=== PATIENT | female | born 1970 | race Caucasian/White ===

== ENCOUNTER 2016-05-28 21:10 | Emergency (ER) | payer OTHER, BC ==
[~2016-05-28] VITALS: Ht 162.6 cm; Wt 109.8 kg
[~2016-05-28 21:10] MED LIST: ACET-461 PO; ALPR1TAB2 PO; ALPR1TAB7 PO; BIOCLEANSE PO; CALC-706 PO; CETI5TAB6 PO; CHLO1TAB14 PO; CHOL100011 PO; CPR500T PO; CYCL10TA9 PO; EST.1TD TOP; FLAX100031 PO; HORMONE; HYDR-3730 PO; HYDR-3812 PO; HYDR-3816 PO; HYOS0.1216 PO; IBUP-15 PO; IBUP-30 PO; IBUP200C14 PO; L. A1CAP7 PO; LIPA1CAP19 PO; LIPA1CAP27 PO; LORA1TAB5 PO; LORA1TAB59 PO; LRT10T; MAGN400T6 PO; METR500T PO; MONT10TA21 PO; MONT10TA24 PO; ONDA2VIA PO; ONDA4TAB8 PO; ONDN4T PO; OXYC-12 PO; OXYC1TAB87 PO; PANT40TA2 PO; PANT40VI3 PO; PEDI100T PO; RANI150T15 PO; RANI150T90 PO; RNT150T PO; SUCR1ORA5 PO; TRAM50TA2 PO; TRM50T PO; VITA400T9 PO
--- OUTSIDE RECORDS SUMMARY | 2016-05-28 21:17 | XMS REPORT | Continuity of Care Document ---
Author Author [facility] Organization [facility] Address Unknown Phone Unavailable Care Team Providers Care Solution Sales Senior Executive Name Role Phone Unverified, Unverified PCP Unavailable Source Comments Some departments are not documenting in the electronic medical record. If you do not see the information that you expected, contact Release of Information in the Health Information Management department at [phone] for further assistance in locating additional records.[facility] Active Allergies and Adverse Reactions Allergen Noted Date Severity Reactions Comments Codeine 04/20/2016 High DELUSIONS Tylenol 3 Other 04/20/2016 Medium RASH, ITCHING Antibiotic- can not remember the name Stadol 04/20/2016 Low HEADACHE Current Medications Prescription Sig. Disp. Refills Start End Date Status Date ALPRAZolam (XANAX) 1 mg Take 1 mg by mouth at Active tablet bedtime as needed for Anxiety. hyoscyamine sulfate Take 125 mcg by mouth Active (LEVSIN) 0.125 mg tablet every 4 hours as needed for Cramps. pancrelipase (ZENPEP 20) Take 2 Caps by mouth Active 20,000-68,000 -109,000 three times daily with units capsule meals. sucralfate (CARAFATE) 1 Take 1 g by mouth four Active gram tablet times daily. Take on an empty stomach. HYDROcodone/acetaminophen Take 1 Tab by mouth every Active (NORCO) 5/325 mg tablet 6 hours as needed for Pain Active Problems Not on file Most Recent Encounters Date Type Specialty Providers Description 06/07/2016 [facility] Diony Kebede MD Recurrent pancreatitis Encounter (HCC) 05/10/2016 Orders Only Pulmonology Lynette Kim MD SOB ( shortness of breath) (Primary Dx) 04/21/2016 Telephone Gastroenterology Shweta Serrano Appointment Request - [facility] - [facility] 04/20/2016 Hospital Diony Kebede MD Encounter 04/20/2016 Office Visit Gastroenterology Diony Kebede MD Recurrent pancreatitis (HCC) (Primary Dx); 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 Prep for Case Gastroenterology Diony Kebede MD Social History Tobacco Use Types Packs/Day Years Used Date Former Smoker Quit: 09/14/2010 Alcohol Use Drinks/Week oz/Week Comments No 0 Standard 0.0 drinks or equivalent Last Filed Vital Signs Vital Sign Reading Time Taken Blood Pressure 128/81 04/20/2016 10:14 AM [employer] BACK TENDER Pulse 81 04/20/2016 10:14 AM [employer] BACK T[employer]ER Temperature 36.5 C (97.7 F) 04/20/2016 10:14 AM [employer] BACK T[employer]ER Respiratory Rate 16 04/20/2016 10:14 AM [employer] BACK T[employer]ER Height 1.6 m (5' 3") 04/20/2016 10:14 AM [employer] BACK T[employer]ER Weight 109.77 kg (242 lb) 04/20/2016 10:14 AM [employer] BACK T[employer]ER Body Mass Index 42.88 04/20/2016 10:14 AM [employer] BACK T[employer]ER Oxygen Saturation - - Plan of Care Date Type Specialty Providers Description 06/06/2016 Appointment 06/06/2016 Appointment Pulmonology Lynette Kim MD [facility] [address] [place] [address] [phone] (Fax) 06/07/2016 Surgery Diony Kebede MD ESOPHAGOGASTRODUODENOSCOP [address] [facility] Y ENDOSCOPIC ULTRASOUND [address] [place] [address] [phone] (Fax) 07/13/2016 Appointment [place] [address] [place] [address] [address] [place] [address] [phone] (Fax) Health Maintenance Due Date Last Done Comments Physical (Comprehensive) 1976 Exam Pertussis Vaccine 1980 Tetanus Vaccine 1986 Cervical Cancer Screening 1990 Breast Cancer Screening 2009 Influenza Vaccine 12/03/2015 Results from Last 3 Months IGG SUBCLASSES (04/20/2016 11:29 AM) Component Value Range Total IgG 970Comment: Reference range: 767 to 1590 Unit: mg/dL [facility] IgG Subclasses #1 473Comment: Reference range: 341 to 894 Unit: mg/dL [facility] IgG Subclasses #2 263Comment: MG/DL Reference range: 171 to 632 [facility] IgG Subclasses #3 40.9Comment: Reference range: 18.4 to 106.0 Unit: mg/dL [facility] IgG Subclasses #4 13.9Comment: Reference range: 2.4 to 121.0 Unit: mg/dL [facility] Specimen Blood
[2016-05-28 21:37] LABS: BILIRUBIN,URINE NEGATIVE (NEGATIVE); KETONES,URINE NEGATIVE (NEGATIVE); LEUKOCYTE ESTERASE ,URINE NEGATIVE (NEGATIVE); NITRITE,URINE NEGATIVE (NEGATIVE); PH,URINE 6 (5-9); PROTEIN,URINE 1+ (NEGATIVE); UROBILINOGEN,URINE NORMAL (NORMAL)
[2016-05-28 21:45] LABS: SQUAMOUS EPITHELIAL CELL,UR 0-2 /HPF
--- NOTE | 2016-05-28 21:53 | ED Abdominal Pain ---
General Stated Complaint: AB AND BACK PAIN Source of Information: Patient Exam Limitations: No Limitations History of Present Illness Time Seen By Provider: 21:51 Initial Comments To ER with epigastric abdominal pain that radiates through to her back for the past 3-4 days. She has a history of chronic pancreatitis for which she has seen gastroenterology including Dr. Luciano and a specialist at [facility]. She's had an intensive workup performed, cholecystectomy, consideration for future sphincterotomy by [facility]. She also reports that she's had a productive cough for the past few days. No fevers. She did vomit once last night but is not currently nauseated. Timing/Duration: 2-3 Days Severity/Quality: Moderate Radiation: No Radiation Associated Symptoms: Back Pain Nausea/Vomiting Allergies and Home Medications Allergies Coded Allergies: ciprofloxacin (Verified Allergy, Severe, 07/10/14) severe itching at iv site codeine (Unverified Allergy, Unknown, 07/08/14) PT STATED WHEN SHE HAS TYLENOL AND CODEINE TOGETHER (TYLENOL #3) SHE HAS TERRIBLE NIGHTMARES. butorphanol (Unverified Adverse Reaction, Unknown, SEVERE HEADACHES, ) Home Medications Alprazolam 1 Mg Tablet 0.5-1 MG PO BID PRN PRN ANXIETY (Reported) Hydrocodone/Acetaminophen 1 Each Tablet #14 1 EACH PO Q4H PRN PRN PAIN Prescribed by: ADELIA ANDERSON on 10/27/15 1604 Hyoscyamine Sulfate 0.125 Mg Tablet 0.25 MG PO QID (Reported) TAKES 2 (0.125 MG) TABLETS BEFORE MEALS AND AT BEDTIME Ibuprofen 200 Mg Tablet 800 MG PO DAILY PRN PRN PAIN (Reported) TAKES 4 (200MG) TABLETS NEEDED FOR PAIN Lipase/Protease/Amylase 1 Each Capsule.dr 1 EACH PO (Reported) Loratadine/Pseudoephedrine 1 Each Tab.er.12h 1 EACH PO DAILY (Reported) Ondansetron 4 Mg Tab.rapdis #10 4 MG PO Q4H PRN PRN NAUSEA/VOMITING Prescribed by: ADELIA ANDERSON on 10/27/15 1604 Pantoprazole Sodium 40 Mg Tablet.dr #15 40 MG PO DAILY Prescribed by: MAGALIS ETIENNE on 12/09/15 2342 Ranitidine HCl 150 Mg Tablet 150 MG PO (Reported) Sucralfate 1 Gm/10 Ml Oral.susp #400 1 GM PO QID AC AND HS Prescribed by: MAGALIS ETIENNE on 12/09/15 3062 Review of Systems Constitutional: see HPI EENTM: No Symptoms Reported Respiratory: No Symptoms Reported Cardiovascular: No Symptoms Reported Gastrointestinal: See HPI Abdominal PainDenies Constipated, Denies Diarrhea, Nausea Vomiting Genitourinary: No Symptoms Reported Musculoskeletal: see HPI back pain Skin: no symptoms reported Psychiatric/Neurological: No Symptoms Reported Endocrine: No Symptoms Reported Past Acwaldb-Hpbxba-Iaspnq Hx Patient Social History Type Used: Cigarettes Former Smoker/When Quit: Sep 14, 2010 2nd Hand Smoke Exposure: Yes Recent Foreign Travel: No Contact w/Someone Who Travel: No Recent Hopitalizations: No Immunizations Up To Date Tetanus Booster (TDap): Less than 5yrs PED Vaccines UTD: No Date of Influenza Vaccine: Feb 26, 2016 Seasonal Allergies Seasonal Allergies: Yes Surgeries HX Surgeries: Yes Surgeries: Abdominal, Appendectomy, Gallbladder, Hysterectomy, Oophorectomy, Orthopedic, Pancreatic Respiratory Hx Respiratory Disorders: Yes (atelectasis, nocturnal hypoxia with O2 supplementation) Respiratory Disorders: Asthma, Pneumonia Cardiovascular Hx Cardiac Disorders: No Cardiac Disorders: Hypertension Neurological Hx Neurological Disorders: No 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 System Hx 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 Disorders: Yes (Hysterectomy due to fibroid tumors) Sexually Transmitted Disease: No HIV/AIDS: No Female 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 Disorders: Denies 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 Genitourinary Hx Genitourinary Disorders: No Gastrointestinal Hx Gastrointestinal Disorders: Yes (pancreatitis x4 2015; CHRONIC PANCREATITIS) Gastrointestinal Disorders: Pancreatitis Musculoskeletal Hx Musculoskeletal Disorders: Yes Musculoskeletal Disorders: Arthritis Endocrine Hx Endocrine Disorders: No HEENT HX ENT Disorders: No Loss of Vision: Denies Hearing Impairment: Denies Cancer Hx Cancer: No Psychosocial Hx Psychiatric Problems: Yes Behavioral Health Disorders: Anxiety Integumentary HX Skin/Integumentary Disorder: No Blood Transfusions Hx Blood Disorders: No Adverse Reaction to a Blood Tr: No Family Medical History Significant Family History: Heart Disease, COPD, Hypertension Family Medial History: Arthritis 03 MOTHER Cancer 03 MOTHER Cardiovascular disease 03 FATHER Deafness or hearing loss 03 FATHER Fibrocystic disease of breast 03 MOTHER Hypercholesterolemia 03 FATHER 03 MOTHER Hypertension 03 MOTHER Osteoporosis 03 MOTHER Respiratory disorder 03 MOTHER No Family History of: AIDS Abdominal aortic aneurysm Favio's disease Alcoholism Alzheimer's disease Asthma Cancer of mouth Cataracts Colon cancer Completed stroke Congenital disease Congenital heart disease Coronary thrombosis Cystic fibrosis Dementia Diabetes mellitus Drug abuse Dysphasia Gastroenteritis Glaucoma Headache disorder Infertility Kidney disease Myocardial infarction Neoplasm Not obtainable due to adoption Parkinson's disease Prostate cancer Psychosocial problem Seizure disorder Severe allergy Thyroid disease Tuberculosis Visual disorder Physical Exam Vital Signs Capillary Refill : General Appearance: WD/WN no apparent distress HEENT: PERRL/EOMI normal ENT inspection Neck: non-tender full range of motion Respiratory: normal breath sounds no respiratory distress no accessory muscle use Gastrointestinal: normal bowel sounds soft tenderness (epigastric) Extremities: normal range of motion non-tender Neurologic/Psychiatric: alert normal mood/affect oriented x 3 Skin: normal color warm/dry Progress/Results/Core Measures Results/Orders Lab Results Laboratory Tests Test 05/28/16 21:30 05/28/16 22:00 Range/Units Ur Tricyclic Antidepressants Screen NEGATIVE NEGATIVE Urine Amphetamines Screen NEGATIVE NEGATIVE Urine Bacteria TRACE /HPF Urine Barbiturates Screen NEGATIVE NEGATIVE Urine Benzodiazepines Screen POSITIVE H NEGATIVE Urine Bilirubin NEGATIVE NEGATIVE Urine Cannabinoids Screen NEGATIVE NEGATIVE Urine Casts NONE /LPF Urine Clarity SLIGHTLY CLOUDY Urine Cocaine Screen NEGATIVE NEGATIVE Urine Color YELLOW Urine Crystals NONE /LPF Urine Culture Indicated NO Urine Glucose (UA) NEGATIVE NEGATIVE Urine Ketones NEGATIVE NEGATIVE Urine Leukocyte Esterase NEGATIVE NEGATIVE Urine Methadone Screen NEGATIVE NEGATIVE Urine Methamphetamines Screen NEGATIVE NEGATIVE Urine Mucus NEGATIVE /LPF Urine Nitrite NEGATIVE NEGATIVE Urine Opiates Screen POSITIVE H NEGATIVE Urine Oxycodone Screen NEGATIVE NEGATIVE Urine Phencyclidine Screen NEGATIVE NEGATIVE Urine Propoxyphene Screen NEGATIVE NEGATIVE Urine Protein 1+ H NEGATIVE Urine RBC 0-2 /HPF Urine RBC (Auto) 1+ H NEGATIVE Urine Specific Oil Trough 1.020 1.016-1.022 Urine Squamous Epithelial Cells 0-2 /HPF Urine Urobilinogen NORMAL NORMAL MG/DL Urine WBC NONE /HPF Urine pH 6 5-9 Alanine Aminotransferase (ALT/SGPT) 43 0-55 U/L Albumin 3.9 3.2-4.5 G/DL Alkaline Phosphatase 119 40-136 U/L Amylase Level 82 25-125 U/L Anion Gap 13 5-14 MMOL/L Aspartate Amino Transf (AST/SGOT) 25 5-34 U/L BUN/Creatinine Ratio 12 Basophils # (Auto) 0.0 0.0-0.1 10^3/uL Basophils (%) (Auto) 0 0-10 % Blood Urea Nitrogen 10 7-18 MG/DL C-Reactive Protein High Sensitivity 1.02 H 0.00-0.50 MG/DL Calcium Level 9.0 8.5-10.1 MG/DL Carbon Dioxide Level 22 21-32 MMOL/L Chloride Level 107 98-107 MMOL/L Creatinine 0.86 0.60-1.30 MG/DL Eosinophils # (Auto) 0.4 H 0.0-0.3 10^3/uL Eosinophils (%) (Auto) 4 0-10 % Estimat Glomerular Filtration Rate > 60 Glucose Level 103 70-105 MG/DL Hematocrit 41 35-52 % Hemoglobin 13.5 11.5-16.0 G/DL Lipase 118 H 8-78 U/L Lymphocytes # (Auto) 3.4 1.0-4.0 X 10^3 Lymphocytes (%) (Auto) 38 12-44 % Mean Corpuscular Hemoglobin 26 25-34 PG Mean Corpuscular Hemoglobin Concent 33 32-36 G/DL Mean Corpuscular Volume 80 80-99 FL Mean Platelet Volume 10.2 7.4-10.4 FL Monocytes # (Auto) 0.5 0.0-1.0 X 10^3 Monocytes (%) (Auto) 6 0-12 % Neutrophils # (Auto) 4.5 1.8-7.8 X 10^3 Neutrophils (%) (Auto) 52 42-75 % Platelet Count 289 130-400 10^3/uL Potassium Level 3.8 3.6-5.0 MMOL/L Red Blood Count 5.15 4.35-5.85 10^6/uL Red Cell Distribution Width 14.1 10.0-14.5 % Sodium Level 142 135-145 MMOL/L Total Bilirubin 0.3 0.1-1.0 MG/DL Total Protein 6.9 6.4-8.2 G/DL White Blood Count 8.8 4.3-11.0 10^3/uL My Orders Orders-BILL HEREDIA APRN Ua Culture If Indicated (05/28/16 21:16) Cbc With Automated Diff (05/28/16 21:48) Comprehensive Metabolic Panel (05/28/16 21:48) Erythrocyte Sedimentation Rate (05/28/16 21:48) Hs C Reactive Protein (05/28/16 21:48) Drug Screen Stat (Urine) (05/28/16 21:48) Saline Lock/Iv-Start (05/28/16 21:48) Antacid Suspension (Mylanta Suspension (05/28/16 22:00) Lidocaine 2% Viscous 15 Ml (Xylocaine Vi (05/28/16 22:00) Chest Pa/Lat (2 View) (05/28/16 21:48) Fentanyl Injection (Sublimaze Injection (05/28/16 22:00) Amylase (05/28/16 21:50) Lipase (05/28/16 21:50) Medications Given in ED Current Medications Medications Dose Ordered Sig/Fili Route Start Time Stop Time Status Last Admin Dose Admin Al Hydrox/Mg Hydrox/Simethicone 30 ml ONCE ONCE PO 05/28/16 22:00 05/28/16 22:01 DC 05/28/16 22:05 30 ML Fentanyl Citrate 75 mcg ONCE ONCE IVP 05/28/16 22:00 05/28/16 22:01 DC 05/28/16 22:06 75 MCG Lidocaine HCl 15 ml ONCE ONCE PO 05/28/16 22:00 05/28/16 22:01 DC 05/28/16 22:05 15 ML Departure Communication Progress Notes Significantly improved pain after the fentanyl. Impression Impression: Primary Impression: Chronic pancreatitis Disposition: 01 HOME, SELF-CARE Condition: Improved Departure-Patient Inst. Decision time for Depature: 22:37 Referrals: [facility] (PCP/Family) Primary Care Physician Patient Instructions: Chronic Pancreatitis, Peritonitis Add. Discharge Instructions: 1. Return to ER for any concerns 2. Clear liquids only for the next 24 hours 3. Scripts Hydrocodone/Acetaminophen (Martin 5-325 Tablet)1 Each Tablet1 Each PO Q4H PRN PAIN #14 TAB Prov:BILL HEREDIA BUCKSHOT SWAGE OPERATOR 05/28/16 BILL HEREDIA BUCKSHOT SWAGE OPERATOR May 28, 2016 21:53
[2016-05-28] MEDS ORDERED: LIDOCAINE 2% VISCOUS 15 ML UDC PO ONE (22:00)
[2016-05-28] MEDS ORDERED: ANTACID SUSP 30 ML UDC (MYLANTA) PO ONE (22:00)
[2016-05-28] MEDS ORDERED: fentaNYL INJECTION 100 MCG/2 ML AMP IVP ONE (22:00)
[2016-05-28 22:07] LABS: BASOPHILS % (AUTO) 0 % (0-10); EOSINOPHILS # (AUTO) 0.4 10^3/uL (0.0-0.3); EOSINOPHILS % (AUTO) 4 % (0-10); LYMPHOCYTES # (AUTO) 3.4 X 10^3 (1.0-4.0); LYMPHOCYTES % (AUTO) 38 % (12-44); MEAN CORPUSCULAR HEMOGLOBIN 26 PG (25-34); MEAN CORPUSCULAR HGB CONC 33 G/DL (32-36); MEAN CORPUSCULAR VOLUME 80 FL (80-99); MEAN PLATELET VOLUME 10.2 FL (7.4-10.4); MONOCYTES # (AUTO) 0.5 X 10^3 (0.0-1.0); MONOCYTES % (AUTO) 6 % (0-12); NEUTROPHILS # (AUTO) 4.5 X 10^3 (1.8-7.8); NEUTROPHILS % (AUTO) 52 % (42-75); PLATELET COUNT 289 10^3/uL (130-400); RED BLOOD COUNT 5.15 10^6/uL (4.35-5.85); RED CELL DISTRIBUTION WIDTH 14.1 % (10.0-14.5); WHITE BLOOD COUNT 8.8 10^3/uL (4.3-11.0)
[2016-05-28 22:26] LABS: ALANINE AMINOTRANSFERASE 43 U/L (0-55); ALBUMIN 3.9 G/DL (3.2-4.5); AMYLASE 82 U/L (25-125); ANION GAP 13 MMOL/L (5-14); ASPARTATE AMINO TRANSFERASE 25 U/L (5-34); BILIRUBIN,TOTAL 0.3 MG/DL (0.1-1.0); BLOOD UREA NITROGEN 10 MG/DL (7-18); BUN/CREATININE RATIO 12; CARBON DIOXIDE 22 MMOL/L (21-32); CHLORIDE 107 MMOL/L (98-107); CREATININE SERUM 0.86 MG/DL (0.60-1.30); GFR ESTIMATED > 60; GLUCOSE 103 MG/DL (70-105); LIPASE 118 U/L (8-78); POTASSIUM 3.8 MMOL/L (3.6-5.0); SODIUM 142 MMOL/L (135-145); TOTAL PROTEIN 6.9 G/DL (6.4-8.2); hs C REACTIVE PROTEIN 1.02 MG/DL (0.00-0.50)
[2016-05-28 22:37] LABS: ERYTHROCYTE SEDIMENTATION RATE 11 MM/HR (0-20)
[2016-05-28] MEDS ORDERED: HYDR-757 PO (22:38)
[2016-05-28 22:45] VITALS: BP 125/88
[2016-05-28] MEDS ORDERED: oxyCODONE/APAP 5/325MG (PERCOCET 5) TABLET PO ONE (22:45)
--- NOTE | 2016-05-29 07:07 | Diagnostic Imaging Report ---
INDICATION: Back pain COMPARISON: 08/12/2015 FINDINGS: Two views of the chest were obtained. Heart size is normal. The pulmonary vessels appear unremarkable. There is no pneumothorax, mediastinal widening or pleural fluid demonstrated. The lungs are clear. No osseous abnormality is seen. IMPRESSION: No radiographic evidence of an acute cardiopulmonary abnormality. Dictated by: Dictated on workstation # [id number]
== END 2016-05-28 22:48 | disposition home or self-care (01) ==
LOC: EDUNIT# 21:10 → ER 21:13
DX: K86.1 Other chronic pancreatitis (principal); Z79.899 Other long term (current) drug therapy
CPT/HCPCS: 36415; 71020; 80053; 80306; 81000; 82150; 83690; 85025; 85652; 86141; 96374

== ENCOUNTER 2016-06-02 04:55 | Emergency (ER) | payer OTHER, BC ==
[~2016-06-02] VITALS: Ht 160 cm; Wt 109.3 kg
[~2016-06-02 04:55] MED LIST changes: +HYDR-757 PO
--- OUTSIDE RECORDS SUMMARY | 2016-06-02 05:01 | XMS REPORT | Continuity of Care Document ---
Author Author [facility] Organization [facility] Address Unknown Phone Unavailable Care Team Providers Care Project Superintendent Name Role Phone Unverified, Unverified PCP Unavailable Source Comments Some departments are not documenting in the electronic medical record. If you do not see the information that you expected, contact Release of Information in the Health Information Management department at [phone] for further assistance in locating additional records.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 Pulse 81 04/20/2016 10:14 AM PROFESSIONAL ATHLETES COACH Temperature 36.5 C (97.7 F) 04/20/2016 10:14 AM PROFESSIONAL ATHLETES COACH Respiratory Rate 16 04/20/2016 10:14 AM PROFESSIONAL ATHLETES COACH Height 1.6 m (5' 3") 04/20/2016 10:14 AM PROFESSIONAL ATHLETES COACH Weight 109.77 kg (242 lb) 04/20/2016 10:14 AM PROFESSIONAL ATHLETES COACH Body Mass Index 42.88 04/20/2016 10:14 AM PROFESSIONAL ATHLETES COACH Oxygen Saturation - - Plan of Care Date Type Specialty Providers Description 06/06/2016 Appointment 06/06/2016 Appointment Pulmonology Lynette Kim MD [facility] [address] [place] [address] [phone] (Fax) 06/07/2016 Surgery Diony Kebede MD ESOPHAGOGASTRODUODENOSCOP [address] [facility] Y ENDOSCOPIC ULTRASOUND [address] [place] [address] [phone] (Fax) 07/13/2016 Appointment [place] [address] [place] [address] [address] [place] [address] [phone] (Fax) Health Maintenance Due Date Last Done Comments Physical (Comprehensive) 1977 Exam Pertussis Vaccine 1980 Tetanus Vaccine 1986 Cervical Cancer Screening 1990 Breast Cancer Screening 2009 Influenza Vaccine 12/02/2016 Results from Last 3 Months IGG SUBCLASSES (04/20/2016 11:29 AM) Component Value Range Total IgG 970Comment: Reference range: 767 to 1590 Unit: mg/dL [facility] IgG Subclasses #1 473Comment: Reference range: 341 to 894 Unit: mg/dL [facility] IgG Subclasses #2 263Comment: MG/DL Reference range: 171 to 632 [facility] IgG Subclasses #3 40.9Comment: Reference range: 18.4 to 106.0 Unit: mg/dL [facility] IgG Subclasses #4 13.9Comment: Reference range: 2.4 to 121.0 Unit: mg/dL [facility] Specimen Blood
[2016-06-02] MEDS ORDERED: RT-ALBUTEROL/IPRATROPIUM 3 ML (DUONEB) VIAL INH ONE (05:30)
--- NOTE | 2016-06-02 05:45 | ED Respiratory ---
General Chief Complaint: Cough/Cold/Flu Symptoms Stated Complaint: SOB,VOMITING,ABD PAIN,COUGHING Nursing Triage Note: PT TO ED 5 W/ C/O SOA ONSET X2WKS. PT REPORTS WAS DX W/ THE FLU X2WKS AGO ET HAS HAD COUGH ET SOA SINCE. PT STATES SHE RECEIVED A STEROID SHOT MONDAY BUT DENIES IMPROVEMENT. PT ALSO C/O GENERALIZED ACHES SINCE Source: patient Exam Limitations: no limitations (ANAND GUNN MD) History of Present Illness Time seen by provider: 05:41 Initial Comments Patient complains of nonproductive cough and shortness of air for the past 2 weeks. This has been ever since she was diagnosed with the flu. She received a steroid shot last week and her primary care physician's office. She is coughing so hard that her upper abdomen hurts. She has a history of chronic pancreatitis and was seen for this a few days ago. She has some vomiting ( vomited once yesterday). Stools have been normal. She denies fevers. (ANAND GUNN MD) Allergies and Home Medications Allergies Coded Allergies: ciprofloxacin (Verified Allergy, Severe, 07/10/14) severe itching at iv site codeine (Unverified Allergy, Unknown, 07/08/14) PT STATED WHEN SHE HAS TYLENOL AND CODEINE TOGETHER (TYLENOL #3) SHE HAS TERRIBLE NIGHTMARES. butorphanol (Unverified Adverse Reaction, Unknown, SEVERE HEADACHES, ) Home Medications Alprazolam 1 Mg Tablet 0.5-1 MG PO BID PRN PRN ANXIETY (Reported) Hydrocodone/Acetaminophen 1 Each Tablet #14 1 EACH PO Q4H PRN PRN PAIN Prescribed by: ADELIA ANDERSON on 10/27/15 1604 Hydrocodone/Acetaminophen 1 Each Tablet #14 1 EACH PO Q4H PRN PRN PAIN Prescribed by: BILL HEREDIA on 05/28/16 2238 Hyoscyamine Sulfate 0.125 Mg Tablet 0.25 MG PO QID (Reported) TAKES 2 (0.125 MG) TABLETS BEFORE MEALS AND AT BEDTIME Ibuprofen 200 Mg Tablet 800 MG PO DAILY PRN PRN PAIN (Reported) TAKES 4 (200MG) TABLETS NEEDED FOR PAIN Lipase/Protease/Amylase 1 Each Capsule.dr 1 EACH PO (Reported) Loratadine/Pseudoephedrine 1 Each Tab.er.12h 1 EACH PO DAILY (Reported) Ondansetron 4 Mg Tab.rapdis #10 4 MG PO Q4H PRN PRN NAUSEA/VOMITING Prescribed by: ADELIA ANDERSON on 10/27/15 1604 Pantoprazole Sodium 40 Mg Tablet.dr #15 40 MG PO DAILY Prescribed by: MAGALIS ETIENNE on 12/09/15 234 Ranitidine HCl 150 Mg Tablet 150 MG PO (Reported) Sucralfate 1 Gm/10 Ml Oral.susp #400 1 GM PO QID AC AND HS Prescribed by: MAGALIS ETIENNE on 12/09/15 2342 Constitutional: No fever, malaise weakness EENTM: nose congestion Respiratory: cough short of breath wheezing Cardiovascular: no symptoms reported Gastrointestinal: abdominal pain Musculoskeletal: no symptoms reported Skin: no symptoms reported Psychiatric/Neurological: No Symptoms Reported (ANAND GUNN MD) All Other Systems Reviewed Negative Unless Noted: Yes (ANAND GUNN MD) Past Uaephup-Qthuua-Wmgkde Hx Patient Social History Alcohol Use: Denies Use Recreational Drug Use: No Smoking Status: Former Smoker Type Used: Cigarettes Former Smoker/When Quit: Sep 14, 2010 2nd Hand Smoke Exposure: Yes Recent Foreign Travel: No Contact w/Someone Who Travel: No Recent Infectious Disease Expo: No Recent Hopitalizations: No (ANAND GUNN MD) Immunizations Up To Date Tetanus Booster (TDap): Less than 5yrs PED Vaccines UTD: No Date of Influenza Vaccine: Feb 26, 2016 (ANAND GUNN MD) Seasonal Allergies Seasonal Allergies: Yes (ANAND GUNN MD) Surgeries HX Surgeries: Yes Surgeries: Abdominal, Appendectomy, Gallbladder, Hysterectomy, Oophorectomy, Orthopedic, Pancreatic (ANAND GUNN MD) Respiratory Hx Respiratory Disorders: Yes (atelectasis, nocturnal hypoxia with O2 supplementation) Respiratory Disorders: Asthma, Pneumonia (ANAND GUNN MD) Cardiovascular Hx Cardiac Disorders: No Cardiac Disorders: Hypertension (ANAND GUNN MD) Neurological Hx Neurological Disorders: No (ANAND GUNN MD) 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 System Hx 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 Disorders: Yes (Hysterectomy due to fibroid tumors) Sexually Transmitted Disease: No HIV/AIDS: No Female 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 Disorders: 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 (ANAND GUNN MD) Genitourinary Hx Genitourinary Disorders: No (ANAND GUNN MD) Gastrointestinal Hx Gastrointestinal Disorders: Yes (pancreatitis x4 2015; CHRONIC PANCREATITIS) Gastrointestinal Disorders: Pancreatitis (ANAND GUNN MD) Musculoskeletal Hx Musculoskeletal Disorders: Yes Musculoskeletal Disorders: Arthritis (ANAND GUNN MD) Endocrine Hx Endocrine Disorders: No (ANAND GUNN MD) HEENT HX ENT Disorders: No Loss of Vision: Denies Hearing Impairment: Denies (ANAND GUNN MD) Cancer Hx Cancer: No (ANAND GUNN MD) Psychosocial Hx Psychiatric Problems: Yes Behavioral Health Disorders: Anxiety (ANAND GUNN MD) Integumentary HX Skin/Integumentary Disorder: No (ANAND GUNN MD) Blood Transfusions Hx Blood Disorders: No Adverse Reaction to a Blood Tr: No (ANAND GUNN MD) Reviewed Nursing Assessment Reviewed/Agree w Nursing PMH: Yes (ANAND GUNN MD) Family Medical History Significant Family History: Heart Disease, COPD, Hypertension Family Medial History: Arthritis 03 MOTHER Cancer 03 MOTHER Cardiovascular disease 03 FATHER Deafness or hearing loss 03 FATHER Fibrocystic disease of breast 03 MOTHER Hypercholesterolemia 03 FATHER 03 MOTHER Hypertension 03 MOTHER Osteoporosis 03 MOTHER Respiratory disorder 03 MOTHER No Family History of: AIDS Abdominal aortic aneurysm Alpine's disease Alcoholism Alzheimer's disease Asthma Cancer of mouth Cataracts Colon cancer Completed stroke Congenital disease Congenital heart disease Coronary thrombosis Cystic fibrosis Dementia Diabetes mellitus Drug abuse Dysphasia Gastroenteritis Glaucoma Headache disorder Infertility Kidney disease Myocardial infarction Neoplasm Not obtainable due to adoption Parkinson's disease Prostate cancer Psychosocial problem Seizure disorder Severe allergy Thyroid disease Tuberculosis Visual disorder (ANAND GUNN MD) Family Medial History: Arthritis 03 MOTHER Cancer 03 MOTHER Cardiovascular disease 03 FATHER Deafness or hearing loss 03 FATHER Fibrocystic disease of breast 03 MOTHER Hypercholesterolemia 03 FATHER 03 MOTHER Hypertension 03 MOTHER Osteoporosis 03 MOTHER Respiratory disorder 03 MOTHER No Family History of: AIDS Abdominal aortic aneurysm Alpine's disease Alcoholism Alzheimer's disease Asthma Cancer of mouth Cataracts Colon cancer Completed stroke Congenital disease Congenital heart disease Coronary thrombosis Cystic fibrosis Dementia Diabetes mellitus Drug abuse Dysphasia Gastroenteritis Glaucoma Headache disorder Infertility Kidney disease Myocardial infarction Neoplasm Not obtainable due to adoption Parkinson's disease Prostate cancer Psychosocial problem Seizure disorder Severe allergy Thyroid disease Tuberculosis Visual disorder (MARLA AMEZQUITA MD) Physical Exam Vital Signs Vital Sign - Last 12Hours 06/02/16 04:59 Temp 98.9 Pulse 98 Resp 24 B/P 149/89 Pulse Ox 92 O2 Delivery Room Air (MARLA AMEZQUITA MD) Vital Signs Capillary Refill : Less Than 3 Seconds (ANAND GUNN MD) General Appearance: WD/WN mild distress (intermittent weak cough) Eyes: Bilateral Eye EOMI, Bilateral Eye Normal Inspection, Bilateral Eye PERRL HEENT: PERRL/EOMI pharynx normal Neck: supple Respiratory: lungs clear normal breath sounds Cardiovascular: regular rate, rhythm no edema Gastrointestinal: softNo distended, No guarding, No rebound, tenderness ( tender in epigastrium) Extremities: normal inspection Neurologic/Psychiatric: alert normal mood/affect Skin: normal color warm/dry (ANAND GUNN MD) Progress/Results/Core Measures Results/Orders Lab Results Laboratory Tests Test 06/02/16 05:24 Range/Units Alanine Aminotransferase (ALT/SGPT) 45 0-55 U/L Albumin 3.7 3.2-4.5 G/DL Alkaline Phosphatase 124 40-136 U/L Anion Gap 13 5-14 MMOL/L Aspartate Amino Transf (AST/SGOT) 31 5-34 U/L BUN/Creatinine Ratio 12 Band Neutrophils 0 % Basophils # (Auto) 0.0 0.0-0.1 10^3/uL Basophils % (Manual) 0 % Basophils (%) (Auto) 0 0-10 % Blood Urea Nitrogen 10 7-18 MG/DL Calcium Level 8.7 8.5-10.1 MG/DL Carbon Dioxide Level 19 L 21-32 MMOL/L Chloride Level 107 98-107 MMOL/L Creatinine 0.84 0.60-1.30 MG/DL Eosinophils # (Auto) 0.3 0.0-0.3 10^3/uL Eosinophils % (Manual) 3 % Eosinophils (%) (Auto) 2 0-10 % Estimat Glomerular Filtration Rate > 60 Glucose Level 99 70-105 MG/DL Hematocrit 39 35-52 % Hemoglobin 12.8 11.5-16.0 G/DL Lipase 24 8-78 U/L Lymphocytes # (Auto) 3.7 1.0-4.0 X 10^3 Lymphocytes % (Manual) 24 % Lymphocytes (%) (Auto) 22 12-44 % Mean Corpuscular Hemoglobin 26 25-34 PG Mean Corpuscular Hemoglobin Concent 33 32-36 G/DL Mean Corpuscular Volume 80 80-99 FL Mean Platelet Volume 10.0 7.4-10.4 FL Microcytosis SLIGHT Monocytes # (Auto) 1.5 H 0.0-1.0 X 10^3 Monocytes % (Manual) 9 % Monocytes (%) (Auto) 9 0-12 % Neutrophils # (Auto) 11.4 H 1.8-7.8 X 10^3 Neutrophils % (Manual) 64 % Neutrophils (%) (Auto) 68 42-75 % Platelet Count 361 130-400 10^3/uL Potassium Level 3.4 L 3.6-5.0 MMOL/L Red Blood Count 4.85 4.35-5.85 10^6/uL Red Cell Distribution Width 14.4 10.0-14.5 % Sodium Level 139 135-145 MMOL/L Total Bilirubin 0.6 0.1-1.0 MG/DL Total Protein 6.4 6.4-8.2 G/DL White Blood Count 16.9 H 4.3-11.0 10^3/uL (MARLA AMEZQUITA MD) My Orders Orders-MARLA AMEZQUITA MD Ns Iv 1000 Ml (Sodium Chloride 0.9%) (06/02/16 07:00) Ketorolac Injection (Toradol Injection) (06/02/16 07:15) Antacid Suspension (Mylanta Suspension (06/02/16 07:15) Lidocaine 2% Viscous 15 Ml (Xylocaine Vi (06/02/16 07:15) (MARLA AMEZQUITA MD) Medications Given in ED Current Medications Medications Dose Ordered Sig/Fili Route Start Time Stop Time Status Last Admin Dose Admin Al Hydrox/Mg Hydrox/Simethicone 30 ml ONCE ONCE PO 06/02/16 07:15 06/02/16 07:16 DC 06/02/16 07:21 30 ML Albuterol/ Ipratropium 3 ml ONCE ONCE INH 06/02/16 05:30 06/02/16 05:31 DC 06/02/16 05:41 3 ML Ketorolac Tromethamine 30 mg ONCE ONCE IVP 06/02/16 07:15 06/02/16 07:16 DC 06/02/16 07:22 30 MG Lidocaine HCl 5 ml ONCE ONCE PO 06/02/16 07:15 06/02/16 07:16 DC 06/02/16 07:22 5 ML (MARLA AMEZQUITA MD) Vital Signs/I&O Vital Sign - Last 12Hours 06/02/16 06/02/16 06/02/16 04:59 04:59 05:41 Temp 98.9 Pulse 98 Resp 24 B/P 149/89 Pulse Ox 92 94 O2 Delivery Room Air Room Air (MARLA AMEZQUITA MD) Blood Pressure Mean: 109 Progress Note : Time: 06:00 Progress Note Care was transferred to Dr. Amezquita at 0600 (ANAND GUNN MD) Departure Communication Progress Notes 10 30: The patient has continued to add to her list of complaints. Chest x-ray and lab are unremarkable. She has a 16,000 white count however it is noted that she was received steroids as an outpatient. Despite her past history of pancreatitis her lipase is normal. (MARLA AMEZQUITA MD) Impression Impression: Primary Impression: viral URI Disposition: HOME, SELF-CARE Condition: Stable/Unchanged Departure-Patient Inst. Decision time for Depature: 07:49 (MARLA AMEZQUITA MD) Referrals: [facility] (PCP/Family) Primary Care Physician Patient Instructions: Viral Upper Respiratory Infection, Adult (DC) Add. Discharge Instructions: All discharge instructions reviewed with patient and/or family. Voiced understanding. The indicators are that you have a viral upper respiratory infection. It has not been unusual for the symptoms to last 3 weeks or more. You should address your attention to increasing fluid intake. In addition Tylenol or ibuprofen are useful for fever or muscle aches. If further problems see your provider ANAND GUNN MD Jun 02, 2016 05:45 MARLA AMEZQUITA MD Jun 02, 2016 07:51
[2016-06-02 05:59] LABS: BASOPHILS % (AUTO) 0 % (0-10); EOSINOPHILS # (AUTO) 0.3 10^3/uL (0.0-0.3); EOSINOPHILS % (AUTO) 2 % (0-10); LYMPHOCYTES # (AUTO) 3.7 X 10^3 (1.0-4.0); LYMPHOCYTES % (AUTO) 22 % (12-44); MEAN CORPUSCULAR HEMOGLOBIN 26 PG (25-34); MEAN CORPUSCULAR HGB CONC 33 G/DL (32-36); MEAN CORPUSCULAR VOLUME 80 FL (80-99); MONOCYTES # (AUTO) 1.5 X 10^3 (0.0-1.0); MONOCYTES % (AUTO) 9 % (0-12); NEUTROPHILS # (AUTO) 11.4 X 10^3 (1.8-7.8); NEUTROPHILS % (AUTO) 68 % (42-75); PLATELET COUNT 361 10^3/uL (130-400); RED BLOOD COUNT 4.85 10^6/uL (4.35-5.85); RED CELL DISTRIBUTION WIDTH 14.4 % (10.0-14.5); WHITE BLOOD COUNT 16.9 10^3/uL (4.3-11.0)
[2016-06-02 06:12] LABS: ALANINE AMINOTRANSFERASE 45 U/L (0-55); ALBUMIN 3.7 G/DL (3.2-4.5); ANION GAP 13 MMOL/L (5-14); ASPARTATE AMINO TRANSFERASE 31 U/L (5-34); BILIRUBIN,TOTAL 0.6 MG/DL (0.1-1.0); BLOOD UREA NITROGEN 10 MG/DL (7-18); BUN/CREATININE RATIO 12; CALCIUM 8.7 MG/DL (8.5-10.1); CARBON DIOXIDE 19 MMOL/L (21-32); CHLORIDE 107 MMOL/L (98-107); CREATININE SERUM 0.84 MG/DL (0.60-1.30); GFR ESTIMATED > 60; GLUCOSE 99 MG/DL (70-105); LIPASE 24 U/L (8-78); POTASSIUM 3.4 MMOL/L (3.6-5.0); SODIUM 139 MMOL/L (135-145); TOTAL PROTEIN 6.4 G/DL (6.4-8.2)
--- NOTE | 2016-06-02 06:26 | Diagnostic Imaging Report ---
INDICATION: Shortness of air, chest pain. TECHNIQUE: Two view chest 6:19 AM CORRELATION STUDY: 05/28/2016 FINDINGS: The heart size, mediastinal configuration and pulmonary vasculature are within normal limits. There is minimal atelectasis or infiltrate left lung base. Small effusion also likely present. Mild compression deformity in the midthoracic vertebral body. IMPRESSION: 1. Suggestion of minimal atelectasis or infiltrate of the left lung base along with small left pleural effusion. Dictated by: Dictated on workstation # [id number]
[2016-06-02 06:31] LABS: BAND NEUTROPHILS 0 %; BASOPHILS % (MANUAL) 0 %; EOSINOPHILS % (MANUAL) 3 %; LYMPHOCYTES % (MANUAL) 24 %; MICROCYTOSIS SLIGHT; NEUTROPHILS % (MANUAL) 64 %
[2016-06-02] MEDS ORDERED: NS IV 1000 ML 1,000 ML IV SCH (07:00)
[2016-06-02] MEDS ORDERED: KETOROLAC 30 MG/ML VIAL IVP ONE (07:15)
[2016-06-02] MEDS ORDERED: LIDOCAINE 2% VISCOUS 15 ML UDC PO ONE (07:15)
[2016-06-02] MEDS ORDERED: ANTACID SUSP 30 ML UDC (MYLANTA) PO ONE (07:15)
[2016-06-02 08:28] VITALS: BP 121/57
== END 2016-06-02 08:28 | disposition home or self-care (01) ==
LOC: EDUNIT# 04:55 → ER 04:56
DX: J06.9 Acute upper respiratory infection, unspecified (principal); Z87.891 Personal history of nicotine dependence
CPT/HCPCS: 36415; 71020; 80053; 83690; 85007; 85027; 94640; 96361; 96374

== ENCOUNTER 2016-06-07 10:24 | Inpatient (IN) | payer OTHER, BC ==
[~2016-06-07] VITALS: Ht 160 cm; Wt 107.5 kg
[2016-06-07] MEDS ORDERED: cefTRIAXone INJECTION 1,000 MG in NS (IVPB) 50 ML IV SCH (10:30)
--- OUTSIDE RECORDS SUMMARY | 2016-06-07 11:26 | XMS REPORT | Continuity of Care Document ---
Author Author [facility] Organization [facility] Address Unknown Phone Unavailable Care Team Providers Care Processor Solid Propellant Name Role Phone Huey Kary PCP [phone] Source Comments Some departments are not documenting in the electronic medical record. If you do not see the information that you expected, contact Release of Information in the Health Information Management department at [phone] for further assistance in locating additional records.[facility] Active Allergies and Adverse Reactions [...] tablet 6 hours as needed for Pain umeclidinium 62.5 Inhale by mouth into the Active mcg/actuation dsdv lungs. olodaterol 2.5 Inhale 1 Puff by mouth Active mcg/actuation mist into the lungs. Active Problems Not on file Most Recent Encounters Date Type Specialty Providers Description 06/07/2016 [facility] Diony Kebede MD Recurrent pancreatitis Encounter (HCC) 06/06/2016 [facility] Lynette Kim MD Shortness of breath Encounter 06/06/2016 Office Visit Pulmonology Lynette Kim MD SOB ( shortness of breath) (Primary Dx) 06/06/2016 Hospital Radiology Lynette Kim MD Arrived Encounter 06/06/2016 [facility] Lynette Kim MD Encounter 06/06/2016 Surgery Diony Kebede MD ESOPHAGOGASTRODUODENOSCOP Y ENDOSCOPIC ULTRASOUND 06/03/2016 Abstract Pulmonology Lynette Kim MD 05/10/2016 Orders Only Pulmonology Lynette Kim MD SOB ( shortness of breath) (Primary Dx) 04/21/2016 Telephone Gastroenterology Shweta Serrano Appointment Request - Upper EUS - [facility] 04/20/2016 [facility] Diony Kebede MD Encounter 04/20/2016 Office Visit Gastroenterology Diony Kebede MD Recurrent pancreatitis (HCC) (Primary Dx); 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 Prep for Case Gastroenterology Diony Kebede MD Social History Tobacco Use Types Packs/Day Years Used Date Former Smoker Quit: 09/14/2010 Alcohol Use Drinks/Week oz/Week Comments No 0 Standard 0.0 drinks or equivalent Last Filed Vital Signs Vital Sign Reading Time Taken Blood Pressure 125/81 06/06/2016 12:58 PM 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 OPERATOR Pulse 94 06/06/2016 12:58 PM GAS SHOVEL OPERATOR Temperature 36.7 C (98.1 F) 06/06/2016 12:58 PM GAS SHOVEL OPERATOR Respiratory Rate 16 06/06/2016 12:58 PM GAS SHOVEL OPERATOR Height 1.6 m (5' 3") 06/06/2016 12:58 PM GAS SHOVEL OPERATOR Weight 108.41 kg (239 lb) 06/06/2016 12:58 PM GAS SHOVEL OPERATOR Body Mass Index 42.35 06/06/2016 12:58 PM GAS SHOVEL OPERATOR Oxygen Saturation 90% 06/06/2016 12:58 PM GAS SHOVEL OPERATOR Plan of Care Date Type Specialty Providers Description 07/13/2016 Appointment Gastroenterology Diony Kebede MD [address] [facility] [address] [place] [address] [phone] (Fax) Health Maintenance Due Date Last Done Comments Physical (Comprehensive) 1976 Exam Pertussis Vaccine 1980 Tetanus Vaccine 1986 Cervical Cancer Screening 1990 Breast Cancer Screening 2009 Influenza Vaccine 12/02/2016 Results from Last 3 Months [facility] REFERENCE TEST (06/06/2016 2:31 PM) Component Value Range Test Stachybotrys Panel II Reference Lab [facility] Results Ref Lab SEE REF LAB RESULT Specimen Mail SERUM IMMUNOGLOBULIN E (IGE) (06/06/2016 2:30 PM) Component Value Range IgE 56Comment: NOTE NEW METHODOLOGY AND REFERENCE <165 IU/ML RANGE Specimen Blood CBC AND DIFF (06/06/2016 2:30 PM) Component Value Range White Blood Cells 16.0 (H) 4.5-11.0 K/UL RBC 4.54 4.0-5.0 M/UL Hemoglobin 12.0 12.0-15.0 GM/DL Hematocrit 36.0 36-45 % MCV 79.4 (L) 80-100 FL MCH 26.4 26-34 PG MCHC 33.3 32.0-36.0 G/DL RDW 14.8 11-15 % Platelet Count 446 (H) 150-400 K/UL MPV 7.6 7-11 FL Neutrophils 74 41-77 % Lymphocytes 12 (L) 24-44 % Monocytes 10 4-12 % Eosinophils 4 0-5 % Basophils 0 0-2 % Absolute Neutrophil Count 11.80 (H) 1.8-7.0 K/UL Absolute Lymph Count 2.00 1.0-4.8 K/UL Absolute Monocyte Count 1.60 (H) 0-0.80 K/UL Absolute Eosinophil Count 0.60 (H) 0-0.45 K/UL Absolute Basophil Count 0.00 0-0.20 K/UL Specimen Blood CHEST 2 VIEWS (06/06/2016 10:53 AM) Impressions Patchy bilateral airspace opacities and focal consolidation in the left upper lobe, likely related to multifocal pneumonia.Recommend repeat two view chest radiograph following course of therapy. Finalized by Rayne Santana M.D. on 06/06/2016 12:26 PM. Dictated by Rayne Santana M.D. on 06/06/2016 12:23 PM. Narrative CHEST 2 VIEWS CLINICAL INDICATION: Female, 45 years; dyspnea COMPARISON: None FINDINGS: The heart size and pulmonary vasculature are within normal limits.There is focal consolidation in the lingula, with additional patchy airspace opacities in the right upper and bilateral lower lobes.Probable small bilateral pleural effusions.No pneumothorax. Procedure Note Interface, Radiant Results - MonJun 06, 2016 12:29 PM GAS SHOVEL OPERATOR CHEST 2 VIEWS CLINICAL INDICATION: Female, 45 years; dyspnea COMPARISON: None FINDINGS: The heart size and pulmonary vasculature are within normal limits. There is focal consolidation in the lingula, with additional patchy airspace opacities in the right upper and bilateral lower lobes. Probable small bilateral pleural effusions. No pneumothorax. IMPRESSION Patchy bilateral airspace opacities and focal consolidation in the left upper lobe, likely related to multifocal pneumonia. Recommend repeat two view chest radiograph following course of therapy. Finalized by Rayne Santana M.D. on 06/06/2016 12:26 PM. Dictated by Rayne Santana M.D. on 06/06/2016 12:23 PM. IGG SUBCLASSES (04/20/2016 11:29 AM) Component Value Range Total IgG 970Comment: Reference range: 767 to 1590 Unit: mg/dL [facility] IgG Subclasses #1 473Comment: Reference range: 341 to 894 Unit: mg/dL [facility] IgG Subclasses #2 263Comment: MG/DL Reference range: 171 to 632 [facility] IgG Subclasses #3 40.9Comment: Reference range: 18.4 to 106.0 Unit: mg/dL [facility] IgG Subclasses #4 13.9Comment: Reference range: 2.4 to 121.0 Unit: mg/dL [facility] Specimen Blood
[2016-06-07 11:30] VITALS: BP 114/80
[2016-06-07] MEDS ORDERED: ACETAMINOPHEN 500 MG TAB (TYLENOL) PO PRN (12:00)
[2016-06-07] MEDS ORDERED: fentaNYL INJECTION 100 MCG/2 ML AMP IVP PRN (12:00)
--- NOTE | 2016-06-07 12:23 | History & Physical-Hospitalist ---
HPI History of Present Illness: HPI/Chief Complaint CC: Wheezing and Dyspnea HPI: This is a 45-year-old white female it sees a worker's comp dental service chief at [facility] Dr. Vides who just saw the patient yesterday for possible black mold pneumonitis that has required nighttime oxygen for the past one year that presented to Dr. Arzate a [facility] today at the clinic was found to be hypoxic requiring IV steroids and empiric antibiotic coverage for pneumonitis and pulmonology consultation. She works at [employer] and used to see Dr. Juarez as her primary care provider. 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 Luciano for chronic pancreatitis but in postoperative state she had a bronchospasm that is continued to worsen through the last several months. She has been to the emergency room twice for left pleuritic chest pain but she has worsened with wheezing and shortness of breath requiring hospitalization. Source: patient Exam Limitations: clinical condition (severe shortness of breath) Date Seen 06/07/16 Attending Physician Kary Arzate MD PCP [facility] [place] Referring Physician Date of Admission Jun 07, 2016 at 11:19 Home Medications & Allergies Home Medications Reviewed patient Home Medication Reconciliation Form Allergies Coded Allergies: ciprofloxacin (Verified Allergy, Severe, 07/10/14) severe itching at iv site codeine (Unverified Allergy, Unknown, 07/08/14) PT STATED WHEN SHE HAS TYLENOL AND CODEINE TOGETHER (TYLENOL #3) SHE HAS TERRIBLE NIGHTMARES. 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[employer]) Smoking Status: Former Smoker (quit 6 years ago) Former smoker/When Quit: Sep 14, 2010 Type Used: Cigarettes 2nd Hand Smoke Exposure: Yes Recent Foreign Travel: No Contact w/other who traveled: No Recent Hopitalizations: No Immunizations Up To Date Tetanus Booster (TDap): Less than 5yrs Date of Influenza Vaccine: Feb 26, 2016 Seasonal Allergies Seasonal Allergies: Yes Surgeries HX Surgeries: Yes Surgeries: Abdominal, Appendectomy, Gallbladder, Hysterectomy, Oophorectomy, Orthopedic, Pancreatic Respiratory Hx Respiratory Disorders: Yes (atelectasis, nocturnal hypoxia with O2 supplementation) Respiratory Disorders: COPD Cardiovascular Hx Cardiovascular Disorders: Yes Cardiac Disorders: Hypertension Neurological Hx Neurological Disorders: No 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 System Hx 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 Disorders: Yes (Hysterectomy due to fibroid tumors) Sexually Transmitted Disease: No HIV/AIDS: No Female 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 Disorders: Denies Genitourinary Hx Genitourinary Disorders: No Gastrointestinal Hx Gastrointestinal Disorders: Yes (pancreatitis x4 2015; CHRONIC PANCREATITIS) Gastrointestinal Disorders: Pancreatitis Musculoskeletal Hx Musculoskeletal Disorders: Yes Musculoskeletal Disorders: Arthritis Endocrine Hx Endocrine Disorders: No HEENT HX ENT Disorders: No Loss of Vision: Denies Hearing Impairment: Denies Cancer Hx Cancer: No Psychosocial Hx Psychiatric Problems: Yes Behavioral Health Disorders: Anxiety Integumentary HX Skin/Integumentary Disorder: No Blood Transfusions Hx Blood Disorders: No Adverse Reaction to a Blood Tr: No Family Medical History Significant Family History: Heart Disease, COPD, Hypertension Family Hx: Arthritis 03 MOTHER Cancer 03 MOTHER Cardiovascular disease 03 FATHER Deafness or hearing loss 03 FATHER Fibrocystic disease of breast 03 MOTHER Hypercholesterolemia 03 FATHER 03 MOTHER Hypertension 03 MOTHER Osteoporosis 03 MOTHER Respiratory disorder 03 MOTHER No Family History of: AIDS Abdominal aortic aneurysm Favio's disease Alcoholism Alzheimer's disease Asthma Cancer of mouth Cataracts Colon cancer Completed stroke Congenital disease Congenital heart disease Coronary thrombosis Cystic fibrosis Dementia Diabetes mellitus Drug abuse Dysphasia Gastroenteritis Glaucoma Headache disorder Infertility Kidney disease Myocardial infarction Neoplasm Not obtainable due to adoption Parkinson's disease Prostate cancer Psychosocial problem Seizure disorder Severe allergy Thyroid disease Tuberculosis Visual disorder Review of Systems Constitutional: see HPI weakness EENTM: no symptoms reported Respiratory: cough dyspnea on exertion short of breath wheezing Cardiovascular: no symptoms reported Gastrointestinal: no symptoms reported Genitourinary: no symptoms reported Musculoskeletal: no symptoms reported Skin: no symptoms reported Psychiatric/Neurological: Anxiety All Other Systems Reviewed Negative Unless Noted: Yes Physical Exam Physical Exam Vital Signs Capillary Refill : General Appearance: No Apparent Distress WD/WN Chronically ill Obese Other ( pale and mota) Eyes: Bilateral Eye Normal Inspection, Bilateral Eye PERRL HEENT: PERRL/EOMI Normal ENT Inspection Pharynx Normal Neck: Full Range of Motion Normal Inspection Non Tender Supple Carotid Bruit Respiratory: Chest Non Tender No Respiratory Distress Crackles Decreased Breath Sounds Wheezing Cardiovascular: Regular Rate, Rhythm No Edema No Gallop No JVD No Murmur Normal Peripheral Pulses Gastrointestinal: Normal Bowel Sounds No Organomegaly No Pulsatile Mass Non Tender Soft Back: Normal Inspection No CVA Tenderness No Vertebral Tenderness Extremity: Normal Capillary Refill Normal Inspection Normal Range of Motion Non Tender No Calf Tenderness No Pedal Edema Neurologic/Psychiatric: Alert Oriented x3 No Motor/Sensory Deficits Normal Mood/Affect Other (very anxious and tearful) Skin: Normal Color Warm/Dry Lymphatic: No Adenopathy Assessment/Plan Admission Diagnosis Assessment: Severe hypoxia in long-term nighttime oxygen supplementation patient with reported black mold exposure seen dental service chief at [facility] for worker's comp History of chronic pancreatitis requiring stent placement by Dr. Luciano 4 Severe anxiety Depression Assessment and Plan Plan: IV steroids Pulmonology evaluation Chest chest x-ray Home meds Pain meds Cough syrup PAUL SILVER DO Jun 07, 2016 12:23
[2016-06-07] MEDS ORDERED: cefTRIAXone 1 GM (ROCEPHIN) VIAL ONE (12:30)
[2016-06-07] MEDS ORDERED: NS (IVPB) 50 ML ONE (12:31)
[2016-06-07] MEDS: BENZONATATE 100 MG (TESSALON) CAPSULE PO SCH ×2 (12:39→21:22)
[2016-06-07] MEDS: HYDROcodone/APAP 5 MG/325 MG (LORTAB) TAB PO PRN ×3 (12:39→21:26)
[2016-06-07] MEDS: ENOXAPARIN 40 MG/0.4 ML (LOVENOX) SYR SC SCH (12:40)
--- NOTE | 2016-06-07 12:47 | Diagnostic Imaging Report ---
INDICATION: Cough with shortness of breath Study is compared with 06/02/2016. FINDINGS: There has been a substantial adverse interval change with bilateral infiltrates involving left greater than right lower lobe and a peripheral infiltrate in the right upper lobe. Multifocal pneumonia is presumed. Heart size and vascularity is stable and unremarkable. No identifiable pleural fluid or pneumothorax. IMPRESSION: Bilateral pneumonias have become apparent without failure pattern or pleural abnormality identified. Dictated by: Dictated on workstation # [id number]
[2016-06-07 12:50] LABS: BASOPHILS % (AUTO) 0 % (0-10); EOSINOPHILS # (AUTO) 0.6 10^3/uL (0.0-0.3); EOSINOPHILS % (AUTO) 4 % (0-10); LYMPHOCYTES # (AUTO) 2.1 X 10^3 (1.0-4.0); LYMPHOCYTES % (AUTO) 13 % (12-44); MEAN CORPUSCULAR HEMOGLOBIN 26 PG (25-34); MEAN CORPUSCULAR HGB CONC 32 G/DL (32-36); MEAN CORPUSCULAR VOLUME 81 FL (80-99); MEAN PLATELET VOLUME 9.7 FL (7.4-10.4); MONOCYTES # (AUTO) 1.8 X 10^3 (0.0-1.0); MONOCYTES % (AUTO) 11 % (0-12); NEUTROPHILS # (AUTO) 12.4 X 10^3 (1.8-7.8); NEUTROPHILS % (AUTO) 73 % (42-75); PLATELET COUNT 463 10^3/uL (130-400); RED BLOOD COUNT 4.41 10^6/uL (4.35-5.85); RED CELL DISTRIBUTION WIDTH 14.3 % (10.0-14.5); WHITE BLOOD COUNT 16.9 10^3/uL (4.3-11.0)
[2016-06-07] MEDS ORDERED: [UNRECOGNIZED DRUG - CODE] PO (13:00)
[2016-06-07 13:05] LABS: BAND NEUTROPHILS 6 %; BASOPHILS % (MANUAL) 0 %; EOSINOPHILS % (MANUAL) 2 %; LYMPHOCYTES % (MANUAL) 16 %; NEUTROPHILS % (MANUAL) 70 %
[2016-06-07 13:06] LABS: POIKILOCYTOSIS SLIGHT
[2016-06-07 13:10] LABS: ALANINE AMINOTRANSFERASE 36 U/L (0-55); ALBUMIN 3.2 G/DL (3.2-4.5); ANION GAP 13 MMOL/L (5-14); ASPARTATE AMINO TRANSFERASE 19 U/L (5-34); BILIRUBIN,TOTAL 0.5 MG/DL (0.1-1.0); BLOOD UREA NITROGEN 6 MG/DL (7-18); BUN/CREATININE RATIO 8; CARBON DIOXIDE 28 MMOL/L (21-32); CHLORIDE 100 MMOL/L (98-107); GFR ESTIMATED > 60; GLUCOSE 94 MG/DL (70-105); POTASSIUM 3.2 MMOL/L (3.6-5.0); SODIUM 141 MMOL/L (135-145); TOTAL PROTEIN 6.8 G/DL (6.4-8.2)
[2016-06-07] MEDS ORDERED: DM H1CAP5 PO (13:27)
[2016-06-07] MEDS ORDERED: GUAI-818 PO (13:27)
[2016-06-07 16:00] VITALS: BP 130/79
[2016-06-07] MEDS: methylPREDNISolone 40 MG/ML (Solu-MEDROL) VIAL IV SCH ×2 (16:03→21:22)
[2016-06-07] MEDS: guaiFENesin/DM (ROBITUSSIN DM) 10 ML UDC PO PRN ×2 (16:53→21:22)
[2016-06-07] MEDS: RT-ALBUTEROL/IPRATROPIUM 3 ML (DUONEB) VIAL INH PRN (16:59)
[2016-06-07] MEDS: RT-ALBUTEROL/IPRATROPIUM 3 ML (DUONEB) VIAL INH SCH ×2 (18:42→22:54)
[2016-06-07 19:15] VITALS: BP 127/82
[2016-06-08] VITALS: BP 117/66
[2016-06-08] MEDS: ALPRAZolam 0.25 MG (XANAX) TAB PO PRN ×2 (00:13→21:30)
[2016-06-08] MEDS: guaiFENesin/DM (ROBITUSSIN DM) 10 ML UDC PO PRN ×4 (01:52→20:05)
[2016-06-08] MEDS: HYDROcodone/APAP 5 MG/325 MG (LORTAB) TAB PO PRN ×4 (01:59→20:05)
[2016-06-08] MEDS: RT-ALBUTEROL/IPRATROPIUM 3 ML (DUONEB) VIAL INH SCH ×6 (02:05→22:46)
[2016-06-08 04:00] VITALS: BP 110/71
[2016-06-08] MEDS: methylPREDNISolone 40 MG/ML (Solu-MEDROL) VIAL IV SCH ×3 (05:22→23:09)
[2016-06-08] MEDS: BENZONATATE 100 MG (TESSALON) CAPSULE PO SCH ×3 (07:45→20:05)
[2016-06-08 08:00] VITALS: BP 130/70
[2016-06-08] MEDS ORDERED: LORATADINE (CLARITIN) 10 MG TAB PO PRN (09:00)
[2016-06-08] MEDS ORDERED: KCL 20 MEQ TAB (K-DUR) PO NR (09:00)
[2016-06-08] MEDS ORDERED: PSEUDOEPHEDRINE HCL 30 MG (SUDAFED) TAB PO PRN (09:30)
[2016-06-08] MEDS ORDERED: PIPERACILLIN SODIUM/TAZOBACTAM 4.5 GM in NS (IVPB) 100 ML IV SCH (09:30)
--- NOTE | 2016-06-08 09:39 | Diagnostic Imaging Report ---
INDICATION: Left-sided chest pain Study compared to 06/07/2016. Bilateral infiltrates most notably in the right upper, left lower and right lower lobes have improved from the previous exam with no adverse development. No pneumothorax or appreciable pleural fluid. IMPRESSION: Bilateral pneumonias radiographically evident. Dictated by: Dictated on workstation # [id number]
[2016-06-08 09:49] LABS: BASOPHILS # (AUTO) 0.1 10^3/uL (0.0-0.1); BASOPHILS % (AUTO) 0 % (0-10); EOSINOPHILS % (AUTO) 0 % (0-10); LYMPHOCYTES # (AUTO) 2.1 X 10^3 (1.0-4.0); LYMPHOCYTES % (AUTO) 12 % (12-44); MEAN CORPUSCULAR HEMOGLOBIN 26 PG (25-34); MEAN CORPUSCULAR HGB CONC 32 G/DL (32-36); MEAN CORPUSCULAR VOLUME 81 FL (80-99); MEAN PLATELET VOLUME 9.9 FL (7.4-10.4); MONOCYTES # (AUTO) 0.5 X 10^3 (0.0-1.0); MONOCYTES % (AUTO) 3 % (0-12); NEUTROPHILS # (AUTO) 14.9 X 10^3 (1.8-7.8); NEUTROPHILS % (AUTO) 85 % (42-75); PLATELET COUNT 520 10^3/uL (130-400); RED CELL DISTRIBUTION WIDTH 14.3 % (10.0-14.5); WHITE BLOOD COUNT 17.5 10^3/uL (4.3-11.0)
[2016-06-08 10:14] LABS: ALANINE AMINOTRANSFERASE 32 U/L (0-55); ALBUMIN 3.1 G/DL (3.2-4.5); ANION GAP 9 MMOL/L (5-14); ASPARTATE AMINO TRANSFERASE 17 U/L (5-34); BILIRUBIN,TOTAL 0.3 MG/DL (0.1-1.0); BLOOD UREA NITROGEN 10 MG/DL (7-18); BUN/CREATININE RATIO 14; CALCIUM 8.9 MG/DL (8.5-10.1); CARBON DIOXIDE 27 MMOL/L (21-32); CHLORIDE 101 MMOL/L (98-107); CREATININE SERUM 0.69 MG/DL (0.60-1.30); GFR ESTIMATED > 60; GLUCOSE 178 MG/DL (70-105); POTASSIUM 3.4 MMOL/L (3.6-5.0); SODIUM 137 MMOL/L (135-145); TOTAL PROTEIN 6.6 G/DL (6.4-8.2)
[2016-06-08] MEDS: ENOXAPARIN 40 MG/0.4 ML (LOVENOX) SYR SC SCH (11:02)
--- NOTE | 2016-06-08 11:51 | Progress Note-Hospitalist ---
Progress Note HPI/CC on Admission CC: Wheezing and Dyspnea HPI: This is a 45-year-old white female it sees a [employer] comp account developer at [facility] Dr. Vides who just saw the patient yesterday for possible black mold pneumonitis that has required nighttime oxygen for the past one year that presented to Dr. Arzate a [facility] today at the clinic was found to be hypoxic requiring IV steroids and empiric antibiotic coverage for pneumonitis and pulmonology consultation. She works at [employer] a [facility] [employer] and used to see Dr. Juarez as her primary care provider. 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 Luciano for chronic pancreatitis but in postoperative state she had a bronchospasm that is continued to worsen through the last several months. She has been to the emergency room twice for left pleuritic chest pain but she has worsened with wheezing and shortness of breath requiring hospitalization. Progress Notes/Assess & Plan Date Seen 06/08/16 Admission Dx/Process Assessment: Severe hypoxia in long-term nighttime oxygen supplementation patient with reported black mold exposure seen account developer at [facility] for [employer] History of chronic pancreatitis requiring stent placement by Dr. Luciano 4 Severe anxiety Depression Diagonsis/Assessment & Plan Chart Review: No fever Vitals stable WBC 17.5 from 16.9 Platelets 520k K+ 3.4, added supplement CXR repeat today showed bilateral pneumonia Patient Interview: Pt states that she feels better today, but is fatigued and did not sleep well last night. Physical exam stable. Lungs much improved. Dr. Silver informs pt of antibiotic switch, and plans to continue IV steroids. Pt is appreciative. Pt states that she has pain, due to chronic pancreatitis. No fever, vital signs stable, pleasant, improved but chronically ill and long- term prognosis is guarded at this point Regular rate and rhythm, diminished breath sounds in the bases but wheezing much improved in the upper lobes No edema Laboratory Tests 06/08/16 09:12 Assessment: Severe hypoxia in long-term nighttime oxygen supplementation patient with reported black mold exposure seen account developer at [facility] for [employer] comp now with bilateral pneumonia placed on Zosyn History of chronic pancreatitis requiring stent placement by Dr. Luciano 4 Severe anxiety Depression Plan: DC Rocephin and Add Zosyn K+ supplement IV steroids Continuous home O2 Check labs in AM Consult Dr. [employer] SW consult IV steroids Home meds Pain meds Cough syrup Scribed by Hugo Oviedo under the direct supervision of Dr. Silver. PAUL SILVER DO Jun 08, 2016 11:51
[2016-06-08 12:00] VITALS: BP 128/60
--- NOTE | 2016-06-08 13:30 | Pulmonary Consultation ---
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 Vides and just saw patient yesterday secondary to possible black mold exposure. Pt has been requiring nocturnal oxygen x 1yr. Pt was found to be hypoxic and was admitted with IV steroids, and empiric abx.Pt also has hx of chronic pancreatitis and has had ERCP by Dr. Luciano. She has been to the emergency room twice for left pleuritic chest pain but she has worsened with wheezing and shortness of breath requiring hospitalization. Allergies and Home Medications Allergies Coded Allergies: ciprofloxacin (Verified Allergy, Severe, 07/10/14) severe itching at iv site codeine (Unverified Allergy, Unknown, 07/08/14) PT STATED WHEN SHE HAS TYLENOL AND CODEINE TOGETHER (TYLENOL #3) SHE HAS TERRIBLE NIGHTMARES. butorphanol (Unverified Adverse Reaction, Unknown, SEVERE HEADACHES, ) Home Medications Dm Hb/PE/Acetaminophen/Chlorph 1 Each Capsule 2 CAP PO Q4H PRN PRN COUGH ( Reported) Guaifenesin/Dextromethorphan 118 Ml Liquid 30 ML PO Q4H PRN PRN CONGESTION ( Reported) Ibuprofen 200 Mg Tablet 800 MG PO Q8H PRN PRN FEVER/PAIN (Reported) TAKES 4 (200MG) TABLETS NEEDED FOR PAIN Loratadine/Pseudoephedrine 1 Each Tab.er.24h 1 TAB PO DAILY PRN PRN ALLERGIES/ CONGESTION (Reported) Ranitidine HCl 150 Mg Tablet 150 MG PO HS (Reported) Past Gjsuhwq-Rshuvq-Dnezpr Hx Patient Social History Alcohol Use: Denies Use Recreational Drug Use: No Smoking Status: Former Smoker Type Used: Cigarettes Former Smoker/When Quit: Sep 14, 2010 2nd Hand Smoke Exposure: Yes Recent Foreign Travel: No Contact w/Someone Who Travel: No Recent Infectious Disease Expo: No Recent Hopitalizations: Yes (pancreatitis) Physical Abuse Screen: No Sexual Abuse: No Immunizations Up To Date Tetanus Booster (TDap): Less than 5yrs PED Vaccines UTD: No Date of Influenza Vaccine: Feb 26, 2016 Seasonal Allergies Seasonal Allergies: Yes Surgeries HX Surgeries: Yes Surgeries: Abdominal, Appendectomy, Gallbladder, Hysterectomy, Oophorectomy, Orthopedic, Pancreatic Respiratory Hx Respiratory Disorders: Yes (atelectasis, nocturnal hypoxia with O2 supplementation) Respiratory Disorders: Asthma, Pneumonia Cardiovascular Hx Cardiac Disorders: Yes Cardiac Disorders: Hypertension Neurological Hx Neurological Disorders: No 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 System Hx 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 Disorders: Yes (Hysterectomy due to fibroid tumors) Sexually Transmitted Disease: No HIV/AIDS: No Female 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 Disorders: Denies 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 Genitourinary Hx Genitourinary Disorders: No Gastrointestinal Hx Gastrointestinal Disorders: Yes (pancreatitis x4 2015; CHRONIC PANCREATITIS) Gastrointestinal Disorders: Pancreatitis Musculoskeletal Hx Musculoskeletal Disorders: Yes Musculoskeletal Disorders: Arthritis Endocrine Hx Endocrine Disorders: No HEENT HX ENT Disorders: No Loss of Vision: Denies Hearing Impairment: Denies Cancer Hx Cancer: No Psychosocial Hx Psychiatric Problems: Yes Behavioral Health Disorders: Anxiety Integumentary HX Skin/Integumentary Disorder: No Blood Transfusions Hx Blood Disorders: No Adverse Reaction to a Blood Tr: No Family Medical History Significant Family History: Heart Disease, COPD, Hypertension Family Medial History: Arthritis 03 MOTHER Cancer 03 MOTHER Cardiovascular disease 03 FATHER Deafness or hearing loss 03 FATHER Fibrocystic disease of breast 03 MOTHER Hypercholesterolemia 03 FATHER 03 MOTHER Hypertension 03 MOTHER Osteoporosis 03 MOTHER Respiratory disorder 03 MOTHER No Family History of: AIDS Abdominal aortic aneurysm Favio's disease Alcoholism Alzheimer's disease Asthma Cancer of mouth Cataracts Colon cancer Completed stroke Congenital disease Congenital heart disease Coronary thrombosis Cystic fibrosis Dementia Diabetes mellitus Drug abuse Dysphasia Gastroenteritis Glaucoma Headache disorder Infertility Kidney disease Myocardial infarction Neoplasm Not obtainable due to adoption Parkinson's disease Prostate cancer Psychosocial problem Seizure disorder Severe allergy Thyroid disease Tuberculosis Visual disorder Exam Exam Vital Signs Date Time Temp Pulse Resp B/P Pulse Ox O2 Delivery O2 Flow Rate FiO2 06/08/16 11:07 85 2.00 06/08/16 08:20 97.8 06/08/16 08:00 97.8 75 16 130/70 93 Nasal Cannula 2.00 2.00 06/08/16 07:52 Room Air 2.00 06/08/16 07:48 98.2 06/08/16 06:42 90 2.00 06/08/16 04:00 98.2 89 18 110/71 91 Room Air 2.00 2.00 06/08/16 02:06 86 06/08/16 00:00 98.2 81 20 117/66 91 Nasal Cannula 2.00 06/07/16 22:54 91 2.00 06/07/16 21:00 Room Air 2.00 06/07/16 19:15 99.0 98 24 127/82 92 Nasal Cannula 2.00 06/07/16 18:42 90 06/07/16 16:00 99.5 95 22 130/79 92 Room Air I & O 06/08/16 07:00 Intake Total 680 ml Output Total 500 ml Balance 180 ml General Appearance: No Apparent Distress WD/WN Chronically ill Obese Other ( pale and mota) HEENT: PERRL/EOMI Normal ENT Inspection Pharynx Normal Neck: Full Range of Motion Normal Inspection Non Tender Supple Carotid Bruit Respiratory: Chest Non Tender No Respiratory Distress Crackles Decreased Breath Sounds Wheezing Cardiovascular: Regular Rate, Rhythm No Edema No Gallop No JVD No Murmur Normal Peripheral Pulses Extremity: Normal Capillary Refill Normal Inspection Normal Range of Motion Non Tender No Calf Tenderness No Pedal Edema Neurologic/Psychiatric: Alert Oriented x3 No Motor/Sensory Deficits Normal Mood/Affect Other (very anxious and tearful) Skin: Normal Color Warm/Dry Lymphatic: No Adenopathy Results Lab Laboratory Tests 06/07/16 12:43 06/08/16 09:12 Assessment/Plan Assessment/Plan Pneumonia with hypoxia -Continue Zosyn -SVNs, oxygen Hx of black mold exposure Severe anxiety Depression Clinical Quality Measures DVT/VTE Risk/Contraindication: Risk Factor Score Per Nursin RFS Level Per Nursing on Admit: 2=Moderate HERBERT GUY DO Jun 08, 2016 13:30
[2016-06-08] MEDS: CATHETER FLUSH 10 ML SYR IV SCH ×2 (14:09→23:09)
[2016-06-08 15:40] VITALS: BP 111/73
[2016-06-08] MEDS: CATHETER FLUSH 10 ML SYR IV PRN ×2 (15:44→16:02)
[2016-06-08] MEDS: ONDANSETRON 4 MG/2 ML (SDV) Z0FRAN IVP PRN (16:01)
[2016-06-08] MEDS: PIPERACILLIN SODIUM/TAZOBACTAM 4.5 GM in NS (IVPB) 100 ML IV SCH ×2 (16:02→23:09)
[2016-06-08] MEDS: IBUPROFEN 800 MG (MOTRIN) TAB PO PRN (18:19)
[2016-06-08 20:00] VITALS: BP 125/60
[2016-06-08] MEDS: FAMOTIDINE 20 MG (PEPCID) TABLET PO SCH (20:05)
[2016-06-09] VITALS: BP 121/68
[2016-06-09] MEDS: guaiFENesin/DM (ROBITUSSIN DM) 10 ML UDC PO PRN ×5 (01:10→20:24)
[2016-06-09] MEDS: HYDROcodone/APAP 5 MG/325 MG (LORTAB) TAB PO PRN ×5 (01:11→23:07)
[2016-06-09] MEDS: RT-ALBUTEROL/IPRATROPIUM 3 ML (DUONEB) VIAL INH SCH ×6 (02:24→22:10)
[2016-06-09 04:00] VITALS: BP 100/55
[2016-06-09] MEDS: methylPREDNISolone 40 MG/ML (Solu-MEDROL) VIAL IV SCH ×3 (06:10→22:06)
[2016-06-09] MEDS: CATHETER FLUSH 10 ML SYR IV SCH ×3 (06:10→22:00)
[2016-06-09] MEDS: PIPERACILLIN SODIUM/TAZOBACTAM 4.5 GM in NS (IVPB) 100 ML IV SCH ×3 (06:10→23:25)
[2016-06-09 07:04] LABS: BASOPHILS # (AUTO) 0.1 10^3/uL (0.0-0.1); BASOPHILS % (AUTO) 0 % (0-10); EOSINOPHILS % (AUTO) 0 % (0-10); LYMPHOCYTES # (AUTO) 2.8 X 10^3 (1.0-4.0); LYMPHOCYTES % (AUTO) 12 % (12-44); MEAN CORPUSCULAR HEMOGLOBIN 26 PG (25-34); MEAN CORPUSCULAR HGB CONC 32 G/DL (32-36); MEAN CORPUSCULAR VOLUME 82 FL (80-99); MEAN PLATELET VOLUME 9.7 FL (7.4-10.4); MONOCYTES # (AUTO) 1.1 X 10^3 (0.0-1.0); MONOCYTES % (AUTO) 5 % (0-12); NEUTROPHILS # (AUTO) 19.4 X 10^3 (1.8-7.8); NEUTROPHILS % (AUTO) 83 % (42-75); PLATELET COUNT 514 10^3/uL (130-400); RED BLOOD COUNT 4.12 10^6/uL (4.35-5.85); RED CELL DISTRIBUTION WIDTH 14.3 % (10.0-14.5); WHITE BLOOD COUNT 23.4 10^3/uL (4.3-11.0)
[2016-06-09 07:28] LABS: ALANINE AMINOTRANSFERASE 31 U/L (0-55); ALBUMIN 2.8 G/DL (3.2-4.5); ANION GAP 10 MMOL/L (5-14); ASPARTATE AMINO TRANSFERASE 15 U/L (5-34); BILIRUBIN,TOTAL 0.2 MG/DL (0.1-1.0); BLOOD UREA NITROGEN 12 MG/DL (7-18); BUN/CREATININE RATIO 17; CALCIUM 8.4 MG/DL (8.5-10.1); CARBON DIOXIDE 26 MMOL/L (21-32); CHLORIDE 102 MMOL/L (98-107); CREATININE SERUM 0.72 MG/DL (0.60-1.30); GFR ESTIMATED > 60; GLUCOSE 157 MG/DL (70-105); POTASSIUM 3.9 MMOL/L (3.6-5.0); SODIUM 138 MMOL/L (135-145); TOTAL PROTEIN 5.9 G/DL (6.4-8.2)
[2016-06-09 07:44] LABS: BAND NEUTROPHILS 7 %; BASOPHILS % (MANUAL) 0 %; EOSINOPHILS % (MANUAL) 0 %; LYMPHOCYTES % (MANUAL) 15 %; MICROCYTOSIS SLIGHT; MYELOCYTES % 3 %; NEUTROPHILS % (MANUAL) 71 %
[2016-06-09 08:00] VITALS: BP 101/67
[2016-06-09] MEDS: BENZONATATE 100 MG (TESSALON) CAPSULE PO SCH ×3 (08:04→20:23)
[2016-06-09] MEDS: ENOXAPARIN 40 MG/0.4 ML (LOVENOX) SYR SC SCH (10:01)
--- NOTE | 2016-06-09 10:42 | Pulmonary Progress Note ---
Subjective Subjective/Events-last exam no complications noted. Exam Exam Vital Signs Date Time Temp Pulse Resp B/P Pulse Ox O2 Delivery O2 Flow Rate FiO2 06/09/16 10:24 91 3.00 06/09/16 08:03 Nasal Cannula 3.00 06/09/16 08:00 96.9 67 16 101/67 94 Nasal Cannula 6.00 06/09/16 07:19 96 6.00 06/09/16 04:00 97.7 68 20 100/55 96 Room Air 6.00 06/09/16 02:24 96 6.00 06/09/16 00:00 98.1 70 20 121/68 95 Room Air 6.00 06/08/16 22:46 95 6.00 06/08/16 21:00 Nasal Cannula 6.00 06/08/16 20:00 98.1 74 20 125/60 94 Nasal Cannula 6.00 06/08/16 18:53 93 6.00 06/08/16 18:50 97.8 06/08/16 18:19 97.8 06/08/16 15:40 97.8 78 20 111/73 96 Nasal Cannula 6.00 06/08/16 14:45 98.2 06/08/16 14:38 89 4.00 06/08/16 12:00 98.2 73 16 128/60 93 Nasal Cannula 2.00 2.00 06/08/16 11:07 85 2.00 I & O 06/09/16 07:00 Intake Total 2440 ml Output Total 1260 ml Balance 1180 ml General Appearance: No Apparent Distress, WD/WN, Chronically ill, Obese, Other (pale and mota) HEENT: PERRL/EOMI, Normal ENT Inspection, Pharynx Normal Neck: Full Range of Motion, Normal Inspection, Non Tender, Supple, Carotid Bruit Respiratory: Chest Non Tender, No Respiratory Distress, Crackles, Decreased Breath Sounds, Wheezing Cardiovascular: Regular Rate, Rhythm, No Edema, No Gallop, No JVD, No Murmur, Normal Peripheral Pulses Extremity: Normal Capillary Refill, Normal Inspection, Normal Range of Motion, Non Tender, No Calf Tenderness, No Pedal Edema Neurologic/Psychiatric: Alert, Oriented x3, No Motor/Sensory Deficits, Normal Mood/Affect, Other (very anxious and tearful) Skin: Normal Color, Warm/Dry Lymphatic: No Adenopathy Results Lab Laboratory Tests 06/07/16 12:43 06/08/16 09:12 06/09/16 06:53 Assessment/Plan Assessment/Plan Pneumonia with hypoxia -Continue Zosyn -SVNs, oxygen Hx of black mold exposure Severe anxiety Depression Clinical Quality Measures DVT/VTE Risk/Contraindication: Risk Factor Score Per Nursin RFS Level Per Nursing on Admit: 2=Moderate HERBERT GUY DO Jun 09, 2016 10:42
[2016-06-09] MEDS ORDERED: LEVOFLOXACIN 750 MG TAB (LEVAQUIN) PO SCH (11:00)
--- NOTE | 2016-06-09 11:04 | Progress Note-Hospitalist ---
Progress Note HPI/CC on Admission CC: Wheezing and Dyspnea HPI: This is a 45-year-old white female it sees a [employer] comp clinical practitioner at [facility] Dr. Vides who just saw the patient yesterday for possible black mold pneumonitis that has required nighttime oxygen for the past one year that presented to Dr. Arzate a [facility] today at the clinic was found to be hypoxic requiring IV steroids and empiric antibiotic coverage for pneumonitis and pulmonology consultation. She works at [employer] a [employer] and used to see Dr. Juarez as her primary care provider. 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 Luciano for chronic pancreatitis but in postoperative state she had a bronchospasm that is continued to worsen through the last several months. She has been to the emergency room twice for left pleuritic chest pain but she has worsened with wheezing and shortness of breath requiring hospitalization. Progress Notes/Assess & Plan Date Seen 06/09/16 Admission Dx/Process Assessment: Severe hypoxia in long-term nighttime oxygen supplementation patient with reported black mold exposure seen clinical practitioner at [facility] [employer] for [employer] History of chronic pancreatitis requiring stent placement by Dr. Luciano 4 Severe anxiety Depression Diagonsis/Assessment & Plan Chart Review: No fever Vitals stable WBC elevated now at 23, possibly due to steroids so will check CXR CMP normal Blood Cx all NGTD Patient Interview: Pt feels that her breathing is improved. Pt is eating and drinking without complications. Pt has not had BM yet, but is not concerned. Pt has not been ambulating much. Physical exam stable. Lungs much improved. Pt does not have a nebulizer at home. Dr. Silver discusses repeat CXR and DC plans with pt. Pt uses [facility]. No fever, vital signs stable, pleasant, improved but chronically ill and long- term prognosis is guarded at this point Regular rate and rhythm, diminished breath sounds but improved air expansion and overall much improved No edema Laboratory Tests 06/09/16 06:53 Assessment: Severe hypoxia in long-term nighttime oxygen supplementation patient with reported black mold exposure seen clinical practitioner at [facility] for [employer] now with bilateral pneumonia placed on Zosyn History of chronic pancreatitis requiring stent placement by Dr. Luciano 4 Severe anxiety Depression Plan: Home nebulizer Repeat CXR 3L Home O2 continuous DC with antibiotics and steroids Close follow-up with Dr. Arztae at [facility] Scribed by Hugo Oviedo under the direct supervision of Dr. Silver. PAUL SILVER DO Jun 09, 2016 11:04 PAUL SILVER DO Jun 09, 2016 11:04
--- NOTE | 2016-06-09 11:43 | Diagnostic Imaging Report ---
INDICATION: Bilateral pneumonia Comparison study: Chest from June 08. FINDINGS: Frontal and lateral views of the chest demonstrates improvement in infiltrates in the left upper lobe, right upper lobe and right midlung. Heart size and vascularity are normal. There are no pleural effusions. IMPRESSION: There are improving bilateral pulmonary infiltrates. Dictated by: Dictated on workstation # [id number]
[2016-06-09 12:00] VITALS: BP 110/72
[2016-06-09 16:00] VITALS: BP 116/74
[2016-06-09] MEDS ORDERED: VANCOMYCIN IV NR ×2 (18:00)
[2016-06-09] MEDS ORDERED: NS IV NR ×2 (18:00)
[2016-06-09] MEDS: ONDANSETRON 4 MG/2 ML (SDV) Z0FRAN IVP PRN (18:07)
[2016-06-09] MEDS: IBUPROFEN 800 MG (MOTRIN) TAB PO PRN (19:30)
[2016-06-09] MEDS: ALPRAZolam 0.25 MG (XANAX) TAB PO PRN (20:24)
[2016-06-09] MEDS: FAMOTIDINE 20 MG (PEPCID) TABLET PO SCH (20:24)
[2016-06-10] VITALS: BP 124/77
[2016-06-10] MEDS: RT-ALBUTEROL/IPRATROPIUM 3 ML (DUONEB) VIAL INH SCH ×5 (02:11→20:21)
[2016-06-10] MEDS: HYDROcodone/APAP 5 MG/325 MG (LORTAB) TAB PO PRN ×3 (03:29→21:15)
[2016-06-10] MEDS: guaiFENesin/DM (ROBITUSSIN DM) 10 ML UDC PO PRN ×4 (05:50→22:48)
[2016-06-10] MEDS: methylPREDNISolone 40 MG/ML (Solu-MEDROL) VIAL IV SCH (05:50)
[2016-06-10] MEDS: VANCOMYCIN 1,750 MG/NS 500 ML IVPB IV SCH ×4 (06:03→19:01)
[2016-06-10 06:59] LABS: BASOPHILS # (AUTO) 0.1 10^3/uL (0.0-0.1); BASOPHILS % (AUTO) 0 % (0-10); EOSINOPHILS % (AUTO) 0 % (0-10); LYMPHOCYTES # (AUTO) 3.2 X 10^3 (1.0-4.0); LYMPHOCYTES % (AUTO) 14 % (12-44); MEAN CORPUSCULAR HEMOGLOBIN 26 PG (25-34); MEAN CORPUSCULAR HGB CONC 31 G/DL (32-36); MEAN CORPUSCULAR VOLUME 83 FL (80-99); MEAN PLATELET VOLUME 9.8 FL (7.4-10.4); MONOCYTES # (AUTO) 1.1 X 10^3 (0.0-1.0); MONOCYTES % (AUTO) 5 % (0-12); NEUTROPHILS # (AUTO) 19.2 X 10^3 (1.8-7.8); NEUTROPHILS % (AUTO) 82 % (42-75); PLATELET COUNT 491 10^3/uL (130-400); RED BLOOD COUNT 4.05 10^6/uL (4.35-5.85); RED CELL DISTRIBUTION WIDTH 14.5 % (10.0-14.5); WHITE BLOOD COUNT 23.5 10^3/uL (4.3-11.0)
--- NOTE | 2016-06-10 07:15 | Pulmonary Progress Note ---
Subjective Subjective/Events-last exam No complications noted. Exam Exam Vital Signs Date Time Temp Pulse Resp B/P Pulse Ox O2 Delivery O2 Flow Rate FiO2 06/10/16 02:12 93 3.00 06/10/16 00:00 96.9 66 18 124/77 94 High Flow NC 6.00 06/09/16 22:10 93 3.00 06/09/16 21:00 Nasal Cannula 3.00 06/09/16 18:36 91 3.00 06/09/16 16:00 98.1 69 20 116/74 92 Nasal Cannula 6.00 06/09/16 15:13 90 3.00 06/09/16 12:00 97.5 83 16 110/72 92 Nasal Cannula 6.00 06/09/16 10:37 91 3.00 06/09/16 10:24 91 3.00 06/09/16 08:03 Nasal Cannula 3.00 06/09/16 08:00 96.9 67 16 101/67 94 Nasal Cannula 6.00 06/09/16 07:19 96 6.00 I & O 06/10/16 07:00 Intake Total 2315 ml Output Total 1200 ml Balance 1115 ml General Appearance: No Apparent Distress WD/WN Chronically ill Obese Other ( pale and mota) HEENT: PERRL/EOMI Normal ENT Inspection Pharynx Normal Neck: Full Range of Motion Normal Inspection Non Tender Supple Carotid Bruit Respiratory: Chest Non Tender No Respiratory Distress Crackles Decreased Breath Sounds Wheezing Cardiovascular: Regular Rate, Rhythm No Edema No Gallop No JVD No Murmur Normal Peripheral Pulses Extremity: Normal Capillary Refill Normal Inspection Normal Range of Motion Non Tender No Calf Tenderness No Pedal Edema Neurologic/Psychiatric: Alert Oriented x3 No Motor/Sensory Deficits Normal Mood/Affect Other (very anxious and tearful) Skin: Normal Color Warm/Dry Lymphatic: No Adenopathy Results Lab Laboratory Tests 06/08/16 09:12 06/09/16 06:53 06/10/16 05:46 Assessment/Plan Assessment/Plan Pneumonia with hypoxia - Zosyn -Can be switched to augmentin x 5 more days at discharge today -Change solumedrol to prednisone taper. -SVNs, oxygen Hx of black mold exposure Severe anxiety Depression Clinical Quality Measures DVT/VTE Risk/Contraindication: Risk Factor Score Per Nursin RFS Level Per Nursing on Admit: 2=Moderate HERBERT GUY DO Jun 10, 2016 07:15
[2016-06-10 07:21] LABS: ALANINE AMINOTRANSFERASE 31 U/L (0-55); ALBUMIN 2.7 G/DL (3.2-4.5); ANION GAP 9 MMOL/L (5-14); ASPARTATE AMINO TRANSFERASE 16 U/L (5-34); BILIRUBIN,TOTAL 0.2 MG/DL (0.1-1.0); BLOOD UREA NITROGEN 14 MG/DL (7-18); BUN/CREATININE RATIO 19; CALCIUM 7.9 MG/DL (8.5-10.1); CARBON DIOXIDE 26 MMOL/L (21-32); CHLORIDE 105 MMOL/L (98-107); CREATININE SERUM 0.72 MG/DL (0.60-1.30); GFR ESTIMATED > 60; GLUCOSE 129 MG/DL (70-105); POTASSIUM 4.1 MMOL/L (3.6-5.0); SODIUM 140 MMOL/L (135-145); TOTAL PROTEIN 5.4 G/DL (6.4-8.2)
[2016-06-10] MEDS: CATHETER FLUSH 10 ML SYR IV SCH ×3 (07:40→21:16)
[2016-06-10 08:00] VITALS: BP 136/81
--- NOTE | 2016-06-10 08:11 | Diagnostic Imaging Report ---
INDICATION: Dyspnea and chest pain. PA and lateral views of the chest are obtained with comparison made study of one day earlier. FINDINGS: Overall heart size and pulmonary vascularity are within normal limits. There has been mild increase in areas of abnormal airspace disease located in the right upper lobe and lingula. Mild left lower lobe infiltrate as well. There is no pneumothorax or significant pleural fluid. IMPRESSION: Bilateral patchy infiltrate most consistent with pneumonia. Overall, there has been mild worsening of infiltrate. No pneumothorax or significant pleural fluid is identified. Dictated by: Dictated on workstation # [id number]
[2016-06-10] MEDS: PIPERACILLIN SODIUM/TAZOBACTAM 4.5 GM in NS (IVPB) 100 ML IV SCH ×3 (09:32→23:58)
[2016-06-10] MEDS: BENZONATATE 100 MG (TESSALON) CAPSULE PO SCH ×3 (09:32→21:15)
[2016-06-10] MEDS: ENOXAPARIN 40 MG/0.4 ML (LOVENOX) SYR SC SCH (11:36)
[2016-06-10] MEDS: predniSONE 10 MG TAB PO SCH (11:37)
--- NOTE | 2016-06-10 11:37 | Progress Note-Hospitalist ---
Progress Note HPI/CC on Admission CC: Wheezing and Dyspnea HPI: This is a 45-year-old white female it sees a worker's comp public housing interviewer at [facility] Dr. Vides who just saw the patient yesterday for possible black mold pneumonitis that has required nighttime oxygen for the past one year that presented to Dr. Arzate a [facility] today at the clinic was found to be hypoxic requiring IV steroids and empiric antibiotic coverage for pneumonitis and pulmonology consultation. She works at [employer] and used to see Dr. Juarez as her primary care provider. 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 Luciano for chronic pancreatitis but in postoperative state she had a bronchospasm that is continued to worsen through the last several months. She has been to the emergency room twice for left pleuritic chest pain but she has worsened with wheezing and shortness of breath requiring hospitalization. Progress Notes/Assess & Plan Date Seen 06/10/16 Admission Dx/Process Assessment: Severe hypoxia in long-term nighttime oxygen supplementation patient with reported black mold exposure seen public housing interviewer at [facility] for worker's comp History of chronic pancreatitis requiring stent placement by Dr. Luciano 4 Severe anxiety Depression Diagonsis/Assessment & Plan Chart Review: Staph was revealed in sputum collected before admission so pt was placed on Vanc empirically since unknown if it's MRSA or not Pharmacy Review: Pharmacy recommends Zyvox due to risk of MRSA, but [facility] does not carry this medication so pt will remain on Vanc through the weekend until sensitivities are back Patient Interview: Pt states that she feels good today. Dr. Silver discusses sputum findings and plans for antibiotic treatment, and pt is agreeable with plan to remain at [facility] over the weekend. Pt states that she feels pressure in her chest when she ambulates and breathes deeply. Physical exam stable. Lungs much improved. Pt states that she had a BM this morning. Pt states that she has some minor pain, but is trying to avoid taking pain medicine. No fever, vital signs stable, pleasant, improved but chronically ill and long- term prognosis is still guarded at this point Regular rate and rhythm, diminished breath sounds but much improved air expansion and overall much improved No edema Laboratory Tests 06/10/16 05:46 Assessment: Severe hypoxia in long-term nighttime oxygen supplementation patient with reported black mold exposure seen public housing interviewer at [facility] for worker's comp now with bilateral pneumonia placed on Zosyn and added vague yesterday for presumed MRSA sputum culture ID and sensitivities still pending at time of this note History of chronic pancreatitis requiring stent placement by Dr. Luciano 4 Severe anxiety Depression Plan: Home nebulizer orders already placed 3L Home O2 continuous Vanc and Zosyn Close follow-up with Dr. Arzate at [facility] once discharged Scribed by Hugo Oviedo under the direct supervision of Dr. Silver. PAUL SILVER DO Jun 10, 2016 11:37
[2016-06-10 16:00] VITALS: BP 144/83
[2016-06-10] MEDS: IBUPROFEN 800 MG (MOTRIN) TAB PO PRN (17:59)
[2016-06-10] MEDS: ALPRAZolam 0.25 MG (XANAX) TAB PO PRN (17:59)
[2016-06-10] MEDS: FAMOTIDINE 20 MG (PEPCID) TABLET PO SCH (21:15)
[2016-06-11] VITALS: BP 130/75
[2016-06-11] MEDS: guaiFENesin/DM (ROBITUSSIN DM) 10 ML UDC PO PRN ×4 (04:03→20:09)
[2016-06-11] MEDS: RT-ALBUTEROL/IPRATROPIUM 3 ML (DUONEB) VIAL INH PRN (04:33)
[2016-06-11] MEDS: HYDROcodone/APAP 5 MG/325 MG (LORTAB) TAB PO PRN ×3 (05:06→20:09)
[2016-06-11 05:43] LABS: BASOPHILS # (AUTO) 0.2 10^3/uL (0.0-0.1); BASOPHILS % (AUTO) 1 % (0-10); EOSINOPHILS # (AUTO) 0.1 10^3/uL (0.0-0.3); EOSINOPHILS % (AUTO) 0 % (0-10); LYMPHOCYTES # (AUTO) 4.6 X 10^3 (1.0-4.0); LYMPHOCYTES % (AUTO) 19 % (12-44); MEAN CORPUSCULAR HEMOGLOBIN 26 PG (25-34); MEAN CORPUSCULAR HGB CONC 31 G/DL (32-36); MEAN CORPUSCULAR VOLUME 83 FL (80-99); MEAN PLATELET VOLUME 9.4 FL (7.4-10.4); MONOCYTES # (AUTO) 1.2 X 10^3 (0.0-1.0); MONOCYTES % (AUTO) 5 % (0-12); NEUTROPHILS # (AUTO) 18.1 X 10^3 (1.8-7.8); NEUTROPHILS % (AUTO) 75 % (42-75); PLATELET COUNT 471 10^3/uL (130-400); RED BLOOD COUNT 4.28 10^6/uL (4.35-5.85); RED CELL DISTRIBUTION WIDTH 14.5 % (10.0-14.5); WHITE BLOOD COUNT 24.1 10^3/uL (4.3-11.0)
[2016-06-11 06:00] LABS: ALANINE AMINOTRANSFERASE 33 U/L (0-55); ALBUMIN 2.7 G/DL (3.2-4.5); ANION GAP 11 MMOL/L (5-14); ASPARTATE AMINO TRANSFERASE 20 U/L (5-34); BILIRUBIN,TOTAL 0.3 MG/DL (0.1-1.0); BLOOD UREA NITROGEN 15 MG/DL (7-18); BUN/CREATININE RATIO 21; CALCIUM 7.8 MG/DL (8.5-10.1); CARBON DIOXIDE 22 MMOL/L (21-32); CHLORIDE 108 MMOL/L (98-107); GFR ESTIMATED > 60; GLUCOSE 98 MG/DL (70-105); POTASSIUM 3.5 MMOL/L (3.6-5.0); SODIUM 141 MMOL/L (135-145); TOTAL PROTEIN 5.1 G/DL (6.4-8.2)
[2016-06-11] MEDS: CATHETER FLUSH 10 ML SYR IV SCH ×3 (06:24→20:09)
[2016-06-11] MEDS: VANCOMYCIN 1,750 MG/NS 500 ML IVPB IV SCH ×4 (06:24→18:45)
[2016-06-11] MEDS: RT-ALBUTEROL/IPRATROPIUM 3 ML (DUONEB) VIAL INH SCH ×5 (06:37→19:47)
[2016-06-11] MEDS: CATHETER FLUSH 10 ML SYR IV PRN ×3 (08:01→18:46)
[2016-06-11] MEDS: PIPERACILLIN SODIUM/TAZOBACTAM 4.5 GM in NS (IVPB) 100 ML IV SCH ×3 (08:01→23:31)
--- NOTE | 2016-06-11 08:10 | Progress Note (SOAP) ---
Subjective Subjective/Events-last exam Patient breathing comfortably but she is on 3 L nasal cannula oxygen. She does not voice any new complaints today. She still has an occasional cough. Date seen by provider: Jun 11, 2016 Objective Exam Last Set of Vital Signs Vital Signs Date Time Temp Pulse Resp B/P Pulse Ox O2 Delivery O2 Flow Rate FiO2 06/11/16 04:33 82 3.00 06/11/16 00:00 97.4 64 18 130/75 Nasal Cannula 06/08/16 02:06 86 Capillary Refill : I&O Intake and Output 06/11/16 00:00 Intake Total 3007.5 ml Output Total 1250 ml Balance 1757.5 ml Intake Oral 2190 ml IV Total 817.5 ml Output Urine Total 1250 ml # Bowel Movements 1 General: No Acute Distress Neck: Supple Lungs: Other (Rales in lung bases) Heart: Regular Rate Abdomen: Soft (Without epigastric tenderness) Extremities: No Edema Results/Procedures Lab Laboratory Tests 06/11/16 05:40: Alanine Aminotransferase (ALT/SGPT) 33, Albumin 2.7L, Alkaline Phosphatase 97, Anion Gap 11, Aspartate Amino Transf (AST/SGOT) 20, BUN/Creatinine Ratio 21, Basophils # (Auto) 0.2H, Basophils (%) (Auto) 1, Blood Urea Nitrogen 15, Calcium Level 7.8L, Carbon Dioxide Level 22, Chloride Level 108H, Creatinine 0.70, Eosinophils # (Auto) 0.1, Eosinophils (%) (Auto) 0, Estimat Glomerular Filtration Rate > 60, Glucose Level 98, Hematocrit 35, Hemoglobin 11.1L, Lymphocytes # (Auto) 4.6H, Lymphocytes (%) (Auto) 19, Mean Corpuscular Hemoglobin 26, Mean Corpuscular Hemoglobin Concent 31L, Mean Corpuscular Volume 83, Mean Platelet Volume 9.4, Monocytes # (Auto) 1.2H, Monocytes (%) (Auto) 5, Neutrophils # (Auto) 18.1H, Neutrophils (%) (Auto) 75, Platelet Count 471H, Potassium Level 3.5L, Red Blood Count 4.28L, Red Cell Distribution Width 14.5, Sodium Level 141, Total Bilirubin 0.3, Total Protein 5.1L, Vancomycin Level Trough 15.9, White Blood Count 24.1H Microbiology 06/07/16 Blood Culture - Preliminary, Resulted No growth Assessment/Plan Assessment/Plan Admission Dx 1. Pneumonia 2. Black mold exposure--by history 3. Hypoxemia secondary to number 1 4. History of chronic pancreatitis Plan 1. Pneumonia -Patient currently on vancomycin and Zosyn -Sputum culture results pending from [facility] clinic -Solu-Medrol was discontinued and she is now taking prednisone taper -hold today's chest x-ray but we'll check one in the morning of June 12. 2. Black mold exposure--by history -She has seen consumer electronic retail specialist in [place] as well 3. Hypoxemia secondary to number 1 -Oxygen by nasal cannula and taper as she improves 4. History of chronic pancreatitis Diagnosis/Problems: Clinical Quality Measures DVT/VTE Risk/Contraindication: Risk Factor Score Per Nursin RFS Level Per Nursing on Admit: 2=Moderate CLAIRE BRYANT MD Jun 11, 2016 08:10
[2016-06-11] MEDS: ENOXAPARIN 40 MG/0.4 ML (LOVENOX) SYR SC SCH (08:51)
[2016-06-11] MEDS: BENZONATATE 100 MG (TESSALON) CAPSULE PO SCH ×3 (08:51→20:09)
[2016-06-11] MEDS: predniSONE 10 MG TAB PO SCH (12:41)
[2016-06-11 16:00] VITALS: BP 118/66
[2016-06-11] MEDS: FAMOTIDINE 20 MG (PEPCID) TABLET PO SCH (20:09)
[2016-06-11] MEDS: ALPRAZolam 0.25 MG (XANAX) TAB PO PRN (21:52)
[2016-06-12] VITALS: BP 119/69
[2016-06-12] MEDS: HYDROcodone/APAP 5 MG/325 MG (LORTAB) TAB PO PRN ×4 (03:58→22:46)
[2016-06-12] MEDS: guaiFENesin/DM (ROBITUSSIN DM) 10 ML UDC PO PRN (03:58)
[2016-06-12] MEDS: CATHETER FLUSH 10 ML SYR IV SCH ×3 (06:27→21:11)
[2016-06-12] MEDS: VANCOMYCIN 1,750 MG/NS 500 ML IVPB IV SCH ×4 (06:27→19:04)
[2016-06-12] MEDS: PIPERACILLIN SODIUM/TAZOBACTAM 4.5 GM in NS (IVPB) 100 ML IV SCH ×3 (06:27→22:46)
[2016-06-12] MEDS: RT-ALBUTEROL/IPRATROPIUM 3 ML (DUONEB) VIAL INH SCH ×4 (06:50→18:51)
--- NOTE | 2016-06-12 07:50 | Progress Note (SOAP) ---
Subjective Subjective/Events-last exam patient reports she is breathing much better today. She reports coughing up phlegm. She is tolerating regular diet. Objective Exam Last Set of Vital Signs Vital Signs Date Time Temp Pulse Resp B/P Pulse Ox O2 Delivery O2 Flow Rate FiO2 06/12/16 06:50 94 4.00 06/12/16 00:00 96.0 72 18 119/69 Nasal Cannula 06/08/16 02:06 86 Capillary Refill : I&O Intake and Output 06/12/16 00:00 Intake Total 4245.0 ml Output Total 2250 ml Balance 1995.0 ml Intake Oral 2910 ml IV Total 1335.0 ml Output Urine Total 2250 ml # Voids 5 # Bowel Movements 2 General: No Acute Distress Neck: Supple Lungs: Clear to Auscultation Heart: Regular Rate Results/Procedures Lab Microbiology 06/07/16 Blood Culture - Preliminary, Resulted No growth Radiology NAME: TRU MONET [facility] REC#: [id number] PT STATUS: ADM IN : 1970 PHYSICIAN: CLAIRE BRYANT MD ADMIT DATE: 06/07/16 Draft Date of Exam:06/12/16 CHEST PA/LAT (2 VIEW) INDICATION: Pneumonia. EXAMINATION: 2 view chest, 06/12/2016. Comparison made to 06/10/2016. FINDINGS: Two views of the chest. There are patchy airspace opacities in the right upper lung and also at the lung bases. Very small bilateral pleural effusions are suspected. Heart and pulmonary vasculature are stable with pulmonary vascular congestion again noted. IMPRESSION: 1. Stable bilateral infiltrates. 2. Fairly stable pulmonary vascular congestion. Dictated on workstation # [id number] Dict: 06/12/16 0835 Trans: 06/12/16 0903 [id number] Interpreted by: ANNA BRANCH MD Electronically signed by: Assessment/Plan Assessment/Plan Admission Dx 1. Pneumonia 2. Black mold exposure--by history 3. Hypoxemia secondary to number 1 4. History of chronic pancreatitis Plan 1. Pneumonia -Patient currently on vancomycin and Zosyn -Sputum culture results pending from [facility] clinic -Solu-Medrol was discontinued and she is now taking prednisone taper -hold today's chest x-ray but we'll check one in the morning of June 12. 06/12 sputum cultures pending and these will be checked on Monday, June 13, 2016 through the [facility] 2. Black mold exposure--by history -She has seen special education educational assistant in [place] as well 3. Hypoxemia secondary to number 1 -Oxygen by nasal cannula and taper as she improves 06/12 she is still requiring 3-4 liters oxygen per nasal cannula -she does utilize oxygen for home use and this is already available in the room for her to take home. 4. History of chronic pancreatitis Diagnosis/Problems: Clinical Quality Measures DVT/VTE Risk/Contraindication: Risk Factor Score Per Nursin RFS Level Per Nursing on Admit: 2=Moderate CLAIRE BRYANT MD Jun 12, 2016 07:50
[2016-06-12 08:00] VITALS: BP 120/72
[2016-06-12] MEDS: CATHETER FLUSH 10 ML SYR IV PRN (08:49)
[2016-06-12] MEDS: BENZONATATE 100 MG (TESSALON) CAPSULE PO SCH ×3 (08:49→21:10)
--- NOTE | 2016-06-12 09:03 | Diagnostic Imaging Report ---
INDICATION: Pneumonia. EXAMINATION: 2 view chest, 06/12/2016. Comparison made to 06/10/2016. FINDINGS: Two views of the chest. There are patchy airspace opacities in the right upper lung and also at the lung bases. Very small bilateral pleural effusions are suspected. Heart and pulmonary vasculature are stable with pulmonary vascular congestion again noted. IMPRESSION: 1. Stable bilateral infiltrates. 2. Fairly stable pulmonary vascular congestion. Dictated by: Dictated on workstation # [id number]
[2016-06-12] MEDS: ENOXAPARIN 40 MG/0.4 ML (LOVENOX) SYR SC SCH (10:47)
[2016-06-12] MEDS: predniSONE 10 MG TAB PO SCH (12:22)
[2016-06-12] MEDS: ALPRAZolam 0.25 MG (XANAX) TAB PO PRN ×2 (15:27→23:34)
[2016-06-12 16:38] VITALS: BP 120/66
[2016-06-12] MEDS: FAMOTIDINE 20 MG (PEPCID) TABLET PO SCH (21:10)
[2016-06-13 05:46] VITALS: BP 119/74
[2016-06-13] MEDS: CATHETER FLUSH 10 ML SYR IV SCH ×2 (06:00→14:00)
[2016-06-13 06:15] LABS: BASOPHILS # (AUTO) 0.1 10^3/uL (0.0-0.1); BASOPHILS % (AUTO) 0 % (0-10); EOSINOPHILS # (AUTO) 0.4 10^3/uL (0.0-0.3); EOSINOPHILS % (AUTO) 2 % (0-10); LYMPHOCYTES % (AUTO) 25 % (12-44); MEAN CORPUSCULAR HEMOGLOBIN 26 PG (25-34); MEAN CORPUSCULAR HGB CONC 31 G/DL (32-36); MEAN CORPUSCULAR VOLUME 82 FL (80-99); MEAN PLATELET VOLUME 9.3 FL (7.4-10.4); MONOCYTES # (AUTO) 0.9 X 10^3 (0.0-1.0); MONOCYTES % (AUTO) 4 % (0-12); NEUTROPHILS # (AUTO) 13.8 X 10^3 (1.8-7.8); NEUTROPHILS % (AUTO) 68 % (42-75); PLATELET COUNT 452 10^3/uL (130-400); RED BLOOD COUNT 4.29 10^6/uL (4.35-5.85); WHITE BLOOD COUNT 20.2 10^3/uL (4.3-11.0)
[2016-06-13] MEDS: VANCOMYCIN 1,750 MG/NS 500 ML IVPB IV SCH ×2 (07:16)
[2016-06-13] MEDS: RT-ALBUTEROL/IPRATROPIUM 3 ML (DUONEB) VIAL INH SCH ×3 (07:49→14:12)
[2016-06-13 08:30] VITALS: BP 133/86
[2016-06-13] MEDS: ALPRAZolam 0.25 MG (XANAX) TAB PO PRN (08:30)
[2016-06-13] MEDS: HYDROcodone/APAP 5 MG/325 MG (LORTAB) TAB PO PRN ×2 (08:30→14:32)
[2016-06-13] MEDS: BENZONATATE 100 MG (TESSALON) CAPSULE PO SCH ×2 (08:30→12:46)
[2016-06-13] MEDS: ENOXAPARIN 40 MG/0.4 ML (LOVENOX) SYR SC SCH (08:31)
[2016-06-13] MEDS: guaiFENesin/DM (ROBITUSSIN DM) 10 ML UDC PO PRN ×2 (11:07→15:20)
[2016-06-13 12:30] VITALS: BP 120/68
[2016-06-13] MEDS ORDERED: PRD10T PO (12:31)
[2016-06-13] MEDS ORDERED: AMOX-358 PO (12:31)
--- NOTE | 2016-06-13 12:33 | Discharge Instructions ---
Discharge [facility] Discharge Medications New, Converted or Re-Newed RX: Transmitted to Pharmacy New Medications: Amoxicillin/Potassium Clav (Augmentin 875-125 Tablet) 1 Each Tablet 1 EACH PO BID #10 Ref 0 TAB Prednisone (Prednisone) 10 Mg Tab 0 PO UD 40mg qdx2d then 30mg qdx2d, then 20mg qdx2d, then 10mg qdx2d #20 Ref 0 TAB Continued Medications: Guaifenesin/Dextromethorphan (Robitussin Cough-Chest Dm Liq) 118 Ml Liquid 30 ML PO Q4H PRN CONGESTION EA Ibuprofen (Advil) 200 Mg Tablet 800 MG PO Q8H TAKES 4 (200MG) TABLETS NEEDED FOR PAIN PRN FEVER/PAIN Loratadine/Pseudoephedrine (Allergy Relief-Nasal Decong Tb) 1 Each Tab.er.24h 1 TAB PO DAILY PRN ALLERGIES/CONGESTION Ranitidine HCl (Zantac) 150 Mg Tablet 150 MG PO HS TAB Discontinued Medications: Dm Hb/PE/Acetaminophen/Chlorph (Molly-Dunbar Plus Cld-Cough Cp) 1 Each Capsule 2 CAP PO Q4H PRN COUGH CAP Patient Instructions Goal/Follow Up Appt: Follow up with Dr. Arzate on 06/20 at 1020 am Return to The Hospital For: Fever, increasing shortness of breath in spite of oxygen use, inability to keep down antibiotics Activity & Diet Discharge Diet: Regular Diet Activity as Tolerated: Yes Orders-Post D/C & Referrals Pneu Vac Indicated: Yes Copy Copies To 1: MAVERICK ARZATE MD, BETHANY N MD Jun 13, 2016 12:33 pm
--- NOTE | 2016-06-13 12:35 | Discharge Summary ---
Diagnosis/Chief Complaint Date of Admission Jun 07, 2016 at 11:19 am Date of Discharge Jun 13, 2016 Admission Diagnosis Admission Diagnosis 1. Pneumonia 2. Black mold exposure--by history 3. Hypoxemia secondary to number 1 4. History of chronic pancreatitis Discharge Diagnosis 1. Pneumonia -Patient currently on vancomycin and Zosyn -Sputum culture results pending from [facility] clinic -Solu-Medrol was discontinued and she is now taking prednisone taper -hold today's chest x-ray but we'll check one in the morning of June 12. 06/12 sputum cultures pending and these will be checked on Monday, June 13, 2016 through the [facility] 06/13 sputum culture from clinic noted to be staph aureus resistant to penicillin but sensitive to oxacillin, discharged with 5 more days of antibiotics (Augmentin) as well as oxygen for home use (was already in hospital room ready for home use) and nebulizer with script for duonebs. 2. Black mold exposure--by history -She has seen subwarehouse supervisor in [place] as well 3. Hypoxemia secondary to number 1 -Oxygen by nasal cannula and taper as she improves 06/12 she is still requiring 3-4 liters oxygen per nasal cannula -she does utilize oxygen for home use and this is already available in the room for her to take home. 4. History of chronic pancreatitis 5. Anxiety- given alprazolam while in patient and requested refill on discharge , discussed that she should request from her primary (telephone message sent to Dr Rosales) Chief Complaint/HPI Chief Complaint/HPI This is a 45-year-old white female it sees a worker's comp subwarehouse supervisor at [facility] Dr. Vides who just saw the patient yesterday for possible black mold pneumonitis that has required nighttime oxygen for the past one year that presented to Dr. Rosales a [facility] today at the clinic was found to be hypoxic requiring IV steroids and empiric antibiotic coverage for pneumonitis and pulmonology consultation. She works at [employer] and used to see Dr. Juarez as her primary care provider. 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 Luciano for chronic pancreatitis but in postoperative state she had a bronchospasm that is continued to worsen through the last several months. She has been to the emergency room twice for left pleuritic chest pain but she has worsened with wheezing and shortness of breath requiring hospitalization. Discharge Summary-Simple/Stand Consultations Discharge Physical Examination Allergies: Coded Allergies: ciprofloxacin (Verified Allergy, Severe, 07/10/14) severe itching at iv site codeine (Unverified Allergy, Unknown, 07/08/14) PT STATED WHEN SHE HAS TYLENOL AND CODEINE TOGETHER (TYLENOL #3) SHE HAS TERRIBLE NIGHTMARES. butorphanol (Unverified Adverse Reaction, Unknown, SEVERE HEADACHES, ) Vitals & I&Os Vital Sign - Last 12Hours Date Time Temp Pulse Resp B/P Pulse Ox O2 Delivery O2 Flow Rate FiO2 06/13/16 11:15 93 4.00 06/13/16 09:00 Nasal Cannula 06/13/16 08:30 97.5 75 20 133/86 06/08/16 02:06 86 Intake and Output 06/13/16 00:00 Intake Total 2637.5 ml Output Total 2275 ml Balance 362.5 ml General Appearance: Alert, No Acute Distress Respiratory: Clear to Auscultation, Normal Air Movement Cardiovascular: Regular Rate, No Murmurs Psych/Mental Status: Mental Status NL Hospital Course See final discharge diagnosis. Labs Laboratory Tests Test 06/13/16 05:40 Range/Units Basophils # (Auto) 0.1 0.0-0.1 10^3/uL Basophils (%) (Auto) 0 0-10 % Eosinophils # (Auto) 0.4 H 0.0-0.3 10^3/uL Eosinophils (%) (Auto) 2 0-10 % Hematocrit 35 35-52 % Hemoglobin 11.1 L 11.5-16.0 G/DL Lymphocytes # (Auto) 5.0 H 1.0-4.0 X 10^3 Lymphocytes (%) (Auto) 25 12-44 % Mean Corpuscular Hemoglobin 26 25-34 PG Mean Corpuscular Hemoglobin Concent 31 L 32-36 G/DL Mean Corpuscular Volume 82 80-99 FL Mean Platelet Volume 9.3 7.4-10.4 FL Monocytes # (Auto) 0.9 0.0-1.0 X 10^3 Monocytes (%) (Auto) 4 0-12 % Neutrophils # (Auto) 13.8 H 1.8-7.8 X 10^3 Neutrophils (%) (Auto) 68 42-75 % Platelet Count 452 H 130-400 10^3/uL Red Blood Count 4.29 L 4.35-5.85 10^6/uL Red Cell Distribution Width 15.0 H 10.0-14.5 % White Blood Count 20.2 H 4.3-11.0 10^3/uL Radiology Reviewed NAME: TRU MONET [facility] REC#: [id number] PT STATUS: ADM IN : 1970 PHYSICIAN: CLAIRE BRYANT MD ADMIT DATE: 06/07/16 Draft Date of Exam:06/12/16 CHEST PA/LAT (2 VIEW) INDICATION: Pneumonia. EXAMINATION: 2 view chest, 06/12/2016. Comparison made to 06/10/2016. FINDINGS: Two views of the chest. There are patchy airspace opacities in the right upper lung and also at the lung bases. Very small bilateral pleural effusions are suspected. Heart and pulmonary vasculature are stable with pulmonary vascular congestion again noted. IMPRESSION: 1. Stable bilateral infiltrates. 2. Fairly stable pulmonary vascular congestion. Dictated on workstation # [id number] Dict: 06/12/16 0835 Trans: 06/12/16 0903 [id number] Interpreted by: ANNA BRANCH MD Electronically signed by: Discharge Instructions to patient/family Please see electonic discharge instructions given to patient. Discharge Medications Reviewed and agree with Discharge Medication list on patient's Discharge Instruction sheet Clinical Quality Measures DVT/VTE Risk/Contraindication: Risk Factor Score Per Nursin RFS Level Per Nursing on Admit: 2=Moderate Copy Copies To 1: MAVERICK ROSALES MD, BETHANY N MD Jun 13, 2016 12:35 pm
[2016-06-13] MEDS: predniSONE 10 MG TAB PO SCH (12:46)
[2016-06-13] MEDS ORDERED: IPRA3AMP INH (14:55)
[2016-06-13 15:27] VITALS: BP 120/68
== END 2016-06-13 15:25 | disposition home or self-care (01) | DRG 179 ==
LOC: OBSVTOIN 11:19 → ICU 11:19 → 4TH 20:28
PROVIDERS: ADMIT Family Medicine; ATTEND Family Medicine
DX: J15.212 Pneumonia due to Methicillin resistant Staphylococcus aureus (principal); Z77.120 Contact with and (suspected) exposure to mold (toxic); R09.02 Hypoxemia; F41.9 Anxiety disorder, unspecified; F32.9 Major depressive disorder, single episode, unspecified; I10 Essential (primary) hypertension; J44.9 Chronic obstructive pulmonary disease, unspecified; Z87.891 Personal history of nicotine dependence; Z99.81 Dependence on supplemental oxygen
CPT/HCPCS: 36415; 71020; 80053; 80202; 85007; 85025; 85027; 87040; 94640; 94664; 94760; 94761

== ENCOUNTER → 2016-08-30 | Outpatient (CLI) | payer OTHER, BC ==
[~2016-08-30] MED LIST changes: +AMOX-358 PO; +DM H1CAP5 PO; +GUAI-818 PO; +IPRA3AMP INH; +PRD10T PO; +[UNRECOGNIZED DRUG - CODE] PO
--- NOTE | 2016-08-30 09:39 | Diagnostic Imaging Report ---
PROCEDURE: CT sinuses without contrast TECHNIQUE: Multiple contiguous axial images were obtained through the sinuses without the use of intravenous contrast. Coronal and sagittal reformations were then performed. INDICATION: Sinus pressure. Infection. FINDINGS: The frontal sinuses are hypoplastic, very small in the right side and absence of the left side. There is minimal mucosal thickening along the ethmoidal air cells. Minimal mucosal thickening is also seen in the maxillary sinuses slightly more prominent on the left side. The ostiomeatal complexes appear patent. The nasal septum is deviated to the left. There is [id number] mucosal thickening in the inferior turbinates slightly narrowing the nasal passages. The sphenoidal sinuses are small in size but aerated. The mastoid air cells and middle ear cavities are clear. IMPRESSION: Hypoplastic frontal and sphenoid sinuses. Mild mucosal thickening in the maxillary and ethmoidal sinuses and along the inferior turbinates. Dictated by: Dictated on workstation # [id number]
== END ==
LOC: RAD 08:54
PROVIDERS: ATTEND Otolaryngology Otolaryngology/Facial Plastic Surgery
DX: J34.9 Unspecified disorder of nose and nasal sinuses (principal); H53.8 Other visual disturbances
CPT/HCPCS: 70486

== ENCOUNTER 2016-10-20 11:08 | Emergency (ER) | payer OTHER, BC ==
[~2016-10-20] VITALS: Ht 160 cm; Wt 112.5 kg
[2016-10-20 11:45] LABS: BASOPHILS % (AUTO) 0 % (0-10); EOSINOPHILS # (AUTO) 0.5 10^3/uL (0.0-0.3); EOSINOPHILS % (AUTO) 6 % (0-10); LYMPHOCYTES # (AUTO) 2.7 X 10^3 (1.0-4.0); LYMPHOCYTES % (AUTO) 30 % (12-44); MEAN CORPUSCULAR HEMOGLOBIN 26 PG (25-34); MEAN CORPUSCULAR HGB CONC 33 G/DL (32-36); MEAN CORPUSCULAR VOLUME 81 FL (80-99); MEAN PLATELET VOLUME 10.2 FL (7.4-10.4); MONOCYTES # (AUTO) 0.6 X 10^3 (0.0-1.0); MONOCYTES % (AUTO) 6 % (0-12); NEUTROPHILS # (AUTO) 5.2 X 10^3 (1.8-7.8); NEUTROPHILS % (AUTO) 58 % (42-75); PLATELET COUNT 305 10^3/uL (130-400); RED BLOOD COUNT 4.72 10^6/uL (4.35-5.85); RED CELL DISTRIBUTION WIDTH 13.9 % (10.0-14.5)
--- NOTE | 2016-10-20 11:52 | ED Abdominal Pain ---
General Chief Complaint: Abdominal/GI Problems Stated Complaint: ABD PAIN Source of Information: Patient Exam Limitations: No Limitations History of Present Illness Time Seen By Provider: 11:51 Initial Comments To ER with epigastric abdominal pain described as a band around the upper abdomen that radiates through the back associated with nausea. She has a history of chronic pancreatitis. She went to [place] this past weekend and ate a pulled pork sandwich which she believes to be the cause of this. She does have pancreatic enzymes which she states that she has been taking. Denies any alcohol use. She is employed at [employer]. Timing/Duration: 1-2 Days Severity/Quality: Cramping Location: Epigastric, Generalized Abdomen Radiation: No Radiation Activities at Onset: None Allergies and Home Medications Allergies Coded Allergies: ciprofloxacin (Verified Allergy, Severe, 07/10/14) severe itching at iv site codeine (Unverified Allergy, Unknown, 07/08/14) PT STATED WHEN SHE HAS TYLENOL AND CODEINE TOGETHER (TYLENOL #3) SHE HAS TERRIBLE NIGHTMARES. butorphanol (Unverified Adverse Reaction, Unknown, SEVERE HEADACHES, ) Home Medications Amoxicillin/Potassium Clav 1 Each Tablet, 1 EACH PO BID, #10 Ref 0 Prescribed by: CELSO NEUMANN on 06/13/16 1231 Guaifenesin/Dextromethorphan 118 Ml Liquid, 30 ML PO Q4H PRN for CONGESTION, ( Reported) Ibuprofen 200 Mg Tablet, 800 MG PO Q8H PRN for FEVER/PAIN, (Reported) TAKES 4 (200MG) TABLETS NEEDED FOR PAIN Ipratropium/Albuterol Sulfate 3 Ml Ampul.neb, 3 ML INH Q4H PRN for SHORTNESS OF BREATH, #300 Ref 0 Prescribed by: CELSO NEUMANN on 06/13/16 1455 Loratadine/Pseudoephedrine 1 Each Tab.er.24h, 1 TAB PO DAILY PRN for ALLERGIES/ CONGESTION, (Reported) Prednisone 10 Mg Tab, 0 PO UD, #20 Ref 0 40mg qdx2d then 30mg qdx2d, then 20mg qdx2d, then 10mg qdx2d Prescribed by: CELSO NEUMANN on 06/13/16 1231 Ranitidine HCl 150 Mg Tablet, 150 MG PO HS, (Reported) Review of Systems Constitutional: see HPI EENTM: No Symptoms Reported Respiratory: No Symptoms Reported Cardiovascular: No Symptoms Reported Gastrointestinal: See HPI, Abdominal Pain, Nausea Genitourinary: No Symptoms Reported Musculoskeletal: no symptoms reported Skin: no symptoms reported Psychiatric/Neurological: No Symptoms Reported Endocrine: No Symptoms Reported Hematologic/Lymphatic: No Symptoms Reported Past Tcefknd-Bcneco-Uelzuh Hx Patient Social History Type Used: Cigarettes Former Smoker/When Quit: Sep 14, 2010 2nd Hand Smoke Exposure: Yes Recent Foreign Travel: No Contact w/Someone Who Travel: No Recent Hopitalizations: Yes (pancreatitis) Immunizations Up To Date Tetanus Booster (TDap): Less than 5yrs PED Vaccines UTD: No Date of Influenza Vaccine: Feb 26, 2016 Seasonal Allergies Seasonal Allergies: Yes Surgeries HX Surgeries: Yes Surgeries: Abdominal, Appendectomy, Gallbladder, Hysterectomy, Oophorectomy, Orthopedic, Pancreatic Respiratory Hx Respiratory Disorders: Yes (atelectasis, nocturnal hypoxia with O2 supplementation) Respiratory Disorders: Asthma, Pneumonia Cardiovascular Hx Cardiac Disorders: Yes Cardiac Disorders: Hypertension Neurological Hx Neurological Disorders: No 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 System Hx 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 Disorders: Yes (Hysterectomy due to fibroid tumors) Sexually Transmitted Disease: No HIV/AIDS: No Female 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 Disorders: Denies PROCED TECH History: Hysterectomy Genitourinary Hx Genitourinary Disorders: No Gastrointestinal Hx Gastrointestinal Disorders: Yes (pancreatitis x4 2015; CHRONIC PANCREATITIS) Gastrointestinal Disorders: Pancreatitis Musculoskeletal Hx Musculoskeletal Disorders: Yes Musculoskeletal Disorders: Arthritis Endocrine Hx Endocrine Disorders: No HEENT HX ENT Disorders: No Loss of Vision: Denies Hearing Impairment: Denies Cancer Hx Cancer: No Psychosocial Hx Psychiatric Problems: Yes Behavioral Health Disorders: Anxiety Integumentary HX Skin/Integumentary Disorder: No Blood Transfusions Hx Blood Disorders: No Adverse Reaction to a Blood Tr: No Family Medical History Significant Family History: Heart Disease, COPD, Hypertension Family Medial History: Arthritis 03 MOTHER Cancer (Breast CA.) 03 MOTHER Cardiovascular disease 03 FATHER Deafness or hearing loss 03 FATHER Fibrocystic disease of breast 03 MOTHER Hypercholesterolemia 03 FATHER 03 MOTHER Hypertension 03 MOTHER Osteoporosis 03 MOTHER Respiratory disorder 03 MOTHER No Family History of: AIDS Abdominal aortic aneurysm Christine's disease Alcoholism Alzheimer's disease Asthma Cancer of mouth Cataracts Colon cancer Completed stroke Congenital disease Congenital heart disease Coronary thrombosis Cystic fibrosis Dementia Diabetes mellitus Drug abuse Dysphasia Gastroenteritis Glaucoma Headache disorder Infertility Kidney disease Myocardial infarction Neoplasm Not obtainable due to adoption Parkinson's disease Prostate cancer Psychosocial problem Seizure disorder Severe allergy Thyroid disease Tuberculosis Visual disorder Physical Exam Vital Signs VS - Last 72 Hours, by Label 10/20/16 11:48 Temp 96.1 Pulse 74 Resp 18 B/P (MAP) 134/87 Pulse Ox 96 O2 Delivery Room Air Capillary Refill : General Appearance: WD/WN, no apparent distress, obese HEENT: PERRL/EOMI, normal ENT inspection Neck: non-tender, full range of motion Respiratory: no respiratory distress, no accessory muscle use Cardiovascular: regular rate, rhythm, no murmur Gastrointestinal: normal bowel sounds, soft Extremities: normal range of motion, non-tender Neurologic/Psychiatric: alert, normal mood/affect, oriented x 3 Skin: normal color, warm/dry Progress/Results/Core Measures Results/Orders Lab Results Laboratory Tests Test 10/20/16 11:32 10/20/16 13:02 Range/Units White Blood Count 9.0 4.3-11.0 10^3/uL Red Blood Count 4.72 4.35-5.85 10^6/uL Hemoglobin 12.4 11.5-16.0 G/DL Hematocrit 38 35-52 % Mean Corpuscular Volume 81 80-99 FL Mean Corpuscular Hemoglobin 26 25-34 PG Mean Corpuscular Hemoglobin Concent 33 32-36 G/DL Red Cell Distribution Width 13.9 10.0-14.5 % Platelet Count 305 130-400 10^3/uL Mean Platelet Volume 10.2 7.4-10.4 FL Neutrophils (%) (Auto) 58 42-75 % Lymphocytes (%) (Auto) 30 12-44 % Monocytes (%) (Auto) 6 0-12 % Eosinophils (%) (Auto) 6 0-10 % Basophils (%) (Auto) 0 0-10 % Neutrophils # (Auto) 5.2 1.8-7.8 X 10^3 Lymphocytes # (Auto) 2.7 1.0-4.0 X 10^3 Monocytes # (Auto) 0.6 0.0-1.0 X 10^3 Eosinophils # (Auto) 0.5 H 0.0-0.3 10^3/uL Basophils # (Auto) 0.0 0.0-0.1 10^3/uL Sodium Level 140 135-145 MMOL/L Potassium Level 3.8 3.6-5.0 MMOL/L Chloride Level 107 98-107 MMOL/L Carbon Dioxide Level 26 21-32 MMOL/L Anion Gap 7 5-14 MMOL/L Blood Urea Nitrogen 10 7-18 MG/DL Creatinine 0.77 0.60-1.30 MG/DL Estimat Glomerular Filtration Rate > 60 BUN/Creatinine Ratio 13 Glucose Level 102 70-105 MG/DL Calcium Level 9.2 8.5-10.1 MG/DL Total Bilirubin 0.2 0.1-1.0 MG/DL Aspartate Amino Transf (AST/SGOT) 27 5-34 U/L Alanine Aminotransferase (ALT/SGPT) 56 H 0-55 U/L Alkaline Phosphatase 135 40-136 U/L Total Protein 6.3 L 6.4-8.2 GM/DL Albumin 3.7 3.2-4.5 GM/DL Amylase Level 77 25-125 U/L Lipase 76 8-78 U/L Urine Color YELLOW Urine Clarity CLEAR Urine pH 6 5-9 Urine Specific [place] 1.010 L 1.016-1.022 Urine Protein NEGATIVE NEGATIVE Urine Glucose (UA) NEGATIVE NEGATIVE Urine Ketones NEGATIVE NEGATIVE Urine Nitrite NEGATIVE NEGATIVE Urine Bilirubin NEGATIVE NEGATIVE Urine Urobilinogen NORMAL NORMAL MG/DL Urine Leukocyte Esterase NEGATIVE NEGATIVE Urine RBC (Auto) NEGATIVE NEGATIVE Urine RBC NONE /HPF Urine WBC RARE /HPF Urine Squamous Epithelial Cells 0-2 /HPF Urine Crystals NONE /LPF Urine Bacteria NEGATIVE /HPF Urine Casts NONE /LPF Urine Mucus NEGATIVE /LPF Urine Culture Indicated NO My Orders Orders - BILL HEREDIA APRN Cbc With Automated Diff (10/20/16 11:36) Comprehensive Metabolic Panel (10/20/16 11:36) Ua Culture If Indicated (10/20/16 11:36) Lipase (10/20/16 11:36) Amylase (10/20/16 11:36) Saline Lock/Iv-Start (10/20/16 11:36) Ondansetron Injection (Zofran Injectio (10/20/16 11:45) Fentanyl Injection (Sublimaze Injection (10/20/16 11:45) Ct Abdomen/Pelvis W (10/20/16 11:36) Iohexol Injection (Omnipaque 350 Mg/Ml 1 (10/20/16 12:30) Sodium Chloride Flush (Catheter Flush Sy (10/20/16 12:30) Ns (Ivpb) (Sodium Chloride 0.9% Ivpb Bag (10/20/16 12:30) Antacid Suspension (Mylanta Suspension (10/20/16 12:30) Lidocaine 2% Viscous 15 Ml (Xylocaine Vi (10/20/16 12:30) Medications Given in ED Current Medications Medications Dose Ordered Sig/Fili Route Start Time Stop Time Status Last Admin Dose Admin Al Hydrox/Mg Hydrox/Simethicone 30 ml ONCE ONCE PO 10/20/16 12:30 10/20/16 12:31 DC 10/20/16 12:57 30 ML Fentanyl Citrate 50 mcg ONCE ONCE IVP 10/20/16 11:45 10/20/16 11:46 DC 10/20/16 12:05 50 MCG Iohexol 100 ml ONCE ONCE IV 10/20/16 12:30 10/20/16 12:31 DC 10/20/16 12:40 100 ML Lidocaine HCl 15 ml ONCE ONCE PO 10/20/16 12:30 10/20/16 12:31 DC 10/20/16 12:57 15 ML Ondansetron HCl 4 mg ONCE ONCE IVP 10/20/16 11:45 10/20/16 11:46 DC 10/20/16 12:04 4 MG Sodium Chloride 10 ml NEEDED PRN IV 10/20/16 12:30 10/20/16 12:40 10 ML Sodium Chloride 100 ml ONCE ONCE IV 10/20/16 12:30 10/20/16 12:31 DC 10/20/16 12:40 80 ML Vital Signs/I&O Vital Sign - Last 12Hours 10/20/16 11:48 Temp 96.1 Pulse 74 Resp 18 B/P (MAP) 134/87 Pulse Ox 96 O2 Delivery Room Air Diagnostic Imaging Diagonstic Imaging: CT Comments NAME: TRU MONET [facility] REC#: [id number] PT STATUS: REG ER : 1970 PHYSICIAN: BILL HEREDIA APRN ADMIT DATE: 10/20/16/ER Draft Date of Exam:10/20/16 CT ABDOMEN/PELVIS W PROCEDURE: CT abdomen and pelvis with contrast. TECHNIQUE: Multiple contiguous axial images were obtained through the abdomen and pelvis after administration of intravenous contrast. INDICATION: Epigastric pain for two days. 100 mL of Omnipaque 350 was administered intravenously. COMPARISON: 03/20/2016. FINDINGS: There is minimal scarring seen in the inferior lingula. The liver demonstrates biliary air in the left hepatic lobe, probably related to prior sphincterotomy. This was seen on 03/20/2016 exam with no significant change. The spleen, the pancreas, and adrenal glands appear unremarkable. Cholecystectomy clips are seen. The kidneys have symmetric enhancement and contrast excretion. No hydronephrosis. The abdominal aorta is normal in caliber. No para-aortic significantly enlarged lymph node is seen. There is no bowel obstruction. Surgical sutures at the base of the cecum are probably related to prior appendectomy. There is also surgical clips in the pelvis with suggestion of hysterectomy. No significant free fluid or fluid collection in the abdomen or pelvis. The osseous structures demonstrate degenerative changes with vacuum phenomena in the SI joints. IMPRESSION: No acute process. Dictated on workstation # [id number] Dict: 10/20/16 1257 Trans: 10/20/16 1316 [facility] [id number] Interpreted by: OBDULIA GAMINO MD Electronically signed by: Departure Communication Progress Notes 1328-after the GI cocktail patient reports significant improvement in her symptoms. I advised her that her stomach is likely the source of her pain other than her pancreas and this seems to be a big relief to her. We will start her on Protonix and have her follow-up with Dr. Rosales. May need EGD at some point. Impression Impression: Primary Impression: Abdominal pain Disposition: 01 HOME, SELF-CARE Condition: Stable Departure-Patient Inst. Decision time for Depature: 13:29 Referrals: MAVERICK ROSALES MD (PCP/Family) Primary Care Physician Patient Instructions: Acute Abdomen (Belly Pain), Adult (DC) Add. Discharge Instructions: 1. Medication as directed 2. Return to ER for any concerns 3. All discharge instructions reviewed with patient and/or family. Voiced understanding. Scripts Pantoprazole Sodium (Protonix) 40 Mg Tablet. 40 MG PO DAILY, #30 TAB Prov: BILL HEREDIA APRN 10/20/16 Work/School Note: Work Release Form Date Seen in the Emergency Department: Oct 20, 2016 Return to Work: Oct 21, 2016 Copy Copies To 1: MAVERICK ROSALES MD, PETER J APRN Oct 20, 2016 11:52
[2016-10-20] MEDS: ONDANSETRON 4 MG/2 ML (SDV) Z0FRAN IVP ONE (12:04)
[2016-10-20] MEDS: fentaNYL INJECTION 100 MCG/2 ML AMP IVP ONE (12:05)
[2016-10-20 12:06] LABS: ALANINE AMINOTRANSFERASE 56 U/L (0-55); ALBUMIN 3.7 GM/DL (3.2-4.5); AMYLASE 77 U/L (25-125); ANION GAP 7 MMOL/L (5-14); ASPARTATE AMINO TRANSFERASE 27 U/L (5-34); BILIRUBIN,TOTAL 0.2 MG/DL (0.1-1.0); BLOOD UREA NITROGEN 10 MG/DL (7-18); BUN/CREATININE RATIO 13; CALCIUM 9.2 MG/DL (8.5-10.1); CARBON DIOXIDE 26 MMOL/L (21-32); CHLORIDE 107 MMOL/L (98-107); CREATININE SERUM 0.77 MG/DL (0.60-1.30); GFR ESTIMATED > 60; GLUCOSE 102 MG/DL (70-105); LIPASE 76 U/L (8-78); POTASSIUM 3.8 MMOL/L (3.6-5.0); SODIUM 140 MMOL/L (135-145); TOTAL PROTEIN 6.3 GM/DL (6.4-8.2)
[2016-10-20] MEDS: NS 100 ML (IVPB) BAG IV ONE (12:40)
[2016-10-20] MEDS: IOHEXOL 350 MG/ML 100 ML (OMNIPAQUE 350) VIAL IV ONE (12:40)
[2016-10-20] MEDS: CATHETER FLUSH 10 ML SYR IV PRN (12:40)
[2016-10-20] MEDS: ANTACID SUSP 30 ML UDC (MYLANTA) PO ONE (12:57)
[2016-10-20] MEDS: LIDOCAINE 2% VISCOUS 15 ML UDC PO ONE (12:57)
[2016-10-20 13:09] LABS: BILIRUBIN,URINE NEGATIVE (NEGATIVE); KETONES,URINE NEGATIVE (NEGATIVE); LEUKOCYTE ESTERASE ,URINE NEGATIVE (NEGATIVE); NITRITE,URINE NEGATIVE (NEGATIVE); PH,URINE 6 (5-9); PROTEIN,URINE NEGATIVE (NEGATIVE); UROBILINOGEN,URINE NORMAL (NORMAL)
--- NOTE | 2016-10-20 13:17 | Diagnostic Imaging Report ---
PROCEDURE: CT abdomen and pelvis with contrast. TECHNIQUE: Multiple contiguous axial images were obtained through the abdomen and pelvis after administration of intravenous contrast. INDICATION: Epigastric pain for two days. 100 mL of Omnipaque 350 was administered intravenously. COMPARISON: 03/20/2016. FINDINGS: There is minimal scarring seen in the inferior lingula. The liver demonstrates biliary air in the left hepatic lobe, probably related to prior sphincterotomy. This was seen on 03/20/2016 exam with no significant change. The spleen, the pancreas, and adrenal glands appear unremarkable. Cholecystectomy clips are seen. The kidneys have symmetric enhancement and contrast excretion. No hydronephrosis. The abdominal aorta is normal in caliber. No para-aortic significantly enlarged lymph node is seen. There is no bowel obstruction. Surgical sutures at the base of the cecum are probably related to prior appendectomy. There is also surgical clips in the pelvis with suggestion of hysterectomy. No significant free fluid or fluid collection in the abdomen or pelvis. The osseous structures demonstrate degenerative changes with vacuum phenomena in the SI joints. IMPRESSION: No acute process. Dictated by: Dictated on workstation # [id number]
[2016-10-20 13:23] LABS: SQUAMOUS EPITHELIAL CELL,UR 0-2 /HPF; WBC,URINE RARE /HPF
[2016-10-20] MEDS ORDERED: PANT40TA2 PO (13:29)
[2016-10-20 13:38] VITALS: BP 120/74
== END 2016-10-20 13:38 | disposition home or self-care (01) ==
LOC: EDUNIT# 11:08 → ER 11:10
DX: R10.13 Epigastric pain (principal); F41.9 Anxiety disorder, unspecified; M19.90 Unspecified osteoarthritis, unspecified site; I10 Essential (primary) hypertension; J45.909 Unspecified asthma, uncomplicated; Z87.19 Personal history of other diseases of the digestive system; Z87.898 Personal history of other specified conditions; Z90.721 Acquired absence of ovaries, unilateral; Z90.710 Acquired absence of both cervix and uterus; Z87.891 Personal history of nicotine dependence; Z90.49 Acquired absence of other specified parts of digestive tract; Z98.890 Other specified postprocedural states
CPT/HCPCS: 36415; 74177; 80053; 81000; 82150; 83690; 85025

== ENCOUNTER → 2017-03-29 | Outpatient (CLI) | payer BC, OTHER ==
[~2017-03-29] MED LIST changes: +ACHD5005 PO; -HYDR-3812 PO; +HYOS-20 PO; -HYOS0.1216 PO
--- NOTE | 2017-03-30 14:26 | Diagnostic Imaging Report ---
Bilateral screening mammogram 2D views with tomosynthesis. The current study was also evaluated with a Computer Aided Detection (CAD) system. INDICATION: Screening. No current complaints stated on the questionnaire. COMPARISON: 01/21/2014. FINDINGS: The breasts are composed of scattered fibroglandular densities. Occasional benign-appearing calcifications are seen. Allowing for technique and positional differences, no suspicious change is seen. IMPRESSION: No significant change. ACR BI-RADS Category 2: Benign findings. Result letter will be mailed to the patient. Note: At least 10% of breast cancer is not imaged by mammography. Dictated by: Dictated on workstation # [id number]
== END ==
LOC: RAD 09:09
PROVIDERS: ATTEND Family Medicine
DX: Z12.31 Encounter for screening mammogram for malignant neoplasm of breast (principal)
CPT/HCPCS: 77067

== ENCOUNTER → 2017-12-15 | Outpatient (CLI) | payer BC ==
[~2017-12-15] MED LIST changes: +HYDR-34 PO; -HYDR-3816 PO; +HYDR-4226 PO; -HYDR-757 PO; -IPRA3AMP INH; +IPRA3AMP31 INH; -RANI150T15 PO; +RANI150T46 PO
--- NOTE | 2017-12-15 10:36 | Diagnostic Imaging Report ---
INDICATION: Routine screening. Comparison is made with prior mammogram from 03/29/2017 and 01/21/2014. 2-D and 3-D bilateral screening mammography was performed with a Computer Aided Detection (CAD) system. FINDINGS: Scattered fibroglandular densities are identified bilaterally. Benign calcifications are identified bilaterally. Tiny nodular density in the right breast posterior depth appears stable. No new mass or malignant appearing microcalcifications are seen. The axillae are unremarkable. IMPRESSION: No mammographic features suspicious for malignancy are identified. ACR BI-RADS Category 2: Benign findings. Result letter will be mailed to the patient. Note: At least 10% of breast cancer is not imaged by mammography. Dictated by: Dictated on workstation # [id number]
== END ==
LOC: RAD 08:10
PROVIDERS: ATTEND Family Medicine
DX: Z12.31 Encounter for screening mammogram for malignant neoplasm of breast (principal)
CPT/HCPCS: 77067

== ENCOUNTER 2018-01-21 02:22 | Emergency (ER) | payer BC ==
[~2018-01-21] VITALS: Ht 162.6 cm; Wt 113.4 kg
--- OUTSIDE RECORDS SUMMARY | 2018-01-21 02:29 | XMS REPORT | Clinical Summary ---
Author Author [facility] Organization [facility] Address Unknown Phone Unavailable Care Team Providers Care Cocktail Lounge Manager Name Role Phone Kary Arzate MD PCP Source Comments Some departments are not documenting in the electronic medical record. If you do not see the information that you expected, contact Release of Information in the Health Information Management department at [phone] for further assistance in locating additional records.[facility] Allergies Active Allergy Reactions Severity Noted Date Comments Codeine DELUSIONS High 04/20/2016 Tylenol 3 Unclassified Drug RASH, ITCHING Medium 04/20/2016 Antibiotic- can not remember the name Butorphanol Tartrate HEADACHE Low 04/20/2016 Current Medications Prescription Sig. Disp. Refills Start [...] mouth Active mcg/actuation mist into the lungs. FLUOXETINE HCL (PROZAC Take by mouth. Active PO) Active Problems Problem Noted Date Pneumonia due to infectious organism 06/09/2016 Mold exposure 06/09/2016 Family History Medical History Relation Name Comments Heart Disease Father Hyperlipidemia Father Other Maternal Grandmother Cancer-Breast Mother Hyperlipidemia Mother Hypertension Mother Relation Name Status Comments Father Alive Maternal Grandfather Maternal Grandmother Mother Alive Paternal Grandfather Paternal Grandmother Social History Tobacco Use Types Packs/Day Years Used Date Former Smoker Quit: 09/14/2010 Alcohol Use Drinks/Week oz/Week Comments No 0 Standard 0.0 drinks or equivalent Sex Assigned at Date Recorded Not on file Last Filed Vital Signs Vital Sign Reading Time Taken Blood Pressure 118/80 08/26/2016 3:15 PM CDT Pulse 80 08/26/2016 3:15 PM CDT Temperature 36.4 C (97.5 F) 08/26/2016 3:00 PM CDT Respiratory Rate 16 06/06/2016 12:58 PM THREAD DRESSER Oxygen Saturation 97% 08/26/2016 3:15 PM CDT Inhaled Oxygen - - Concentration Weight 109.8 kg (242 lb) 08/26/2016 1:36 PM CDT Height 160 cm (5' 3") 08/26/2016 1:36 PM CDT Body Mass Index 42.87 08/26/2016 1:36 PM CDT Plan of Treatment Health Maintenance Due Date Last Done Comments PHYSICAL (COMPREHENSIVE) 1976 EXAM PERTUSSIS VACCINE 1980 HIV SCREENING 1984 TETANUS VACCINE 1986 CERVICAL CANCER SCREENING 12/12/1999 BREAST CANCER SCREENING 2009 INFLUENZA VACCINE 11/01/2017 Results Not on filefrom Last 3 Months
--- OUTSIDE RECORDS SUMMARY | 2018-01-21 02:29 | XMS REPORT ---
Author Author MAVERICK ROSALES Organization [facility] Address [address] [place] [address] Care Team Providers Care Engineering Professor Name Role Phone MAVERICK ROSALES Unavailable PROBLEMS Type Condition ICD9-CM Code [id number] Code Onset Dates Condition Status SNOMED Code Problem Pneumonia of both lungs due to methicillin susceptible Staphylococcus aureus (MSSA), unspecified part of lung J15.211 Active 506914865 Problem Moderate episode of recurrent major depressive disorder F33.1 Active 822720635 Problem On home oxygen therapy Z99.81 Active 808314734730 Problem Hypertension I10 Active 15988438 Problem BMI 40.0-44.9, adult Z68.41 Active 090219522 Problem Persistent depressive disorder F34.1 Active 59707402 Problem Chronic maxillary sinusitis J32.0 Active 47638499 Problem Other chronic pancreatitis K86.1 Active 628140292 Problem Generalized anxiety disorder F41.1 Active 57604123 Problem Other chronic pain G89.29 Active 90585513 Problem Chronic pancreatitis, unspecified pancreatitis type K86.1 Active 049990221 Problem Anxiety F41.9 Active 01377341 Problem Environmental allergies Z91.09 Active 628873331 Problem Reflux gastritis K29.60 Active 10768225 Problem Seasonal allergic rhinitis due to pollen J30.1 Active 59474730 ALLERGIES No Information ENCOUNTERS Encounter Location Date Diagnosis [facility] [address] [facility] [id number] [address] Jan, [facility] [address] [place] [id number] [place] [address] 54241- 2562 Dec, Change in stool R19.5 ; Pre-diabetes R73.03 ; Left lower quadrant pain R10.32 and Screening for breast cancer Z12.31 [facility] [address] [facility] [id number], [place] [address] Oct, Chronic pancreatitis, unspecified pancreatitis type K86.1 ; Seasonal allergic rhinitis due to pollen J30.1 ; Moderate episode of recurrent major depressive disorder F33.1 ; Generalized anxiety disorder F41.1 ; BMI 40.0- 44.9, adult Z68.41 ; Pneumonia of both lungs due to methicillin susceptible Staphylococcus aureus (MSSA), unspecified part of lung J15.211 and Environmental allergies Z91.09 [place] [id number] [place] [address] 27252- 2108 Sep, [place] [address] [address]- [address] Jul, Effusion, left knee M25.462 ; Skin tag L91.8 ; BMI 40.0-44.9 , adult Z68.41 ; Atypical mole D22.9 and Reflux gastritis K29.[address] [address]- [address] Jun, Chronic pancreatitis, unspecified pancreatitis type K86.1 and Hypertension I10 [place] [address] 96879- 6873 Jun, Chronic pancreatitis, unspecified pancreatitis type K86.1 and Hypertension I10 [place] [address] [place] [id number] [place] [address] 64949- 2759 May, Therapeutic drug monitoring Z51.81 [place] [address] [place] [id number] [place] [address] 39046- 7440 May, [place] [address] 14808- 1913 Apr, [place] [address] [place] [id number] [place] [address] 38163- 3081 Apr, BMI 40.0-44.9, adult Z68.41 ; Dysuria R30.0 ; Acute cystitis without hematuria N30.00 and Hypoxia R09.02 [place] [id number] [place] [address] 62742- 5787 13 Dec, 2017 Anxiety F41.9 ; Acute pain of left knee M25.562 ; Environmental allergies Z91.09 ; Other chronic pancreatitis K86.1 ; Screening for breast cancer Z12.31 and Encounter for immunization Z23 [place] [address] [place] [id number] [place] [address] 14664- 3971 Feb, Encounter for immunization Z23 [facility] [address] [place] [address] [id number] [place] [address] 41450- 1267 Jan, [facility] [address] [place] [id number] [place] [address] 50112- 9676 Dec, Encounter for immunization Z23 [place] [address] [place] [id number] [place] [address] 30933- 1920 Dec, Generalized anxiety disorder F41.1 and Persistent depressive disorder F34.1 [place] [address] [place] [id number] [place] [address] 71663- 6018 Nov, Generalized anxiety disorder F41.1 and Persistent depressive disorder F34.1 [place] [address] [place] [id number] [place] [address] 87073- 5957 Nov, Weight loss R63.4 and Acute pain of right shoulder M25.511 [place] [address] [place] [id number] [place] [address] 90792- 7460 Oct, [place] [address] [id number] [address] 9[address] Sep, [place] [address] [place] [id number] [place] [address] 88058- 1580 Sep, Chronic pancreatitis, unspecified pancreatitis type K86.1 [facility] [address] [place] [id number] [place] [address] 52152- 4869 Sep, [facility] [address] [place] [id number] [place] [address] 45084- 9734 Sep, [facility] [address] [id number] [address] August, Therapeutic drug monitoring Z51.81 [place] [address] [place] [address] 84019- 9139 August, [place] [address] [place] [id number] [place] [address] 75740- 6266 August, Chronic pancreatitis, unspecified pancreatitis type K86.1 [place] [address] [place] [id number] [place] [address] 99767- 8466 August, Moderate episode of recurrent major depressive disorder F33.1 ; Chronic maxillary sinusitis J32.0 ; Other chronic pancreatitis K86.1 and Weight gain R63.5 [place] [address] [place] [id number] [place] [address] 50822- 5655 Jul, [place] [address] [place] [id number] [place] [address] 43921- 9962 Jul, [place] [address] [place] [id number] [place] [address] 85601- 2841 Jul, [facility] [address] [place] [address] 85055 -0103 Jun, Dysuria R30.0 and Urgency of urination R39.15 [place] [address] [place] [id number] [place] [address] 12121- 3282 Jun, Acute abdominal pain R10.9 [place] [address] [place] [address] 04338- 1127 Jun, Acute abdominal pain R10.9 [place] [address] [place] [id number] [place] [address] 47739- 3864 Jun, Pneumonia of both lungs due to methicillin susceptible Staphylococcus aureus (MSSA), unspecified part of lung J15.211 ; Hypoxia R09.02 and Seasonal allergic rhinitis due to pollen J30.1 [place] [address] [place] [address] 91350- 5510 Jun, On home oxygen therapy Z99.81 [facility] [address] [id number] Jun, [facility] [address] [place] [id number] [place] [address] [id number] Jun, [facility] [address] [place] [id number] [place] [address] 88068- 2139 Jun, Respiratory distress R06.00 and Hypoxia R09.02 [place] [address] [place] [id number] [place] [address] 46927- 8556 Jun, [facility] [address] [place] [id number] [place] [address] 41425- 4829 May, Environmental allergies Z91.09 and Shortness of breath R06.02 [facility] [address] [place] [id number] [place] [address] 16882 -6935 20 May, 2016 Sore throat J02.9 ; Fever R50.9 and Influenza A J10.1 [place] [address] [place] [id number] [place] [address] 57603- 2293 May, Wheezing R06.2 ; Pressure sensation in left ear H93.8X2 and Nasal congestion R09.81 [facility] [address] [place] [id number] [place] [address] 78346 -7038 Apr, Acute non-recurrent maxillary sinusitis J01.00 [place] [address] [place] [id number] [place] [address] 64622- 6344 Apr, [place] [address] [place] [id number] [place] [address] 36608- 7313 Apr, Screening for breast cancer Z12.39 [place] [address] [place] [id number] [place] [address] 29034- 5818 Apr, Chronic pancreatitis, unspecified pancreatitis type K86.1 and Screening for diabetes mellitus (DM) Z13.1 [place] [address] [place] [address] 78846- 0604 Mar, Chronic pancreatitis, unspecified pancreatitis type K86.1 ; Screening for breast cancer Z12.39 ; Screening for diabetes mellitus (DM) Z13.1 and Drug-induced constipation K59.03 [facility] [address] [address] Mar, [facility] [address] [place] [id number] [place] [address] 66903- 8919 14 Mar, 2016 Reflux gastritis K29.60 ; History of bacterial pneumonia Z87.01 ; Anxiety F41.9 ; Other chronic pain G89.29 and Unspecified abdominal pain R10.9 [facility] [address] [place] [address] [id number] [place] [address] 48029- 1893 Feb, Encounter for immunization Z23 [facility] [address] [place] [address] [id number] [place] [address] 09681 -2127 31 Jan, 2016 Acute non-recurrent frontal sinusitis J01.10 [facility] [address] [place] [id number] [place] [address] 61620- 1687 13 Mar, 2010 [facility] [address] [place] [address] [id number] [place] [address] 72639- 6396 Mar, [facility] [address] [place] [id number] [place] [address] 50489- 8505 Mar, [facility] [address] [place] [id number] [place] [address] 31808- 4189 Jan, [facility] [address] [place] [id number] [place] [address] 49402- 9394 Jul, [facility] [address] [place] [id number] [place] [address] 73444- 4873 Dec, [facility] [address] [place] [id number] [place] [address] 25931- 8615 Nov, [facility] [address] 02216- 6340 August, [facility] [address] [place] [id number] [place] [address] 45256- 8577 Feb, IMMUNIZATIONS No Known Immunizations SOCIAL HISTORY Never Assessed REASON FOR VISIT mammogram results PLAN OF CARE VITAL SIGNS MEDICATIONS Unknown Medications RESULTS No Results PROCEDURES No Known procedures INSTRUCTIONS MEDICATIONS ADMINISTERED No Known Medications MEDICAL (GENERAL) HISTORY Type Description Date Medical History Hx of pancreatitis x4 Medical History On o2 at night - States sats drop below 80 while sleeping. No dx of sleep apnea - See's Dr. Gonzalez Medical History Hx of pneumonia Medical History FLu 05/2016 Surgical History hysterectomy, total with bilateral salpingo-oophorectomy (BSO ) 2012 Surgical History appendectomy 2009 Surgical History cholecystectomy 2014 Surgical History Stents 2015 Hospitalization History pancreatitis x4 2015 Hospitalization History Exacerbation of Chronic Pancreatitis 03/20/16 Hospitalization History pneumonia, hx of black mold exposure, hypoxia-[facility] 06/07
--- OUTSIDE RECORDS SUMMARY | 2018-01-21 02:29 | XMS REPORT ---
Author Author MAVERICK ROSALES Organization [facility] Address [address] [place] [address] Care Team Providers Care Laborer Rags Name Role Phone MAVERICK ROSALES Unavailable PROBLEMS Type Condition ICD9-CM Code UWS39-VQ Code Onset Dates Condition Status SNOMED Code Problem Pneumonia of both lungs due to methicillin susceptible Staphylococcus aureus (MSSA), unspecified part of lung J15.211 Active 272138849 Problem Moderate episode of recurrent major depressive disorder F33.1 Active 502406749 Problem On home oxygen therapy Z99.81 Active 419903154263 Problem Hypertension I10 Active 61978907 Problem BMI 40.0-44.9, adult Z68.41 Active 166524612 Problem Persistent depressive disorder F34.1 Active 81251575 Problem Chronic maxillary sinusitis J32.0 Active 81241042 Problem Other chronic pancreatitis K86.1 Active 384645416 Problem Generalized anxiety disorder F41.1 Active 20619315 Problem Other chronic pain G89.29 Active 43994376 Problem Chronic pancreatitis, unspecified pancreatitis type K86.1 Active 479332075 Problem Anxiety F41.9 Active 73993566 Problem Environmental allergies Z91.09 Active 642478863 Problem Reflux gastritis K29.60 Active 79078298 Problem Seasonal allergic rhinitis due to pollen J30.1 Active 05373616 ALLERGIES Substance Reaction Event Type Date Status Tylenol/Codeine #3 Unknown Drug Allergy Jul, Active Codeine Sulfate Unknown Drug Allergy Jul, Active ENCOUNTERS Encounter Location Date Diagnosis [facility] [address] [facility] [id number] [address] Oct, Chronic pancreatitis, unspecified pancreatitis type K86.1 ; Seasonal allergic rhinitis due to pollen J30.1 ; Moderate episode of recurrent major depressive disorder F33.1 ; Generalized anxiety disorder F41.1 ; BMI 40.0- 44.9, adult Z68.41 ; Pneumonia of both lungs due to methicillin susceptible Staphylococcus aureus (MSSA), unspecified part of lung J15.211 and Environmental allergies Z91.09 [place] [address] [place] [address] 79609- 1278 20 Sep, 2017 [place] [address] [place] [id number] [place] [address] 92549- 1400 04 Jul, 2017 Effusion, left knee M25.462 ; Skin tag L91.8 ; BMI 40.0-44.9 , adult Z68.41 ; Atypical mole D22.9 and Reflux gastritis K29.60 [place] [address] [place] [id number] [place] [address] 42237- 8780 Jun, Chronic pancreatitis, unspecified pancreatitis type K86.1 and Hypertension I10 [place] [address] [place] [id number] [place] [address] 51298- 4214 Jun, Chronic pancreatitis, unspecified pancreatitis type K86.1 and Hypertension I10 [place] [address] [place] [id number] [place] [address] 63361- 0292 May, Therapeutic drug monitoring Z51.81 [place] [address] [place] [id number] [place] [address] 45579- 8816 May, [place] [address] [place] [id number] [place] [address] 78294- 2209 Apr, [place] [address] [place] [id number] [place] [address] 76616- 2895 Apr, BMI 40.0-44.9, adult Z68.41 ; Dysuria R30.0 ; Acute cystitis without hematuria N30.00 and Hypoxia R09.02 [place] [address] [place] [id number] [place] [address] 98411- 2228 13 Mar, 2017 Anxiety F41.9 ; Acute pain of left knee M25.562 ; Environmental allergies Z91.09 ; Other chronic pancreatitis K86.1 ; Screening for breast cancer Z12.31 and Encounter for immunization Z23 [place] [address] [place] [id number] [place] [address] 96115- 8603 Feb, Encounter for immunization Z23 [facility] [address] [address] Jan, [facility] [address] [address] Dec, Encounter for immunization Z23 [facility] [address] [address]- 5429 Dec, Generalized anxiety disorder F41.1 and Persistent depressive disorder F34.1 [facility] [address] [address]- 8016 Nov, Generalized anxiety disorder F41.1 and Persistent depressive disorder F34.1 [facility] [address] [address]- 0512 Nov, Weight loss R63.4 and Acute pain of right shoulder M25.511 [facility] [address] [address]- 1362 Oct, [facility] [address] [address]- 8216 Sep, [facility] [address] [place] [address] 53229- 0619 Sep, Chronic pancreatitis, unspecified pancreatitis type K86.1 [facility] [address] [address]- 6824 Sep, [facility] [address] [address]- 6499 Sep, [facility] [address] [address]- 9204 August, Therapeutic drug monitoring Z51.81 [facility] [address] [address]- 7425 August, [facility] [address] [address]- 1069 August, Chronic pancreatitis, unspecified pancreatitis type K86.1 [facility] [address] [address]- 9333 August, Moderate episode of recurrent major depressive disorder F33.1 ; Chronic maxillary sinusitis J32.0 ; Other chronic pancreatitis K86.1 and Weight gain R63.5 [facility] [address] [address]- 1683 Jul, [facility] [address] [place] [id number] [place] [address] 03823- 9857 Jul, [facility] [address] [place] [address] 94723- 5154 Jul, [facility] [address] [place] [address] 26278 -0579 Jun, Dysuria R30.0 and Urgency of urination R39.15 [facility] [address] [place] [id number] [place] [address] 62367- 2438 Jun, Acute abdominal pain R10.9 [facility] [address] [place] [address] 90170- 8186 Jun, Acute abdominal pain R10.9 [place] [address] [place] [address] 74164- 2034 Jun, Pneumonia of both lungs due to methicillin susceptible Staphylococcus aureus (MSSA), unspecified part of lung J15.211 ; Hypoxia R09.02 and Seasonal allergic rhinitis due to pollen J30.1 [facility] [address] [address]- 5513 Jun, On home oxygen therapy Z99.81 [place] [address] [place] [id number] [place] [address] [id number] Jun, [facility] [place] [address] [place] [id number] [place] [address] [id number] Jun, [facility] [address] [place] [address] 25879- 4530 Jun, Respiratory distress R06.00 and Hypoxia R09.02 [place] [address] [place] [id number] [place] [address] 77707- 2815 Jun, [place] [address] 57926- 0912 28 May, 2016 Environmental allergies Z91.09 and Shortness of breath R06.02 [facility] [address] 31727 -0106 May, Sore throat J02.9 ; Fever R50.9 and Influenza A J10.1 [place] [address] 52498- 8238 08 May, 2016 Wheezing R06.2 ; Pressure sensation in left ear H93.8X2 and Nasal congestion R09.81 [facility] [place] [address] 47320 -6955 Apr, Acute non-recurrent maxillary sinusitis J01.00 [place] [address] 14622- 1782 Apr, [place] [address] 70245- 0763 Apr, Screening for breast cancer Z12.39 [place] [address] [place] [id number] [place] [address] 50537- 9104 Apr, Chronic pancreatitis, unspecified pancreatitis type K86.1 and Screening for diabetes mellitus (DM) Z13.1 [place] [address] [place] [id number] [place] [address] 31697- 9479 Mar, Chronic pancreatitis, unspecified pancreatitis type K86.1 ; Screening for breast cancer Z12.39 ; Screening for diabetes mellitus (DM) Z13.1 and Drug-induced constipation K59.03 [place] [address] [place] [id number] [place] [address] 70810- 6888 Mar, [place] [address] 33845- 6863 14 Mar, 2016 Reflux gastritis K29.60 ; History of bacterial pneumonia Z87.01 ; Anxiety F41.9 ; Other chronic pain G89.29 and Unspecified abdominal pain R10.9 [facility] [address] [address]- 4732 Feb, Encounter for immunization Z23 [facility] [address] [place] [address] 99038 -3744 Jan, Acute non-recurrent frontal sinusitis J01.10 [facility] [address] [place] [id number] [place] [address] 98539- 4855 Mar, [facility] [address] [place] [id number] [place] [address] 34759- 5431 Mar, [facility] [address] [place] [id number] [place] [address] 39417- 4652 Mar, [facility] [address] [place] [id number] [place] [address] 24103- 6412 Jan, [facility] [address] [id number] [place] [address] 88630- 2527 Jul, [facility] [address] [place] [id number] [place] [address] 26269- 6974 Dec, [facility] [address] [address]- 0972 Nov, [facility] [address] [place] [id number] [place] [address] 35805- 4235 August, [facility] [address] [place] [address] 19611- 9057 Feb, IMMUNIZATIONS No Known Immunizations SOCIAL HISTORY Never Assessed REASON FOR VISIT med review--Abbie Pt explains her left knee his bothering her , Has a spot on her neck she wanted checked out PLAN OF CARE Activity Details Follow Up 3 Months with marco for [facility] Reason: VITAL SIGNS Height 64 in 2017-07-05 Weight 254.0 lbs 2017-07-05 Temperature 98.2 degrees Fahrenheit 2017-07-05 Heart Rate 62 bpm 2017-07-05 Respiratory Rate 20 2017-07-05 BMI 43.59 kg/m2 2017-07-05 Blood pressure systolic 128 mmHg 2017-07-05 Blood pressure diastolic 82 mmHg 2017-07-05 MEDICATIONS Medication Instructions Dosage Frequency Start Date End Date Duration Status Zantac 150 MG Orally Once a day 1 tablet at bedtime 24h Active Carafate 1 GM/10ML Orally Four times daily as needed 10 ml Mar, Active Combivent Respimat 20-100 MCG/ACT Inhalation Four times a day 1 puff 6h May, Not-Taking Hyoscyamine Sulfate 0.125 MG Orally every 4 hrs 1 tablet before meals as needed 4h Active ProAir HFA 108 (90 Base) mcg/act Inhalation every 4 hrs 2 puffs as needed 4h Jun, 30 days Not-Taking Incruse Ellipta 62.5 MCG/INH Inhalation Once a day 1 puff 24h May, Not-Taking Xanax 1 MG Orally Twice a day, PRN 1 tablet as needed Active Ibuprofen 200 mg Orally every 8 hrs 4 tablets as needed 8h Active Montelukast Sodium 10 MG TAKE ONE TABLET BY MOUTH IN THE EVENING 30 Not-Taking Zenpep 5000 UNIT Orally as directed 8 capsules with each meal and 4 capsule with snacks Active Singulair 10 mg Orally Once a day 1 tablet in the evening 24h Jun, 30 day(s) Active RESULTS No Results PROCEDURES Procedure Date Ordered Result Body Site DRAIN/INJECT, JOINT/BURSA July 05, 2017 KENALOG 40 MG/ML (PER 10 MG) July 05, 2017 INSTRUCTIONS MEDICATIONS ADMINISTERED No Known Medications MEDICAL (GENERAL) HISTORY Type Description Date Medical History Hx of pancreatitis x4 Medical History On o2 at night - States sats drop below 80 while sleeping. No dx of sleep apnea - See's Dr. Gonzalez Medical History Hx of pneumonia Medical History FLu 05/2016 Surgical History hysterectomy, total with bilateral salpingo-oophorectomy (BSO ) 2012 Surgical History appendectomy 2010 Surgical History cholecystectomy 2015 Surgical History Stents 2015 Hospitalization History pancreatitis x4 2015 Hospitalization History Exacerbation of Chronic Pancreatitis 03/20/16 Hospitalization History pneumonia, hx of black mold exposure, hypoxia-[facility] 06/07
--- OUTSIDE RECORDS SUMMARY | 2018-01-21 02:29 | XMS REPORT ---
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 Name Role Phone MAVERICK ROSALES Unavailable PROBLEMS Type Condition ICD9-CM Code [id number] Code Onset Dates Condition Status SNOMED Code Problem Pneumonia of both lungs due to methicillin susceptible Staphylococcus aureus (MSSA), unspecified part of lung J15.211 Active 652705139 Problem Moderate episode of recurrent major depressive disorder F33.1 Active 878381757 Problem On home oxygen therapy Z99.81 Active 615848398646 Problem Hypertension I10 Active 06813068 Problem BMI 40.0-44.9, adult Z68.41 Active 882035167 Problem Persistent depressive disorder F34.1 Active 00508842 Problem Chronic maxillary sinusitis J32.0 Active 77510917 Problem Other chronic pancreatitis K86.1 Active 700024023 Problem Generalized anxiety disorder F41.1 Active 94952215 Problem Other chronic pain G89.29 Active 50019593 Problem Chronic pancreatitis, unspecified pancreatitis type K86.1 Active 818738046 Problem Anxiety F41.9 Active 87093547 Problem Environmental allergies Z91.09 Active 598906542 Problem Reflux gastritis K29.60 Active 57167805 Problem Seasonal allergic rhinitis due to pollen J30.1 Active 29045284 ALLERGIES No Information ENCOUNTERS Encounter Location Date Diagnosis [facility] [address] [facility] [id number] [address] Oct, Chronic pancreatitis, unspecified pancreatitis type K86.1 ; Seasonal allergic rhinitis due to pollen J30.1 ; Moderate episode of recurrent major depressive disorder F33.1 ; Generalized anxiety disorder F41.1 ; BMI 40.0- 44.9, adult Z68.41 ; Pneumonia of both lungs due to methicillin susceptible Staphylococcus aureus (MSSA), unspecified part of lung J15.211 and Environmental allergies Z91.09 [facility] [address] [place] [id number] [place] [address] 53534- 3181 20 Sep, 2017 [place] [address] [place] [id number] [place] [address] 65721- 6633 Jul, Effusion, left knee M25.462 ; Skin tag L91.8 ; BMI 40.0-44.9 , adult Z68.41 ; Atypical mole D22.9 and Reflux gastritis K29.60 [place] [address] [place] [id number] [place] [address] 56089- 1337 Jun, Chronic pancreatitis, unspecified pancreatitis type K86.1 and Hypertension I10 [place] [address] [address]- 4958 Jun, Chronic pancreatitis, unspecified pancreatitis type K86.1 and Hypertension I10 [place] [address] [place] [id number] [place] [address] 04729- 4371 May, Therapeutic drug monitoring Z51.81 [place] [address] [place] [id number] [place] [address] 97978- 5535 May, [place] [address] [place] [id number] [place] [address] 63506- 5164 Apr, [place] [address] [place] [id number] [place] [address] 90288- 2014 Apr, BMI 40.0-44.9, adult Z68.41 ; Dysuria R30.0 ; Acute cystitis without hematuria N30.00 and Hypoxia R09.02 [place] [address] [place] [address] [id number] [place] [address] 96502- 3701 Mar, Anxiety F41.9 ; Acute pain of left knee M25.562 ; Environmental allergies Z91.09 ; Other chronic pancreatitis K86.1 ; Screening for breast cancer Z12.31 and Encounter for immunization Z23 [place] [address] [place] [id number] [place] [address] 14442- 0892 Feb, Encounter for immunization Z23 [place] [address] [place] [id number] [place] [address] 36447- 2940 Jan, [facility] [address] [address] Dec, Encounter for immunization Z23 [facility] [address] [address] Dec, Generalized anxiety disorder F41.1 and Persistent depressive disorder F34.1 [facility] [address] [address] Nov, Generalized anxiety disorder F41.1 and Persistent depressive disorder F34.1 [facility] [address] [address] Nov, Weight loss R63.4 and Acute pain of right shoulder M25.511 [facility] [address], [place] [address] Oct, [facility] [address], [place] [address] Sep, [facility] [address], [place] [address]65 Sep, Chronic pancreatitis, unspecified pancreatitis type K86.1 [facility] [address], [place] [address] 1[address] Sep, [facility] [address], [place] [address] Sep, [facility] [address], [place] [address] August, Therapeutic drug monitoring Z51.81 [facility] [address], [place] [address] August, [facility] [address], [place] [address] 3[address] August, Chronic pancreatitis, unspecified pancreatitis type K86.1 [facility] [address], [place] [address] 365[address] August, Moderate episode of recurrent major depressive disorder F33.1 ; Chronic maxillary sinusitis J32.0 ; Other chronic pancreatitis K86.1 and Weight gain R63.5 [facility] [address] [place] [address] 67063- 8389 Jul, [facility] [id number] [place] [address] 64053- 7050 Jul, [facility] [address] [place] [address] [id number] [place] [address] 07025- 6411 Jul, [facility]ALK [facility] [id number] [place] [address] 47566 -5462 Jun, Dysuria R30.0 and Urgency of urination R39.15 [place] [address] [id number] [place] [address] 18688- 8137 Jun, Acute abdominal pain R10.9 [place] [address] [address] [id number] [place] [address] 03446- 7261 Jun, Acute abdominal pain R10.9 [place] [address] [id number] [place] [address] 77144- 7661 Jun, Pneumonia of both lungs due to methicillin susceptible Staphylococcus aureus (MSSA), unspecified part of lung J15.211 ; Hypoxia R09.02 and Seasonal allergic rhinitis due to pollen J30.1 [place] [address] [place] [address] 79421- 2342 Jun, On home oxygen therapy Z99.81 [facility] [address] [place] [id number] [place] [address] [id number] Jun, [facility] [address] [id number] Jun, [facility] [address] [place] [id number] [place] [address] 07210- 0133 Jun, Respiratory distress R06.00 and Hypoxia R09.02 [place] [address] [place] [address] [address]- 7120 Jun, [place] [address] [address]42- 4008 May, Environmental allergies Z91.09 and Shortness of breath R06.02 [facility] WALK IN [place] [address] [address] -0126 20 May, 2016 Sore throat J02.9 ; Fever R50.9 and Influenza A J10.[address] [address]55- [address]11 08 May, 2016 Wheezing R06.2 ; Pressure sensation in left ear H93.8X2 and Nasal congestion R09.81 [facility] WALK IN [place] [address] 33359 -7301 Apr, Acute non-recurrent maxillary sinusitis J01.[address] 69332- 7483 Apr, [address] 12468- 8773 Apr, Screening for breast cancer Z12.[address] 66142- 6597 Apr, Chronic pancreatitis, unspecified pancreatitis type K86.1 and Screening for diabetes mellitus (DM) Z13.[address] 86559- 0587 Mar, Chronic pancreatitis, unspecified pancreatitis type K86.1 ; Screening for breast cancer Z12.39 ; Screening for diabetes mellitus (DM) Z13.1 and Drug-induced constipation K59.[address] 25079- 7939 Mar, [address] 27384- 8106 Mar, Reflux gastritis K29.60 ; History of bacterial pneumonia Z87.01 ; Anxiety F41.9 ; Other chronic pain G89.29 and Unspecified abdominal pain R10.9 [facility] [address] [address] Feb, [facility]counter for immunization Z23 [facility] [address], [place] [address] 31 Jan, 2016 Acute non-recurrent frontal sinusitis J01.10 [facility] [id number] [place] [address] 13553- 1002 Mar, [facility] [id number] [place] [address] 24908- 1932 Mar, [facility] [address] [id number] [place] [address] 18977- 9099 Mar, [facility] [id number] [place] [address] 65079- 3716 Jan, [facility] [id number] [place] [address] 70503- 6782 Jul, [facility] [id number] [place] [address] 09932- 1458 Dec, [facility] [id number] [place] [address] 45594- 2517 Nov, [facility] [id number] [place] [address] 37520- 8503 August, [facility] [id number] [place] [address] 55622- 0923 Feb, IMMUNIZATIONS No Known Immunizations SOCIAL HISTORY Never Assessed REASON FOR VISIT Controlled Med Refill-xanax PLAN OF CARE VITAL SIGNS MEDICATIONS Medication Instructions Dosage Frequency Start Date End Date Duration Status Xanax 1 MG Orally Twice a day, PRN 1 tablet as needed Active RESULTS No Results PROCEDURES No Known procedures [...] Surgical History cholecystectomy 2014 Surgical History Stents 2014 Hospitalization History pancreatitis x4 2014 Hospitalization History Exacerbation of Chronic Pancreatitis 03/20/16 Hospitalization History pneumonia, hx of black mold exposure, hypoxia-[facility] 06/07
--- OUTSIDE RECORDS SUMMARY | 2018-01-21 02:30 | XMS REPORT ---
Author Author MAVERICK ROSALES Organization [facility] Address [address] [place] [address] Care Team Providers Care Transit Worker Name Role Phone MAVERICK ROSALES Unavailable PROBLEMS Type Condition ICD9-CM Code [id number] Code Onset Dates Condition Status SNOMED Code Problem Pneumonia of both lungs due to methicillin susceptible Staphylococcus aureus (MSSA), unspecified part of lung J15.211 Active 405165803 Problem Moderate episode of recurrent major depressive disorder F33.1 Active 376032766 Problem On home oxygen therapy Z99.81 Active 097428609408 Problem Hypertension I10 Active 58778235 Problem BMI 40.0-44.9, adult Z68.41 Active 749368572 Problem Persistent depressive disorder F34.1 Active 12341667 Problem Chronic maxillary sinusitis J32.0 Active 15748562 Problem Other chronic pancreatitis K86.1 Active 422556957 Problem Generalized anxiety disorder F41.1 Active 59827603 Problem Other chronic pain G89.29 Active 46030192 Problem Chronic pancreatitis, unspecified pancreatitis type K86.1 Active 529488049 Problem Anxiety F41.9 Active 92038165 Problem Environmental allergies Z91.09 Active 066727649 Problem Reflux gastritis K29.60 Active 02557941 Problem Seasonal allergic rhinitis due to pollen J30.1 Active 02669560 ALLERGIES No Information ENCOUNTERS Encounter Location Date Diagnosis [facility] [address] [facility] [id number] [address] Oct, [facility] [address] [facility] [id number] [address]- 65[address] Sep, [facility] [address] [place] [id number] [address]- 0322 Jul, Effusion, left knee M25.462 ; Skin tag L91.8 ; BMI 40.0-44.9 , adult Z68.41 ; Atypical mole D22.9 and Reflux gastritis K29.60 [place] [address] [place] [id number] [place] [address] 57475- 7133 20 Jun, 2017 Chronic pancreatitis, unspecified pancreatitis type K86.1 and Hypertension I10 [place] [address] [place] [id number] [place] [address] 15272- 4977 Jun, Chronic pancreatitis, unspecified pancreatitis type K86.1 and Hypertension I10 [place] [address] [place] [id number] [place] [address] 45242- 1739 May, Therapeutic drug monitoring Z51.81 [place] [address] 55809- 8090 May, [place] [address] 60514- 8469 Apr, [place] [address] 51790- 1252 Apr, BMI 40.0-44.9, adult Z68.41 ; Dysuria R30.0 ; Acute cystitis without hematuria N30.00 and Hypoxia R09.02 [place] [address] [place] [id number] [place] [address] 45937- 3399 Mar, Anxiety F41.9 ; Acute pain of left knee M25.562 ; Environmental allergies Z91.09 ; Other chronic pancreatitis K86.1 ; Screening for breast cancer Z12.31 and Encounter for immunization Z23 [place] [address] [place] [id number] [place] [address] 54278- 7864 Feb, Encounter for immunization Z23 [place] [address] [place] [id number] [place] [address] 54549- 0019 Jan, [place] [address] 14398- 7350 Dec, Encounter for immunization Z23 [place] [address] [place] [id number] [place] [address] 37086- 8875 Dec, Generalized anxiety disorder F41.1 and Persistent depressive disorder F34.1 [facility] [address] [id number] [address]- 0101 Nov, Generalized anxiety disorder F41.1 and Persistent depressive disorder F34.1 [facility] [address] [place] [id number] [place] [address]- 3714 Nov, Weight loss R63.4 and Acute pain of right shoulder M25.511 [facility] [address] [id number] [address]- 0895 Oct, [facility] [address] [id number] [address]- 0970 Sep, [facility] [address] [place] [id number] [address]- 5763 Sep, Chronic pancreatitis, unspecified pancreatitis type K86.1 [facility] [address] [address]- 6163 Sep, [facility] [address] [id number] [address]- 1157 Sep, [facility] [address] [address]- 9952 August, Therapeutic drug monitoring Z51.81 [facility] [address] [address]- 5280 August, [facility] [address] [id number] [address]- 3763 August, Chronic pancreatitis, unspecified pancreatitis type K86.1 [facility] [address] [id number] [address]- 2921 August, Moderate episode of recurrent major depressive disorder F33.1 ; Chronic maxillary sinusitis J32.0 ; Other chronic pancreatitis K86.1 and Weight gain R63.5 [facility] [address] [id number] [address]- 3791 Jul, [facility] [address] [place] [id number] [address]- 2094 Jul, [facility] [address] [place] [address] 51084- 2027 Jul, [facility] [address] [place] [address] 70222 -6208 30 Jun, 2016 Dysuria R30.0 and Urgency of urination R39.15 [place] [address] [place] [address] 02934- 1508 Jun, Acute abdominal pain R10.9 [facility] [address] [place] [address] 32273- 6302 Jun, Acute abdominal pain R10.9 [place] [address] [place] [address] 17252- 4580 Jun, Pneumonia of both lungs due to methicillin susceptible Staphylococcus aureus (MSSA), unspecified part of lung J15.211 ; Hypoxia R09.02 and Seasonal allergic rhinitis due to pollen J30.1 [facility] [address] [address]- 6118 Jun, On home oxygen therapy Z99.81 [place] [address] [place] [id number] [place] [address] [id number] Jun, [facility] [address] [place] [id number] [place] [address] [id number] Jun, [place] [address] [place] [address] 72456- 7324 Jun, Respiratory distress R06.00 and Hypoxia R09.02 [place] [address] [place] [address] 73370- 8109 Jun, [place] [address] [place] [address] 74194- 6936 28 May, 2016 Environmental allergies Z91.09 and Shortness of breath R06.02 [facility] [address] [place] [address] 11385 -3081 20 May, 2016 Sore throat J02.9 ; Fever R50.9 and Influenza A J10.1 [place] [address] 56139- 6381 08 May, 2016 Wheezing R06.2 ; Pressure sensation in left ear H93.8X2 and Nasal congestion R09.81 [facility] [address] 42680 -1778 Apr, Acute non-recurrent maxillary sinusitis J01.00 [place] [address] 02639- 4652 Apr, [place] [address] 88530- 8737 Apr, Screening for breast cancer Z12.[address] 31665- 4580 Apr, Chronic pancreatitis, unspecified pancreatitis type K86.1 and Screening for diabetes mellitus (DM) Z13.1 [place] [address] 79187- 6955 Mar, Chronic pancreatitis, unspecified pancreatitis type K86.1 ; Screening for breast cancer Z12.39 ; Screening for diabetes mellitus (DM) Z13.1 and Drug-induced constipation K59.03 [place] [address] 04252- 2850 Mar, [place] [address] 93908- 6417 Mar, Reflux gastritis K29.60 ; History of bacterial pneumonia Z87.01 ; Anxiety F41.9 ; Other chronic pain G89.29 and Unspecified abdominal pain R10.9 [place] [address] 91038- 7982 Feb, Encounter for immunization Z23 [facility] [address] 42370 -6935 Jan, Acute non-recurrent frontal sinusitis J01.10 [facility] [address] [address]- 2806 Mar, [facility] [address] [address]- 7696 Mar, [facility] [address] [address] 2546 Mar, [facility] [address] [address]- 5568 Jan, [facility] [address] [address]- 2735 Jul, [facility] [id number] [place] [address] 60457- 4933 Dec, [facility] [address] [address]- 2330 Nov, [facility] [address] [address]- 5941 August, [facility] [address] [place] [id number] [address]- 5960 Feb, IMMUNIZATIONS No Known Immunizations SOCIAL HISTORY Never Assessed REASON FOR VISIT Requesting labs PLAN OF CARE VITAL SIGNS MEDICATIONS Unknown [...] Surgical History appendectomy 2009 Surgical History cholecystectomy 2015 Surgical History Stents 2014 Hospitalization History pancreatitis x4 2015 Hospitalization History Exacerbation of Chronic Pancreatitis 03/20/16 Hospitalization History pneumonia, hx of black mold exposure, hypoxia-[facility] 06/07
--- OUTSIDE RECORDS SUMMARY | 2018-01-21 02:30 | XMS REPORT ---
Author Author MAVERICK ROSALES Organization [facility] Address [address] [place] [address] Care Team Providers Care District [employer] Justice Name Role Phone MAVERICK ROSALES Unavailable PROBLEMS Type Condition ICD9-CM Code [id number] Code Onset Dates Condition Status SNOMED Code Problem Pneumonia of both lungs due to methicillin susceptible Staphylococcus aureus (MSSA), unspecified part of lung J15.211 Active 047238967 Problem Moderate episode of recurrent major depressive disorder F33.1 Active 817834636 Problem On home oxygen therapy Z99.81 Active 302544479461 Problem Hypertension I10 Active 36659127 Problem BMI 40.0-44.9, adult Z68.41 Active 976291024 Problem Persistent depressive disorder F34.1 Active 62046402 Problem Chronic maxillary sinusitis J32.0 Active 13163994 Problem Other chronic pancreatitis K86.1 Active 322959985 Problem Generalized anxiety disorder F41.1 Active 38795612 Problem Other chronic pain G89.29 Active 59089387 Problem Chronic pancreatitis, unspecified pancreatitis type K86.1 Active 770383674 Problem Anxiety F41.9 Active 13502653 Problem Environmental allergies Z91.09 Active 565808426 Problem Reflux gastritis K29.60 Active 13494714 Problem Seasonal allergic rhinitis due to pollen J30.1 Active 65819914 ALLERGIES Substance Reaction Event Type Date Status Tylenol/Codeine #3 Unknown Drug Allergy Apr, Active Codeine Sulfate Unknown Drug Allergy Apr, Active ENCOUNTERS Encounter Location Date Diagnosis [facility] [address] [facility] [id number] [address] Oct, Chronic pancreatitis, unspecified pancreatitis type K86.1 ; Seasonal allergic rhinitis due to pollen J30.1 ; Moderate episode of recurrent major depressive disorder F33.1 ; Generalized anxiety disorder F41.1 ; BMI 40.0- 44.9, adult Z68.41 ; Pneumonia of both lungs due to methicillin susceptible Staphylococcus aureus (MSSA), unspecified part of lung J15.211 and Environmental allergies Z91.09 [place] [id number] [place] [address] 20 Sep, 2017 [place] [address] [place] [id number] [place] [address] 76154- [address] 04 Jul, 2017 Effusion, left knee M25.462 ; Skin tag L91.8 ; BMI 40.0-44.9 , adult Z68.41 ; Atypical mole D22.9 and Reflux gastritis K29.60 [place] [address] [place] [id number] [place] [address] 73674- 4153 Jun, Chronic pancreatitis, unspecified pancreatitis type K86.1 and Hypertension I10 [place] [address] [place] [id number] [place] [address] 18062- 8396 Jun, Chronic pancreatitis, unspecified pancreatitis type K86.1 and Hypertension I10 [place] [address] [place] [id number] [place] [address] 52674- 4033 May, Therapeutic drug monitoring Z51.81 [place] [address] [place] [id number] [place] [address]24- 6979 May, [place] [address] [place] [id number] [place] [address] 17123- 3848 Apr, [place] [address] [place] [id number] [place] [address] 31163- 7973 Apr, BMI 40.0-44.9, adult Z68.41 ; Dysuria R30.0 ; Acute cystitis without hematuria N30.00 and Hypoxia R09.02 [place] [address] [place] [id number] [place] [address] 82392- 0452 13 Mar, 2017 Anxiety F41.9 ; Acute pain of left knee M25.562 ; Environmental allergies Z91.09 ; Other chronic pancreatitis K86.1 ; Screening for breast cancer Z12.31 and Encounter for immunization Z23 [place] [address] [place] [id number] [place] [address] 29136- 8501 Feb, Encounter for immunization Z23 [facility] [address] [address] Jan, [facility] [address] [address] Dec, Encounter for immunization Z23 [facility] [address] [address] Dec, Generalized anxiety disorder F41.1 and Persistent depressive disorder F34.1 [facility] [address] [address] Nov, Generalized anxiety disorder F41.1 and Persistent depressive disorder F34.1 [facility] [address] [address] Nov, Weight loss R63.4 and Acute pain of right shoulder M25.511 [facility] [address] [address] Oct, [facility] [address] [address] Sep, [facility] [id number] [place] [address] 68426- 9747 Sep, Chronic pancreatitis, unspecified pancreatitis type K86.1 [facility] [address] [address] Sep, [facility] [address] [address] Sep, [facility] [address] [address] August, Therapeutic drug monitoring Z51.81 [facility] [address] [address] August, [facility] [address] [address] August, Chronic pancreatitis, unspecified pancreatitis type K86.1 [facility] [address] [address] August, Moderate episode of recurrent major depressive disorder F33.1 ; Chronic maxillary sinusitis J32.0 ; Other chronic pancreatitis K86.1 and Weight gain R63.5 [facility] [address] [address] Jul, [facility] [address] [place] [id number] [place] [address] 06359- 4807 Jul, [facility] [id number] [place] [address] 81294- 2440 Jul, [facility] [id number] [place] [address] 11526 -2374 Jun, Dysuria R30.0 and Urgency of urination R39.15 [facility] [address] [place] [id number] [place] [address] 94742- 7875 Jun, Acute abdominal pain R10.9 [facility] [address] [place] [address] 49762- 7718 Jun, Acute abdominal pain R10.9 [place] [id number] [place] [address] 99086- 2944 Jun, Pneumonia of both lungs due to methicillin susceptible Staphylococcus aureus (MSSA), unspecified part of lung J15.211 ; Hypoxia R09.02 and Seasonal allergic rhinitis due to pollen J30.1 [facility] [address] [address] Jun, On home oxygen therapy Z99.81 [place] [address] [place] [id number] [place] [id number] Jun, [facility] [address] [place] [id number] [place] [address] [id number] Jun, [facility] [id number] [place] [address] 29093- 2128 Jun, Respiratory distress R06.00 and Hypoxia R09.02 [place] [address] [place] [id number] [place] [address] 53287- 1034 Jun, [place] [address] [address] 28 May, 2016 Environmental allergies Z91.09 and Shortness of breath R06.02 [facility] [address] [address] May, Sore throat J02.9 ; Fever R50.9 and Influenza A J10.1 [place] [address] [address]- [address] 08 May, 2016 Wheezing R06.2 ; Pressure sensation in left ear H93.8X2 and Nasal congestion R09.81 [facility] [place] [address] [address] Apr, Acute non-recurrent maxillary sinusitis J01.00 [place] [address] [address] Apr, [place] [address] [address]- [address] Apr, Screening for breast cancer Z12.39 [place] [address] [place] [id number] [place] [address] 27976- 3451 Apr, Chronic pancreatitis, unspecified pancreatitis type K86.1 and Screening for diabetes mellitus (DM) Z13.1 [place] [address] [place] [id number] [place] [address] 83801- 9501 Mar, Chronic pancreatitis, unspecified pancreatitis type K86.1 ; Screening for breast cancer Z12.39 ; Screening for diabetes mellitus (DM) Z13.1 and Drug-induced constipation K59.03 [place] [address] [place] [id number] [place] [address] 14757- 5113 Mar, [place] [address] [address] 14 Mar, 2016 Reflux gastritis K29.60 ; History of bacterial pneumonia Z87.01 ; Anxiety F41.9 ; Other chronic pain G89.29 and Unspecified abdominal pain R10.9 [facility] [address] [address] 25 Feb, 2016 Encounter for immunization Z23 [facility] [address] [address] 31 Jan, 2016 Acute non-recurrent frontal sinusitis J01.10 [facility] [address] [place] [id number] [place] [address] 054348- 8316 Mar, [facility] [address] [place] [id number] [place] [address] 85315- 0996 Mar, [facility] [address] [place] [id number] [place] [address] 19043- 0104 Mar, [facility] [address] [place] [id number] [place] [address] 46056- 0726 Jan, [facility] [address] [place] [id number] [place] [address] 05906- 3765 Jul, [facility] [address] [place] [id number] [place] [address] 30486- 7575 Dec, [facility] [address] [address] Nov, [facility] [address] [place] [id number] [place] [address] 41486- 9290 August, [facility] [id number] [place] [address] [phone] Feb, IMMUNIZATIONS Vaccine Route Administration Date Status TORADOL (IM) 60 MG/2ML (UP TO 15 MG) IM Intramuscular Apr 24, 2017 Administered SOCIAL HISTORY Never Assessed REASON FOR VISIT Painful Urination, Dysuria x1 week-NAIDA Olmedo PLAN OF CARE Activity Details Follow Up 3 Months with Huey ROJAS Reason: VITAL SIGNS Height 64 in 2017-04-24 Weight 255 lbs 2017-04-24 Temperature 97.8 degrees Fahrenheit 2017-04-24 Heart Rate 90 bpm 2017-04-24 Respiratory Rate 20 2017-04-24 Oximetry 96 % 2017-04-24 BMI 43.77 kg/m2 2017-04-24 Blood pressure systolic 100 mmHg 2017-04-24 Blood pressure diastolic 60 mmHg 2017-04-24 MEDICATIONS Medication Instructions Dosage Frequency Start Date End Date Duration Status Xanax 1 MG Orally Twice a day, PRN 1 tablet as needed Active Ibuprofen 200 mg Orally every 8 hrs 4 tablets as needed 8h Active Contrave 8-90 MG Orally Twice a day 1 tablet daily x7d, 1 twice daily x7d, 2 in the am 1 in the pm x7d, then 2 twice daily 12h Nov, Not- Taking Hyoscyamine Sulfate 0.125 MG Orally every 4 hrs 1 tablet before meals as needed 4h Active Levsin 0.125 MG/5ML Orally every 4 hrs 5 ml before meals as needed 4h Not-Taking Zenpep 5000 UNIT Orally as directed 8 capsules with each meal and 4 capsule with snacks Active Prozac 10 mg Orally Once a day 1 capsule in the morning 24h August, 30 day(s) Not-Taking Combivent Respimat 20-100 MCG/ACT Inhalation Four times a day 1 puff 6h May, Not-Taking [place] 5-325 MG Orally 3 times a day, NEEDED 1 tablet as needed Sep Not-Taking Protonix 40 MG Orally Once a day 1 tablet 24h Not-Taking Robitussin Cough+ Chest Max St 10-200 MG/5ML Orally every 4 hrs 30 ml as needed 4h Not-Taking Augmentin 875-125 MG Orally every 12 hrs x 21 days 1 tablet Not- Taking ProAir HFA 108 (90 Base) mcg/act Inhalation every 4 hrs 2 puffs as needed 4h Jun, 30 days Not-Taking Allergy Relief D 10-240 MG Orally Once a day 1 tablet as needed 24h Not-Taking Incruse Ellipta 62.5 MCG/INH Inhalation Once a day 1 puff 24h May, Not-Taking MethylPREDNISolone 4 MG as directed Sep, Not-Taking Singulair 10 mg Orally Once a day 1 tablet in the evening 24h Jun, 30 day(s) Active Carafate 1 GM/10ML Orally Four times daily as needed 10 ml 14 Mar, 2016 Active PredniSONE 20 mg Orally 3 tablets daily for 3 days then 2 tabs for 3 days then 1 tab for 3 days .... August, Not-Taking Zantac 150 MG Orally Once a day 1 tablet at bedtime 24h Active Macrobid 100 mg Orally every 12 hrs 1 capsule with food 12h Apr, Apr, 7 day(s) Active PredniSONE 10 mg Orally Once a day 40mg daily x2days, 30mg daily x2days, 20mg daily x2 days, then mg daily x2 days, then stop 24h Not-Taking RESULTS No Results PROCEDURES Procedure Date Ordered Result Body Site URINALYSIS, AUTO, W/O SCOPE Apr 24, 2017 MEASURE BLOOD OXYGEN LEVEL Apr 24, 2017 TORADOL (IM) 60 MG/2ML (UP TO 15 MG) Apr 24, 2017 URINE CULTURE/COLONY COUNT Apr 24, 2017 THER/PROPH/DIAG INJ, SC/IM Apr 24, 2017 INSTRUCTIONS MEDICATIONS ADMINISTERED No Known Medications [...] History pneumonia, hx of black mold exposure, hypoxia-VC 06/07
--- OUTSIDE RECORDS SUMMARY | 2018-01-21 02:30 | XMS REPORT ---
Author Author MAVERICK ROSALES Organization [facility] Address [address] [place] [address] Care Team Providers Care Delivery Recruiter Name Role Phone MAVERICK ROSALES Unavailable PROBLEMS Type Condition ICD9-CM Code GTK44-[id number] Code Onset Dates Condition Status SNOMED Code Problem Pneumonia of both lungs due to methicillin susceptible Staphylococcus aureus (MSSA), unspecified part of lung J15.211 Active 450419131 Problem Moderate episode of recurrent major depressive disorder F33.1 Active 446139323 Problem On home oxygen therapy Z99.81 Active 972650081283 Problem Hypertension I10 Active 41951327 Problem BMI 40.0-44.9, adult Z68.41 Active 772927531 Problem Persistent depressive disorder F34.1 Active 32570264 Problem Chronic maxillary sinusitis J32.0 Active 37402767 Problem Other chronic pancreatitis K86.1 Active 741751400 Problem Generalized anxiety disorder F41.1 Active 87368817 Problem Other chronic pain G89.29 Active 71276750 Problem Chronic pancreatitis, unspecified pancreatitis type K86.1 Active 860914278 Problem Anxiety F41.9 Active 46775907 Problem Environmental allergies Z91.09 Active 413733775 Problem Reflux gastritis K29.60 Active 15486388 Problem Seasonal allergic rhinitis due to pollen J30.1 Active 85794189 ALLERGIES Substance Reaction Event Type Date Status Tylenol/Codeine #3 Unknown Drug Allergy Mar, Active Codeine Sulfate Unknown Drug Allergy Mar, Active ENCOUNTERS Encounter Location Date Diagnosis [facility] [address] [facility] [id number] [address] Oct, Chronic pancreatitis, unspecified pancreatitis type K86.1 ; Seasonal allergic rhinitis due to pollen J30.1 ; Moderate episode of recurrent major depressive disorder F33.1 ; Generalized anxiety disorder F41.1 ; BMI 40.0- 44.9, adult Z68.41 ; Pneumonia of both lungs due to methicillin susceptible Staphylococcus aureus (MSSA), unspecified part of lung J15.211 and Environmental allergies Z91.09 [place] [address] [place] [address] 39683- 3187 20 Sep, 2017 [place] [address] [place] [id number] [place] [address] 90263- 5059 04 Jul, 2017 Effusion, left knee M25.462 ; Skin tag L91.8 ; BMI 40.0-44.9 , adult Z68.41 ; Atypical mole D22.9 and Reflux gastritis K29.60 [place] [address] [place] [id number] [place] [address] 01052- 3889 Jun, Chronic pancreatitis, unspecified pancreatitis type K86.1 and Hypertension I10 [place] [address] [place] [id number] [place] [address] 79665- 9739 Jun, Chronic pancreatitis, unspecified pancreatitis type K86.1 and Hypertension I10 [place] [address] [place] [id number] [place] [address] 97195- 1317 May, Therapeutic drug monitoring Z51.81 [place] [address] [place] [id number] [place] [address] 36202- 5521 May, [place] [address] [place] [id number] [place] [address] 41955- 8512 Apr, [place] [address] [place] [id number] [place] [address] 91593- 3388 Apr, BMI 40.0-44.9, adult Z68.41 ; Dysuria R30.0 ; Acute cystitis without hematuria N30.00 and Hypoxia R09.02 [place] [address] [place] [id number] [place] [address] 84167- 7356 13 Mar, 2017 Anxiety F41.9 ; Acute pain of left knee M25.562 ; Environmental allergies Z91.09 ; Other chronic pancreatitis K86.1 ; Screening for breast cancer Z12.31 and Encounter for immunization Z23 [place] [address] [place] [id number] [place] [address] 96976- 7777 Feb, Encounter for immunization Z23 [facility] [address] [address] Jan, [facility] [address] [address] Dec, Encounter for immunization Z23 [facility] [address] [address] Dec, Generalized anxiety disorder F41.1 and Persistent depressive disorder F34.1 [facility] [address] [address] Nov, Generalized anxiety disorder F41.1 and Persistent depressive disorder F34.1 [facility] [address] [address] Nov, Weight loss R63.4 and Acute pain of right shoulder M25.511 [facility] [address] [address] Oct, [facility] [address] [address] 6[address] Sep, [facility] [address] [place] [address] 08239- 3956 Sep, Chronic pancreatitis, unspecified pancreatitis type K86.1 [facility] [address] [address] 8[address] Sep, [facility] [address] [address] 55[address] Sep, [facility] [address] [address] August, Therapeutic drug monitoring Z51.81 [facility] [address] [address] August, [facility] [address] [address] August, Chronic pancreatitis, unspecified pancreatitis type K86.1 [facility] [address] [address] 65[address] August, Moderate episode of recurrent major depressive disorder F33.1 ; Chronic maxillary sinusitis J32.0 ; Other chronic pancreatitis K86.1 and Weight gain R63.5 [facility] [address] [address] Jul, [facility] [address] [place] [id number] [place] [address] 52057- 1822 Jul, [facility] [address] [place] [address] 78397- 1012 Jul, [facility] [address] [place] [address] 40048 -1617 Jun, Dysuria R30.0 and Urgency of urination R39.15 [facility] [address] [place] [id number] [place] [address] 06282- 1339 Jun, Acute abdominal pain R10.9 [facility] [address] [place] [address] 15282- 6141 Jun, Acute abdominal pain R10.9 [place] [address] [place] [address] 51795- 3400 Jun, Pneumonia of both lungs due to methicillin susceptible Staphylococcus aureus (MSSA), unspecified part of lung J15.211 ; Hypoxia R09.02 and Seasonal allergic rhinitis due to pollen J30.1 [facility] [address] [address] 3602 Jun, On home oxygen therapy Z99.81 [place] [address] [place] [id number] [place] [address] [id number] Jun, [facility] [address] [place] [id number] [place] [address] [id number] Jun, [facility] [address] [place] [address] 23003- 5752 Jun, Respiratory distress R06.00 and Hypoxia R09.02 [place] [address] [place] [id number] [place] [address] 09016- 9383 Jun, [place] [address] 6[address]01- 6225 28 May, 2016 Environmental allergies Z91.09 and Shortness of breath R06.02 [facility] [address] [address] May, Sore throat J02.9 ; Fever R50.9 and Influenza A J10.1 [place] [address] 00943- 3789 08 May, 2016 Wheezing R06.2 ; Pressure sensation in left ear H93.8X2 and Nasal congestion R09.81 [facility] IN [place] [address] 9[address]13 -7110 Apr, Acute non-recurrent maxillary sinusitis J01.00 [place] [address] 97848- 4067 Apr, [place] [address] 96526- 4695 Apr, Screening for breast cancer Z12.39 [place] [address] [place] [id number] [place] [address] 41613- 1837 Apr, Chronic pancreatitis, unspecified pancreatitis type K86.1 and Screening for diabetes mellitus (DM) Z13.1 [place] [address] [place] [id number] [place] [address] 28317- 8507 Mar, Chronic pancreatitis, unspecified pancreatitis type K86.1 ; Screening for breast cancer Z12.39 ; Screening for diabetes mellitus (DM) Z13.1 and Drug-induced constipation K59.03 [place] [address] [place] [id number] [place] [address] 99375- 1350 Mar, [place] [address] 40848- 8579 14 Mar, 2016 Reflux gastritis K29.60 ; History of bacterial pneumonia Z87.01 ; Anxiety F41.9 ; Other chronic pain G89.29 and Unspecified abdominal pain R10.9 [facility] [address] [address] 37[address] Feb, Encounter for immunization Z23 [facility] [address] [address] 31 Jan, 2016 Acute non-recurrent frontal sinusitis J01.10 [facility] [address] [place] [address] [address]- 8480 Mar, [facility] [address] [place] [id number] [place] [address] 61912- 1743 Mar, [facility] [address] [place] [id number] [place] [address] 66398- 5772 Mar, [facility] [address] [place] [id number] [place] [address] 48320- 0937 Jan, [facility] [address] [place] [id number] [place] [address] 56670- 0820 Jul, [facility] [address] [place] [id number] [place] [address] 81501- 2520 Dec, [facility] [address] [address]- 0081 Nov, [facility] [address] [place] [id number] [place] [address] 53599- 6692 August, [facility] [id number] [place] [address] 52799- 8921 Feb, IMMUNIZATIONS Vaccine Route Administration Date Status PPSV23 (PNEUMOVAX) IM Intramuscular Mar 15, 2017 Administered SOCIAL HISTORY Never Assessed REASON FOR VISIT Anxiety f/u, pt would like to discuss mammogram [facility] PLAN OF CARE Activity Details Follow Up 3 Months with Huey froman anxiety/pain Reason: VITAL SIGNS Height 64 in 2017-03-15 Weight 249.1 lbs 2017-03-15 Temperature 97.5 degrees Fahrenheit 2017-03-15 Heart Rate 76 bpm 2017-03-15 Respiratory Rate 20 2017-03-15 BMI 42.75 kg/m2 2017-03-15 Blood pressure systolic 122 mmHg 2017-03-15 Blood pressure diastolic 80 mmHg 2017-03-15 MEDICATIONS Medication Instructions Dosage Frequency Start Date End Date Duration Status Hyoscyamine Sulfate 0.125 MG Orally every 4 hrs 1 tablet before meals as needed 4h Active PredniSONE 10 mg Orally Once a day 40mg daily x2days, 30mg daily x2days, 20mg daily x2 days, then mg daily x2 days, then stop 24h Not-Taking Ibuprofen 200 mg Orally every 8 hrs 4 tablets as needed 8h Active Zantac 150 MG Orally Once a day 1 tablet at bedtime 24h Active Sandy Level 5-325 MG Orally 3 times a day, NEEDED 1 tablet as needed Sep Not-Taking Incruse Ellipta 62.5 MCG/INH Inhalation Once a day 1 puff 24h May, Not-Taking Carafate 1 GM/10ML Orally Four times daily as needed 10 ml Mar, Active Levsin 0.125 MG/5ML Orally every 4 hrs 5 ml before meals as needed 4h Not-Taking Augmentin 875-125 MG Orally every 12 hrs x 21 days 1 tablet Not- Taking Prozac 10 mg Orally Once a day 1 capsule in the morning 24h August, 30 day(s) Not-Taking ProAir HFA 108 (90 Base) mcg/act Inhalation every 4 hrs 2 puffs as needed 4h Jun, 30 days Not-Taking Contrave 8-90 MG Orally Twice a day 1 tablet daily x7d, 1 twice daily x7d, 2 in the am 1 in the pm x7d, then 2 twice daily 12h Nov, Not- Taking Zenpep 5000 UNIT Orally as directed 8 capsules with each meal and 4 capsule with snacks Active Robitussin Cough+ Chest Max St 10-200 MG/5ML Orally every 4 hrs 30 ml as needed 4h Not-Taking Xanax 1 MG Orally Twice a day, PRN 1 tablet as needed Active Combivent Respimat 20-100 MCG/ACT Inhalation Four times a day 1 puff 6h May, Not-Taking Singulair 10 mg Orally Once a day 1 tablet in the evening 24h Jun, 30 day(s) Active Allergy Relief D 10-240 MG Orally Once a day 1 tablet as needed 24h Not-Taking MethylPREDNISolone 4 MG as directed Sep, Not-Taking Protonix 40 MG Orally Once a day 1 tablet 24h Not-Taking PredniSONE 20 mg Orally 3 tablets daily for 3 days then 2 tabs for 3 days then 1 tab for 3 days .... August, Not-Taking RESULTS Name Result Date Reference Range Mammogram, Bilateral Screening 2017-03-29 PROCEDURES Procedure Date Ordered Result Body Site PPSV23 (PNEUMOVAX) Mar 15, 2017 SINGLE IMMUNIZATION ADMIN Mar 15, 2017 INSTRUCTIONS MEDICATIONS ADMINISTERED No Known Medications [...] History pneumonia, hx of black mold exposure, hypoxia-[facility] 06/07
--- OUTSIDE RECORDS SUMMARY | 2018-01-21 02:30 | XMS REPORT ---
Author Author MAVERICK ROSALES Organization [facility] Address [address] [place] [address] Care Team Providers Care Dietary Worker Name Role Phone MAVERICK ROSALES Unavailable PROBLEMS Type Condition ICD9-CM Code KEA44-RK Code Onset Dates Condition Status SNOMED Code Problem Pneumonia of both lungs due to methicillin susceptible Staphylococcus aureus (MSSA), unspecified part of lung J15.211 Active 863575571 Problem Moderate episode of recurrent major depressive disorder F33.1 Active 157113352 Problem On home oxygen therapy Z99.81 Active 088647867515 Problem Hypertension I10 Active 31209345 Problem BMI 40.0-44.9, adult Z68.41 Active 889201975 Problem Persistent depressive disorder F34.1 Active 18342246 Problem Chronic maxillary sinusitis J32.0 Active 85048027 Problem Other chronic pancreatitis K86.1 Active 231288543 Problem Generalized anxiety disorder F41.1 Active 24167464 Problem Other chronic pain G89.29 Active 16044778 Problem Chronic pancreatitis, unspecified pancreatitis type K86.1 Active 617667689 Problem Anxiety F41.9 Active 33121645 Problem Environmental allergies Z91.09 Active 990070857 Problem Reflux gastritis K29.60 Active 05340336 Problem Seasonal allergic rhinitis due to pollen J30.1 Active 22365178 ALLERGIES No Information ENCOUNTERS Encounter Location Date Diagnosis [facility] [address] [facility] [id number] [address] Oct, [facility] [address] [facility] [id number], [place] [address] 9985 Sep, [facility] [address] [place] [id number], [place] [address]- 7258 Jul, Effusion, left knee M25.462 ; Skin tag L91.8 ; BMI 40.0-44.9 , adult Z68.41 ; Atypical mole D22.9 and Reflux gastritis K29.60 [place] [address] [place] [id number] [place] [address] 46002- 5923 20 Jun, 2017 Chronic pancreatitis, unspecified pancreatitis type K86.1 and Hypertension I10 [place] [address] [place] [id number] [place] [address] 49673- 6893 Jun, Chronic pancreatitis, unspecified pancreatitis type K86.1 and Hypertension I10 [place] [address] [place] [id number] [place] [address] 79030- 7947 May, Therapeutic drug monitoring Z51.81 [place] [address] 16350- 7113 May, [place] [address] 25452- 9784 Apr, [place] [address] 28957- 9698 Apr, BMI 40.0-44.9, adult Z68.41 ; Dysuria R30.0 ; Acute cystitis without hematuria N30.00 and Hypoxia R09.02 [place] [address] [place] [id number] [place] [address] 22125- 4968 Mar, Anxiety F41.9 ; Acute pain of left knee M25.562 ; Environmental allergies Z91.09 ; Other chronic pancreatitis K86.1 ; Screening for breast cancer Z12.31 and Encounter for immunization Z23 [place] [address] [place] [id number] [place] [address] 70578- 7809 Feb, Encounter for immunization Z23 [place] [address] [place] [id number] [place] [address] 30612- 3500 Jan, [place] [address] 24316- 2626 Dec, Encounter for immunization Z23 [place] [address] [place] [id number] [place] [address] 28928- 9684 Dec, Generalized anxiety disorder F41.1 and Persistent depressive disorder F34.1 [facility] [address] [place] [id number], [place] [address]- 45[address] Nov, Generalized anxiety disorder F41.1 and Persistent depressive disorder F34.1 [facility] [address] [place] [id number] [place] [address]- 4743 Nov, Weight loss R63.4 and Acute pain of right shoulder M25.511 [facility] [address] [place] [id number], [place] [address]- 5886 Oct, [facility] [address] [place] [id number], [place] [address]- 8497 Sep, [facility] [address] [id number] [address]- 0748 Sep, Chronic pancreatitis, unspecified pancreatitis type K86.1 [facility] [address], [place] [address]- 6321 Sep, [facility] [address] [place] [id number], [place] [address]- 8631 Sep, [facility] [address], [place] [address]- 0232 August, Therapeutic drug monitoring Z51.81 [facility] [address], [place] [address]- 0467 August, [facility] [address] [place] [id number], [place] [address]- 6942 August, Chronic pancreatitis, unspecified pancreatitis type K86.1 [facility] [address] [place] [id number] [address]- 4670 August, Moderate episode of recurrent major depressive disorder F33.1 ; Chronic maxillary sinusitis J32.0 ; Other chronic pancreatitis K86.1 and Weight gain R63.5 [facility] [address] [place] [id number], [place] [address]- 8591 Jul, [facility] [address] [place] [id number] [address]- 0755 Jul, [facility] [address] [place] [address] 88188- 9873 Jul, [facility] [address] [place] [address] 71649 -2768 30 Jun, 2016 Dysuria R30.0 and Urgency of urination R39.15 [place] [address] [place] [address] 78083- 4532 Jun, Acute abdominal pain R10.9 [facility] [address] [place] [address] 06991- 1790 Jun, Acute abdominal pain R10.9 [place] [address] [place] [address] 58259- 7245 Jun, Pneumonia of both lungs due to methicillin susceptible Staphylococcus aureus (MSSA), unspecified part of lung J15.211 ; Hypoxia R09.02 and Seasonal allergic rhinitis due to pollen J30.1 [facility] [address], [place] [address]- 0362 Jun, On home oxygen therapy Z99.81 [place] [address] [place] [id number] [place] [address] [id number] Jun, [facility] [address] [place] [id number] [place] [address] [id number] Jun, [place] [address] [place] [address] 13498- 6258 Jun, Respiratory distress R06.00 and Hypoxia R09.02 [place] [address] [place] [address] 08723- 8188 Jun, [place] [address] [place] [address] 71754- 2542 28 May, 2016 Environmental allergies Z91.09 and Shortness of breath R06.02 [facility] [address] [place] [address] 13263 -0596 20 May, 2016 Sore throat J02.9 ; Fever R50.9 and Influenza A J10.1 [place] [address] [address]- 7739 08 May, 2016 Wheezing R06.2 ; Pressure sensation in left ear H93.8X2 and Nasal congestion R09.81 [facility] [address] [address] Apr, Acute non-recurrent maxillary sinusitis J01.00 [place] [address] 98813- 0989 Apr, [place] [address] 88392- 4228 Apr, Screening for breast cancer Z12.[address] [address]- 6336 Apr, Chronic pancreatitis, unspecified pancreatitis type K86.1 and Screening for diabetes mellitus (DM) Z13.1 [place] [address] 12296- 9686 Mar, Chronic pancreatitis, unspecified pancreatitis type K86.1 ; Screening for breast cancer Z12.39 ; Screening for diabetes mellitus (DM) Z13.1 and Drug-induced constipation K59.03 [place] [address] 35307- 5545 Mar, [place] [address] 01009- 6594 Mar, Reflux gastritis K29.60 ; History of bacterial pneumonia Z87.01 ; Anxiety F41.9 ; Other chronic pain G89.29 and Unspecified abdominal pain R10.9 [place] [address] 45532- 5936 Feb, Encounter for immunization Z23 [facility] [address] 9[address] -27[address] Jan, Acute non-recurrent frontal sinusitis J01.10 [facility] [address] Mar, [facility] [address], [place] [address]- 3053 Mar, [facility] [address], [place] [address]- 3578 Mar, [facility] [address] [address] Jan, [facility] [address], [place] [address]- 9656 Jul, [facility] [address] [place] [address] 08559- 8486 Dec, [facility] [address], [place] [address]- 4788 Nov, [facility] [address] August, [facility] [address] [place] [id number] Feb, IMMUNIZATIONS No Known Immunizations SOCIAL HISTORY Never Assessed REASON FOR VISIT Lab (walk-in) PLAN OF CARE VITAL SIGNS MEDICATIONS Unknown Medications RESULTS No Results PROCEDURES Procedure Date Ordered Result Body Site COMPLETE CBC W/AUTO DIFF WBC June 20, 2017 COMPREHEN METABOLIC PANEL June 20, 2017 LIPID PANEL June 20, 2017 ASSAY OF LIPASE June 20, 2017 ASSAY OF AMYLASE June 20, 2017 ASSAY OF FREE THYROXINE June 20, 2017 ASSAY THYROID STIM HORMONE June 20, 2017 INSTRUCTIONS MEDICATIONS ADMINISTERED No Known Medications [...]
--- OUTSIDE RECORDS SUMMARY | 2018-01-21 02:31 | XMS REPORT ---
Author Author MAVERICK ROSALES Organization [facility] Address [address] [place] [address] Care Team Providers Care Bun Panner Name Role Phone MAVERICK ROSALES Unavailable PROBLEMS Type Condition ICD9-CM Code [id number] Code Onset Dates Condition Status SNOMED Code Problem Chronic pancreatitis, unspecified pancreatitis type K86.1 Active 280873712 Problem Seasonal allergic rhinitis due to pollen J30.1 Active 93647947 Problem Environmental allergies Z91.09 Active 620229807 Problem Other chronic pain G89.29 Active 15695672 Problem Anxiety F41.9 Active 14470411 Problem Reflux gastritis K29.60 Active 39342653 Problem Generalized anxiety disorder F41.1 Active 66077641 Problem Persistent depressive disorder F34.1 Active 84004540 Problem On home oxygen therapy Z99.81 Active 347154371782 Problem Pneumonia of both lungs due to methicillin susceptible Staphylococcus aureus (MSSA), unspecified part of lung J15.211 Active 608079539 Problem Chronic maxillary sinusitis J32.0 Active 22341719 Problem Moderate episode of recurrent major depressive disorder F33.1 Active 316279143 ALLERGIES Substance Reaction Event Type Date Status Tylenol/Codeine #3 Unknown Drug Allergy August, Active Codeine Sulfate Unknown Drug Allergy August, Active SOCIAL HISTORY Never Assessed PLAN OF CARE Activity Details Follow Up 3 Months with Huey Reason: VITAL SIGNS Height 64 in 2016-08-03 Weight 243.3 lbs 2016-08-03 Temperature 98.8 degrees Fahrenheit 2016-08-03 Heart Rate 84 bpm 2016-08-03 Respiratory Rate 20 2016-08-03 BMI 41.76 kg/m2 2016-08-03 Blood pressure systolic 124 mmHg 2016-08-03 Blood pressure diastolic 82 mmHg 2016-08-03 MEDICATIONS Medication Instructions Dosage Frequency Start Date End Date Duration Status Allergy Relief D 10-240 MG Orally Once a day 1 tablet as needed 24h Active ProAir HFA 108 (90 Base) mcg/act Inhalation every 4 hrs 2 puffs as needed 4h Jun, 30 days Active Carafate 1 GM/10ML Orally Four times daily as needed 10 ml Mar, Active Hyoscyamine Sulfate 0.125 MG Orally every 4 hrs 1 tablet before meals as needed 4h Active Ibuprofen 200 mg Orally every 8 hrs 4 tablets as needed 8h Active Singulair 10 mg Orally Once a day 1 tablet in the evening 24h Jun, 30 day(s) Active Prozac 10 mg Orally Once a day 1 capsule in the morning 24h August, 30 day(s) Active Augmentin 875-125 MG Orally every 12 hrs x 21 days 1 tablet Active Zantac 150 MG Orally Once a day 1 tablet at bedtime 24h Active Zenpep 5000 UNIT Orally as directed 8 capsules with each meal and 4 capsule with snacks Active Xanax 1 MG Orally Twice a day 1 tablet as needed 12h Active RESULTS No Results PROCEDURES No Known procedures IMMUNIZATIONS No Known Immunizations MEDICAL (GENERAL) HISTORY Type Description Date Medical [...]
--- OUTSIDE RECORDS SUMMARY | 2018-01-21 02:31 | XMS REPORT ---
Author Author MAVERICK ROSALES Organization [facility] Address [address] [place] [address] Care Team Providers Care Slime Plant Operator Helper Name Role Phone MAVERICK ROSALES Unavailable PROBLEMS Type Condition ICD9-CM Code [id number] Code Onset Dates Condition Status SNOMED Code Problem Pneumonia of both lungs due to methicillin susceptible Staphylococcus aureus (MSSA), unspecified part of lung J15.211 Active 816761232 Problem Moderate episode of recurrent major depressive disorder F33.1 Active 210250526 Problem On home oxygen therapy Z99.81 Active 966560711149 Problem Hypertension I10 Active 32490467 Problem BMI 40.0-44.9, adult Z68.41 Active 598543659 Problem Persistent depressive disorder F34.1 Active 18663888 Problem Chronic maxillary sinusitis J32.0 Active 65046878 Problem Other chronic pancreatitis K86.1 Active 071437194 Problem Generalized anxiety disorder F41.1 Active 30619712 Problem Other chronic pain G89.29 Active 02074841 Problem Chronic pancreatitis, unspecified pancreatitis type K86.1 Active 820205314 Problem Anxiety F41.9 Active 99673890 Problem Environmental allergies Z91.09 Active 546421866 Problem Reflux gastritis K29.60 Active 17195286 Problem Seasonal allergic rhinitis due to pollen J30.1 Active 21491217 ALLERGIES No Information ENCOUNTERS Encounter Location Date Diagnosis [facility] [address] [facility] [id number] [address] Oct, [facility] [address] [facility] [id number], [place] [address] Sep, [facility] [id number] [address] Jul, Effusion, left knee M25.462 ; Skin tag L91.8 ; BMI 40.0-44.9 , adult Z68.41 ; Atypical mole D22.9 and Reflux gastritis K29.60 [place] [id number] [place] [address] 20 Jun, 2017 Chronic pancreatitis, unspecified pancreatitis type K86.1 and Hypertension I10 [place] [id number] [place] [address] Jun, Chronic pancreatitis, unspecified pancreatitis type K86.1 and Hypertension I10 [place] [id number] [place] [address] May, Therapeutic drug monitoring Z51.81 [place] [address] [address] May, [place] [address] [address] Apr, [place] [address] [address] Apr, BMI 40.0-44.9, adult Z68.41 ; Dysuria R30.0 ; Acute cystitis without hematuria N30.00 and Hypoxia R09.02 [place] [id number] [place] [address] Mar, Anxiety F41.9 ; Acute pain of left knee M25.562 ; Environmental allergies Z91.09 ; Other chronic pancreatitis K86.1 ; Screening for breast cancer Z12.31 and Encounter for immunization Z23 [place] [id number] [place] [address] Feb, Encounter for immunization Z23 [place] [id number] [place] [address] Jan, [place] [address] [address] Dec, Encounter for immunization Z23 [place] [id number] [place] [address] Dec, Generalized anxiety disorder F41.1 and Persistent depressive disorder F34.1 [facility] [id number] [address] Nov, Generalized anxiety disorder F41.1 and Persistent depressive disorder F34.1 [facility] [id number] [address] Nov, Weight loss R63.4 and Acute pain of right shoulder M25.511 [facility] [id number] [address] Oct, [facility] [id number] [address] Sep, [facility] [id number], [place] [address] Sep, Chronic pancreatitis, unspecified pancreatitis type K86.1 [facility] [address], [place] [address] Sep, [facility] [id number] [address] Sep, [facility] [address], [place] [address] August, Therapeutic drug monitoring Z51.81 [facility] [address], [place] [address] August, [facility] [id number], [place] [address] August, Chronic pancreatitis, unspecified pancreatitis type K86.1 [facility] [id number] [address] August, Moderate episode of recurrent major depressive disorder F33.1 ; Chronic maxillary sinusitis J32.0 ; Other chronic pancreatitis K86.1 and Weight gain R63.5 [facility] [id number] [address] Jul, [facility] [id number] [address] Jul, [facility] [address] [place] [address] Jul, [facility] [id number] [place] [address] 30 Jun, 2016 Dysuria R30.0 and Urgency of urination R39.15 [place] [address] [place] [address] Jun, Acute abdominal pain R10.9 [facility] [address] [place] [address] Jun, Acute abdominal pain R10.9 [place] [address] [place] [address] Jun, Pneumonia of both lungs due to methicillin susceptible Staphylococcus aureus (MSSA), unspecified part of lung J15.211 ; Hypoxia R09.02 and Seasonal allergic rhinitis due to pollen J30.1 [facility] [address] [address] Jun, On home oxygen therapy Z99.81 [place] [id number] [place] [id number] Jun, [facility] [id number] [place] [id number] Jun, [place] [address] [place] [address] Jun, Respiratory distress R06.00 and Hypoxia R09.02 [place] [address] [place] [address]98[address] Jun, [place] [address] [place] [address] 28 May, 2016 Environmental allergies Z91.09 and Shortness of breath R06.02 [facility] [address] [place] [address] 20 May, 2016 Sore throat J02.9 ; Fever R50.9 and Influenza A J10.1 [place] [address] [address] 08 May, 2016 Wheezing R06.2 ; Pressure sensation in left ear H93.8X2 and Nasal congestion R09.81 [facility] IN [facility] [address] [address] Apr, Acute non-recurrent maxillary sinusitis J01.00 [place] [address] [address] Apr, [place] [address] [address] Apr, Screening for breast cancer Z12.[address] [address] Apr, Chronic pancreatitis, unspecified pancreatitis type K86.1 and Screening for diabetes mellitus (DM) Z13.1 [place] [address] [address] Mar, Chronic pancreatitis, unspecified pancreatitis type K86.1 ; Screening for breast cancer Z12.39 ; Screening for diabetes mellitus (DM) Z13.1 and Drug-induced constipation K59.03 [place] [address] [address] Mar, [place] [address] [address] Mar, Reflux gastritis K29.60 ; History of bacterial pneumonia Z87.01 ; Anxiety F41.9 ; Other chronic pain G89.29 and Unspecified abdominal pain R10.9 [place] [address] [address] Feb, Encounter for immunization Z23 [facility] [address] [address] Jan, Acute non-recurrent frontal sinusitis J01.10 [facility] [id number] [address] Mar, [facility] [id number] [address] Mar, [facility] [id number] [address] Mar, [facility] [id number] [address] Jan, [facility] [id number] [address] Jul, [facility] [address], [place] [address] Dec, [facility] [address] [address] Nov, [facility] [id number], [place] [address] August, [facility] [id number] [address] Feb, IMMUNIZATIONS No Known Immunizations SOCIAL HISTORY Never Assessed REASON FOR VISIT [employer] PLAN OF CARE VITAL SIGNS MEDICATIONS Unknown Medications RESULTS Name Result Date Reference Range [employer] 2017-05-24 PROCEDURES Procedure Date Ordered Result Body Site No Charge May 24, 2017 INSTRUCTIONS MEDICATIONS ADMINISTERED No Known [...]
--- OUTSIDE RECORDS SUMMARY | 2018-01-21 02:31 | XMS REPORT ---
Author Author ADRIANNE SAMPSON Organization [facility] Address [address] [place] [address] Care Team Providers Care Upholsterer Outside Name Role Phone ADRIANNE SAMPSON Unavailable PROBLEMS Type Condition ICD9-CM Code [id number] Code Onset Dates Condition Status SNOMED Code Problem Chronic pancreatitis, unspecified pancreatitis type K86.1 Active 163915056 Problem Seasonal allergic rhinitis due to pollen J30.1 Active 67630774 Problem Environmental allergies Z91.09 Active 388187855 Problem Other chronic pain G89.29 Active 31748512 Problem Anxiety F41.9 Active 06036343 Problem Reflux gastritis K29.60 Active 17964886 Problem Generalized anxiety disorder F41.1 Active 69374039 Problem Persistent depressive disorder F34.1 Active 28031154 Problem On home oxygen therapy Z99.81 Active 654761065913 Problem Pneumonia of both lungs due to methicillin susceptible Staphylococcus aureus (MSSA), unspecified part of lung J15.211 Active 128956238 Problem Chronic maxillary sinusitis J32.0 Active 38991515 Problem Moderate episode of recurrent major depressive disorder F33.1 Active 821031071 ALLERGIES Substance Reaction Event Type Date Status Codeine Sulfate Unknown Drug Allergy May, Active SOCIAL HISTORY Never Assessed PLAN OF CARE Activity Details Follow Up prn Reason: VITAL SIGNS Height 64 in 2016-05-23 Weight 245.2 lbs 2016-05-23 Temperature 98.6 degrees Fahrenheit 2016-05-23 Heart Rate 84 bpm 2016-05-23 Respiratory Rate 20 2016-05-23 BMI 42.08 kg/m2 2016-05-23 Blood pressure systolic 126 mmHg 2016-05-23 Blood pressure diastolic 78 mmHg 2016-05-23 MEDICATIONS Medication Instructions Dosage Frequency Start Date End Date Duration Status Xanax 1 MG Orally Twice a day 1 tablet as needed 12h Active Claritin-D 24 Hour 10-240 MG Orally Once a day 1 tablet as needed 24h May, Jun, 30 day(s) Active Zantac 150 MG Orally Once a day 1 tablet at bedtime 24h Active Hyoscyamine Sulfate 0.125 MG 2 tablets by mouth before meals and at bedtime Active Carafate 1 GM/10ML Orally Four times daily as needed 10 ml Mar, Active RESULTS Name Result Date Reference Range INFLUENZA A & B (IN HOUSE) 2016-05-23 INFLUENZA A positive INFLUENZA B negative Control + Lot # [id number] Exp date 2017 STREP A (IN HOUSE) 2016-05-23 STREP A negative Control + Lot # [id number] Exp date dec 19 PROCEDURES Procedure Date Ordered Result Body Site STREP A ASSAY W/OPTIC May 23, 2016 IMMUNIZATIONS No Known Immunizations MEDICAL (GENERAL) HISTORY [...] History Stents 2015 Hospitalization History pancreatitis x4 2014 Hospitalization History Exacerbation of Chronic Pancreatitis 03/20/16 Hospitalization History pneumonia, hx of black mold exposure, hypoxia-[facility] 06/07
--- OUTSIDE RECORDS SUMMARY | 2018-01-21 02:31 | XMS REPORT ---
Author Author MAVERICK ROSALES Organization [facility] Address [address] [place] [address] Care Team Providers Care Logistics Supply Officer Name Role Phone MAVERICK ROSALES Unavailable PROBLEMS Type Condition ICD9-CM Code PFY79-ZC Code Onset Dates Condition Status SNOMED Code Problem Chronic pancreatitis, unspecified pancreatitis type K86.1 Active 855531945 Problem Seasonal allergic rhinitis due to pollen J30.1 Active 95018999 Problem Environmental allergies Z91.09 Active 285386079 Problem Other chronic pain G89.29 Active 57694518 Problem Anxiety F41.9 Active 08884450 Problem Reflux gastritis K29.60 Active 55421933 Problem Generalized anxiety disorder F41.1 Active 83578637 Problem Persistent depressive disorder F34.1 Active 03666968 Problem On home oxygen therapy Z99.81 Active 202391962997 Problem Pneumonia of both lungs due to methicillin susceptible Staphylococcus aureus (MSSA), unspecified part of lung J15.211 Active 574566835 Problem Chronic maxillary sinusitis J32.0 Active 04248905 Problem Moderate episode of recurrent major depressive disorder F33.1 Active 802722696 ALLERGIES No Information SOCIAL HISTORY Never Assessed PLAN OF CARE VITAL SIGNS MEDICATIONS Unknown [...]
--- OUTSIDE RECORDS SUMMARY | 2018-01-21 02:31 | XMS REPORT ---
Author Author MAVERICK ROSALES Organization [facility] Address [address] [place] [address] Care Team Providers Care Tipping Machine Operator Automatic Name Role Phone MAVERICK ROSALES Unavailable PROBLEMS Type Condition ICD9-CM Code [id number] Code Onset Dates Condition Status SNOMED Code Problem Pneumonia of both lungs due to methicillin susceptible Staphylococcus aureus (MSSA), unspecified part of lung J15.211 Active 026335743 Problem Moderate episode of recurrent major depressive disorder F33.1 Active 316518229 Problem On home oxygen therapy Z99.81 Active 407632956360 Problem Hypertension I10 Active 43906648 Problem BMI 40.0-44.9, adult Z68.41 Active 019799912 Problem Persistent depressive disorder F34.1 Active 58374575 Problem Chronic maxillary sinusitis J32.0 Active 31435998 Problem Other chronic pancreatitis K86.1 Active 874523764 Problem Generalized anxiety disorder F41.1 Active 92671992 Problem Other chronic pain G89.29 Active 83563887 Problem Chronic pancreatitis, unspecified pancreatitis type K86.1 Active 648089347 Problem Anxiety F41.9 Active 29523578 Problem Environmental allergies Z91.09 Active 899953007 Problem Reflux gastritis K29.60 Active 43283086 Problem Seasonal allergic rhinitis due to pollen J30.1 Active 54047872 ALLERGIES No Information ENCOUNTERS Encounter Location Date Diagnosis [facility] [address] [facility] [id number] [address] Oct, [facility] [address] [facility] [id number] [address] Sep, [facility] [address] [id number] [address] Jul, Effusion, left knee M25.462 ; Skin tag L91.8 ; BMI 40.0-44.9 , adult Z68.41 ; Atypical mole D22.9 and Reflux gastritis K29.60 [place] [id number] [place] [address] 20 Jun, 2017 Chronic pancreatitis, unspecified pancreatitis type K86.1 and Hypertension I10 [place] [id number] [place] [address] 99273- 4890 Jun, Chronic pancreatitis, unspecified pancreatitis type K86.1 and Hypertension I10 [place] [id number] [place] [address]235- 8202 May, Therapeutic drug monitoring Z51.81 [place] [address] [address] May, [place] [address] [address] Apr, [place] [address] [address] Apr, BMI 40.0-44.9, adult Z68.41 ; Dysuria R30.0 ; Acute cystitis without hematuria N30.00 and Hypoxia R09.02 [place] [id number] [place] [address]4462- 9356 Mar, Anxiety F41.9 ; Acute pain of left knee M25.562 ; Environmental allergies Z91.09 ; Other chronic pancreatitis K86.1 ; Screening for breast cancer Z12.31 and Encounter for immunization Z23 [place] [id number] [place] [address] 80298- 9881 Feb, Encounter for immunization Z23 [place] [id number] [place] [address]89- 8512 Jan, [place] [address] [address]14 Dec, Encounter for immunization Z23 [place] [id number] [place] [address] 53103- 9754 Dec, Generalized anxiety disorder F41.1 and Persistent depressive disorder F34.1 [facility] [address] [id number] [address] Nov, Generalized anxiety disorder F41.1 and Persistent depressive disorder F34.1 [facility] [id number] [place] [address] Nov, Weight loss R63.4 and Acute pain of right shoulder M25.511 [facility] [address] [id number] [address] Oct, [facility] [address] [id number] [address] Sep, [facility] [address] [id number] [address] Sep, Chronic pancreatitis, unspecified pancreatitis type K86.1 [facility] [address] [address] Sep, [facility] [address] [id number] [address] Sep, [facility] [address] [address] August, Therapeutic drug monitoring Z51.81 [facility] [address] [address] August, [facility] [address] [id number] [address] August, Chronic pancreatitis, unspecified pancreatitis type K86.1 [facility] [address] [id number] [address] August, Moderate episode of recurrent major depressive disorder F33.1 ; Chronic maxillary sinusitis J32.0 ; Other chronic pancreatitis K86.1 and Weight gain R63.5 [facility] [id number] [address] Jul, [facility] [address] [id number] [address] Jul, [facility] [address] [place] [address] 21949- 7270 Jul, [facility] [address] [place] [address] 04126 [address]8285 30 Jun, 2016 Dysuria R30.0 and Urgency of urination R39.15 [place] [address] [place] [address] 76246- 1027 Jun, Acute abdominal pain R10.9 [facility] [address] [place] [address] 50945- 3751 Jun, Acute abdominal pain R10.9 [place] [address] [place] [address] 32215- 2744 Jun, Pneumonia of both lungs due to methicillin susceptible Staphylococcus aureus (MSSA), unspecified part of lung J15.211 ; Hypoxia R09.02 and Seasonal allergic rhinitis due to pollen J30.1 [facility] [address] [address] Jun, On home oxygen therapy Z99.81 [place] [id number] [place] [id number] Jun, [facility] [id number] [place] [address] [id number] Jun, [place] [address] [place] [address] 90941- 7873 Jun, Respiratory distress R06.00 and Hypoxia R09.02 [place] [address] [place] [address] 68328- 6679 Jun, [place] [address] [place] [address] 75184- 5320 28 May, 2016 Environmental allergies Z91.09 and Shortness of breath R06.02 [facility] [address] [place] [address]48 -[address] 20 May, 2016 Sore throat J02.9 ; Fever R50.9 and Influenza A J10.1 [place] [address] [address]- [address] 08 May, 2016 Wheezing R06.2 ; Pressure sensation in left ear H93.8X2 and Nasal congestion R09.81 [facility] [address] [address] Apr, Acute non-recurrent maxillary sinusitis J01.00 [place] [address] 6[address]- 8416 Apr, [place] [address] 40994- 3473 Apr, Screening for breast cancer Z12.[address] [address]- [address] Apr, Chronic pancreatitis, unspecified pancreatitis type K86.1 and Screening for diabetes mellitus (DM) Z13.1 [place] [address] 30957- 8026 Mar, Chronic pancreatitis, unspecified pancreatitis type K86.1 ; Screening for breast cancer Z12.39 ; Screening for diabetes mellitus (DM) Z13.1 and Drug-induced constipation K59.03 [place] [address] 27208- 7918 Mar, [place] [address] 44385- 9299 Mar, Reflux gastritis K29.60 ; History of bacterial pneumonia Z87.01 ; Anxiety F41.9 ; Other chronic pain G89.29 and Unspecified abdominal pain R10.9 [place] [address] 0[address]95- 6061 Feb, Encounter for immunization Z23 [facility] [address] [address] Jan, Acute non-recurrent frontal sinusitis J01.10 [facility] [address] [id number] [address] 2546 Mar, [facility] [id number] [address] Mar, [facility] [id number] [address] Mar, [facility] [address] [address] 2548 Jan, [facility] [address] [address] 2542 Jul, [facility] [address] [place] [address] 956[address] 2546 Dec, [facility] [address] [address] Nov, [facility] [address] [address] August, [facility] [id number] [address] Feb, IMMUNIZATIONS No Known Immunizations SOCIAL HISTORY Never Assessed REASON FOR VISIT Controlled Med Refill PLAN OF CARE VITAL SIGNS MEDICATIONS Medication [...]
--- OUTSIDE RECORDS SUMMARY | 2018-01-21 02:31 | XMS REPORT ---
Author Author MAVERICK ROSALES Organization [facility] Address [address] [place] [address] Care Team Providers Care Fitter/Welder Name Role Phone MAVERICK ROSALES Unavailable PROBLEMS Type Condition ICD9-CM Code [id number] Code Onset Dates Condition Status SNOMED Code Problem Seasonal allergic rhinitis due to pollen J30.1 Active 49179368 Problem On home oxygen therapy Z99.81 Active 404196652289 Problem Pneumonia of both lungs due to methicillin susceptible Staphylococcus aureus (MSSA), unspecified part of lung J15.211 Active 961037001 Problem Hypertension I10 Active 68552615 Problem Other chronic pancreatitis K86.1 Active 328276749 Problem Chronic maxillary sinusitis J32.0 Active 41107573 Problem Moderate episode of recurrent major depressive disorder F33.1 Active 103416053 Problem Generalized anxiety disorder F41.1 Active 83887199 Problem Persistent depressive disorder F34.1 Active 12909204 Problem Reflux gastritis K29.60 Active 32776059 Problem Other chronic pain G89.29 Active 21462241 Problem Chronic pancreatitis, unspecified pancreatitis type K86.1 Active 333342838 Problem Anxiety F41.9 Active 14960937 Problem Environmental allergies Z91.09 Active 688079031 ALLERGIES No Information ENCOUNTERS Encounter Location Date Diagnosis [facility] [id number], [place] [address] Jul, [facility] [id number], [place] [address] Jun, Chronic pancreatitis, unspecified pancreatitis type K86.1 and Hypertension I10 [facility] [id number], [place] [address]- [address] Jun, Chronic pancreatitis, unspecified pancreatitis type K86.1 and Hypertension I10 [facility] [id number], [place] [address] May, Therapeutic drug monitoring Z51.81 [place] [id number] [place] [address] 85481- 0206 May, [place] [address] [address]- 8493 Apr, [place] [address] 71412- 7517 Apr, BMI 40.0-44.9, adult Z68.41 ; Dysuria R30.0 ; Acute cystitis without hematuria N30.00 and Hypoxia R09.02 [place] [address] [address]287- 8534 Mar, Anxiety F41.9 ; Acute pain of left knee M25.562 ; Environmental allergies Z91.09 ; Other chronic pancreatitis K86.1 ; Screening for breast cancer Z12.31 and Encounter for immunization Z23 [place] [address] 9[address]42- 0504 Feb, Encounter for immunization Z23 [place] [id number] [place] [address] 67278- 3780 Jan, [place] [address] 94160- 1206 Dec, Encounter for immunization Z23 [place] [id number] [place] [address] 36802- 8445 Dec, Generalized anxiety disorder F41.1 and Persistent depressive disorder F34.1 [place] [id number] [place] [address] 72149- 4474 Nov, Generalized anxiety disorder F41.1 and Persistent depressive disorder F34.1 [place] [id number] [place] [address] 45125- 0773 Nov, Weight loss R63.4 and Acute pain of right shoulder M25.511 [place] [address] 97912- 6817 Oct, [facility] [address], [place] [address]- [address] Sep, [facility] [address], [place] [address]- 7[address] Sep, Chronic pancreatitis, unspecified pancreatitis type K86.1 [facility] [address], [place] [address]- 5171 Sep, [facility] [address], [place] [address]- 4869 Sep, [facility] [address] [place] [address] 75806- 2658 August, Therapeutic drug monitoring Z51.81 [facility] [address], [place] [address]- 7[address] August, [facility] [address] [id number], [place] [address]- 6431 August, Chronic pancreatitis, unspecified pancreatitis type K86.1 [facility] [address], [place] [address]- 9[address] August, Moderate episode of recurrent major depressive disorder F33.1 ; Chronic maxillary sinusitis J32.0 ; Other chronic pancreatitis K86.1 and Weight gain R63.5 [facility] [address], [place] [address]- [address] Jul, [facility] [address], [place] [address]- 5[address] Jul, [facility] [address], [place] [address]- [address] Jul, [facility] [address], [place] [address] Jun, Dysuria R30.0 and Urgency of urination R39.15 [facility] [address], [place] [address]- 3313 Jun, Acute abdominal pain R10.9 [facility] [address] [place] [address] 04312- 6822 Jun, Acute abdominal pain R10.9 [place] [id number] [place] [address] 50838- 8099 Jun, Pneumonia of both lungs due to methicillin susceptible Staphylococcus aureus (MSSA), unspecified part of lung J15.211 ; Hypoxia R09.02 and Seasonal allergic rhinitis due to pollen J30.1 [place] [id number] [place] [address] 44804- 8958 15 Jun, 2016 On home oxygen therapy Z99.81 [place] [address] [id number] Jun, [place] [address] [id number] Jun, [place] [id number] [place] [address] 02307- 0090 Jun, Respiratory distress R06.00 and Hypoxia R09.02 [place] [id number] [place] [address] 23815- 8823 Jun, [place] [id number] [place] [address] 93965- 6206 May, Environmental allergies Z91.09 and Shortness of breath R06.02 [facility] [id number] [place] [address] 48715 -7800 May, Sore throat J02.9 ; Fever R50.9 and Influenza A J10.1 [place] [id number] [place] [address] 62217- 5120 08 May, 2016 Wheezing R06.2 ; Pressure sensation in left ear H93.8X2 and Nasal congestion R09.81 [facility] [id number] [place] [address] 42502 -8034 Apr, Acute non-recurrent maxillary sinusitis J01.00 [facility] [address] [place] [address] 93449- 6806 Apr, [place] [address] 02579- 2197 Apr, Screening for breast cancer Z12.39 [place] [id number] [place] [address] 64017- 4651 Apr, Screening for diabetes mellitus (DM) Z13.1 and Chronic pancreatitis, unspecified pancreatitis type K86.1 [place] [id number] [place] [address] 75007- 4841 Mar, Chronic pancreatitis, unspecified pancreatitis type K86.1 ; Screening for breast cancer Z12.39 ; Screening for diabetes mellitus (DM) Z13.1 and Drug-induced constipation K59.03 [place] [id number] [place] [address] 11096- 8121 Mar, [place] [id number] [place] [address] 03410- 1171 Mar, Reflux gastritis K29.60 ; History of bacterial pneumonia Z87.01 ; Anxiety F41.9 ; Other chronic pain G89.29 and Unspecified abdominal pain R10.9 [place] [id number] [place] [address] 42131- 4553 Feb, Encounter for immunization Z23 [facility] [id number] [place] [address]44 -3519 Jan, Acute non-recurrent frontal sinusitis J01.10 [facility] [id number] [place] [address] 99837- 8752 Mar, [facility] [address] 5[address]- 6588 Mar, [facility] [id number] [place] [address] 65139- 0069 Mar, [place] [address] 26242- 2546 Jan, [facility] [address] [facility] [id number] [place] [address]- 2546 Jul, [facility] [address] [facility] [id number], [place] [address]- 2546 Dec, [facility] [address] [facility] [id number] [address]- 25[address] Nov, [facility] [address] [facility] [id number], [place] [address]- [address] August, [facility] [address] [facility] [id number], [place] [address] 2546 Feb, IMMUNIZATIONS No Known Immunizations SOCIAL HISTORY Never Assessed REASON FOR VISIT Triage-NAIDA Olmedo PLAN OF CARE VITAL SIGNS Temperature 98 degrees Fahrenheit 2016-09-13 Heart Rate 85 bpm 2016-09-13 Respiratory Rate 22 2016-09-13 Blood pressure systolic 158 mmHg 2016-09-13 Blood pressure diastolic 84 mmHg 2016-09-13 MEDICATIONS Medication Instructions Dosage Frequency Start Date End Date Duration Status [place] 5-325 MG Orally 3 times a day, NEEDED 1 tablet as needed Sep Active RESULTS No Results PROCEDURES No Known [...] History pneumonia, hx of black mold exposure, hypoxia-[facility] 06/07
--- OUTSIDE RECORDS SUMMARY | 2018-01-21 02:32 | XMS REPORT ---
Author Author NEL CELSO Organization [facility] Address [address] [place] [address] Care Team Providers Care Baffle Mounter Name Role Phone NELNIKKICELSO Unavailable PROBLEMS Type Condition ICD9-CM Code [id number] Code Onset Dates Condition Status SNOMED Code Problem Chronic pancreatitis, unspecified pancreatitis type K86.1 Active 188156165 Problem Pneumonia of both lungs due to methicillin susceptible Staphylococcus aureus (MSSA), unspecified part of lung J15.211 Active 237282681 Problem Environmental allergies Z91.09 Active 481344175 Problem Other chronic pain G89.29 Active 26479058 Problem Anxiety F41.9 Active 92804945 Problem Reflux gastritis K29.60 Active 23464644 Problem Generalized anxiety disorder F41.1 Active 85243891 Problem Persistent depressive disorder F34.1 Active 58621555 Problem On home oxygen therapy Z99.81 Active 992448521460 Problem Seasonal allergic rhinitis due to pollen J30.1 Active 42214485 Problem Moderate episode of recurrent major depressive disorder F33.1 Active 076716049 Problem Chronic maxillary sinusitis J32.0 Active 10462743 ALLERGIES Unknown Allergies SOCIAL HISTORY No smoking Hx information available PLAN OF CARE VITAL SIGNS MEDICATIONS Medication Instructions Dosage Frequency Start Date End Date Duration Status Hydrocodone-Acetaminophen 5-325 MG Orally every 4 hrs 1 tablet as needed 4h Active Ibuprofen 200 mg Orally every 6 hrs 4 tablet as needed 6h Active Xanax 1 MG Orally Twice a day 1 tablet as needed 12h Active Levsin 0.125 MG/5ML Orally every 4 hrs 5 ml before meals as needed 4h Active Carafate 1 GM/10ML Orally Four times daily as needed 10 ml 14 Mar, 2016 Active Protonix 40 MG Orally Once a day 1 tablet 24h Active Zofran ODT 4 MG Orally every 4 hours as needed 1 tablet on the tongue and allow to dissolve Active Claritin-D 12 Hour 5-120 MG Orally Once a day 1 tablet 24h Active Zenpep 09961 UNIT Active RESULTS No Results PROCEDURES No Known procedures IMMUNIZATIONS No Known Immunizations
--- OUTSIDE RECORDS SUMMARY | 2018-01-21 02:32 | XMS REPORT ---
Author Author CONSTANZA GRABIEL Organization [facility] Address [address] [place] [address] Care Team Providers Care Folded Cloth Taper Name Role Phone APODACARONDA WrightELE Unavailable PROBLEMS Type Condition ICD9-CM Code UAT63-OQ Code Onset Dates Condition Status SNOMED Code Problem Chronic pancreatitis, unspecified pancreatitis type K86.1 Active 590384054 Problem Seasonal allergic rhinitis due to pollen J30.1 Active 37345319 Problem Environmental allergies Z91.09 Active 758356983 Problem Other chronic pain G89.29 Active 26735195 Problem Anxiety F41.9 Active 81709852 Problem Reflux gastritis K29.60 Active 46299423 Problem Generalized anxiety disorder F41.1 Active 82096665 Problem Persistent depressive disorder F34.1 Active 46369001 Problem On home oxygen therapy Z99.81 Active 784862068704 Problem Pneumonia of both lungs due to methicillin susceptible Staphylococcus aureus (MSSA), unspecified part of lung J15.211 Active 634391228 Problem Chronic maxillary sinusitis J32.0 Active 68557189 Problem Moderate episode of recurrent major depressive disorder F33.1 Active 739423929 ALLERGIES Substance Reaction Event Type Date Status Codeine Sulfate Unknown Drug Allergy Apr, Active SOCIAL HISTORY No smoking Hx information available PLAN OF CARE Activity Details Follow Up prn Reason: VITAL SIGNS Height 64 in 2016-04-24 Weight 242.0 lbs 2016-04-24 Temperature 97.8 degrees Fahrenheit 2016-04-24 Heart Rate 76 bpm 2016-04-24 Respiratory Rate 20 2016-04-24 BMI 41.53 kg/m2 2016-04-24 Blood pressure systolic 126 mmHg 2016-04-24 Blood pressure diastolic 78 mmHg 2016-04-24 MEDICATIONS Medication Instructions Dosage Frequency Start Date End Date Duration Status Xanax 1 MG Orally Twice a day 1 tablet as needed 12h Active Carafate 1 GM/10ML Orally Four times daily as needed 10 ml Mar, Active Hyoscyamine Sulfate 0.125 MG 2 tablets by mouth before meals and at bedtime Active Augmentin 875-125 MG Orally every 12 hrs 1 tablet 12h Apr, May, 10 day(s) Active Zantac 150 MG Orally Once a day 1 tablet at bedtime 24h Active RESULTS No Results PROCEDURES Procedure Date Ordered Related Diagnosis Body Site Office Visit, Est Pt., Level 3 Apr 24, 2016 IMMUNIZATIONS No Known Immunizations
--- OUTSIDE RECORDS SUMMARY | 2018-01-21 02:32 | XMS REPORT ---
Author Author MAVERICK ROSALES Organization [facility] Address [address] [place] [address] Care Team Providers Care Window And Siding Craftsman Name Role Phone MAVERICK ROSALES Unavailable PROBLEMS Type Condition ICD9-CM Code NHO42-KL Code Onset Dates Condition Status SNOMED Code Problem Anxiety F41.9 Active 50844694 Problem Chronic pancreatitis, unspecified pancreatitis type K86.1 Active 607435276 Problem Reflux gastritis K29.60 Active 83856578 Problem Other chronic pain G89.29 Active 41080122 Problem Moderate episode of recurrent major depressive disorder F33.1 Active 530203752 Problem Chronic maxillary sinusitis J32.0 Active 14694208 Problem Pneumonia of both lungs due to methicillin susceptible Staphylococcus aureus (MSSA), unspecified part of lung J15.211 Active 138618301 Problem Environmental allergies Z91.09 Active 398602213 Problem On home oxygen therapy Z99.81 Active 525706180211 Problem Seasonal allergic rhinitis due to pollen J30.1 Active 22901141 ALLERGIES Substance Reaction Event Type Date Status Codeine Sulfate Unknown Drug Allergy Mar, Active SOCIAL HISTORY No smoking Hx information available PLAN OF CARE Activity Details Follow Up 6 Months with Huey Reason: VITAL SIGNS Height 64 in 2016-03-16 Weight 241 lbs 2016-03-16 Temperature 98.4 degrees Fahrenheit 2016-03-16 Heart Rate 80 bpm 2016-03-16 Respiratory Rate 18 2016-03-16 BMI 41.36 kg/m2 2016-03-16 Blood pressure systolic 110 mmHg 2016-03-16 Blood pressure diastolic 80 mmHg 2016-03-16 MEDICATIONS Medication Instructions Dosage Frequency Start Date End Date Duration Status Carafate 1 GM/10ML Orally Four times daily as needed 10 ml Mar, Active Xanax 1 MG Orally Twice a day 1 tablet as needed 12h Active Hydrocodone-Acetaminophen 5-325 MG Orally every 6 hrs 1 tablet as needed 6h Active RESULTS No Results PROCEDURES Procedure Date Ordered Related Diagnosis Body Site Office Visit, New Pt., Level 3 Mar 16, 2016 IMMUNIZATIONS No Known Immunizations
--- OUTSIDE RECORDS SUMMARY | 2018-01-21 02:32 | XMS REPORT ---
Author Author MAVERICK ROSALES Organization [facility] Address [address] [place] [address] Care Team Providers Care Laundry Or Dry Cleaners Counter Clerk Name Role Phone MAVERICK ROSALES Unavailable PROBLEMS Type Condition ICD9-CM Code FCX91-OD Code Onset Dates Condition Status SNOMED Code Problem Chronic pancreatitis, unspecified pancreatitis type K86.1 Active 903005588 Problem Pneumonia of both lungs due to methicillin susceptible Staphylococcus aureus (MSSA), unspecified part of lung J15.211 Active 029139515 Problem Environmental allergies Z91.09 Active 276868555 Problem Other chronic pain G89.29 Active 47149813 Problem Anxiety F41.9 Active 07990111 Problem Reflux gastritis K29.60 Active 60341531 Problem Generalized anxiety disorder F41.1 Active 64215491 Problem Persistent depressive disorder F34.1 Active 70618747 Problem On home oxygen therapy Z99.81 Active 631184772236 Problem Seasonal allergic rhinitis due to pollen J30.1 Active 99606532 Problem Moderate episode of recurrent major depressive disorder F33.1 Active 022471711 Problem Chronic maxillary sinusitis J32.0 Active 48679118 ALLERGIES Unknown Allergies SOCIAL HISTORY No smoking Hx information available PLAN OF CARE VITAL SIGNS MEDICATIONS Unknown Medications RESULTS No Results PROCEDURES No Known procedures IMMUNIZATIONS No Known Immunizations
--- OUTSIDE RECORDS SUMMARY | 2018-01-21 02:32 | XMS REPORT ---
Author Author MAVERICK ROSALES Organization [facility] Address [address] [place] [address] Care Team Providers Care Summer Internship Name Role Phone MAVERICK ROSALES Unavailable PROBLEMS Type Condition ICD9-CM Code FWU95-CF Code Onset Dates Condition Status SNOMED Code Problem Pneumonia of both lungs due to methicillin susceptible Staphylococcus aureus (MSSA), unspecified part of lung J15.211 Active 124936695 Problem Moderate episode of recurrent major depressive disorder F33.1 Active 147116781 Problem On home oxygen therapy Z99.81 Active 778879174527 Problem Hypertension I10 Active 42791650 Problem BMI 40.0-44.9, adult Z68.41 Active 979154803 Problem Persistent depressive disorder F34.1 Active 09734824 Problem Chronic maxillary sinusitis J32.0 Active 01614050 Problem Other chronic pancreatitis K86.1 Active 164350872 Problem Generalized anxiety disorder F41.1 Active 64561761 Problem Other chronic pain G89.29 Active 73161896 Problem Chronic pancreatitis, unspecified pancreatitis type K86.1 Active 554686471 Problem Anxiety F41.9 Active 96716083 Problem Environmental allergies Z91.09 Active 349261140 Problem Reflux gastritis K29.60 Active 39061401 Problem Seasonal allergic rhinitis due to pollen J30.1 Active 05532738 ALLERGIES No Information ENCOUNTERS Encounter Location Date Diagnosis [facility] [address] [facility] [id number] [address] Jul, Effusion, left knee M25.462 ; Skin tag L91.8 ; BMI 40.0-44.9 , adult Z68.41 ; Atypical mole D22.9 and Reflux gastritis K29.60 [facility] [address] [id number] [address] Jun, Chronic pancreatitis, unspecified pancreatitis type K86.1 and Hypertension I10 [facility] [id number] [place] [address] Jun, Chronic pancreatitis, unspecified pancreatitis type K86.1 and Hypertension I10 [place] [id number] [place] [address]- [address] May, Therapeutic drug monitoring Z51.81 [place] [address] [address] May, [place] [address] [address] Apr, [place] [address] [address] Apr, BMI 40.0-44.9, adult Z68.41 ; Dysuria R30.0 ; Acute cystitis without hematuria N30.00 and Hypoxia R09.[address] [address] Mar, Anxiety F41.9 ; Acute pain of left knee M25.562 ; Environmental allergies Z91.09 ; Other chronic pancreatitis K86.1 ; Screening for breast cancer Z12.31 and Encounter for immunization Z23 [place] [id number] [place] [address] Feb, Encounter for immunization Z23 [place] [id number] [place] [address]- 5[address] Jan, [place] [address] [address] Dec, Encounter for immunization Z23 [place] [address] [address] Dec, Generalized anxiety disorder F41.1 and Persistent depressive disorder F34.1 [place] [id number] [place] [address] 6[address] Nov, Generalized anxiety disorder F41.1 and Persistent depressive disorder F34.1 [place] [address] [address] Nov, Weight loss R63.4 and Acute pain of right shoulder M25.511 [facility] [address] [facility] [id number] [address] Oct, [facility] [address], [place] [address] Sep, [facility] [address] [facility] [id number] [address] Sep, Chronic pancreatitis, unspecified pancreatitis type K86.1 [facility] [address], [place] [address] Sep, [facility] [address] [address] Sep, [facility] [address], [place] [address] August, Therapeutic drug monitoring Z51.81 [facility] [address], [place] [address] August, [facility] [address], [place] [address] August, Chronic pancreatitis, unspecified pancreatitis type K86.1 [facility] [address] [address] August, Moderate episode of recurrent major depressive disorder F33.1 ; Chronic maxillary sinusitis J32.0 ; Other chronic pancreatitis K86.1 and Weight gain R63.5 [facility] [address] [address] Jul, [facility] [address] [address] Jul, [facility] [id number] [address] Jul, [facility] [address] [place] [address] 30 Jun, 2016 Dysuria R30.0 and Urgency of urination R39.15 [place] [address] [place] [address]- [address] 30 Jun, 2016 Acute abdominal pain R10.9 [place] [address] [place] [address]- [address] Jun, Acute abdominal pain R10.9 [place] [address] [place] [address]- 4215 Jun, Pneumonia of both lungs due to methicillin susceptible Staphylococcus aureus (MSSA), unspecified part of lung J15.211 ; Hypoxia R09.02 and Seasonal allergic rhinitis due to pollen J30.1 [place] [address] [place] [address]- 8799 Jun, On home oxygen therapy Z99.81 [place] [address] [id number] Jun, [place] [address] [id number] Jun, [place] [address] [place] [address]- 7086 Jun, Respiratory distress R06.00 and Hypoxia R09.02 [place] [address] [place] [address]- 9826 Jun, [place] [address] [place] [address] 8[address]48- 3595 May, Environmental allergies Z91.09 and Shortness of breath R06.02 [facility] [address] [place] [address] -[address]98 May, Sore throat J02.9 ; Fever R50.9 and Influenza A J10.1 [place] [address] [place] [address]33- 4[address] 08 Feb, 2017 Wheezing R06.2 ; Pressure sensation in left ear H93.8X2 and Nasal congestion R09.81 [facility] [address] [place] [address] -[address] Apr, Acute non-recurrent maxillary sinusitis J01.00 [place] [address] [address] Apr, [place] [address] [address] Apr, Screening for breast cancer Z12.39 [place] [address] [address] Apr, Chronic pancreatitis, unspecified pancreatitis type K86.1 and Screening for diabetes mellitus (DM) Z13.1 [place] [address] [address] Mar, Chronic pancreatitis, unspecified pancreatitis type K86.1 ; Screening for breast cancer Z12.39 ; Screening for diabetes mellitus (DM) Z13.1 and Drug-induced constipation K59.03 [place] [address] [address]- [address]888 Mar, [place] [address] [address]- [address]297 Mar, Reflux gastritis K29.60 ; History of bacterial pneumonia Z87.01 ; Anxiety F41.9 ; Other chronic pain G89.29 and Unspecified abdominal pain R10.9 [place] [address] [place] [address]96- 2017 Feb, Encounter for immunization Z23 [facility] [address] [address] 31 Jan, 2016 Acute non-recurrent frontal sinusitis J01.10 [place] [address] [address]- [address] Mar, [place] [address] [address]- 25[address] Mar, [facility] [id number] [address] Mar, [facility] [id number] [address] Jan, [facility] [id number] [address] Jul, [facility] [id number] [address]- [address] Dec, [facility] [id number], [place] [address] Nov, [facility] [id number] [address] August, [facility] [id number] [address] 2546 Feb, IMMUNIZATIONS Vaccine Route Administration Date Status TDAP (BOOSTRIX) IM Intramuscular Dec 19, 2016 Administered SOCIAL HISTORY Never Assessed REASON FOR VISIT Immunization(s)--tcuppettRN PLAN OF CARE VITAL SIGNS MEDICATIONS No Known Medications RESULTS No Results PROCEDURES Procedure Date Ordered Result Body Site TDAP (BOOSTRIX) Dec 19, 2016 SINGLE IMMUNIZATION ADMIN Dec 19, 2016 INSTRUCTIONS MEDICATIONS ADMINISTERED No Known Medications MEDICAL [...]
--- OUTSIDE RECORDS SUMMARY | 2018-01-21 02:32 | XMS REPORT ---
Author Author MAVERICK ROSALES Organization [facility] Address [address] [place] [address] Care Team Providers Care Tooling Manager Name Role Phone MAVERICK ROSALES Unavailable PROBLEMS Type Condition ICD9-CM Code TXS83-OU Code Onset Dates Condition Status SNOMED Code Problem Pneumonia of both lungs due to methicillin susceptible Staphylococcus aureus (MSSA), unspecified part of lung J15.211 Active 188588607 Problem Moderate episode of recurrent major depressive disorder F33.1 Active 352096157 Problem On home oxygen therapy Z99.81 Active 068017407279 Problem Hypertension I10 Active 77138904 Problem BMI 40.0-44.9, adult Z68.41 Active 007123567 Problem Persistent depressive disorder F34.1 Active 92494563 Problem Chronic maxillary sinusitis J32.0 Active 70707076 Problem Other chronic pancreatitis K86.1 Active 764659550 Problem Generalized anxiety disorder F41.1 Active 21065297 Problem Other chronic pain G89.29 Active 79687151 Problem Chronic pancreatitis, unspecified pancreatitis type K86.1 Active 672764527 Problem Anxiety F41.9 Active 12561656 Problem Environmental allergies Z91.09 Active 615581781 Problem Reflux gastritis K29.60 Active 76488859 Problem Seasonal allergic rhinitis due to pollen J30.1 Active 71443066 ALLERGIES No Information ENCOUNTERS Encounter Location Date Diagnosis [facility] [address] [facility] [id number] [address] Oct, [facility] [address] [facility] [id number], [place] [address] Sep, [facility] [id number], [place] [address] Jul, Effusion, left knee M25.462 ; Skin tag L91.8 ; BMI 40.0-44.9 , adult Z68.41 ; Atypical mole D22.9 and Reflux gastritis K29.60 [place] [address] [place] [id number] [place] [address]- [address] 20 Jun, 2017 Chronic pancreatitis, unspecified pancreatitis type K86.1 and Hypertension I10 [place] [address] [place] [id number] [place] [address] 24076- 5202 Jun, Chronic pancreatitis, unspecified pancreatitis type K86.1 and Hypertension I10 [place] [address] [place] [id number] [place] [address]33- 0075 May, Therapeutic drug monitoring Z51.81 [place] [address] [address]- [address] May, [place] [address] [address]- [address] Apr, [place] [address] [address]- 9665 Apr, BMI 40.0-44.9, adult Z68.41 ; Dysuria R30.0 ; Acute cystitis without hematuria N30.00 and Hypoxia R09.02 [place] [address] [place] [id number] [place] [address]- 2927 Mar, Anxiety F41.9 ; Acute pain of left knee M25.562 ; Environmental allergies Z91.09 ; Other chronic pancreatitis K86.1 ; Screening for breast cancer Z12.31 and Encounter for immunization Z23 [place] [address] [place] [address] [id number] [place] [address]- 3215 Feb, Encounter for immunization Z23 [place] [address] [place] [address] [id number] [place] [address] 6[address]- 8499 Jan, [place] [address] [address]- [address] Dec, Encounter for immunization Z23 [place] [address] [address] [id number] [place] [address] 60[address]- 4533 Dec, Generalized anxiety disorder F41.1 and Persistent depressive disorder F34.1 [facility] [id number] [address]- [address] Nov, Generalized anxiety disorder F41.1 and Persistent depressive disorder F34.1 [facility] [id number] [address] Nov, Weight loss R63.4 and Acute pain of right shoulder M25.511 [facility] [id number], [place] [address] Oct, [facility] [id number], [place] [address]- [address] Sep, [facility] [address] [id number], [place] [address]- 58[address] Sep, Chronic pancreatitis, unspecified pancreatitis type K86.1 [facility] [address], [place] [address]- [address] Sep, [facility] [id number], [place] [address]- 6[address] Sep, [facility] [address], [place] [address]- [address] August, Therapeutic drug monitoring Z51.81 [facility] [address], [place] [address]- [address] August, [facility] [id number], [place] [address]- 18[address] August, Chronic pancreatitis, unspecified pancreatitis type K86.1 [facility] [id number], [place] [address]- 69[address] August, Moderate episode of recurrent major depressive disorder F33.1 ; Chronic maxillary sinusitis J32.0 ; Other chronic pancreatitis K86.1 and Weight gain R63.5 [facility] [id number] [address]- [address] Jul, [facility] [address] [id number], [place] [address]- 6[address] Jul, [facility] [address] [place] [address] 13705- 4587 Jul, [facility] [address] [place] [address] 6[address]28 -6722 30 Jun, 2016 Dysuria R30.0 and Urgency of urination R39.15 [place] [address] [place] [address] 06476- 7395 Jun, Acute abdominal pain R10.9 [facility] [address] [place] [address] 78387- 7534 Jun, Acute abdominal pain R10.9 [place] [address] [place] [address] 28502- 1045 Jun, Pneumonia of both lungs due to methicillin susceptible Staphylococcus aureus (MSSA), unspecified part of lung J15.211 ; Hypoxia R09.02 and Seasonal allergic rhinitis due to pollen J30.1 [facility] [address], [place] [address]- 57[address] Jun, On home oxygen therapy Z99.81 [place] [address] [place] [id number] [place] [address] [id number] Jun, [facility] [id number] [place] [address] [id number] Jun, [place] [address] [place] [address] 56651- 8352 Jun, Respiratory distress R06.00 and Hypoxia R09.02 [place] [address] [place] [address] 27875- 3343 Jun, [place] [address] [place] [address] 18521- 1695 28 May, 2016 Environmental allergies Z91.09 and Shortness of breath R06.02 [facility] [address] [place] [address] -[address]5 20 May, 2016 Sore throat J02.9 ; Fever R50.9 and Influenza A J10.1 [place] [address] [address]- [address]359 08 May, 2016 Wheezing R06.2 ; Pressure sensation in left ear H93.8X2 and Nasal congestion R09.81 [facility] [address] [address] Apr, Acute non-recurrent maxillary sinusitis J01.00 [place] [address] 7[address]- [address]131 Apr, [place] [address] [address]23- 3895 Apr, Screening for breast cancer Z12.[address] [address]- [address] Apr, Chronic pancreatitis, unspecified pancreatitis type K86.1 and Screening for diabetes mellitus (DM) Z13.1 [place] [address] [address]- 3288 Mar, Chronic pancreatitis, unspecified pancreatitis type K86.1 ; Screening for breast cancer Z12.39 ; Screening for diabetes mellitus (DM) Z13.1 and Drug-induced constipation K59.03 [place] [address] [address]- 5290 Mar, [place] [address] [address]- 2275 Mar, Reflux gastritis K29.60 ; History of bacterial pneumonia Z87.01 ; Anxiety F41.9 ; Other chronic pain G89.29 and Unspecified abdominal pain R10.9 [place] [address] [address]- 7215 Feb, Encounter for immunization Z23 [facility] [address] [address] Jan, Acute non-recurrent frontal sinusitis J01.10 [facility] [address], [place] [address]- [address] Mar, [facility] [address], [place] [address]- 8[address] Mar, [facility] [address], [place] [address] 254 Mar, [facility] [address], [place] [address]- 7[address] Jan, [facility] [address], [place] [address]- [address] Jul, [facility] [address] [place] [address] 36879- 9975 Dec, [facility] [address], [place] [address]- [address] Nov, [facility] [address], [place] [address]- [address] August, [facility] [id number], [place] [address]- 6[address] Feb, IMMUNIZATIONS No Known Immunizations SOCIAL HISTORY Never Assessed REASON FOR VISIT Requests return call PLAN OF CARE VITAL SIGNS MEDICATIONS Unknown [...]
--- OUTSIDE RECORDS SUMMARY | 2018-01-21 02:32 | XMS REPORT ---
Author Author NEL CELSO Organization [facility] Address [address] [place] [address] Care Team Providers Care Fermenter Name Role Phone NELNIKKI LAYTONHANY Unavailable PROBLEMS Type Condition ICD9-CM Code IUJ85-MP Code Onset Dates Condition Status SNOMED Code Problem Chronic pancreatitis, unspecified pancreatitis type K86.1 Active 904485562 Problem Seasonal allergic rhinitis due to pollen J30.1 Active 36197408 Problem Environmental allergies Z91.09 Active 181333382 Problem Other chronic pain G89.29 Active 85981846 Problem Anxiety F41.9 Active 10344874 Problem Reflux gastritis K29.60 Active 35182360 Problem Generalized anxiety disorder F41.1 Active 60584215 Problem Persistent depressive disorder F34.1 Active 26391773 Problem On home oxygen therapy Z99.81 Active 307767959497 Problem Pneumonia of both lungs due to methicillin susceptible Staphylococcus aureus (MSSA), unspecified part of lung J15.211 Active 011414546 Problem Chronic maxillary sinusitis J32.0 Active 01835161 Problem Moderate episode of recurrent major depressive disorder F33.1 Active 866271496 ALLERGIES No Information SOCIAL HISTORY Never Assessed PLAN OF CARE VITAL SIGNS MEDICATIONS Medication Instructions Dosage Frequency Start Date End Date Duration Status Xanax 1 MG Orally Twice a day 1 tablet as needed 12h Active Zantac 150 MG Orally Once a day 1 tablet at bedtime 24h Active Robitussin Cough+ Chest Max St 10-200 MG/5ML Orally every 4 hrs 30 ml as needed 4h Active Ibuprofen 200 mg Orally every 8 hrs 4 tablets as needed 8h Active Allergy Relief D 10-240 MG Orally Once a day 1 tablet as needed 24h Active Augmentin 875-125 MG Orally every 12 hrs 1 tablet 12h 13 Jun, 2016Jun Active PredniSONE 10 mg Orally Once a day 40mg daily x2days, 30mg daily x2days, 20mg daily x2 days, then mg daily x2 days, then stop 24h Active RESULTS No Results PROCEDURES No Known [...]
--- OUTSIDE RECORDS SUMMARY | 2018-01-21 02:32 | XMS REPORT ---
Author Author GABRIELLA LOCO [facility] Address [address] [place] [address] Care Team Providers Care Chemical Processor Name Role Phone GABRIELLA LOCO Unavailable PROBLEMS Type Condition ICD9-CM Code SFS84-WV Code Onset Dates Condition Status SNOMED Code Problem Pneumonia of both lungs due to methicillin susceptible Staphylococcus aureus (MSSA), unspecified part of lung J15.211 Active 517061030 Problem Moderate episode of recurrent major depressive disorder F33.1 Active 093056820 Problem On home oxygen therapy Z99.81 Active 663725550645 Problem Hypertension I10 Active 46736171 Problem BMI 40.0-44.9, adult Z68.41 Active 144719269 Problem Persistent depressive disorder F34.1 Active 07700991 Problem Chronic maxillary sinusitis J32.0 Active 99927620 Problem Other chronic pancreatitis K86.1 Active 481575646 Problem Generalized anxiety disorder F41.1 Active 14796870 Problem Other chronic pain G89.29 Active 94011952 Problem Chronic pancreatitis, unspecified pancreatitis type K86.1 Active 518490396 Problem Anxiety F41.9 Active 61652252 Problem Environmental allergies Z91.09 Active 770728296 Problem Reflux gastritis K29.60 Active 21613658 Problem Seasonal allergic rhinitis due to pollen J30.1 Active 61856091 ALLERGIES No Information ENCOUNTERS Encounter Location Date Diagnosis [facility] [address], [place] [address] Jul, Effusion, left knee M25.462 ; Skin tag L91.8 ; BMI 40.0-44.9 , adult Z68.41 ; Atypical mole D22.9 and Reflux gastritis K29.60 [facility] [id number], [place] [address] Jun, Chronic pancreatitis, unspecified pancreatitis type K86.1 and Hypertension I10 [place] [id number] [place] [address] 36049- 2330 Jun, Chronic pancreatitis, unspecified pancreatitis type K86.1 and Hypertension I10 [place] [id number] [place] [address] 13957- 5577 May, Therapeutic drug monitoring Z51.81 [place] [id number] [place] [address] 32758- 1860 May, [place] [address] [address]60 Apr, [address] [address] Apr, BMI 40.0-44.9, adult Z68.41 ; Dysuria R30.0 ; Acute cystitis without hematuria N30.00 and Hypoxia R09.[address] [address] Mar, Anxiety F41.9 ; Acute pain of left knee M25.562 ; Environmental allergies Z91.09 ; Other chronic pancreatitis K86.1 ; Screening for breast cancer Z12.31 and Encounter for immunization Z23 [place] [id number] [place] [address] 01412- 6178 Feb, Encounter for immunization Z23 [place] [id number] [place] [address] 81752- 5247 Jan, [place] [id number] [place] [address] 26487- 6145 Dec, Encounter for immunization Z23 [place] [id number] [place] [address] 20752- 4450 Dec, Generalized anxiety disorder F41.1 and Persistent depressive disorder F34.1 [place] [id number] [place] [address] 16064- 9024 Nov, Generalized anxiety disorder F41.1 and Persistent depressive disorder F34.1 [place] [address], [place] [address] Nov, Weight loss R63.4 and Acute pain of right shoulder M25.511 [facility] [address], [place] [address] Oct, [facility] [address], [place] [address] Sep, [facility] [address], [place] [address] Sep, Chronic pancreatitis, unspecified pancreatitis type K86.1 [facility] [address] [place] [address] Sep, [facility] [address] [place] [address] Sep, [facility] [address] [address] August, Therapeutic drug monitoring Z51.81 [facility] [address], [place] [address] August, [facility] [address], [place] [address] August, Chronic pancreatitis, unspecified pancreatitis type K86.1 [facility] [address], [place] [address] August, Moderate episode of recurrent major depressive disorder F33.1 ; Chronic maxillary sinusitis J32.0 ; Other chronic pancreatitis K86.1 and Weight gain R63.5 [facility] [address] [address] Jul, [facility] [address] [address] Jul, [facility] [id number] [address] Jul, [facility] [address] [place] [address] 58882 -6488 30 Jun, 2016 Dysuria R30.0 and Urgency of urination R39.15 [place] [id number] [place] [address] 36273- 2111 Jun, Acute abdominal pain R10.9 [place] [id number] [place] [address] 79604- 2909 Jun, Acute abdominal pain R10.9 [place] [id number] [place] [address] 81662- 5436 Jun, Pneumonia of both lungs due to methicillin susceptible Staphylococcus aureus (MSSA), unspecified part of lung J15.211 ; Hypoxia R09.02 and Seasonal allergic rhinitis due to pollen J30.1 [place] [id number] [place] [address] 40618- 7451 Jun, On home oxygen therapy Z99.81 [place] [address] [id number] Jun, [place] [address] [id number] Jun, [place] [id number] [place] [address] 42622- 0165 Jun, Respiratory distress R06.00 and Hypoxia R09.02 [place] [address] [place] [address] 49423- 2112 Jun, [place] [id number] [place] [address] 61455- 5040 May, Environmental allergies Z91.09 and Shortness of breath R06.02 [facility] [id number] [place] [address] 74520 -9802 May, Sore throat J02.9 ; Fever R50.9 and Influenza A J10.1 [place] [address] [place] [address] 79381- 8289 08 May, 2016 Wheezing R06.2 ; Pressure sensation in left ear H93.8X2 and Nasal congestion R09.81 [facility] [address] [address] Apr, Acute non-recurrent maxillary sinusitis J01.00 [place] [address] 20[address]- [address] Apr, [place] [address] 88631- 8093 Apr, Screening for breast cancer Z12.39 [place] [address] 70[address]- 5339 Apr, Chronic pancreatitis, unspecified pancreatitis type K86.1 and Screening for diabetes mellitus (DM) Z13.1 [place] [address] 9[address]- 7876 Mar, Chronic pancreatitis, unspecified pancreatitis type K86.1 ; Screening for breast cancer Z12.39 ; Screening for diabetes mellitus (DM) Z13.1 and Drug-induced constipation K59.03 [place] [address] 68987- 7017 Mar, [place] [address] 73[address]- 1413 Mar, Reflux gastritis K29.60 ; History of bacterial pneumonia Z87.01 ; Anxiety F41.9 ; Other chronic pain G89.29 and Unspecified abdominal pain R10.9 [place] [id number] [place] [address] 11956- 3561 Feb, Encounter for immunization Z23 [facility] [address] [address] 31 Jan, 2016 Acute non-recurrent frontal sinusitis J01.10 [place] [address] 02946- 9016 Mar, [place] [address] 46255- 2546 Mar, [facility] [id number] [address] Mar, [facility] [id number] [address] Jan, [facility] [id number] [address]- [address] Jul, [facility] [address], [place] [address]- 25[address] Dec, [facility] [id number], [place] [address] 25[address] Nov, [facility] [id number], [place] [address] August, [facility] [id number] [address] 2546 Feb, IMMUNIZATIONS No Known Immunizations SOCIAL HISTORY Never Assessed REASON FOR VISIT f/u PLAN OF CARE Activity Details Follow Up 2 Weeks Reason: F/U VITAL SIGNS MEDICATIONS No Known Medications RESULTS No Results PROCEDURES Procedure Date Ordered Result Body Site Psychotherapy, patient &/family, 45 minutes, established patient Dec 19, 2016 INSTRUCTIONS MEDICATIONS ADMINISTERED No [...] History pneumonia, hx of black mold exposure, hypoxia-[facility] 06/07
--- OUTSIDE RECORDS SUMMARY | 2018-01-21 02:33 | XMS REPORT ---
Author Author MAVERICK ROSALES Organization [facility] Address [address] [place] [address] Care Team Providers Care Brick Handler Name Role Phone MAVERICK ROSALES Unavailable PROBLEMS Type Condition ICD9-CM Code NEU24-IA Code Onset Dates Condition Status SNOMED Code Problem Chronic pancreatitis, unspecified pancreatitis type K86.1 Active 456343213 Problem Seasonal allergic rhinitis due to pollen J30.1 Active 40520653 Problem Environmental allergies Z91.09 Active 803513725 Problem Other chronic pain G89.29 Active 52459125 Problem Anxiety F41.9 Active 12797073 Problem Reflux gastritis K29.60 Active 50726152 Problem Generalized anxiety disorder F41.1 Active 33182710 Problem Persistent depressive disorder F34.1 Active 50609696 Problem On home oxygen therapy Z99.81 Active 934743397796 Problem Pneumonia of both lungs due to methicillin susceptible Staphylococcus aureus (MSSA), unspecified part of lung J15.211 Active 834716060 Problem Chronic maxillary sinusitis J32.0 Active 10510405 Problem Moderate episode of recurrent major depressive disorder F33.1 Active 194106444 ALLERGIES Substance Reaction Event Type Date Status Codeine Sulfate Unknown Drug Allergy May, Active SOCIAL HISTORY Never Assessed PLAN OF CARE Activity Details Follow Up prn Huey Reason: VITAL SIGNS Height 64 in 2016-05-11 Temperature 97.9 degrees Fahrenheit 2016-05-11 Heart Rate 80 bpm 2016-05-11 Respiratory Rate 18 2016-05-11 Blood pressure systolic 128 mmHg 2016-05-11 Blood pressure diastolic 84 mmHg 2016-05-11 MEDICATIONS Medication Instructions Dosage Frequency Start Date End Date Duration Status Xanax 1 MG Orally Twice a day 1 tablet as needed 12h Active Zantac 150 MG Orally Once a day 1 tablet at bedtime 24h Active Claritin-D 24 Hour 10-240 MG Orally Once a day 1 tablet as needed 24h May, Jun, 30 day(s) Active PredniSONE 50 mg Orally Once a day 1 tablet 24h 08 Feb, 2017 13 Feb, 2017 05 days Active Carafate 1 GM/10ML Orally Four times daily as needed 10 ml Mar, Active Hyoscyamine Sulfate 0.125 MG 2 tablets by mouth before meals and at bedtime Active RESULTS No Results PROCEDURES Procedure Date Ordered Result Body Site SOLUMEDROL (UP TO 125 MG) May 11, 2016 THER/PROPH/DIAG INJ, SC/IM May 11, 2016 IMMUNIZATIONS Vaccine Route Administration Date Status SOLUMEDROL (UP TO 125 MG) IM Intramuscular May 11, 2016 Administered MEDICAL (GENERAL) HISTORY Type Description Date Medical [...]
--- OUTSIDE RECORDS SUMMARY | 2018-01-21 02:33 | XMS REPORT ---
Author Author MAVERICK ROSALES Organization [facility] Address [address] [place] [address] Care Team Providers Care High Lift Operator Name Role Phone MAVERICK ROSALES Unavailable PROBLEMS Type Condition ICD9-CM Code JEH08-MH Code Onset Dates Condition Status SNOMED Code Problem Chronic pancreatitis, unspecified pancreatitis type K86.1 Active 243700231 Problem Seasonal allergic rhinitis due to pollen J30.1 Active 84141320 Problem Environmental allergies Z91.09 Active 293767418 Problem Other chronic pain G89.29 Active 50881142 Problem Anxiety F41.9 Active 98526386 Problem Reflux gastritis K29.60 Active 88695268 Problem Generalized anxiety disorder F41.1 Active 24140232 Problem Persistent depressive disorder F34.1 Active 75422073 Problem On home oxygen therapy Z99.81 Active 044538521767 Problem Pneumonia of both lungs due to methicillin susceptible Staphylococcus aureus (MSSA), unspecified part of lung J15.211 Active 719314476 Problem Chronic maxillary sinusitis J32.0 Active 35095262 Problem Moderate episode of recurrent major depressive disorder F33.1 Active 005256065 ALLERGIES No Information SOCIAL HISTORY Never Assessed [...]
--- OUTSIDE RECORDS SUMMARY | 2018-01-21 02:33 | XMS REPORT ---
Author Author MAVERICK ROSALES Organization [facility] Address [address] [place] [address] Care Team Providers Care Sales Merchandising Specialist Name Role Phone MAVERICK ROSALES Unavailable PROBLEMS Type Condition ICD9-CM Code RPZ09-RI Code Onset Dates Condition Status SNOMED Code Problem Seasonal allergic rhinitis due to pollen J30.1 Active 71685451 Problem On home oxygen therapy Z99.81 Active 344837295990 Problem Pneumonia of both lungs due to methicillin susceptible Staphylococcus aureus (MSSA), unspecified part of lung J15.211 Active 261639074 Problem Hypertension I10 Active 24521180 Problem Other chronic pancreatitis K86.1 Active 092782639 Problem Chronic maxillary sinusitis J32.0 Active 73652562 Problem Moderate episode of recurrent major depressive disorder F33.1 Active 491511129 Problem Generalized anxiety disorder F41.1 Active 50144239 Problem Persistent depressive disorder F34.1 Active 77827705 Problem Reflux gastritis K29.60 Active 47819716 Problem Other chronic pain G89.29 Active 20190710 Problem Chronic pancreatitis, unspecified pancreatitis type K86.1 Active 441221472 Problem Anxiety F41.9 Active 58367804 Problem Environmental allergies Z91.09 Active 023163633 ALLERGIES No Information ENCOUNTERS Encounter Location Date Diagnosis [facility] [id number] [address] Jul, [facility] [id number] [address]- 118[address] Jun, Chronic pancreatitis, unspecified pancreatitis type K86.1 and Hypertension I10 [facility] [id number] [address]- 14[address] Jun, Chronic pancreatitis, unspecified pancreatitis type K86.1 and Hypertension I10 [facility] [id number] [address]- 94[address] May, Therapeutic drug monitoring Z51.81 [place] [id number] [place] [address] 31402- 9150 May, [place] [address] 9[address]- [address]377 Apr, [place] [address] 42854- 9856 Apr, BMI 40.0-44.9, adult Z68.41 ; Dysuria R30.0 ; Acute cystitis without hematuria N30.00 and Hypoxia R09.02 [place] [address] 59437- 3965 Mar, Anxiety F41.9 ; Acute pain of left knee M25.562 ; Environmental allergies Z91.09 ; Other chronic pancreatitis K86.1 ; Screening for breast cancer Z12.31 and Encounter for immunization Z23 [place] [address] [address]- 2760 Feb, Encounter for immunization Z23 [place] [id number] [place] [address] 96459- 0986 Jan, [place] [address] 78870- 3113 Dec, Encounter for immunization Z23 [place] [id number] [place] [address] 82047- 7145 Dec, Generalized anxiety disorder F41.1 and Persistent depressive disorder F34.1 [place] [id number] [place] [address] 78879- 2167 Nov, Generalized anxiety disorder F41.1 and Persistent depressive disorder F34.1 [place] [id number] [place] [address] 55426- 5044 Nov, Weight loss R63.4 and Acute pain of right shoulder M25.511 [place] [address] 23582- 0029 Oct, [facility] [address] [address]- 6[address] Sep, [facility] [address] [address]- 3023 Sep, Chronic pancreatitis, unspecified pancreatitis type K86.1 [facility] [address] [address]- 7963 Sep, [facility] [address] [address]- 8544 Sep, [facility] [address] [place] [address] 16965- 2856 August, Therapeutic drug monitoring Z51.81 [facility] [address] [address]- 2593 August, [facility] [address] [address]- 1802 August, Chronic pancreatitis, unspecified pancreatitis type K86.1 [facility] [address] [address]- 0742 August, Moderate episode of recurrent major depressive disorder F33.1 ; Chronic maxillary sinusitis J32.0 ; Other chronic pancreatitis K86.1 and Weight gain R63.5 [facility] [address] [address]- 65[address] Jul, [facility] [address] [address]- 8054 Jul, [facility] [address] [address]- 6475 Jul, [facility] [address] [address] Jun, Dysuria R30.0 and Urgency of urination R39.15 [facility] [address] [address]- 3789 Jun, Acute abdominal pain R10.9 [facility] [address] [place] [address] 88011- 5101 Jun, Acute abdominal pain R10.9 [place] [id number] [place] [address] 43184- 2762 Jun, Pneumonia of both lungs due to methicillin susceptible Staphylococcus aureus (MSSA), unspecified part of lung J15.211 ; Hypoxia R09.02 and Seasonal allergic rhinitis due to pollen J30.1 [place] [id number] [place] [address] 56513- 1171 15 Jun, 2016 On home oxygen therapy Z99.81 [place] [address] [id number] Jun, [place] [address] [id number] Jun, [place] [id number] [place] [address] 30553- 9802 Jun, Respiratory distress R06.00 and Hypoxia R09.02 [place] [id number] [place] [address] 90723- 6200 Jun, [place] [id number] [place] [address] 19886- 5689 May, Environmental allergies Z91.09 and Shortness of breath R06.02 [facility] [id number] [place] [address] 77970 -8668 May, Sore throat J02.9 ; Fever R50.9 and Influenza A J10.1 [place] [id number] [place] [address] 58220- 5557 08 May, 2016 Wheezing R06.2 ; Pressure sensation in left ear H93.8X2 and Nasal congestion R09.81 [facility] [id number] [place] [address] 92130 -6891 Apr, Acute non-recurrent maxillary sinusitis J01.00 [facility] [id number] [place] [address] 86414- 8140 Apr, [place] [address] 81858- 0670 Apr, Screening for breast cancer Z12.39 [place] [id number] [place] [address] 90740- 2748 Apr, Chronic pancreatitis, unspecified pancreatitis type K86.1 and Screening for diabetes mellitus (DM) Z13.1 [place] [address] 97027- 8013 Mar, Chronic pancreatitis, unspecified pancreatitis type K86.1 ; Screening for breast cancer Z12.39 ; Screening for diabetes mellitus (DM) Z13.1 and Drug-induced constipation K59.03 [place] [id number] [place] [address] 02386- 6632 Mar, [place] [id number] [place] [address] 92312- 6933 Mar, Reflux gastritis K29.60 ; History of bacterial pneumonia Z87.01 ; Anxiety F41.9 ; Other chronic pain G89.29 and Unspecified abdominal pain R10.9 [place] [id number] [place] [address] 63548- 5895 Feb, Encounter for immunization Z23 [facility] [id number] [place] [address] 42059 -3607 Jan, Acute non-recurrent frontal sinusitis J01.10 [facility] [id number] [place] [address] 74824- 0095 Mar, [facility] [address] [address]- 4337 Mar, [place] [id number] [place] [address] 67583- 7096 Mar, [place] [address] 57[address]- 2546 Jan, [facility] [address] [facility] [id number] [address]- [address] Jul, [facility] [id number] [address]- 2546 Dec, [facility] [address] [facility] [id number] [address]- 2546 Nov, [facility] [id number] [address]- 2546 August, [facility] [address] [facility] [id number] [address]- 2546 Feb, IMMUNIZATIONS No Known Immunizations SOCIAL HISTORY Never Assessed REASON FOR VISIT PLAN OF CARE VITAL SIGNS MEDICATIONS Medication Instructions Dosage Frequency Start Date End Date Duration Status MethylPREDNISolone 4 MG as directed Sep, Active RESULTS No Results PROCEDURES No Known [...] History pneumonia, hx of black mold exposure, hypoxia-[facility] 06/07
--- OUTSIDE RECORDS SUMMARY | 2018-01-21 02:33 | XMS REPORT ---
Author Author MAVERICK ROSALES Organization [facility] Address [address] [place] [address] Care Team Providers Care Supervisor Irrigation Name Role Phone MAVERICK ROSALES Unavailable PROBLEMS Type Condition ICD9-CM Code FKI34-ZP Code Onset Dates Condition Status SNOMED Code Problem Chronic pancreatitis, unspecified pancreatitis type K86.1 Active 416426611 Problem Seasonal allergic rhinitis due to pollen J30.1 Active 27838302 Problem Environmental allergies Z91.09 Active 903272603 Problem Other chronic pain G89.29 Active 71214764 Problem Anxiety F41.9 Active 39167983 Problem Reflux gastritis K29.60 Active 68231735 Problem Generalized anxiety disorder F41.1 Active 35069055 Problem Persistent depressive disorder F34.1 Active 46963263 Problem On home oxygen therapy Z99.81 Active 125172399075 Problem Pneumonia of both lungs due to methicillin susceptible Staphylococcus aureus (MSSA), unspecified part of lung J15.211 Active 949433826 Problem Chronic maxillary sinusitis J32.0 Active 13903635 Problem Moderate episode of recurrent major depressive disorder F33.1 Active 384781360 ALLERGIES No Information SOCIAL HISTORY Never Assessed PLAN OF CARE VITAL SIGNS MEDICATIONS Medication Instructions Dosage Frequency Start Date End Date Duration Status PredniSONE 20 mg Orally 3 tablets daily for 3 days then 2 tabs for 3 days then 1 tab for 3 days .... August, Active RESULTS No Results PROCEDURES No Known [...]
--- OUTSIDE RECORDS SUMMARY | 2018-01-21 02:34 | XMS REPORT ---
Author Author MAVERICK ROSALES Organization [facility] Address [address] [place] [address] Care Team Providers Care Ore Feeder Name Role Phone MAVERICK ROSALES Unavailable PROBLEMS Type Condition ICD9-CM Code PNJ32-SW Code Onset Dates Condition Status SNOMED Code Problem Chronic pancreatitis, unspecified pancreatitis type K86.1 Active 040493353 Problem Seasonal allergic rhinitis due to pollen J30.1 Active 78985702 Problem Environmental allergies Z91.09 Active 367351673 Problem Other chronic pain G89.29 Active 85028975 Problem Anxiety F41.9 Active 39056472 Problem Reflux gastritis K29.60 Active 99800557 Problem Generalized anxiety disorder F41.1 Active 15000607 Problem Persistent depressive disorder F34.1 Active 29714024 Problem On home oxygen therapy Z99.81 Active 614948305470 Problem Pneumonia of both lungs due to methicillin susceptible Staphylococcus aureus (MSSA), unspecified part of lung J15.211 Active 438073102 Problem Chronic maxillary sinusitis J32.0 Active 13667288 Problem Moderate episode of recurrent major depressive disorder F33.1 Active 128701170 ALLERGIES No Information SOCIAL HISTORY Never Assessed [...]
--- OUTSIDE RECORDS SUMMARY | 2018-01-21 02:34 | XMS REPORT ---
Author Author MAVERICK ROSALES Organization [facility] Address [address] [place] [address] Care Team Providers Care Skiagrapher Name Role Phone MAVERICK ROSALES Unavailable PROBLEMS Type Condition ICD9-CM Code OPS13-GW Code Onset Dates Condition Status SNOMED Code Problem Pneumonia of both lungs due to methicillin susceptible Staphylococcus aureus (MSSA), unspecified part of lung J15.211 Active 950259583 Problem Moderate episode of recurrent major depressive disorder F33.1 Active 049268096 Problem On home oxygen therapy Z99.81 Active 303761520319 Problem Hypertension I10 Active 92776711 Problem BMI 40.0-44.9, adult Z68.41 Active 783751857 Problem Persistent depressive disorder F34.1 Active 31865757 Problem Chronic maxillary sinusitis J32.0 Active 57986345 Problem Other chronic pancreatitis K86.1 Active 074535507 Problem Generalized anxiety disorder F41.1 Active 05776175 Problem Other chronic pain G89.29 Active 31616258 Problem Chronic pancreatitis, unspecified pancreatitis type K86.1 Active 728216269 Problem Anxiety F41.9 Active 34377421 Problem Environmental allergies Z91.09 Active 659973062 Problem Reflux gastritis K29.60 Active 03431325 Problem Seasonal allergic rhinitis due to pollen J30.1 Active 12275699 ALLERGIES No Information ENCOUNTERS Encounter Location Date Diagnosis [facility] [address] [facility] [id number] [address] Jul, Effusion, left knee M25.462 ; Skin tag L91.8 ; BMI 40.0-44.9 , adult Z68.41 ; Atypical mole D22.9 and Reflux gastritis K29.60 [facility] [address] [id number], [place] [address] Jun, Chronic pancreatitis, unspecified pancreatitis type K86.1 and Hypertension I10 [facility] [id number] [place] [address] Jun, Chronic pancreatitis, unspecified pancreatitis type K86.1 and Hypertension I10 [place] [id number] [place] [address] May, Therapeutic drug monitoring Z51.81 [place] [address] [address] May, [place] [address] [address] Apr, [place] [address] [address] Apr, BMI 40.0-44.9, adult Z68.41 ; Dysuria R30.0 ; Acute cystitis without hematuria N30.00 and Hypoxia R09.[address] [address] Mar, Anxiety F41.9 ; Acute pain of left knee M25.562 ; Environmental allergies Z91.09 ; Other chronic pancreatitis K86.1 ; Screening for breast cancer Z12.31 and Encounter for immunization Z23 [place] [id number] [place] [address] Feb, Encounter for immunization Z23 [place] [id number] [place] [address] Jan, [place] [address] [address] Dec, Encounter for immunization Z23 [place] [address] [address] Dec, Generalized anxiety disorder F41.1 and Persistent depressive disorder F34.1 [place] [id number] [place] [address] Nov, Generalized anxiety disorder F41.1 and Persistent depressive disorder F34.1 [place] [address], [place] [address] Nov, Weight loss R63.4 and Acute pain of right shoulder M25.511 [facility] [address] [facility] [id number], [place] [address] Oct, [facility] [address], [place] [address] Sep, [facility] [address] [facility] [id number] [address] Sep, Chronic pancreatitis, unspecified pancreatitis type K86.1 [facility] [address], [place] [address] Sep, [facility] [address], [place] [address] Sep, [facility] [address], [place] [address] August, Therapeutic drug monitoring Z51.81 [facility] [address], [place] [address] August, [facility] [address], [place] [address] August, Chronic pancreatitis, unspecified pancreatitis type K86.1 [facility] [address], [place] [address] August, Moderate episode of recurrent major depressive disorder F33.1 ; Chronic maxillary sinusitis J32.0 ; Other chronic pancreatitis K86.1 and Weight gain R63.5 [facility] [address], [place] [address] Jul, [facility] [address], [place] [address] Jul, [facility] [id number], [place] [address] Jul, [facility] [address] [place] [address] 30 Jun, 2016 Dysuria R30.0 and Urgency of urination R39.15 [place] [id number] [place] [address] 30 Jun, 2016 Acute abdominal pain R10.9 [place] [id number] [place] [address] Jun, Acute abdominal pain R10.9 [place] [id number] [place] [address] Jun, Pneumonia of both lungs due to methicillin susceptible Staphylococcus aureus (MSSA), unspecified part of lung J15.211 ; Hypoxia R09.02 and Seasonal allergic rhinitis due to pollen J30.1 [place] [id number] [place] [address] Jun, On home oxygen therapy Z99.81 [place] [address] [id number] Jun, [place] [address] [id number] Jun, [place] [id number] [place] [address] Jun, Respiratory distress R06.00 and Hypoxia R09.02 [place] [id number] [place] [address] Jun, [place] [id number] [place] [address] May, Environmental allergies Z91.09 and Shortness of breath R06.02 [facility] [id number] [place] [address] May, Sore throat J02.9 ; Fever R50.9 and Influenza A J10.1 [place] [id number] [place] [address] 08 Feb, 2017 Wheezing R06.2 ; Pressure sensation in left ear H93.8X2 and Nasal congestion R09.81 [facility] [id number] [place] [address] Apr, Acute non-recurrent maxillary sinusitis J01.00 [place] [address] [address] Apr, [place] [address] [address] Apr, Screening for breast cancer Z12.39 [place] [address] [address] Apr, Chronic pancreatitis, unspecified pancreatitis type K86.1 and Screening for diabetes mellitus (DM) Z13.1 [place] [address] [address] Mar, Chronic pancreatitis, unspecified pancreatitis type K86.1 ; Screening for breast cancer Z12.39 ; Screening for diabetes mellitus (DM) Z13.1 and Drug-induced constipation K59.03 [place] [address] [address] Mar, [place] [address] [address] Mar, Reflux gastritis K29.60 ; History of bacterial pneumonia Z87.01 ; Anxiety F41.9 ; Other chronic pain G89.29 and Unspecified abdominal pain R10.9 [place] [id number] [place] [address] Feb, Encounter for immunization Z23 [facility] [address] [address] 31 Jan, 2016 Acute non-recurrent frontal sinusitis J01.10 [place] [address] [address] Mar, [place] [address] [address] Mar, [facility] [id number], [place] [address] Mar, [facility] [address], [place] [address] Jan, [facility] [id number], [place] [address] Jul, [facility] [id number], [place] [address] Dec, [facility] [id number], [place] [address] Nov, [facility] [address], [place] [address] August, [facility] [id number], [place] [address] Feb, IMMUNIZATIONS No Known Immunizations SOCIAL HISTORY Never Assessed REASON FOR VISIT paperwork PLAN OF CARE VITAL SIGNS MEDICATIONS Medication [...]
--- OUTSIDE RECORDS SUMMARY | 2018-01-21 02:34 | XMS REPORT ---
Author Author MAVERICK ROSALES Organization [facility] Address [address] [place] [address] Care Team Providers Care Lining Vamper Name Role Phone MAVERICK ROSALES Unavailable PROBLEMS Type Condition ICD9-CM Code [id number] Code Onset Dates Condition Status SNOMED Code Problem Chronic pancreatitis, unspecified pancreatitis type K86.1 Active 481589221 Problem Pneumonia of both lungs due to methicillin susceptible Staphylococcus aureus (MSSA), unspecified part of lung J15.211 Active 820906825 Problem Environmental allergies Z91.09 Active 592882889 Problem Other chronic pain G89.29 Active 49859300 Problem Anxiety F41.9 Active 11234931 Problem Reflux gastritis K29.60 Active 77938020 Problem Generalized anxiety disorder F41.1 Active 78682730 Problem Persistent depressive disorder F34.1 Active 08599717 Problem On home oxygen therapy Z99.81 Active 882559431947 Problem Seasonal allergic rhinitis due to pollen J30.1 Active 83661859 Problem Moderate episode of recurrent major depressive disorder F33.1 Active 838170749 Problem Chronic maxillary sinusitis J32.0 Active 19527703 ALLERGIES Unknown Allergies SOCIAL HISTORY No smoking Hx information available PLAN OF CARE VITAL SIGNS MEDICATIONS Unknown Medications RESULTS Name Result Date Reference Range A1C 2016-04-04 Hemoglobin A1c 5.7 4.8-5.6 LIPID PANEL 2016-04-04 Cholesterol, Total 171 100-199 Triglycerides 128 0-149 HDL Cholesterol 52 >39 VLDL Cholesterol Matteo 26 5-40 LDL Cholesterol Calc 93 0-99 Comment: CMP 2016-04-04 Glucose, Serum 87 65-99 BUN 12 6-24 Creatinine, Serum 0.93 0.57-1.00 eGFR If NonAfricn Am 74 >59 eGFR If Africn Am 85 >59 BUN/Creatinine Ratio 13 9-23 Sodium, Serum 139 134-144 Potassium, Serum 4.2 3.5-5.2 Chloride, Serum 99 96-106 Carbon Dioxide, Total 23 18-29 Calcium, Serum 9.1 8.7-10.2 Protein, Total, Serum 6.5 6.0-8.5 Albumin, Serum 4.1 3.5-5.5 Globulin, Total 2.4 1.5-4.5 A/G Ratio 1.7 1.1-2.5 Bilirubin, Total 0.3 0.0-1.2 Alkaline Phosphatase, S 131 39-117 AST (SGOT) 17 0-40 ALT (SGPT) 26 0-32 PROCEDURES Procedure Date Ordered Related Diagnosis Body Site COMPREHEN METABOLIC PANEL Apr 04, 2016 LIPID PANEL Apr 04, 2016 VENIPUNCT, ROUTINE* Apr 04, 2016 GLYCATED HEMOGLOBIN TEST Apr 04, 2016 IMMUNIZATIONS No Known Immunizations
--- OUTSIDE RECORDS SUMMARY | 2018-01-21 02:34 | XMS REPORT ---
Author Author MAVERICK ROSALES Organization [facility] Address [address] [place] [address] Care Team Providers Care Shipping Room Supervisor Name Role Phone MAVERICK ROSALES Unavailable PROBLEMS Type Condition ICD9-CM Code [id number] Code Onset Dates Condition Status SNOMED Code Problem Chronic pancreatitis, unspecified pancreatitis type K86.1 Active 796072957 Problem Seasonal allergic rhinitis due to pollen J30.1 Active 05282466 Problem Environmental allergies Z91.09 Active 924708502 Problem Other chronic pain G89.29 Active 65291450 Problem Anxiety F41.9 Active 12294087 Problem Reflux gastritis K29.60 Active 91356125 Problem Generalized anxiety disorder F41.1 Active 15985331 Problem Persistent depressive disorder F34.1 Active 31235797 Problem On home oxygen therapy Z99.81 Active 881125774009 Problem Pneumonia of both lungs due to methicillin susceptible Staphylococcus aureus (MSSA), unspecified part of lung J15.211 Active 952748836 Problem Chronic maxillary sinusitis J32.0 Active 84063856 Problem Moderate episode of recurrent major depressive disorder F33.1 Active 179256858 ALLERGIES No Information SOCIAL HISTORY Never Assessed PLAN OF CARE VITAL SIGNS MEDICATIONS Medication Instructions Dosage Frequency Start Date End Date Duration Status Desoximetasone 0.25 % Externally Twice a day for 14 days and then prn 1 application to affected area Sep, Sep, 14 days Active RESULTS No Results PROCEDURES No Known [...]
--- OUTSIDE RECORDS SUMMARY | 2018-01-21 02:34 | XMS REPORT ---
Author Author MAVERICK ROSALES Organization [facility] Address [address] [place] [address] Care Team Providers Care Plunket Nurse Name Role Phone MAVERICK ROSALES Unavailable PROBLEMS Type Condition ICD9-CM Code HBB45-CK Code Onset Dates Condition Status SNOMED Code Problem Chronic pancreatitis, unspecified pancreatitis type K86.1 Active 922577026 Problem Seasonal allergic rhinitis due to pollen J30.1 Active 79297825 Problem Environmental allergies Z91.09 Active 131968581 Problem Other chronic pain G89.29 Active 01897976 Problem Anxiety F41.9 Active 93907735 Problem Reflux gastritis K29.60 Active 50016396 Problem Generalized anxiety disorder F41.1 Active 05506550 Problem Persistent depressive disorder F34.1 Active 94470820 Problem On home oxygen therapy Z99.81 Active 325611035269 Problem Pneumonia of both lungs due to methicillin susceptible Staphylococcus aureus (MSSA), unspecified part of lung J15.211 Active 004119684 Problem Chronic maxillary sinusitis J32.0 Active 95296351 Problem Moderate episode of recurrent major depressive disorder F33.1 Active 591086966 ALLERGIES Substance Reaction Event Type Date Status Tylenol/Codeine #3 Unknown Drug Allergy Jun, Active Codeine Sulfate Unknown Drug Allergy Jun, Active SOCIAL HISTORY Never Assessed PLAN OF CARE Activity Details Follow Up prn Reason: VITAL SIGNS Height 64 in 2016-06-07 Weight 238.0 lbs 2016-06-07 Temperature 97.1 degrees Fahrenheit 2016-06-07 Heart Rate 92 bpm 2016-06-07 Respiratory Rate 24 2016-06-07 Oximetry 90 % 2016-06-07 BMI 40.85 kg/m2 2016-06-07 Blood pressure systolic 128 mmHg 2016-06-07 Blood pressure diastolic 72 mmHg 2016-06-07 MEDICATIONS Medication Instructions Dosage Frequency Start Date End Date Duration Status Combivent Respimat 20-100 MCG/ACT Inhalation Four times a day 1 puff 6h May, Active Zenpep 55064 UNIT Orally as directed 2 capsules with each meal and 1 capsule with snacks Active Incruse Ellipta 62.5 MCG/INH Inhalation Once a day 1 puff 24h May, Active Levsin 0.125 MG/5ML Orally every 4 hrs 5 ml before meals as needed 4h Active Protonix 40 MG Orally Once a day 1 tablet 24h Active Zantac 150 MG Orally Once a day 1 tablet at bedtime 24h Active Carafate 1 GM/10ML Orally Four times daily as needed 10 ml 14 Mar, 2016 Active RESULTS Name Result Date Reference Range CULTURE, SPUTUM 2016-06-07 Lower Respiratory Culture Final report Result 1 Staphylococcus aureus Result 2 Antimicrobial Susceptibility PROCEDURES Procedure Date Ordered Result Body Site MEASURE BLOOD OXYGEN LEVEL June 07, 2016 CULTURE, BACTERIA, OTHER June 07, 2016 IMMUNIZATIONS No Known Immunizations MEDICAL (GENERAL) [...] History pneumonia, hx of black mold exposure, hypoxia-[facility] 06/07
--- OUTSIDE RECORDS SUMMARY | 2018-01-21 02:34 | XMS REPORT ---
Author Author STEPH DUQUE Organization [facility] Address [address] [place] [address] Care Team Providers Care Project Architect Name Role Phone MARY DUQUENETTE Unavailable PROBLEMS Type Condition ICD9-CM Code SJJ84-FX Code Onset Dates Condition Status SNOMED Code Problem Chronic pancreatitis, unspecified pancreatitis type K86.1 Active 377862597 Problem Seasonal allergic rhinitis due to pollen J30.1 Active 41556940 Problem Environmental allergies Z91.09 Active 091680035 Problem Other chronic pain G89.29 Active 57332501 Problem Anxiety F41.9 Active 22073546 Problem Reflux gastritis K29.60 Active 79654456 Problem Generalized anxiety disorder F41.1 Active 84087805 Problem Persistent depressive disorder F34.1 Active 15331418 Problem On home oxygen therapy Z99.81 Active 674982999981 Problem Pneumonia of both lungs due to methicillin susceptible Staphylococcus aureus (MSSA), unspecified part of lung J15.211 Active 641332527 Problem Chronic maxillary sinusitis J32.0 Active 74921924 Problem Moderate episode of recurrent major depressive disorder F33.1 Active 827717912 ALLERGIES Substance Reaction Event Type Date Status Tylenol/Codeine #3 Unknown Drug Allergy May, Active Codeine Sulfate Unknown Drug Allergy May, Active SOCIAL HISTORY Never Assessed PLAN OF CARE Activity Details Follow Up 2 Weeks, prn Reason: VITAL SIGNS Height 64 in 2016-05-31 Weight 240.9 lbs 2016-05-31 Temperature 98.1 degrees Fahrenheit 2016-05-31 Heart Rate 128 bpm 2016-05-31 Respiratory Rate 18 2016-05-31 Oximetry 95 % 2016-05-31 BMI 41.35 kg/m2 2016-05-31 Blood pressure systolic 138 mmHg 2016-05-31 Blood pressure diastolic 80 mmHg 2016-05-31 MEDICATIONS Medication Instructions Dosage Frequency Start Date End Date Duration Status Xanax 1 MG Orally Twice a day 1 tablet as needed 12h Active Carafate 1 GM/10ML Orally Four times daily as needed 10 ml 14 Mar, 2016 Active Zantac 150 MG Orally Once a day 1 tablet at bedtime 24h Active Combivent Respimat 20-100 MCG/ACT Inhalation Four times a day 1 puff 6h May, Active Claritin-D 24 Hour 10-240 MG Orally Once a day 1 tablet as needed 24h May, Jun, 30 day(s) Active Incruse Ellipta 62.5 MCG/INH Inhalation Once a day 1 puff 24h May, Active Levsin 0.125 MG/5ML Orally every 4 hrs 5 ml before meals as needed 4h Active Protonix 40 MG Orally Once a day 1 tablet 24h Active Zenpep 73098 UNIT Orally as directed 2 capsules with each meal and 1 capsule with snacks Active RESULTS No Results PROCEDURES Procedure Date Ordered Result Body Site MEASURE BLOOD OXYGEN LEVEL May 31, 2016 THER/PROPH/DIAG INJ, SC/IM May 31, 2016 DEXAMETHASONE 4MG/ML (PER 1 MG) May 31, 2016 DEPO MEDROL 40 MG/ML May 31, 2016 IMMUNIZATIONS Vaccine Route Administration Date Status DEXAMETHASONE 4MG/ML (PER 1 MG) IM Intramuscular May 31, 2016 Administered DEPO MEDROL 40 MG/ML IM Intramuscular May 31, 2016 Administered MEDICAL (GENERAL) HISTORY Type Description [...]
--- OUTSIDE RECORDS SUMMARY | 2018-01-21 02:34 | XMS REPORT ---
Author Author MAVERICK ROSALES Organization [facility] Address [address] [place] [address] Care Team Providers Care Logging Tractor Operator Swamp Name Role Phone MAVERICK ROSALES Unavailable PROBLEMS Type Condition ICD9-CM Code GXP40-YB Code Onset Dates Condition Status SNOMED Code Problem Chronic pancreatitis, unspecified pancreatitis type K86.1 Active 527161687 Problem Seasonal allergic rhinitis due to pollen J30.1 Active 11800342 Problem Environmental allergies Z91.09 Active 415441894 Problem Other chronic pain G89.29 Active 20512534 Problem Anxiety F41.9 Active 53652449 Problem Reflux gastritis K29.60 Active 72769422 Problem Generalized anxiety disorder F41.1 Active 63883100 Problem Persistent depressive disorder F34.1 Active 35856728 Problem On home oxygen therapy Z99.81 Active 754602057201 Problem Pneumonia of both lungs due to methicillin susceptible Staphylococcus aureus (MSSA), unspecified part of lung J15.211 Active 126402978 Problem Chronic maxillary sinusitis J32.0 Active 43258163 Problem Moderate episode of recurrent major depressive disorder F33.1 Active 619892493 ALLERGIES No Information SOCIAL HISTORY Never Assessed [...]
--- OUTSIDE RECORDS SUMMARY | 2018-01-21 02:34 | XMS REPORT ---
Author Author MAVERICK ROSALES Organization [facility] Address [address] [place] [address] Care Team Providers Care Spot Billing Clerk Name Role Phone MAVERICK ROSALES Unavailable PROBLEMS Type Condition ICD9-CM Code IWV02-LW Code Onset Dates Condition Status SNOMED Code Problem Chronic pancreatitis, unspecified pancreatitis type K86.1 Active 695041478 Problem Pneumonia of both lungs due to methicillin susceptible Staphylococcus aureus (MSSA), unspecified part of lung J15.211 Active 417241053 Problem Environmental allergies Z91.09 Active 334407246 Problem Other chronic pain G89.29 Active 79615410 Problem Anxiety F41.9 Active 00367467 Problem Reflux gastritis K29.60 Active 32983414 Problem Generalized anxiety disorder F41.1 Active 78447810 Problem Persistent depressive disorder F34.1 Active 68600674 Problem On home oxygen therapy Z99.81 Active 877948229844 Problem Seasonal allergic rhinitis due to pollen J30.1 Active 62465089 Problem Moderate episode of recurrent major depressive disorder F33.1 Active 469308150 Problem Chronic maxillary sinusitis J32.0 Active 39868890 ALLERGIES Substance Reaction Event Type Date Status Codeine Sulfate Unknown Drug Allergy Mar, Active SOCIAL HISTORY No smoking Hx information available PLAN OF CARE Activity Details Follow Up 2 Months Huey f/lynda constipation Reason: VITAL SIGNS Height 64 in 2016-03-30 Weight 241 lbs 2016-03-30 Temperature 98 degrees Fahrenheit 2016-03-30 Heart Rate 80 bpm 2016-03-30 Respiratory Rate 18 2016-03-30 BMI 41.36 kg/m2 2016-03-30 Blood pressure systolic 110 mmHg 2016-03-30 Blood pressure diastolic 80 mmHg 2016-03-30 MEDICATIONS Medication Instructions Dosage Frequency Start Date End Date Duration Status Zantac 150 MG Orally Once a day 1 tablet at bedtime 24h Active Xanax 1 MG Orally Twice a day 1 tablet as needed 12h Active Hyoscyamine Sulfate 0.125 MG 2 tablets by mouth before meals and at bedtime Active Carafate 1 GM/10ML Orally Four times daily as needed 10 ml Mar, Active RESULTS No Results PROCEDURES Procedure Date Ordered Related Diagnosis Body Site Office Visit, Est Pt., Level 4 Mar 30, 2016 IMMUNIZATIONS No Known Immunizations
--- OUTSIDE RECORDS SUMMARY | 2018-01-21 02:41 | XMS REPORT | Continuity of Care Document ---
Author Author [facility] Organization [facility] Address Unknown Phone Unavailable Allergies Active Description Code Type Severity Reaction Onset Reported/Identified Relationship to Patient Clinical Status Yes codeine [id number] Drug Allergy Unknown N/A 07/08/2014 Yes ciprofloxacin [id number] Drug Allergy Severe N/A 07/10/2014 Yes butorphanol [id number] Drug Allergy Unknown SEVERE HEADACHE 07/18/2014 Yes hydrocodone [id number] Drug Allergy Unknown N/A 07/24/2014 Medications There is no data. Problems Date Dx Coded Attending Type Code Diagnosis Diagnosed By 05/18/2006 Ot V57.1 05/18/2006 Ot V58.43 02/27/2008 Ot 724.2 02/27/2008 Ot 959.19 02/27/2008 Ot E849.8 02/27/2008 Ot E927.8 02/27/2008 Ot V57.1 03/03/2008 Ot 724.2 03/03/2008 Ot 959.19 03/03/2008 Ot E849.8 03/03/2008 Ot E927.0 03/03/2008 Ot V57.1 07/09/2009 Ot 305.1 07/09/2009 Ot 493.00 07/09/2009 Ot 540.9 09/17/2010 Ot 218.9 UTERINE LEIOMYOMA NOS 09/17/2010 Ot 275.2 DIS MAGNESIUM METABOLISM 09/17/2010 Ot 493.90 ASTHMA, UNSPECIFIED 09/17/2010 Ot 617.0 UTERINE ENDOMETRIOSIS 09/17/2010 Ot 620.1 CORPUS LUTEUM CYST 09/17/2010 Ot 620.8 NONINFL DIS OVA/ADNX NEC 09/17/2010 Ot 622.10 DYSPLASIA OF CERVIX, UNSPECIFIED 09/17/2010 Ot 625.0 DYSPAREUNIA 09/17/2010 Ot 626.2 EXCESSIVE MENSTRUATION 11/21/2011 Ot 562.10 DIVERTICULOSIS COLON (W/O MENT OF HEMORR 11/21/2011 Ot 574.20 CHOLELITHIASIS NOS 11/21/2011 Ot 789.01 ABDOMINAL PAIN, RIGHT UPPER QUADRANT 07/19/2013 RUSTY VYAS, ALESSIO Ot 493.90 ASTHMA, UNSPECIFIED 07/19/2013 RUSTY VYAS, ALESSIO Ot 530.81 ESOPHAGEAL REFLUX 07/19/2013 RUSTY VYAS, ALESSIO Ot 575.11 CHRONIC CHOLECYSTITIS 07/19/2013 RUTSY VYAS, ALESSIO Ot 715.90 OSTEOARTHROS NOS-UNSPEC 07/19/2013 RUSTY VYAS, ALESSIO Ot 724.5 BACKACHE NOS 07/19/2013 RUSTY VYAS, ALESSIO Ot 789.01 ABDOMINAL PAIN, RIGHT UPPER QUADRANT 07/19/2013 RUSTY VYAS, ALESSIO Ot 789.06 ABDOMINAL PAIN, EPIGASTRIC 07/07/2014 Ot 611.72 07/07/2014 Ot V76.12 07/07/2014 Ot 611.72 07/07/2014 Ot 621.2 07/07/2014 Ot 626.2 07/07/2014 Ot V72.63 07/07/2014 Ot V74.8 07/07/2014 Ot 793.80 07/07/2014 Ot 729.81 07/07/2014 Ot 719.47 07/07/2014 Ot 727.1 07/07/2014 Ot 729.5 07/07/2014 Ot V76.12 07/07/2014 Ot 787.02 07/07/2014 Ot 789.01 07/07/2014 CHERRIE WEIR DO Ot 724.5 07/07/2014 CHERRIE WEIR DO Ot 786.50 07/07/2014 PENNIE HARO Ot V76.12 07/08/2014 TUNDE VYAS, MAVERICK Guardado Ot 300.00 07/08/2014 TUNDE VYAS, MAVERICK Guardado Ot 346.90 07/08/2014 TUNDE VYAS, MAVERICK Guardado Ot 493.90 07/08/2014 TUNDE VYAS, MAVERICK Guardado Ot 530.81 07/08/2014 TUNDE VYAS, MAVERICK Guardado Ot 575.11 07/08/2014 TUNDE VYAS, MAVERICK Guardado Ot 577.0 07/08/2014 TUNDE VYAS, MAVERICK Guardado Ot 715.90 07/08/2014 TUNDE VYAS, MAVERICK Guardado Ot 790.5 07/10/2014 TUNDE VYAS, MAVERICK A Ot 300.00 07/10/2014 TUNDE VYAS, MAVERICK A Ot 346.90 07/10/2014 TUNDE VYAS, MAVERICK A Ot 493.90 07/10/2014 TUNDE VYAS, MAVERICK A Ot 530.81 07/10/2014 TUNDE VYAS, MAVERICK A Ot 575.11 07/10/2014 TUNDE VYAS, MAVERICK A Ot 577.0 07/10/2014 TUNDE VYAS, MAVERICK A Ot 715.90 07/10/2014 TUNDE VYAS, MAVERICK A Ot 790.5 07/10/2014 TUNDE VYAS, MAVERICK A Ot 300.00 07/10/2014 TUNDE VYAS, MAVERICK A Ot 346.90 07/10/2014 TUNDE VYAS, MAVERICK A Ot 493.90 07/10/2014 TUNDE VYAS, MAVERICK A Ot 530.81 07/10/2014 TUNDE VYAS, MAVERICK A Ot 575.11 07/10/2014 TUNDE VYAS, MAVERICK A Ot 577.0 07/10/2014 TUNDE VYAS, MAVERICK A Ot 715.90 07/10/2014 TUNDE VYAS, MAVERICK A Ot 790.5 07/10/2014 TUNDE VYAS, MAVERICK Guardado Ot 300.00 ANXIETY STATE NOS 07/10/2014 TUNDE VYAS, MAVERICK Guardado Ot 346.90 MIGRAINE UNSPECIFIED W/O INTRACT MGRN W/ 07/10/2014 TUNDE VYAS, MAVERICK Guardado Ot 493.90 ASTHMA, UNSPECIFIED 07/10/2014 TUNDE VYAS, MAVERICK Guardado Ot 530.81 ESOPHAGEAL REFLUX 07/10/2014 TUNDE VYAS, MAVERICK Guardado Ot 575.11 CHRONIC CHOLECYSTITIS 07/10/2014 TUNDE VYAS, MAVERICK Guardado Ot 577.0 ACUTE PANCREATITIS 07/10/2014 TUNDE VYAS, MAVERICK Guardado Ot 715.90 OSTEOARTHROS NOS-UNSPEC 07/10/2014 TUNDE VYAS, MAVERICK Guardado Ot 790.5 ABN SERUM ENZY LEVEL NEC 07/25/2014 RUSTY VYAS, ALESSIO Ot 575.11 07/28/2014 RUSTY VYAS, ALESSIO Ot 575.11 08/23/2014 TUNDE VYAS, MAVERICK Guardado Ot 300.00 ANXIETY STATE NOS 08/23/2014 TUNDE VYAS, MAVERICK Guardado Ot 493.90 ASTHMA, UNSPECIFIED 08/23/2014 TUNDE VYAS, MAVERICK Guardado Ot 530.81 ESOPHAGEAL REFLUX 08/23/2014 TUNDE VYAS, MAVERICK Guardado Ot 577.0 ACUTE PANCREATITIS 09/19/2014 RUSTY VYAS, ALESSIO Ot 575.11 11/28/2014 PENNIE HARO Ot 577.0 2014 BIA VYAS, MARLA Olivas Ot 574.20 CHOLELITHIASIS NOS 2014 MARLA AMEZQUITA MD Ot 789.01 ABDOMINAL PAIN, RIGHT UPPER QUADRANT 01/06/2015 Ot 724.2 01/06/2015 Ot 599.70 01/06/2015 Ot 789.03 01/06/2015 Ot 611.72 01/06/2015 Ot V76.12 01/06/2015 Ot 611.72 01/06/2015 Ot 621.2 01/06/2015 Ot 626.2 01/06/2015 Ot V72.63 01/06/2015 Ot V74.8 01/06/2015 Ot 793.80 01/06/2015 Ot 729.81 01/06/2015 Ot 719.47 01/06/2015 Ot 727.1 01/06/2015 Ot 729.5 01/06/2015 Ot V76.12 01/06/2015 Ot 787.02 01/06/2015 Ot 789.01 01/06/2015 CHERRIE WEIR DO Ot 724.5 01/06/2015 CHERRIE WEIR DO Ot 786.50 01/06/2015 PENNIE HARO Ot V76.12 01/06/2015 RUSTY VYAS, ALESSIO Ot 575.11 01/06/2015 RUSTY VYAS, ALESSIO Ot 575.8 01/06/2015 ALESSIO OJEDA MD Ot V72.83 01/06/2015 RUSTY VYAS, ALESSIO Ot V74.8 01/06/2015 PENNIE HARO Ot 577.0 01/28/2015 BRUCE AGUAYO APRN Ot R91.1 01/28/2015 ZARA VYAS, ANCELMO Marquis Ot K85.9 02/05/2015 CALEB BLAIR DO Ot Z53.9 02/05/2015 CALEB BLAIR DO Ot J18.9 PNEUMONIA, UNSPECIFIED ORGANISM 02/05/2015 BLAIRCALEB ADDISON DO Ot V64.3 NO PROC FOR REASONS NEC 02/12/2015 MAVERICK GRIFFITHS MD Ot J18.9 02/22/2015 Ot 611.72 02/22/2015 Ot V76.12 02/22/2015 Ot 611.72 02/22/2015 Ot 621.2 02/22/2015 Ot 626.2 02/22/2015 Ot V72.63 02/22/2015 Ot V74.8 02/22/2015 Ot 793.80 02/22/2015 Ot 729.81 02/22/2015 Ot 719.47 02/22/2015 Ot 727.1 02/22/2015 Ot 729.5 02/22/2015 Ot V76.12 02/22/2015 Ot 787.02 02/22/2015 Ot 789.01 02/22/2015 CHERRIE WEIR DO Ot 724.5 02/22/2015 CHERRIE WEIR DO Ot 786.50 02/22/2015 PENNIE HARO Ot V76.12 02/22/2015 RUSTY VYAS, ALESSIO Ot 575.11 02/22/2015 RUSTY VYAS, ALESSIO Ot 575.8 02/22/2015 RUSTY VYAS, ALESSIO Ot V72.83 02/22/2015 RUSTY VYAS, ALESSIO Ot V74.8 02/22/2015 PENNIE HARO Ot 577.0 02/22/2015 BRUCE AGUAYO APRN Ot R91.1 02/22/2015 ZARA VYAS, ANCELMO Marquis Ot K85.9 02/22/2015 MAVERICK GRIFFITHS MD Ot J18.9 02/25/2015 MAVERICK GRIFFITHS MD Ot F41.9 ANXIETY DISORDER, UNSPECIFIED 02/25/2015 MAVERICK GRIFFITHS MD Ot I10 ESSENTIAL (PRIMARY) HYPERTENSION 02/25/2015 MAVERICK GRIFFITHS MD Ot J45.909 UNSPECIFIED ASTHMA, UNCOMPLICATED 02/25/2015 MAVERICK GRIFFITHS MD Ot K21.9 GASTRO-ESOPHAGEAL REFLUX DISEASE WITHOUT 02/25/2015 MAVERICK GRIFFITHS MD Ot K85.9 ACUTE PANCREATITIS, UNSPECIFIED 02/25/2015 TUNDE VYAS, MAVERICK Guardado Ot Z87.891 PERSONAL HISTORY OF NICOTINE DEPENDENCE 03/03/2015 Ot 611.72 03/03/2015 Ot V76.12 03/03/2015 Ot 611.72 03/03/2015 Ot 621.2 03/03/2015 Ot 626.2 03/03/2015 Ot V72.63 03/03/2015 Ot V74.8 03/03/2015 Ot 793.80 03/03/2015 Ot 729.81 03/03/2015 Ot 719.47 03/03/2015 Ot 727.1 03/03/2015 Ot 729.5 03/03/2015 Ot V76.12 03/03/2015 Ot 787.02 03/03/2015 Ot 789.01 03/03/2015 ИРИНА WEIR DONT L Ot 724.5 03/03/2015 ИРИНА WEIR DONT L Ot 786.50 03/03/2015 PENNIE HARO Ot V76.12 03/03/2015 RUSTY VYAS, ALESSIO Ot 575.11 03/03/2015 RUSTY VYAS, ALESSIO Ot 575.8 03/03/2015 RUSTY VYAS, ALESSIO Ot V72.83 03/03/2015 RUSTY VYAS, ALESSIO Ot V74.8 03/03/2015 PENNIE HARO Ot 577.0 03/03/2015 BRUCE AGUAYO DUMP TRUCK DRIVER Ot R91.1 03/03/2015 ZARA VYAS, ANCELMO Marquis Ot K85.9 03/03/2015 TUNDE VYAS, MAVERICK Guardado Ot J18.9 03/03/2015 HERBERT GUY DO Ot R06.83 SNORING 04/15/2015 ZARA VYAS, ANCELMO P Ot K85.9 04/15/2015 ZARA VYAS, ANCELMO P Ot Z90.49 05/20/2015 TUNDE VYAS, MAVERICK Guardado Ot R91.1 05/20/2015 HERBERT GUY DO Ot B89 05/20/2015 HERBERT GUY DO Ot E66.9 05/20/2015 HERBERT GUY DO Ot J98.11 05/25/2015 HERBERT GUY DO Ot E66.9 05/25/2015 HERBERT GUY DO Ot J18.9 05/25/2015 EHRBERT GUY DO Ot J98.11 05/28/2015 Ot 611.72 05/28/2015 Ot V76.12 05/28/2015 Ot 611.72 05/28/2015 Ot 621.2 05/28/2015 Ot 626.2 05/28/2015 Ot V72.63 05/28/2015 Ot V74.8 05/28/2015 Ot 793.80 05/28/2015 Ot 729.81 05/28/2015 Ot 719.47 05/28/2015 Ot 727.1 05/28/2015 Ot 729.5 05/28/2015 Ot V76.12 05/28/2015 Ot 787.02 05/28/2015 Ot 789.01 05/28/2015 COS DO, CHERRIE L Ot 724.5 05/28/2015 COSENS POLK CHERRIE L Ot 786.50 05/28/2015 PENNIE HARO MANAGER OF CHANGE Ot V76.12 05/28/2015 RUSTY VYAS, ALESSIO Ot 575.11 05/28/2015 RUSTY VYAS, ALESSIO Ot 575.8 05/28/2015 RUSTY VYAS, ALESSIO Ot V72.83 05/28/2015 RUSTY VYAS, ALESSIO Ot V74.8 05/28/2015 PENNIE HAROP Ot 577.0 05/28/2015 BRUCE AGUAYO DUMP TRUCK DRIVER Ot R91.1 05/28/2015 ZARA VYAS, ANCELMO Marquis Ot K85.9 05/28/2015 TUNDE VYAS, MAVERICK Guardado Ot J18.9 05/28/2015 HERBERT GUY DO Ot B89 05/28/2015 HERBERT GUY DO Ot E66.9 05/28/2015 HERBERT GUY DO Ot J98.11 05/28/2015 ZARA VYAS, ANCELMO Marquis Ot K85.9 05/28/2015 ZARA VYAS, ANCELMO Marquis Ot Z90.49 05/29/2015 HERBERT GUY DO Ot E66.9 05/29/2015 HERBERT GUY DO Ot J18.9 05/29/2015 HERBERT GUY DO Ot J98.11 06/30/2015 Ot 611.72 06/30/2015 Ot V76.12 06/30/2015 Ot 611.72 06/30/2015 Ot 621.2 06/30/2015 Ot 626.2 06/30/2015 Ot V72.63 06/30/2015 Ot V74.8 06/30/2015 Ot 793.80 06/30/2015 Ot 729.81 06/30/2015 Ot 719.47 06/30/2015 Ot 727.1 06/30/2015 Ot 729.5 06/30/2015 Ot V76.12 06/30/2015 Ot 787.02 06/30/2015 Ot 789.01 06/30/2015 CHERRIE WEIR DO L Ot 724.5 06/30/2015 CHERRIE WEIR DO L Ot 786.50 06/30/2015 PENNIE HARO Ot V76.12 06/30/2015 RUSTY VYAS, ALESSIO Ot 575.11 06/30/2015 RUSTY VYAS, ALESSIO Ot 575.8 06/30/2015 RUSTY VYAS, ALESSIO Ot V72.83 06/30/2015 RUSTY VYAS, ALESSIO Ot V74.8 06/30/2015 PENNIE HARO Ot 577.0 06/30/2015 BRUCE AGUAYO DUMP TRUCK DRIVER Ot R91.1 06/30/2015 ZARA VYAS, ANCELMO Marquis Ot K85.9 06/30/2015 TUNDE VYAS, MAVERICK Guardado Ot J18.9 06/30/2015 HERBERT GUY DO Ot B89 06/30/2015 HERBERT GUY DO Ot E66.9 06/30/2015 HERBERT GUY DO Ot J98.11 06/30/2015 ZARA VYAS, ANCELMO Marquis Ot K85.9 06/30/2015 ZARA VYAS, ANCELMO Maqruis Ot Z90.49 07/04/2015 Ot R06.00 DYSPNEA, UNSPECIFIED 07/04/2015 Ot R06.83 SNORING 07/07/2015 Ot R06.00 07/07/2015 Ot R06.83 07/29/2015 HERBERT GUY DO Ot E66.9 OBESITY, UNSPECIFIED 07/29/2015 HERBERT GUY DO Ot J16.8 PNEUMONIA DUE TO OTHER SPECIFIED INFECTI 07/29/2015 HERBERT GUY DO Ot J98.11 ATELECTASIS 07/30/2015 TUNDE VYAS, MAVERICK Guardado Ot R91.1 SOLITARY PULMONARY NODULE 07/30/2015 HERBERT GUY DO Ot B89 UNSPECIFIED PARASITIC DISEASE 07/30/2015 HERBERT GUY DO Ot E66.9 OBESITY, UNSPECIFIED 07/30/2015 HERBERT GUY DO Ot J98.11 ATELECTASIS 07/30/2015 HERBERT GUY DO Ot E66.9 OBESITY, UNSPECIFIED 07/30/2015 HERBERT GUY DO Ot J18.9 PNEUMONIA, UNSPECIFIED ORGANISM 07/30/2015 HERBERT GUY DO Ot J98.11 ATELECTASIS 07/30/2015 HERBERT GUY DO Ot E66.9 OBESITY, UNSPECIFIED 07/30/2015 HERBERT GUY DO Ot J16.8 PNEUMONIA DUE TO OTHER SPECIFIED INFECTI 07/30/2015 HERBERT GUY DO Ot J98.11 ATELECTASIS 07/30/2015 TUNDE VYAS, MAVERICK Guardado Ot R91.1 SOLITARY PULMONARY NODULE 07/30/2015 TUNDE VYAS, MAVERICK Guardado Ot R91.1 SOLITARY PULMONARY NODULE 07/31/2015 TUNDE VYAS, MAVERICK Guardado Ot R91.1 SOLITARY PULMONARY NODULE 08/06/2015 HERBERT GUY DO Ot B89 UNSPECIFIED PARASITIC DISEASE 08/06/2015 HERBERT GUY DO Ot E66.9 OBESITY, UNSPECIFIED 08/06/2015 HERBERT GUY DO Ot J98.11 ATELECTASIS 08/06/2015 HERBERT GUY DO Ot J47.9 BRONCHIECTASIS, UNCOMPLICATED 08/06/2015 HERBERT GUY DO Ot J98.11 ATELECTASIS 08/07/2015 HERBERT GUY DO Ot J47.9 BRONCHIECTASIS, UNCOMPLICATED 08/07/2015 HERBERT GUY DO Ot J98.11 ATELECTASIS 08/12/2015 HERBERT GUY DO Ot J47.9 BRONCHIECTASIS, UNCOMPLICATED 08/12/2015 Ot 611.72 LUMP OR MASS IN BREAST 08/12/2015 Ot V76.12 OTH SCREEN MAMMO-MALIGN NEOPLASM OF [place] 08/12/2015 Ot 611.72 LUMP OR MASS IN BREAST 08/12/2015 Ot 621.2 HYPERTROPHY OF UTERUS 08/12/2015 Ot 626.2 EXCESSIVE MENSTRUATION 08/12/2015 Ot V72.63 PRE- PROCEDURAL LABORATORY EXAMINATION 08/12/2015 Ot V74.8 SCREEN- BACTERIAL DIS NEC 08/12/2015 Ot 793.80 UNSPEC ABNORMAL MAMMOGRAM 08/12/2015 Ot 729.81 SWELLING OF LIMB 08/12/2015 Ot 719.47 JOINT PAIN- ANKLE 08/12/2015 Ot 727.1 BUNION 08/12/2015 Ot 729.5 PAIN IN LIMB 08/12/2015 Ot V76.12 OTH SCREEN MAMMO-MALIGN NEOPLASM OF [place] 08/12/2015 Ot 787.02 NAUSEA ALONE 08/12/2015 Ot 789.01 ABDOMINAL PAIN, RIGHT UPPER QUADRANT 08/12/2015 COSИРИНА VALLES DONT L Ot 724.5 BACKACHE NOS 08/12/2015 COSИРИНА VALLES DONT L Ot 786.50 CHEST PAIN NOS 08/12/2015 PENNIE HARO Ot V76.12 OTH SCREEN MAMMO-MALIGN NEOPLASM OF [place] 08/12/2015 RUSTY VYAS, ALESSIO Ot 575.11 CHRONIC CHOLECYSTITIS 08/12/2015 RUSTY VYAS, ALESSIO Ot 575.8 DIS OF GALLBLADDER NEC 08/12/2015 RUSTY VYAS, ALESSIO Ot V72.83 EXAM PRE-OPERATIVE NEC 08/12/2015 RUSTY VYAS, ALESSIO Ot V74.8 SCREEN-BACTERIAL DIS NEC 08/12/2015 PENNIE HAROP Ot 577.0 ACUTE PANCREATITIS 08/12/2015 BRUCE AGUAYO APRN Ot R91.1 SOLITARY PULMONARY NODULE 08/12/2015 ZARA VYAS, ANCELMO Marquis Ot K85.9 ACUTE PANCREATITIS, UNSPECIFIED 08/12/2015 TUNDE VYAS, MAVERICK Guardado Ot J18.9 PNEUMONIA, UNSPECIFIED ORGANISM 08/12/2015 TUNDE VYAS, MAVERICK Guardado Ot R91.1 SOLITARY PULMONARY NODULE 08/12/2015 HERBERT GUY DO Ot B89 UNSPECIFIED PARASITIC DISEASE 08/12/2015 HERBERT GUY DO Ot E66.9 OBESITY, UNSPECIFIED 08/12/2015 MALENA POLK HERBERT Paulino Ot J98.11 ATELECTASIS 08/12/2015 ZARA VYAS, ANCELMO Marquis Ot K85.9 ACUTE PANCREATITIS, UNSPECIFIED 08/12/2015 ZARA VYAS, ANCELMO Marquis Ot Z90.49 ACQUIRED ABSENCE OF OTHER SPECIFIED PART 08/12/2015 TUNDE VYAS, MAVERICK Geo Ot R91.1 SOLITARY PULMONARY NODULE 08/21/2015 HERBERT GUY DO Ot B89 UNSPECIFIED PARASITIC DISEASE 08/21/2015 HERBERT GUY DO Ot E66.9 OBESITY, UNSPECIFIED 08/21/2015 MALENA POLK HERBERT Paulino Ot J98.11 ATELECTASIS 10/27/2015 DANICA VYAS, ADELIA Wilson Ot K21.9 GASTRO-ESOPHAGEAL REFLUX DISEASE WITHOUT 10/27/2015 DANICA VYAS, ADELIA Wilson Ot K86.1 OTHER CHRONIC PANCREATITIS 10/27/2015 DANICA VYAS, ADELIA Wilson Ot R10.10 UPPER ABDOMINAL PAIN, UNSPECIFIED 10/27/2015 DANICA VYAS, ADELIA Wilson Ot R11.0 NAUSEA 12/09/2015 Ot 611.72 LUMP OR MASS IN BREAST 12/09/2015 Ot V76.12 OTH SCREEN MAMMO-MALIGN NEOPLASM OF [place] 12/09/2015 Ot 611.72 LUMP OR MASS IN BREAST 12/09/2015 Ot 621.2 HYPERTROPHY OF UTERUS 12/09/2015 Ot 626.2 EXCESSIVE MENSTRUATION 12/09/2015 Ot V72.63 PRE- PROCEDURAL LABORATORY EXAMINATION 12/09/2015 Ot V74.8 SCREEN- BACTERIAL DIS NEC 12/09/2015 Ot 793.80 UNSPEC ABNORMAL MAMMOGRAM 12/09/2015 Ot 729.81 SWELLING OF LIMB 12/09/2015 Ot 719.47 JOINT PAIN- ANKLE 12/09/2015 Ot 727.1 BUNION 12/09/2015 Ot 729.5 PAIN IN LIMB 12/09/2015 Ot V76.12 OTH SCREEN MAMMO-MALIGN NEOPLASM OF [place] 12/09/2015 Ot 787.02 NAUSEA ALONE 12/09/2015 Ot 789.01 ABDOMINAL PAIN, RIGHT UPPER QUADRANT 12/09/2015 CHERRIE WEIR DO Ot 724.5 BACKACHE NOS 12/09/2015 CHERRIE WEIR DO Ot 786.50 CHEST PAIN NOS 12/09/2015 PENNIE HARO Ot V76.12 OTH SCREEN MAMMO-MALIGN NEOPLASM OF [place] 12/09/2015 ALESSIO OJEDA MD Ot 575.11 CHRONIC CHOLECYSTITIS 12/09/2015 ALESSIO OJEDA MD Ot 575.8 DIS OF GALLBLADDER NEC 12/09/2015 ALESSIO OJEDA MD Ot V72.83 EXAM PRE-OPERATIVE NEC 12/09/2015 ALESSIO OJEDA MD Ot V74.8 SCREEN-BACTERIAL DIS NEC 12/09/2015 PENNIE HARO Ot 577.0 ACUTE PANCREATITIS 12/09/2015 BRUCE AGUAYO APRN Ot R91.1 SOLITARY PULMONARY NODULE 12/09/2015 ZARA VYAS, ANCELMO Marquis Ot K85.9 ACUTE PANCREATITIS, UNSPECIFIED 12/09/2015 TUNDE VYAS, MAVERICK Guardado Ot J18.9 PNEUMONIA, UNSPECIFIED ORGANISM 12/09/2015 TUNDE VYAS, MAVERICK Guardado Ot R91.1 SOLITARY PULMONARY NODULE 12/09/2015 HERBERT GUY DO Ot B89 UNSPECIFIED PARASITIC DISEASE 12/09/2015 HERBERT GUY DO Ot E66.9 OBESITY, UNSPECIFIED 12/09/2015 HERBERT GUY DO Ot J98.11 ATELECTASIS 12/09/2015 ZARA VYAS, ANCELMO Marquis Ot K85.9 ACUTE PANCREATITIS, UNSPECIFIED 12/09/2015 ZARA VYAS, ANCELMO Marquis Ot Z90.49 ACQUIRED ABSENCE OF OTHER SPECIFIED PART 12/10/2015 MAGALIS ETIENNE DO Ot K21.9 GASTRO-ESOPHAGEAL REFLUX DISEASE WITHOUT 12/10/2015 MAGALIS ETIENNE DO Ot R10.13 EPIGASTRIC PAIN 12/10/2015 MAGALIS ETIENNE DO Ot Z79.899 OTHER HOSPITAL CLINIC ASSISTANT (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 THERAPY 12/10/2015 MAGALIS ETIENNE DO Ot Z87.19 PERSONAL HISTORY OF OTHER DISEASES OF TH 12/10/2015 Ot 611.72 LUMP OR MASS IN BREAST 12/10/2015 Ot V76.12 OTH SCREEN MAMMO-MALIGN NEOPLASM OF [place] 12/10/2015 Ot 611.72 LUMP OR MASS IN BREAST 12/10/2015 Ot 621.2 HYPERTROPHY OF UTERUS 12/10/2015 Ot 626.2 EXCESSIVE MENSTRUATION 12/10/2015 Ot V72.63 PRE- PROCEDURAL LABORATORY EXAMINATION 12/10/2015 Ot V74.8 SCREEN- BACTERIAL DIS NEC 12/10/2015 Ot 793.80 UNSPEC ABNORMAL MAMMOGRAM 12/10/2015 Ot 729.81 SWELLING OF LIMB 12/10/2015 Ot 719.47 JOINT PAIN- ANKLE 12/10/2015 Ot 727.1 BUNION 12/10/2015 Ot 729.5 PAIN IN LIMB 12/10/2015 Ot V76.12 OTH SCREEN MAMMO-MALIGN NEOPLASM OF [place] 12/10/2015 Ot 787.02 NAUSEA ALONE 12/10/2015 Ot 789.01 ABDOMINAL PAIN, RIGHT UPPER QUADRANT 12/10/2015 COSCHERRIE VALLES DO L Ot 724.5 BACKACHE NOS 12/10/2015 COSИРИНА VALLES DONT L Ot 786.50 CHEST PAIN NOS 12/10/2015 PENNIE HARO Ot V76.12 OTH SCREEN MAMMO-MALIGN NEOPLASM OF [place] 12/10/2015 ALESSIO OJEDA MD Ot 575.11 CHRONIC CHOLECYSTITIS 12/10/2015 ALESSIO OJEDA MD Ot 575.8 DIS OF GALLBLADDER NEC 12/10/2015 ALESSIO OJEDA MD Ot V72.83 EXAM PRE-OPERATIVE NEC 12/10/2015 ALESSIO OJEDA MD Ot V74.8 SCREEN-BACTERIAL DIS NEC 12/10/2015 PENNIE HARO Ot 577.0 ACUTE PANCREATITIS 12/10/2015 BRUCE AGUAYO APRN Ot R91.1 SOLITARY PULMONARY NODULE 12/10/2015 ZARA VYAS, ANCELMO Marquis Ot K85.9 ACUTE PANCREATITIS, UNSPECIFIED 12/10/2015 MAVERICK GRIFFITHS MD Ot J18.9 PNEUMONIA, UNSPECIFIED ORGANISM 12/10/2015 MAVERICK GRIFFITHS MD Ot R91.1 SOLITARY PULMONARY NODULE 12/10/2015 HERBERT GUY DO Ot B89 UNSPECIFIED PARASITIC DISEASE 12/10/2015 HERBERT GUY DO Ot E66.9 OBESITY, UNSPECIFIED 12/10/2015 HERBERT GUY DO Ot J98.11 ATELECTASIS 12/10/2015 ANCELMO ZUÑIGA MD Ot K85.9 ACUTE PANCREATITIS, UNSPECIFIED 12/10/2015 ANCELMO ZUÑIGA MD P Ot Z90.49 ACQUIRED ABSENCE OF OTHER SPECIFIED PART 12/10/2015 MAGALIS ETIENNE DO Ot K21.9 GASTRO-ESOPHAGEAL REFLUX DISEASE WITHOUT 12/10/2015 LOWELL MAGALIS POLK K Ot R10.13 EPIGASTRIC PAIN 12/10/2015 MAGALIS ETIENNE DO Ot Z79.899 OTHER USP (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 THERAPY 12/10/2015 MAGALIS ETIENNE DO Ot Z87.19 PERSONAL HISTORY OF OTHER DISEASES OF 12/15/2015 MAGALIS ETIENNE DO Ot K21.9 GASTRO-ESOPHAGEAL REFLUX DISEASE WITHOUT 12/15/2015 LOWELL ZACHARY POLKA Brendon Ot R10.13 EPIGASTRIC PAIN 12/15/2015 LOWELL MAGALIS POLK Ot Z79.899 OTHER USP (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 THERAPY 12/15/2015 MAGALIS ETIENNE DO Ot Z87.19 PERSONAL HISTORY OF OTHER DISEASES OF 03/20/2016 Ot 793.80 UNSPEC ABNORMAL MAMMOGRAM 03/20/2016 Ot 729.81 SWELLING OF LIMB 03/20/2016 Ot 719.47 JOINT PAIN- ANKLE 03/20/2016 Ot 727.1 BUNION 03/20/2016 Ot 729.5 PAIN IN LIMB 03/20/2016 Ot V76.12 OTH SCREEN MAMMO-MALIGN NEOPLASM OF [place] 03/20/2016 Ot 787.02 NAUSEA ALONE 03/20/2016 Ot 789.01 ABDOMINAL PAIN, RIGHT UPPER QUADRANT 03/20/2016 COSENS DO, CHERRIE L Ot 724.5 BACKACHE NOS 03/20/2016 COSENS DO, CHERRIE L Ot 786.50 CHEST PAIN NOS 03/20/2016 PENNIE HARO Ot V76.12 OTH SCREEN MAMMO-MALIGN NEOPLASM OF [place] 03/20/2016 RUSTY VYAS, ALESSIO Ot 575.11 CHRONIC CHOLECYSTITIS 03/20/2016 ALESSIO OJEDA MD Ot 575.8 DIS OF GALLBLADDER NEC 03/20/2016 ALESSIO OJEDA MD Ot V72.83 EXAM PRE-OPERATIVE NEC 03/20/2016 ALESSIO OJEDA MD Ot V74.8 SCREEN-BACTERIAL DIS NEC 03/20/2016 PENNIE HARO Ot 577.0 ACUTE PANCREATITIS 03/20/2016 AGUAYO, BRUCE L DUMP TRUCK DRIVER Ot R91.1 SOLITARY PULMONARY NODULE 03/20/2016 ZARA VYAS, ANCELMO Marquis Ot K85.9 ACUTE PANCREATITIS, UNSPECIFIED 03/20/2016 MAVERICK GRIFFITHS MD Ot J18.9 PNEUMONIA, UNSPECIFIED ORGANISM 03/20/2016 MAVERICK GRIFFITHS MD Ot R91.1 SOLITARY PULMONARY NODULE 03/20/2016 HERBERT GUY DO Ot B89 UNSPECIFIED PARASITIC DISEASE 03/20/2016 HERBERT GUY DO Ot E66.9 OBESITY, UNSPECIFIED 03/20/2016 HERBERT GUY DO Ot J98.11 ATELECTASIS 03/20/2016 ZARA VYAS, ANCELMO Marquis Ot K85.9 ACUTE PANCREATITIS, UNSPECIFIED 03/20/2016 ZARA VYAS, ANCELMO Marquis Ot Z90.49 ACQUIRED ABSENCE OF OTHER SPECIFIED PART 03/21/2016 EDGAR DIAZ MD Ot F41.9 ANXIETY DISORDER, UNSPECIFIED 03/21/2016 EDGAR DIAZ MD Ot I10 ESSENTIAL (PRIMARY) HYPERTENSION 03/21/2016 EDGAR DIAZ MD Ot J45.909 UNSPECIFIED ASTHMA, UNCOMPLICATED 03/21/2016 EDGAR DIAZ MD Ot K21.9 GASTRO-ESOPHAGEAL REFLUX DISEASE WITHOUT 03/21/2016 EDGAR DIAZ MD Ot K85.90 ACUTE PANCREATITIS WITHOUT NECROSIS OR I 03/21/2016 EDGAR DIAZ MD Ot Z87.891 PERSONAL HISTORY OF NICOTINE DEPENDENCE 05/28/2016 Ot 793.80 UNSPEC ABNORMAL MAMMOGRAM 05/28/2016 Ot 729.81 SWELLING OF LIMB 05/28/2016 Ot 719.47 JOINT PAIN- ANKLE 05/28/2016 Ot 727.1 BUNION 05/28/2016 Ot 729.5 PAIN IN LIMB 05/28/2016 Ot V76.12 OTH SCREEN MAMMO-MALIGN NEOPLASM OF [place] 05/28/2016 Ot 787.02 NAUSEA ALONE 05/28/2016 Ot 789.01 ABDOMINAL PAIN, RIGHT UPPER QUADRANT 05/28/2016 COS DO, CHERRIE L Ot 724.5 BACKACHE NOS 05/28/2016 COSENS POLK CHERRIE L Ot 786.50 CHEST PAIN NOS 05/28/2016 PENNIE HARO Ot V76.12 OTH SCREEN MAMMO-MALIGN NEOPLASM OF [place] 05/28/2016 RUSTY VYAS, ALESSIO Ot 575.11 CHRONIC CHOLECYSTITIS 05/28/2016 ALESSIO OJEDA MD Ot 575.8 DIS OF GALLBLADDER NEC 05/28/2016 ALESSIO OJEDA MD Ot V72.83 EXAM PRE-OPERATIVE NEC 05/28/2016 ALESSIO OJEDA MD Ot V74.8 SCREEN-BACTERIAL DIS NEC 05/28/2016 ESTRELLITA PENNIEIRMA BRIZUELA Ot 577.0 ACUTE PANCREATITIS 05/28/2016 BRUCE AGUAYO DUMP TRUCK DRIVER Ot R91.1 SOLITARY PULMONARY NODULE 05/28/2016 ZARA VYAS, ANCELMO Marquis Ot K85.9 ACUTE PANCREATITIS, UNSPECIFIED 05/28/2016 TUNDE VYAS, MAVERICK Guardado Ot J18.9 PNEUMONIA, UNSPECIFIED ORGANISM 05/28/2016 TUNDE VYAS, MAVERICK Guardado Ot R91.1 SOLITARY PULMONARY NODULE 05/28/2016 HERBERT GUY DO Ot B89 UNSPECIFIED PARASITIC DISEASE 05/28/2016 HERBERT GUY DO Ot E66.9 OBESITY, UNSPECIFIED 05/28/2016 HERBERT GUY DO Ot J98.11 ATELECTASIS 05/28/2016 ZARA VYAS, ANCELMO Marquis Ot K85.9 ACUTE PANCREATITIS, UNSPECIFIED 05/28/2016 ZARA VYAS, ANCELMO Marquis Ot Z90.49 ACQUIRED ABSENCE OF OTHER SPECIFIED PART 05/28/2016 BILL HEREDIA APRN Ot K86.1 OTHER CHRONIC PANCREATITIS 05/28/2016 BILL HEREDIA DUMP TRUCK DRIVER Ot R10.84 GENERALIZED ABDOMINAL PAIN 05/28/2016 BILL HEREDIA APRN Ot Z79.899 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11 CHRONIC CHOLECYSTITIS 05/30/2016 ALESSIO OJEDA MD Ot 575.8 DIS OF GALLBLADDER NEC 05/30/2016 ALESSIO OJEDA MD Ot V72.83 EXAM PRE-OPERATIVE NEC 05/30/2016 ALESSIO OJEDA MD Ot V74.8 SCREEN-BACTERIAL DIS NEC 05/30/2016 PENNIE HARO Ot 577.0 ACUTE PANCREATITIS 05/30/2016 BRUCE AGUAYO APRN Ot R91.1 SOLITARY PULMONARY NODULE 05/30/2016 ZARA VYAS, ANCELMO Marquis Ot K85.9 ACUTE PANCREATITIS, UNSPECIFIED 05/30/2016 TUNDE VYAS, MAVERICK Guardado Ot J18.9 PNEUMONIA, UNSPECIFIED ORGANISM 05/30/2016 TUNDE VYAS, MAVERICK Guardado Ot R91.1 SOLITARY PULMONARY NODULE 05/30/2016 HERBERT GUY DO Ot B89 UNSPECIFIED PARASITIC DISEASE 05/30/2016 HERBERT GUY DO Ot E66.9 OBESITY, UNSPECIFIED 05/30/2016 HERBERT GUY DO Ot J98.11 ATELECTASIS 05/30/2016 ZARA VYAS, ANCELMO Marquis Ot K85.9 ACUTE PANCREATITIS, UNSPECIFIED 05/30/2016 ZARA VYAS, ANCELMO Marquis Ot Z90.49 ACQUIRED ABSENCE OF OTHER SPECIFIED PART 06/01/2016 BILL HEREDIA APRN Ot K86.1 OTHER CHRONIC PANCREATITIS 06/01/2016 BILL HEREDIA DUMP TRUCK DRIVER Ot R10.84 GENERALIZED ABDOMINAL PAIN 06/01/2016 BILL HEREDIA APRN Ot Z79.899 OTHER USP (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 THERAPY 06/01/2016 Ot 793.80 UNSPEC ABNORMAL MAMMOGRAM 06/01/2016 Ot 729.81 SWELLING OF LIMB 06/01/2016 Ot 719.47 JOINT PAIN- ANKLE 06/01/2016 Ot 727.1 BUNION 06/01/2016 Ot 729.5 PAIN IN LIMB 06/01/2016 Ot V76.12 OTH SCREEN MAMMO-MALIGN NEOPLASM OF [place] 06/01/2016 Ot 787.02 NAUSEA ALONE 06/01/2016 Ot 789.01 ABDOMINAL PAIN, RIGHT UPPER QUADRANT 06/01/2016 COSCHERRIE VALLES DO L Ot 724.5 BACKACHE NOS 06/01/2016 ALEXENS POLK CHERRIE L Ot 786.50 CHEST PAIN NOS 06/01/2016 PENNIE HARO Ot V76.12 OTH SCREEN MAMMO-MALIGN NEOPLASM OF [place] 06/01/2016 ALESSIO OJEDA MD Ot 575.11 CHRONIC CHOLECYSTITIS 06/01/2016 ALESSIO OJEDA MD Ot 575.8 DIS OF GALLBLADDER NEC 06/01/2016 RUSTY VYAS, ALESSIO Ot V72.83 EXAM PRE-OPERATIVE NEC 06/01/2016 ALESSIO OJEDA MD Ot V74.8 SCREEN-BACTERIAL DIS NEC 06/01/2016 PENNIE HARO Ot 577.0 ACUTE PANCREATITIS 06/01/2016 DEDE BRUCEPearl Quinonez APRN Ot R91.1 SOLITARY PULMONARY NODULE 06/01/2016 ZARA VYAS, ANCELMO Marquis Ot K85.9 ACUTE PANCREATITIS, UNSPECIFIED 06/01/2016 MAVERICK GRIFFITHS MD Ot J18.9 PNEUMONIA, UNSPECIFIED ORGANISM 06/01/2016 MAVERICK GRIFFITHS MD Ot R91.1 SOLITARY PULMONARY NODULE 06/01/2016 HERBERT GUY DO Ot B89 UNSPECIFIED PARASITIC DISEASE 06/01/2016 HERBERT GUY DO Ot E66.9 OBESITY, UNSPECIFIED 06/01/2016 HERBERT GUY DO Ot J98.11 ATELECTASIS 06/01/2016 ZARA VYAS, ANCELMO Marquis Ot K85.9 ACUTE PANCREATITIS, UNSPECIFIED 06/01/2016 ANCELMO ZUÑIGA MD Ot Z90.49 ACQUIRED ABSENCE OF OTHER SPECIFIED PART 06/02/2016 Ot 793.80 UNSPEC ABNORMAL MAMMOGRAM 06/02/2016 Ot 729.81 SWELLING OF LIMB 06/02/2016 Ot 719.47 JOINT PAIN- ANKLE 06/02/2016 Ot 727.1 BUNION 06/02/2016 Ot 729.5 PAIN IN LIMB 06/02/2016 Ot V76.12 OTH SCREEN MAMMO-MALIGN NEOPLASM OF [place] 06/02/2016 Ot 787.02 NAUSEA ALONE 06/02/2016 Ot 789.01 ABDOMINAL PAIN, RIGHT UPPER QUADRANT 06/02/2016 CHERRIE WEIR DO Ot 724.5 BACKACHE NOS 06/02/2016 CHERRIE WEIR DO L Ot 786.50 CHEST PAIN NOS 06/02/2016 PENNIE HARO Ot V76.12 OTH SCREEN MAMMO-MALIGN NEOPLASM OF [place] 06/02/2016 RUSTY VYAS, ALESSIO Ot 575.11 CHRONIC CHOLECYSTITIS 06/02/2016 ALESSIO OJEDA MD Ot 575.8 DIS OF GALLBLADDER NEC 06/02/2016 ALESSIO OJEDA MD Ot V72.83 EXAM PRE-OPERATIVE NEC 06/02/2016 ALESSIO OJEDA MD Ot V74.8 SCREEN-BACTERIAL DIS NEC 06/02/2016 PENNIE HARO Ot 577.0 ACUTE PANCREATITIS 06/02/2016 BRUCE AGUAYO APRN Ot R91.1 SOLITARY PULMONARY NODULE 06/02/2016 ZARA VYAS, ANCELMO Marquis Ot K85.9 ACUTE PANCREATITIS, UNSPECIFIED 06/02/2016 MAVERICK GRIFFITHS MD Ot J18.9 PNEUMONIA, UNSPECIFIED ORGANISM 06/02/2016 MAVERICK GRIFFITHS MD Ot R91.1 SOLITARY PULMONARY NODULE 06/02/2016 HERBERT GUY DO Ot B89 UNSPECIFIED PARASITIC DISEASE 06/02/2016 HERBERT GUY DO Ot E66.9 OBESITY, UNSPECIFIED 06/02/2016 HERBERT GUY DO Ot J98.11 ATELECTASIS 06/02/2016 ANCELMO ZUÑIGA MD Ot K85.9 ACUTE PANCREATITIS, UNSPECIFIED 06/02/2016 ANCELMO ZUÑIGA MD Ot Z90.49 ACQUIRED ABSENCE OF OTHER SPECIFIED PART 06/02/2016 ANAND GUNN MD Ot J06.9 ACUTE UPPER RESPIRATORY INFECTION, UNSPE 06/02/2016 ANAND GUNN MD Ot R05 COUGH 06/02/2016 ANAND GUNN MD Ot Z87.891 PERSONAL HISTORY OF NICOTINE DEPENDENCE 06/02/2016 Ot 793.80 UNSPEC ABNORMAL MAMMOGRAM 06/02/2016 Ot 729.81 SWELLING OF LIMB 06/02/2016 Ot 719.47 JOINT PAIN- ANKLE 06/02/2016 Ot 727.1 BUNION 06/02/2016 Ot 729.5 PAIN IN LIMB 06/02/2016 Ot V76.12 OTH SCREEN MAMMO-MALIGN NEOPLASM OF [place] 06/02/2016 Ot 787.02 NAUSEA ALONE 06/02/2016 Ot 789.01 ABDOMINAL PAIN, RIGHT UPPER QUADRANT 06/02/2016 COSCHERRIE VALLES DO L Ot 724.5 BACKACHE NOS 06/02/2016 COSCHERRIE VALLES DO L Ot 786.50 CHEST PAIN NOS 06/02/2016 PENNIE HARO Ot V76.12 OTH SCREEN MAMMO-MALIGN NEOPLASM OF [place] 06/02/2016 ALESSIO OJEDA MD Ot 575.11 CHRONIC CHOLECYSTITIS 06/02/2016 ALESSIO OEJDA MD Ot 575.8 DIS OF GALLBLADDER NEC 06/02/2016 ALESSIO OJEDA MD Ot V72.83 EXAM PRE-OPERATIVE NEC 06/02/2016 ALESSIO OJEDA MD Ot V74.8 SCREEN-BACTERIAL DIS NEC 06/02/2016 PENNIE HARO Ot 577.0 ACUTE PANCREATITIS 06/02/2016 BRUCE AGUAYO DUMP TRUCK DRIVER Ot R91.1 SOLITARY PULMONARY NODULE 06/02/2016 ZARA VYAS, ANCELMO Marquis Ot K85.9 ACUTE PANCREATITIS, UNSPECIFIED 06/02/2016 MAVERICK GRIFFITHS MD Ot J18.9 PNEUMONIA, UNSPECIFIED ORGANISM 06/02/2016 TUNDE VYAS, MAVERICK Guardado Ot R91.1 SOLITARY PULMONARY NODULE 06/02/2016 HERBERT GUY DO Ot B89 UNSPECIFIED PARASITIC DISEASE 06/02/2016 HERBERT GUY DO Ot E66.9 OBESITY, UNSPECIFIED 06/02/2016 HERBERT GUY DO Ot J98.11 ATELECTASIS 06/02/2016 ANCELMO ZUÑIGA MD Ot K85.9 ACUTE PANCREATITIS, UNSPECIFIED 06/02/2016 ANCELMO ZUÑIGA MD Ot Z90.49 ACQUIRED ABSENCE OF OTHER SPECIFIED PART 06/03/2016 LUIS A VYAS, ANAND Guardado Ot J06.9 ACUTE UPPER RESPIRATORY INFECTION, UNSPE 06/03/2016 LUIS A VYAS, ANAND Guardado Ot R05 COUGH 06/03/2016 ANAND GUNN MD Ot Z87.891 PERSONAL HISTORY OF NICOTINE DEPENDENCE 06/04/2016 BILL HEREDIA APRN Ot K86.1 OTHER CHRONIC PANCREATITIS 06/04/2016 BILL HEREDIA DUMP TRUCK DRIVER Ot R10.84 GENERALIZED ABDOMINAL PAIN 06/04/2016 BILL HEREDIA APRN Ot Z79.899 OTHER USP (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 THERAPY 06/07/2016 LUIS A VYAS, ANAND Guardado Ot J06.9 ACUTE UPPER RESPIRATORY INFECTION, UNSPE 06/07/2016 LUIS A VYAS, ANAND Guardado Ot R05 COUGH 06/07/2016 ANAND GUNN MD Ot Z87.891 PERSONAL HISTORY OF NICOTINE DEPENDENCE 06/13/2016 MAVERICK ROSALES MD Ot F32.9 MAJOR DEPRESSIVE DISORDER, SINGLE EPISOD 06/13/2016 MAVERICK ROSALES MD Ot F41.9 ANXIETY DISORDER, UNSPECIFIED 06/13/2016 MAVERICK ROSALES MD Ot I10 ESSENTIAL (PRIMARY) HYPERTENSION 06/13/2016 MAVERICK ROSALES MD Ot 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 PNEUMONIA DUE TO METHICILLIN RESISTANT S 06/13/2016 MAVERICK ROSALES MD Ot J44.9 CHRONIC OBSTRUCTIVE PULMONARY DISEASE, U 06/13/2016 MAVERICK ROSALES MD Ot R09.02 HYPOXEMIA 06/13/2016 MAVERICK ROSALES MD Ot Z77.120 CONTACT WITH AND (SUSPECTED) EXPOSURE TO 06/13/2016 MAVERICK ROSALES MD Ot Z87.891 PERSONAL HISTORY OF NICOTINE DEPENDENCE 06/13/2016 MAVERICK ROSALES MD Ot Z99.81 DEPENDENCE ON SUPPLEMENTAL OXYGEN 08/31/2016 SPENSER CORDOVA MD Ot H53.8 OTHER VISUAL DISTURBANCES 08/31/2016 SPENSER CORDOVA MD Ot J34.9 UNSPECIFIED DISORDER OF NOSE AND NASAL S 09/01/2016 SPENSER CORDOVA MD Ot H53.8 OTHER VISUAL DISTURBANCES 09/01/2016 SPENSER CORDOVA MD Ot J34.9 UNSPECIFIED DISORDER OF NOSE AND NASAL S 09/01/2016 SPENSER CORDOVA MD Ot H53.8 OTHER VISUAL DISTURBANCES 09/01/2016 SPENSER CORDOVA MD Ot J34.9 UNSPECIFIED DISORDER OF NOSE AND NASAL S 09/01/2016 SPENSER CORDOVA MD Ot H53.8 OTHER VISUAL DISTURBANCES 09/01/2016 SPENSER CORDOVA MD Ot J34.9 UNSPECIFIED DISORDER OF NOSE AND NASAL S 10/20/2016 BILL HEREDIA APRN Ot F41.9 ANXIETY DISORDER, UNSPECIFIED 10/20/2016 BILL HEREDIA APRN Ot I10 ESSENTIAL (PRIMARY) HYPERTENSION 10/20/2016 BILL HEREDIA APRN Ot J45.909 UNSPECIFIED ASTHMA, UNCOMPLICATED 10/20/2016 BILL HEREDIA APRN Ot M19.90 UNSPECIFIED OSTEOARTHRITIS, UNSPECIFIED 10/20/2016 BILL HEREDIA APRN Ot R10.13 EPIGASTRIC PAIN 10/20/2016 BILL HEREDIA APRN Ot Z87.19 PERSONAL HISTORY OF OTHER DISEASES OF TH 10/20/2016 BILL HEREDIA APRN Ot Z87.891 PERSONAL HISTORY OF NICOTINE DEPENDENCE 10/20/2016 BILL HEREDIA APRN Ot Z87.898 PERSONAL HISTORY OF OTHER SPECIFIED COND 10/20/2016 BILL HEREDIA APRN Ot Z90.49 ACQUIRED ABSENCE OF OTHER SPECIFIED PART 10/20/2016 BILL HEREDIA APRN Ot Z90.710 ACQUIRED ABSENCE OF BOTH CERVIX AND UTER 10/20/2016 BILL HEREDIA APRN Ot Z90.721 ACQUIRED ABSENCE OF OVARIES, UNILATERAL 10/20/2016 BILL HEREDIA APRN Ot Z98.890 OTHER SPECIFIED POSTPROCEDURAL STATES 10/23/2016 BILL HEREDIA APRN Ot F41.9 ANXIETY DISORDER, UNSPECIFIED 10/23/2016 BILL EHREDIA APRN Ot I10 ESSENTIAL (PRIMARY) HYPERTENSION 10/23/2016 BILL HEREDIA APRN Ot J45.909 UNSPECIFIED ASTHMA, UNCOMPLICATED 10/23/2016 BILL HEREDIA APRN Ot M19.90 UNSPECIFIED OSTEOARTHRITIS, UNSPECIFIED 10/23/2016 BILL HEREDIA APRN Ot R10.13 EPIGASTRIC PAIN 10/23/2016 BILL EHREDIA APRN Ot Z87.19 PERSONAL HISTORY OF OTHER DISEASES OF TH 10/23/2016 BILL HEREDIA APRN Ot Z87.891 PERSONAL HISTORY OF NICOTINE DEPENDENCE 10/23/2016 BILL HEREDIA APRN Ot Z87.898 PERSONAL HISTORY OF OTHER SPECIFIED COND 10/23/2016 BILL HEREDIA APRN Ot Z90.49 ACQUIRED ABSENCE OF OTHER SPECIFIED PART 10/23/2016 BILL HEREDIA APRN Ot Z90.710 ACQUIRED ABSENCE OF BOTH CERVIX AND UTER 10/23/2016 BILL HEREDIA APRN Ot Z90.721 ACQUIRED ABSENCE OF OVARIES, UNILATERAL 10/23/2016 BILL HEREDIA APRN Ot Z98.890 OTHER SPECIFIED POSTPROCEDURAL STATES 11/27/2016 SPENSER CORDOVA MD Ot H53.8 OTHER VISUAL DISTURBANCES 11/27/2016 SPENSER CORDOVA MD Ot J34.9 UNSPECIFIED DISORDER OF NOSE AND NASAL S 12/01/2016 BILL HEREDIA APRN Ot F41.9 ANXIETY DISORDER, UNSPECIFIED 12/01/2016 BILL HEREDIA APRN Ot I10 ESSENTIAL (PRIMARY) HYPERTENSION 12/01/2016 BILL HEREDIA APRN Ot J45.909 UNSPECIFIED ASTHMA, UNCOMPLICATED 12/01/2016 BILL HEREDIA APRN Ot R10.13 EPIGASTRIC PAIN 12/01/2016 BILL HEREDIA APRN Ot Z87.19 PERSONAL HISTORY OF OTHER DISEASES OF TH 12/01/2016 BILL HEREDIA APRN Ot Z87.891 PERSONAL HISTORY OF NICOTINE DEPENDENCE 12/01/2016 BILL HEREDIA APRN Ot Z87.898 PERSONAL HISTORY OF OTHER SPECIFIED COND 12/01/2016 BILL HEREDIA APRN Ot Z90.49 ACQUIRED ABSENCE OF OTHER SPECIFIED PART 12/01/2016 BILL HEREDIA APRN Ot Z90.710 ACQUIRED ABSENCE OF BOTH CERVIX AND UTER 12/01/2016 BILL HEREDIA APRN Ot Z90.721 ACQUIRED ABSENCE OF OVARIES, UNILATERAL 12/01/2016 BILL HEREDIA APRN Ot Z98.890 OTHER SPECIFIED POSTPROCEDURAL STATES 12/02/2016 BILL HEREDIA APRN Ot F41.9 ANXIETY DISORDER, UNSPECIFIED 12/02/2016 BILL HEREDIA APRN Ot I10 ESSENTIAL (PRIMARY) HYPERTENSION 12/02/2016 BILL HEREDIA APRN Ot J45.909 UNSPECIFIED ASTHMA, UNCOMPLICATED 12/02/2016 BILL HEREDIA APRN Ot R10.13 EPIGASTRIC PAIN 12/02/2016 BILL HEREDIA APRN Ot Z87.19 PERSONAL HISTORY OF OTHER DISEASES OF TH 12/02/2016 BILL HEREDIA APRN Ot Z87.891 PERSONAL HISTORY OF NICOTINE DEPENDENCE 12/02/2016 BILL HEREDIA APRN Ot Z87.898 PERSONAL HISTORY OF OTHER SPECIFIED COND 12/02/2016 BILL HEREDIA APRN Ot Z90.49 ACQUIRED ABSENCE OF OTHER SPECIFIED PART 12/02/2016 BILL HEREDIA APRN Ot Z90.710 ACQUIRED ABSENCE OF BOTH CERVIX AND UTER 12/02/2016 BILL HEREDIA DUMP TRUCK DRIVER Ot Z90.721 ACQUIRED ABSENCE OF OVARIES, UNILATERAL 12/02/2016 BILL HEREDIA DUMP TRUCK DRIVER Ot Z98.890 OTHER SPECIFIED POSTPROCEDURAL STATES 12/20/2016 SPENSER CORDOVA MD Ot H53.8 OTHER VISUAL DISTURBANCES 12/20/2016 SPENSER CORDOVA MD Ot J34.9 UNSPECIFIED DISORDER OF NOSE AND NASAL S 01/04/2017 SPENSER CORDOVA MD Ot H53.8 OTHER VISUAL DISTURBANCES 01/04/2017 SPENSER CORDOVA MD Ot J34.9 UNSPECIFIED DISORDER OF NOSE AND NASAL S 04/20/2017 BOBBY VYAS, MAVERICK R Ot Z12.31 ENCNTR SCREEN MAMMOGRAM FOR MALIGNANT NE 12/18/2017 MAVERICK ROSALES MD Ot Z12.31 ENCNTR SCREEN MAMMOGRAM FOR MALIGNANT NE 12/27/2017 MAVERICK ROSALES MD Ot Z12.31 ENCNTR SCREEN MAMMOGRAM FOR MALIGNANT NE 01/21/2018 COSENS DO, CHERRIE L Ot 724.5 BACKACHE NOS 01/21/2018 COSENS DO, CHERRIE L Ot 786.50 CHEST PAIN NOS 01/21/2018 PENNIE HARO Ot V76.12 OTH SCREEN MAMMO-MALIGN NEOPLASM OF [place] 01/21/2018 ALESSIO OJEDA MD Ot 575.11 CHRONIC CHOLECYSTITIS 01/21/2018 ALESSIO OJEDA MD Ot 575.8 DIS OF GALLBLADDER NEC 01/21/2018 ALESSIO OJEDA MD Ot V72.83 EXAM PRE-OPERATIVE NEC 01/21/2018 ALESSIO OJEDA MD Ot V74.8 SCREEN-BACTERIAL DIS NEC 01/21/2018 PENNIE HARO MANAGER OF CHANGE Ot 577.0 ACUTE PANCREATITIS 01/21/2018 BRUCE AGUAYO DUMP TRUCK DRIVER Ot R91.1 SOLITARY PULMONARY NODULE 01/21/2018 ZARA VYAS, ANCELMO Marquis Ot K85.9 ACUTE PANCREATITIS, UNSPECIFIED 01/21/2018 MAVERICK GRIFFITHS MD Ot J18.9 PNEUMONIA, UNSPECIFIED ORGANISM 01/21/2018 MAVERICK GRIFFITHS MD Ot R91.1 SOLITARY PULMONARY NODULE 01/21/2018 HERBERT GUY DO Ot B89 UNSPECIFIED PARASITIC DISEASE 01/21/2018 HERBERT GUY DO Ot E66.9 OBESITY, UNSPECIFIED 01/21/2018 HERBERT GUY DO M Ot J98.11 ATELECTASIS 01/21/2018 ZARA VYAS, ANCELMO Marquis Ot K85.9 ACUTE PANCREATITIS, UNSPECIFIED 01/21/2018 ZARA VYAS, ANCELMO Marquis Ot Z90.49 ACQUIRED ABSENCE OF OTHER SPECIFIED PART 01/21/2018 ART VYAS, SPENSER Marquis Ot H53.8 OTHER VISUAL DISTURBANCES 01/21/2018 ART VYAS, SPENSER Marquis Ot J34.9 UNSPECIFIED DISORDER OF NOSE AND NASAL S 01/21/2018 MAVERICK ROSALES MD, Ot Z12.31 ENCNTR SCREEN MAMMOGRAM FOR MALIGNANT NE 01/21/2018 MAVERICK ROSALES MD, Ot Z12.31 ENCNTR SCREEN MAMMOGRAM FOR MALIGNANT NE Procedures Code Description Performed By Performed On 65.61 09/14/2010 68.49 09/14/2010 Results Test Result Range Sputum Gram stain - 08/12/15 08:20 Bacteria identification in bronchial specimen by aerobe culture - 08/12/15 08: 20 QUANTITY OF GROWTH Scant Growth NRG Bacteria identification in bronchial specimen by aerobe culture [id number] NRG Fungus culture - 08/12/15 08:20 QUANTITY OF GROWTH Isolated NRG FUNGUS REPORT FUNGUS GROWTH OBSERVED NRG Fungus culture [id number] NRG IDENTIFICATION TO FOLLOW ID BY [facility] NRG Complete blood count (CBC) with automated white blood cell (WBC) differential - 12/09/15 23:00 Blood leukocytes automated count (number/volume) 11.7 10*3/uL 4.3-11.0 Blood erythrocytes automated count (number/volume) 5.03 10*6/uL 4.35-5.85 Venous blood hemoglobin measurement (mass/volume) 13.5 g/dL 11.5-16.0 Blood hematocrit (volume fraction) 41 % 35-52 Automated erythrocyte mean corpuscular volume 82 [foz_us] 80-99 Automated erythrocyte mean corpuscular hemoglobin (mass per erythrocyte) 27 pg 25-34 Automated erythrocyte mean corpuscular hemoglobin concentration measurement ( mass/volume) 33 g/dL 32-36 Automated erythrocyte distribution width ratio 14.0 % 10.0-14.5 Automated blood platelet count (count/volume) 300 10*3/uL 130-400 Automated blood platelet mean volume measurement 10.4 [foz_us] 7.4-10.4 Automated blood neutrophils/100 leukocytes 60 % 42-75 Automated blood lymphocytes/100 leukocytes 28 % 12-44 Blood monocytes/100 leukocytes 8 % 0-12 Automated blood eosinophils/100 leukocytes 4 % 0-10 Automated blood basophils/100 leukocytes 0 % 0-10 Blood neutrophils automated count (number/volume) 7.0 10*3 1.8-7.8 Blood lymphocytes automated count (number/volume) 3.3 10*3 1.0-4.0 Blood monocytes automated count (number/volume) 0.9 10*3 0.0-1.0 Automated eosinophil count 0.4 10*3/uL 0.0-0.3 Automated blood basophil count (count/volume) 0.0 10*3/uL 0.0-0.1 Complete urinalysis with reflex to culture - 12/09/15 23:00 Urine color determination YELLOW NRG Urine clarity determination CLEAR NRG Urine pH measurement by test strip 7 5-9 Specific gravity of urine by test strip 1.010 1.016- 1.022 Urine protein assay by test strip, semi-quantitative NEGATIVE NEGATIVE Urine glucose detection by automated test strip NEGATIVE NEGATIVE Erythrocytes detection in urine sediment by light microscopy NEGATIVE NEGATIVE Urine ketones detection by automated test strip NEGATIVE NEGATIVE Urine nitrite detection by test strip NEGATIVE NEGATIVE Urine total bilirubin detection by test strip NEGATIVE NEGATIVE Urine urobilinogen measurement by automated test strip (mass/volume) NORMAL NORMAL Urine leukocyte esterase detection by dipstick NEGATIVE NEGATIVE Automated urine sediment erythrocyte count by microscopy (number/high power field) NONE NRG Automated urine sediment leukocyte count by microscopy (number/high power field ) [HPF] NRG Bacteria detection in urine sediment by light microscopy TRACE NRG Squamous epithelial cells detection in urine sediment by light microscopy 2-5 NRG Crystals detection in urine sediment by light microscopy NONE NRG Casts detection in urine sediment by light microscopy NONE NRG Mucus detection in urine sediment by light microscopy NEGATIVE NRG Complete urinalysis with reflex to culture NO NRG Comprehensive metabolic panel - 12/09/15 23:00 Serum or plasma sodium measurement (moles/volume) 139 mmol/L 135-145 Serum or plasma potassium measurement (moles/volume) 4.4 mmol/L 3.6-5.0 Serum or plasma chloride measurement (moles/volume) 108 mmol/L 98-107 Carbon dioxide 19 mmol/L 21-32 Serum or plasma anion gap determination (moles/volume) 12 mmol/L 5-14 Serum or plasma urea nitrogen measurement (mass/volume) 15 mg/dL 7-18 Serum or plasma creatinine measurement (mass/volume) 0.83 mg/dL 0.60-1.30 Serum or plasma urea nitrogen/creatinine mass ratio 18 NRG Serum or plasma creatinine measurement with calculation of estimated glomerular filtration rate > NRG Serum or plasma glucose measurement (mass/volume) 96 mg/dL 70-105 Serum or plasma calcium measurement (mass/volume) 9.4 mg/dL 8.5-10.1 Serum or plasma total bilirubin measurement (mass/volume) 0.3 mg/dL 0.1-1.0 Serum or plasma alkaline phosphatase measurement (enzymatic activity/volume) 139 U/L 40-136 Serum or plasma aspartate aminotransferase measurement (enzymatic activity/ volume) 26 U/L 5-34 Serum or plasma alanine aminotransferase measurement (enzymatic activity/volume ) 32 U/L 0-55 Serum or plasma protein measurement (mass/volume) 7.3 g/dL 6.4-8.2 Serum or plasma albumin measurement (mass/volume) 4.3 g/dL 3.2-4.5 Serum or plasma amylase measurement (enzymatic activity/volume) - 12/09/15 23: 00 Serum or plasma amylase measurement (enzymatic activity/volume) 75 U /L 25-125 Lipase - 12/09/15 23:00 Lipase 49 U/L 8-78 Complete blood count (CBC) with automated white blood cell (WBC) differential - 03/20/16 02:15 Blood leukocytes automated count (number/volume) 10.2 10*3/uL 4.3-11.0 Blood erythrocytes automated count (number/volume) 4.99 10*6/uL 4.35-5.85 Venous blood hemoglobin measurement (mass/volume) 13.2 g/dL 11.5-16.0 Blood hematocrit (volume fraction) 41 % 35-52 Automated erythrocyte mean corpuscular volume 82 [foz_us] 80-99 Automated erythrocyte mean corpuscular hemoglobin (mass per erythrocyte) 27 pg 25-34 Automated erythrocyte mean corpuscular hemoglobin concentration measurement ( mass/volume) 32 g/dL 32-36 Automated erythrocyte distribution width ratio 14.0 % 10.0-14.5 Automated blood platelet count (count/volume) 233 10*3/uL 130-400 Automated blood platelet mean volume measurement 10.6 [foz_us] 7.4-10.4 Automated blood neutrophils/100 leukocytes 53 % 42-75 Automated blood lymphocytes/100 leukocytes 36 % 12-44 Blood monocytes/100 leukocytes 6 % 0-12 Automated blood eosinophils/100 leukocytes 5 % 0-10 Automated blood basophils/100 leukocytes 0 % 0-10 Blood neutrophils automated count (number/volume) 5.5 10*3 1.8-7.8 Blood lymphocytes automated count (number/volume) 3.7 10*3 1.0-4.0 Blood monocytes automated count (number/volume) 0.6 10*3 0.0-1.0 Automated eosinophil count 0.5 10*3/uL 0.0-0.3 Automated blood basophil count (count/volume) 0.0 10*3/uL 0.0-0.1 Comprehensive metabolic panel - 03/20/16 02:15 Serum or plasma sodium measurement (moles/volume) 138 mmol/L 135-145 Serum or plasma potassium measurement (moles/volume) 4.0 mmol/L 3.6-5.0 Serum or plasma chloride measurement (moles/volume) 106 mmol/L 98-107 Carbon dioxide 22 mmol/L 21-32 Serum or plasma anion gap determination (moles/volume) 10 mmol/L 5-14 Serum or plasma urea nitrogen measurement (mass/volume) 16 mg/dL 7-18 Serum or plasma creatinine measurement (mass/volume) 0.79 mg/dL 0.60-1.30 Serum or plasma urea nitrogen/creatinine mass ratio 20 NRG Serum or plasma creatinine measurement with calculation of estimated glomerular filtration rate > NRG Serum or plasma glucose measurement (mass/volume) 105 mg/dL 70-105 Serum or plasma calcium measurement (mass/volume) 8.9 mg/dL 8.5-10.1 Serum or plasma total bilirubin measurement (mass/volume) 0.3 mg/dL 0.1-1.0 Serum or plasma alkaline phosphatase measurement (enzymatic activity/volume) 129 U/L 40-136 Serum or plasma aspartate aminotransferase measurement (enzymatic activity/ volume) 20 U/L 5-34 Serum or plasma alanine aminotransferase measurement (enzymatic activity/volume ) 29 U/L 0-55 Serum or plasma protein measurement (mass/volume) 6.3 g/dL 6.4-8.2 Serum or plasma albumin measurement (mass/volume) 3.8 g/dL 3.2-4.5 Serum or plasma amylase measurement (enzymatic activity/volume) - 03/20/16 02: 15 Serum or plasma amylase measurement (enzymatic activity/volume) 371 U/L 25-125 Lipase - 03/20/16 02:15 Lipase 477 U/L 8-78 Complete urinalysis with reflex to culture - 03/20/16 03:26 Urine color determination YELLOW NRG Urine clarity determination CLEAR NRG Urine pH measurement by test strip 6.5 5-9 Specific gravity of urine by test strip 1.010 1.016- 1.022 Urine protein assay by test strip, semi-quantitative NEGATIVE NEGATIVE Urine glucose detection by automated test strip NEGATIVE NEGATIVE Erythrocytes detection in urine sediment by light microscopy 1+ NEGATIVE Urine ketones detection by automated test strip NEGATIVE NEGATIVE Urine nitrite detection by test strip NEGATIVE NEGATIVE Urine total bilirubin detection by test strip NEGATIVE NEGATIVE Urine urobilinogen measurement by automated test strip (mass/volume) NORMAL NORMAL Urine leukocyte esterase detection by dipstick NEGATIVE NEGATIVE Automated urine sediment erythrocyte count by microscopy (number/high power field) NONE NRG Automated urine sediment leukocyte count by microscopy (number/high power field ) NONE NRG Bacteria detection in urine sediment by light microscopy NEGATIVE NRG Squamous epithelial cells detection in urine sediment by light microscopy RARE NRG Crystals detection in urine sediment by light microscopy NONE NRG Casts detection in urine sediment by light microscopy NONE NRG Mucus detection in urine sediment by light microscopy NEGATIVE NRG Complete urinalysis with reflex to culture NO NRG Complete blood count (CBC) with automated white blood cell (WBC) differential - 03/20/16 07:45 Blood leukocytes automated count (number/volume) 8.9 10*3/uL 4.3-11.0 Blood erythrocytes automated count (number/volume) 4.46 10*6/uL 4.35-5.85 Venous blood hemoglobin measurement (mass/volume) 11.8 g/dL 11.5-16.0 Blood hematocrit (volume fraction) 37 % 35-52 Automated erythrocyte mean corpuscular volume 83 [foz_us] 80-99 Automated erythrocyte mean corpuscular hemoglobin (mass per erythrocyte) 27 pg 25-34 Automated erythrocyte mean corpuscular hemoglobin concentration measurement ( mass/volume) 32 g/dL 32-36 Automated erythrocyte distribution width ratio 14.0 % 10.0-14.5 Automated blood platelet count (count/volume) 287 10*3/uL 130-400 Automated blood platelet mean volume measurement 9.8 [foz_us] 7.4-10.4 Automated blood neutrophils/100 leukocytes 50 % 42-75 Automated blood lymphocytes/100 leukocytes 38 % 12-44 Blood monocytes/100 leukocytes 7 % 0-12 Automated blood eosinophils/100 leukocytes 5 % 0-10 Automated blood basophils/100 leukocytes 0 % 0-10 Blood neutrophils automated count (number/volume) 4.4 10*3 1.8-7.8 Blood lymphocytes automated count (number/volume) 3.4 10*3 1.0-4.0 Blood monocytes automated count (number/volume) 0.6 10*3 0.0-1.0 Automated eosinophil count 0.4 10*3/uL 0.0-0.3 Automated blood basophil count (count/volume) 0.0 10*3/uL 0.0-0.1 Comprehensive metabolic panel - 03/20/16 07:45 Serum or plasma sodium measurement (moles/volume) 137 mmol/L 135-145 Serum or plasma potassium measurement (moles/volume) 3.5 mmol/L 3.6-5.0 Serum or plasma chloride measurement (moles/volume) 106 mmol/L 98-107 Carbon dioxide 26 mmol/L 21-32 Serum or plasma anion gap determination (moles/volume) 5 mmol/L 5-14 Serum or plasma urea nitrogen measurement (mass/volume) 17 mg/dL 7-18 Serum or plasma creatinine measurement (mass/volume) 0.70 mg/dL 0.60-1.30 Serum or plasma urea nitrogen/creatinine mass ratio 24 NRG Serum or plasma creatinine measurement with calculation of estimated glomerular filtration rate > NRG Serum or plasma glucose measurement (mass/volume) 107 mg/dL 70-105 Serum or plasma calcium measurement (mass/volume) 8.3 mg/dL 8.5-10.1 Serum or plasma total bilirubin measurement (mass/volume) 0.3 mg/dL 0.1-1.0 Serum or plasma alkaline phosphatase measurement (enzymatic activity/volume) 110 U/L 40-136 Serum or plasma aspartate aminotransferase measurement (enzymatic activity/ volume) 15 U/L 5-34 Serum or plasma alanine aminotransferase measurement (enzymatic activity/volume ) 25 U/L 0-55 Serum or plasma protein measurement (mass/volume) 5.5 g/dL 6.4-8.2 Serum or plasma albumin measurement (mass/volume) 3.4 g/dL 3.2-4.5 Serum or plasma amylase measurement (enzymatic activity/volume) - 03/20/16 07: 45 Serum or plasma amylase measurement (enzymatic activity/volume) 287 U/L 25-125 Lipase - 03/20/16 07:45 Lipase 330 U/L 8-78 Complete blood count (CBC) with automated white blood cell (WBC) differential - 03/21/16 05:50 Blood leukocytes automated count (number/volume) 8.3 10*3/uL 4.3-11.0 Blood erythrocytes automated count (number/volume) 4.55 10*6/uL 4.35-5.85 Venous blood hemoglobin measurement (mass/volume) 12.0 g/dL 11.5-16.0 Blood hematocrit (volume fraction) 38 % 35-52 Automated erythrocyte mean corpuscular volume 83 [foz_us] 80-99 Automated erythrocyte mean corpuscular hemoglobin (mass per erythrocyte) 26 pg 25-34 Automated erythrocyte mean corpuscular hemoglobin concentration measurement ( mass/volume) 32 g/dL 32-36 Automated erythrocyte distribution width ratio 13.9 % 10.0-14.5 Automated blood platelet count (count/volume) 286 10*3/uL 130-400 Automated blood platelet mean volume measurement 10.2 [foz_us] 7.4-10.4 Automated blood neutrophils/100 leukocytes 60 % 42-75 Automated blood lymphocytes/100 leukocytes 28 % 12-44 Blood monocytes/100 leukocytes 6 % 0-12 Automated blood eosinophils/100 leukocytes 6 % 0-10 Automated blood basophils/100 leukocytes 0 % 0-10 Blood neutrophils automated count (number/volume) 4.9 10*3 1.8-7.8 Blood lymphocytes automated count (number/volume) 2.3 10*3 1.0-4.0 Blood monocytes automated count (number/volume) 0.5 10*3 0.0-1.0 Automated eosinophil count 0.5 10*3/uL 0.0-0.3 Automated blood basophil count (count/volume) 0.0 10*3/uL 0.0-0.1 Whole blood basic metabolic panel - 03/21/16 05:50 Serum or plasma sodium measurement (moles/volume) 140 mmol/L 135-145 Serum or plasma potassium measurement (moles/volume) 3.9 mmol/L 3.6-5.0 Serum or plasma chloride measurement (moles/volume) 110 mmol/L 98-107 Carbon dioxide 24 mmol/L 21-32 Serum or plasma anion gap determination (moles/volume) 6 mmol/L 5-14 Serum or plasma urea nitrogen measurement (mass/volume) 7 mg/dL 7-18 Serum or plasma creatinine measurement (mass/volume) 0.71 mg/dL 0.60-1.30 Serum or plasma urea nitrogen/creatinine mass ratio 10 NRG Serum or plasma creatinine measurement with calculation of estimated glomerular filtration rate > NRG Serum or plasma glucose measurement (mass/volume) 101 mg/dL 70-105 Serum or plasma calcium measurement (mass/volume) 8.2 mg/dL 8.5-10.1 Lipase - 03/21/16 05:50 Lipase 73 U/L 8-78 Comp. Metabolic Panel (14) - 04/04/16 08:40 Glucose, Serum 87 mg/dL 65-99 BUN 12 mg/dL 6-24 Creatinine, Serum 0.93 mg/dL 0.57-1.00 eGFR If NonAfricn Am 74 mL/min/1.73 >59 eGFR If Africn Am 85 mL/min/1.73 >59 BUN/Creatinine Ratio 13 9-23 Sodium, Serum 139 mmol/L 134-144 Potassium, Serum 4.2 mmol/L 3.5-5.2 Chloride, Serum 99 mmol/L 96-106 Carbon Dioxide, Total 23 mmol/L 18-29 Calcium, Serum 9.1 mg/dL 8.7-10.2 Protein, Total, Serum 6.5 g/dL 6.0-8.5 Albumin, Serum 4.1 g/dL 3.5-5.5 Globulin, Total 2.4 g/dL 1.5-4.5 A/G Ratio 1.7 1.1-2.5 Bilirubin, Total 0.3 mg/dL 0.0-1.2 Alkaline Phosphatase, S 131 IU/L 39-117 AST (SGOT) 17 IU/L 0-40 ALT (SGPT) 26 IU/L 0-32 Lipid Panel - 04/04/16 08:40 Cholesterol, Total 171 mg/dL 100-199 Triglycerides 128 mg/dL 0-149 HDL Cholesterol 52 mg/dL >39 VLDL Cholesterol Matteo 26 mg/dL 5-40 LDL Cholesterol Calc 93 mg/dL 0-99 Hemoglobin A1c - 04/04/16 08:40 Hemoglobin A1c 5.7 % 4.8-5.6 Complete urinalysis with reflex to culture - 05/28/16 21:30 Urine color determination YELLOW NRG Urine clarity determination SLIGHTLY CLOUDY NRG Urine pH measurement by test strip 6 5-9 Specific gravity of urine by test strip 1.020 1.016- 1.022 Urine protein assay by test strip, semi-quantitative 1+ NEGATIVE Urine glucose detection by automated test strip NEGATIVE NEGATIVE Erythrocytes detection in urine sediment by light microscopy 1+ NEGATIVE Urine ketones detection by automated test strip NEGATIVE NEGATIVE Urine nitrite detection by test strip NEGATIVE NEGATIVE Urine total bilirubin detection by test strip NEGATIVE NEGATIVE Urine urobilinogen measurement by automated test strip (mass/volume) NORMAL NORMAL Urine leukocyte esterase detection by dipstick NEGATIVE NEGATIVE Automated urine sediment erythrocyte count by microscopy (number/high power field) [HPF] NRG Automated urine sediment leukocyte count by microscopy (number/high power field ) NONE NRG Bacteria detection in urine sediment by light microscopy TRACE NRG Squamous epithelial cells detection in urine sediment by light microscopy 0-2 NRG Crystals detection in urine sediment by light microscopy NONE NRG Casts detection in urine sediment by light microscopy NONE NRG Mucus detection in urine sediment by light microscopy NEGATIVE NRG Complete urinalysis with reflex to culture NO NRG Urine drug screening test - 05/28/16 21:30 Urine phencyclidine detection by screening method NEGATIVE NEGATIVE Urine benzodiazepines detection by screening method POSITIVE NEGATIVE Urine cocaine detection NEGATIVE NEGATIVE Urine amphetamines detection by screening method NEGATIVE NEGATIVE Urine methamphetamine detection by screening method NEGATIVE NEGATIVE Urine cannabinoids detection by screening method NEGATIVE NEGATIVE Urine opiates detection by screening method POSITIVE NEGATIVE Urine barbiturates detection NEGATIVE NEGATIVE Screening urine tricyclic antidepressants detection NEGATIVE NEGATIVE Urine methadone detection by screening method NEGATIVE NEGATIVE Urine oxycodone detection NEGATIVE NEGATIVE Urine propoxyphene detection NEGATIVE NEGATIVE Complete blood count (CBC) with automated white blood cell (WBC) differential - 05/28/16 22:00 Blood leukocytes automated count (number/volume) 8.8 10*3/uL 4.3-11.0 Blood erythrocytes automated count (number/volume) 5.15 10*6/uL 4.35-5.85 Venous blood hemoglobin measurement (mass/volume) 13.5 g/dL 11.5-16.0 Blood hematocrit (volume fraction) 41 % 35-52 Automated erythrocyte mean corpuscular volume 80 [foz_us] 80-99 Automated erythrocyte mean corpuscular hemoglobin (mass per erythrocyte) 26 pg 25-34 Automated erythrocyte mean corpuscular hemoglobin concentration measurement ( mass/volume) 33 g/dL 32-36 Automated erythrocyte distribution width ratio 14.1 % 10.0-14.5 Automated blood platelet count (count/volume) 289 10*3/uL 130-400 Automated blood platelet mean volume measurement 10.2 [foz_us] 7.4-10.4 Automated blood neutrophils/100 leukocytes 52 % 42-75 Automated blood lymphocytes/100 leukocytes 38 % 12-44 Blood monocytes/100 leukocytes 6 % 0-12 Automated blood eosinophils/100 leukocytes 4 % 0-10 Automated blood basophils/100 leukocytes 0 % 0-10 Blood neutrophils automated count (number/volume) 4.5 10*3 1.8-7.8 Blood lymphocytes automated count (number/volume) 3.4 10*3 1.0-4.0 Blood monocytes automated count (number/volume) 0.5 10*3 0.0-1.0 Automated eosinophil count 0.4 10*3/uL 0.0-0.3 Automated blood basophil count (count/volume) 0.0 10*3/uL 0.0-0.1 Comprehensive metabolic panel - 05/28/16 22:00 Serum or plasma sodium measurement (moles/volume) 142 mmol/L 135-145 Serum or plasma potassium measurement (moles/volume) 3.8 mmol/L 3.6-5.0 Serum or plasma chloride measurement (moles/volume) 107 mmol/L 98-107 Carbon dioxide 22 mmol/L 21-32 Serum or plasma anion gap determination (moles/volume) 13 mmol/L 5-14 Serum or plasma urea nitrogen measurement (mass/volume) 10 mg/dL 7-18 Serum or plasma creatinine measurement (mass/volume) 0.86 mg/dL 0.60-1.30 Serum or plasma urea nitrogen/creatinine mass ratio 12 NRG Serum or plasma creatinine measurement with calculation of estimated glomerular filtration rate > NRG Serum or plasma glucose measurement (mass/volume) 103 mg/dL 70-105 Serum or plasma calcium measurement (mass/volume) 9.0 mg/dL 8.5-10.1 Serum or plasma total bilirubin measurement (mass/volume) 0.3 mg/dL 0.1-1.0 Serum or plasma alkaline phosphatase measurement (enzymatic activity/volume) 119 U/L 40-136 Serum or plasma aspartate aminotransferase measurement (enzymatic activity/ volume) 25 U/L 5-34 Serum or plasma alanine aminotransferase measurement (enzymatic activity/volume ) 43 U/L 0-55 Serum or plasma protein measurement (mass/volume) 6.9 g/dL 6.4-8.2 Serum or plasma albumin measurement (mass/volume) 3.9 g/dL 3.2-4.5 Serum or plasma amylase measurement (enzymatic activity/volume) - 05/28/16 22: 00 Serum or plasma amylase measurement (enzymatic activity/volume) 82 U /L 25-125 Lipase - 05/28/16 22:00 Lipase 118 U/L 8-78 Serum or plasma C reactive protein measurement (mass/volume) - 05/28/16 22:00 Serum or plasma C reactive protein measurement (mass/volume) 1.02 mg /dL 0.00-0.50 Erythrocyte sedimentation rate by westergren method - 05/28/16 22:00 Erythrocyte sedimentation rate by westergren method 11 mm 0-20 Complete blood count (CBC) with automated white blood cell (WBC) differential - 06/02/16 05:24 Blood leukocytes automated count (number/volume) 16.9 10*3/uL 4.3-11.0 Blood erythrocytes automated count (number/volume) 4.85 10*6/uL 4.35-5.85 Venous blood hemoglobin measurement (mass/volume) 12.8 g/dL 11.5-16.0 Blood hematocrit (volume fraction) 39 % 35-52 Automated erythrocyte mean corpuscular volume 80 [foz_us] 80-99 Automated erythrocyte mean corpuscular hemoglobin (mass per erythrocyte) 26 pg 25-34 Automated erythrocyte mean corpuscular hemoglobin concentration measurement ( mass/volume) 33 g/dL 32-36 Automated erythrocyte distribution width ratio 14.4 % 10.0-14.5 Automated blood platelet count (count/volume) 361 10*3/uL 130-400 Automated blood platelet mean volume measurement 10.0 [foz_us] 7.4-10.4 Automated blood neutrophils/100 leukocytes 68 % 42-75 Automated blood lymphocytes/100 leukocytes 22 % 12-44 Blood monocytes/100 leukocytes 9 % 0-12 Automated blood eosinophils/100 leukocytes 2 % 0-10 Automated blood basophils/100 leukocytes 0 % 0-10 Blood neutrophils automated count (number/volume) 11.4 10*3 1.8-7.8 Blood lymphocytes automated count (number/volume) 3.7 10*3 1.0-4.0 Blood monocytes automated count (number/volume) 1.5 10*3 0.0-1.0 Automated eosinophil count 0.3 10*3/uL 0.0-0.3 Automated blood basophil count (count/volume) 0.0 10*3/uL 0.0-0.1 Comprehensive metabolic panel - 06/02/16 05:24 Serum or plasma sodium measurement (moles/volume) 139 mmol/L 135-145 Serum or plasma potassium measurement (moles/volume) 3.4 mmol/L 3.6-5.0 Serum or plasma chloride measurement (moles/volume) 107 mmol/L 98-107 Carbon dioxide 19 mmol/L 21-32 Serum or plasma anion gap determination (moles/volume) 13 mmol/L 5-14 Serum or plasma urea nitrogen measurement (mass/volume) 10 mg/dL 7-18 Serum or plasma creatinine measurement (mass/volume) 0.84 mg/dL 0.60-1.30 Serum or plasma urea nitrogen/creatinine mass ratio 12 NRG Serum or plasma creatinine measurement with calculation of estimated glomerular filtration rate > NRG Serum or plasma glucose measurement (mass/volume) 99 mg/dL 70-105 Serum or plasma calcium measurement (mass/volume) 8.7 mg/dL 8.5-10.1 Serum or plasma total bilirubin measurement (mass/volume) 0.6 mg/dL 0.1-1.0 Serum or plasma alkaline phosphatase measurement (enzymatic activity/volume) 124 U/L 40-136 Serum or plasma aspartate aminotransferase measurement (enzymatic activity/ volume) 31 U/L 5-34 Serum or plasma alanine aminotransferase measurement (enzymatic activity/volume ) 45 U/L 0-55 Serum or plasma protein measurement (mass/volume) 6.4 g/dL 6.4-8.2 Serum or plasma albumin measurement (mass/volume) 3.7 g/dL 3.2-4.5 Lipase - 06/02/16 05:24 Lipase 24 U/L 8-78 Blood manual differential performed detection - 06/02/16 05:24 Blood monocytes/100 leukocytes 9 % NRG Manual blood segmented neutrophils/100 leukocytes 64 % NRG Blood band neutrophils/100 leukocytes 0 % NRG Manual blood lymphocytes/100 leukocytes 24 % NRG Manual eosinophils/100 leukocytes in nose 3 % NRG Manual blood basophils/100 leukocytes 0 % NRG Blood microcytes detection by light microscopy SLIGHT NRG Lower Respiratory Culture - 06/07/16 10:49 Lower Respiratory Culture Note Bacterial blood culture - 06/07/16 12:37 Bacterial blood culture NG NRG Complete blood count (CBC) with automated white blood cell (WBC) differential - 06/07/16 12:43 Blood leukocytes automated count (number/volume) 16.9 10*3/uL 4.3-11.0 Blood erythrocytes automated count (number/volume) 4.41 10*6/uL 4.35-5.85 Venous blood hemoglobin measurement (mass/volume) 11.5 g/dL 11.5-16.0 Blood hematocrit (volume fraction) 36 % 35-52 Automated erythrocyte mean corpuscular volume 81 [foz_us] 80-99 Automated erythrocyte mean corpuscular hemoglobin (mass per erythrocyte) 26 pg 25-34 Automated erythrocyte mean corpuscular hemoglobin concentration measurement ( mass/volume) 32 g/dL 32-36 Automated erythrocyte distribution width ratio 14.3 % 10.0-14.5 Automated blood platelet count (count/volume) 463 10*3/uL 130-400 Automated blood platelet mean volume measurement 9.7 [foz_us] 7.4-10.4 Automated blood neutrophils/100 leukocytes 73 % 42-75 Automated blood lymphocytes/100 leukocytes 13 % 12-44 Blood monocytes/100 leukocytes 11 % 0-12 Automated blood eosinophils/100 leukocytes 4 % 0-10 Automated blood basophils/100 leukocytes 0 % 0-10 Blood neutrophils automated count (number/volume) 12.4 10*3 1.8-7.8 Blood lymphocytes automated count (number/volume) 2.1 10*3 1.0-4.0 Blood monocytes automated count (number/volume) 1.8 10*3 0.0-1.0 Automated eosinophil count 0.6 10*3/uL 0.0-0.3 Automated blood basophil count (count/volume) 0.0 10*3/uL 0.0-0.1 Blood manual differential performed detection - 06/07/16 12:43 Blood monocytes/100 leukocytes 6 % [facility] Manual blood segmented neutrophils/100 leukocytes 70 % NR Blood band neutrophils/100 leukocytes 6 % NR Manual blood lymphocytes/100 leukocytes 16 % NR Manual eosinophils/100 leukocytes in nose 2 % NR Manual blood basophils/100 leukocytes 0 % [facility] Blood poikilocytosis detection by light microscopy SLIGHT [facility] Comprehensive metabolic panel - 06/07/16 12:43 Serum or plasma sodium measurement (moles/volume) 141 mmol/L 135-145 Serum or plasma potassium measurement (moles/volume) 3.2 mmol/L 3.6-5.0 Serum or plasma chloride measurement (moles/volume) 100 mmol/L 98-107 Carbon dioxide 28 mmol/L 21-32 Serum or plasma anion gap determination (moles/volume) 13 mmol/L 5-14 Serum or plasma urea nitrogen measurement (mass/volume) 6 mg/dL 7-18 Serum or plasma creatinine measurement (mass/volume) 0.80 mg/dL 0.60-1.30 Serum or plasma urea nitrogen/creatinine mass ratio 8 NRG Serum or plasma creatinine measurement with calculation of estimated glomerular filtration rate > NR Serum or plasma glucose measurement (mass/volume) 94 mg/dL 70-105 Serum or plasma calcium measurement (mass/volume) 9.0 mg/dL 8.5-10.1 Serum or plasma total bilirubin measurement (mass/volume) 0.5 mg/dL 0.1-1.0 Serum or plasma alkaline phosphatase measurement (enzymatic activity/volume) 141 U/L 40-136 Serum or plasma aspartate aminotransferase measurement (enzymatic activity/ volume) 19 U/L 5-34 Serum or plasma alanine aminotransferase measurement (enzymatic activity/volume ) 36 U/L 0-55 Serum or plasma protein measurement (mass/volume) 6.8 g/dL 6.4-8.2 Serum or plasma albumin measurement (mass/volume) 3.2 g/dL 3.2-4.5 Bacterial blood culture - 06/07/16 12:43 Bacterial blood culture NG [facility] Complete blood count (CBC) with automated white blood cell (WBC) differential - 06/08/16 09:12 Blood leukocytes automated count (number/volume) 17.5 10*3/uL 4.3-11.0 Blood erythrocytes automated count (number/volume) 4.30 10*6/uL 4.35-5.85 Venous blood hemoglobin measurement (mass/volume) 11.2 g/dL 11.5-16.0 Blood hematocrit (volume fraction) 35 % 35-52 Automated erythrocyte mean corpuscular volume 81 [foz_us] 80-99 Automated erythrocyte mean corpuscular hemoglobin (mass per erythrocyte) 26 pg 25-34 Automated erythrocyte mean corpuscular hemoglobin concentration measurement ( mass/volume) 32 g/dL 32-36 Automated erythrocyte distribution width ratio 14.3 % 10.0-14.5 Automated blood platelet count (count/volume) 520 10*3/uL 130-400 Automated blood platelet mean volume measurement 9.9 [foz_us] 7.4-10.4 Automated blood neutrophils/100 leukocytes 85 % 42-75 Automated blood lymphocytes/100 leukocytes 12 % 12-44 Blood monocytes/100 leukocytes 3 % 0-12 Automated blood eosinophils/100 leukocytes 0 % 0-10 Automated blood basophils/100 leukocytes 0 % 0-10 Blood neutrophils automated count (number/volume) 14.9 10*3 1.8-7.8 Blood lymphocytes automated count (number/volume) 2.1 10*3 1.0-4.0 Blood monocytes automated count (number/volume) 0.5 10*3 0.0-1.0 Automated eosinophil count 0.0 10*3/uL 0.0-0.3 Automated blood basophil count (count/volume) 0.1 10*3/uL 0.0-0.1 Comprehensive metabolic panel - 06/08/16 09:12 Serum or plasma sodium measurement (moles/volume) 137 mmol/L 135-145 Serum or plasma potassium measurement (moles/volume) 3.4 mmol/L 3.6-5.0 Serum or plasma chloride measurement (moles/volume) 101 mmol/L 98-107 Carbon dioxide 27 mmol/L 21-32 Serum or plasma anion gap determination (moles/volume) 9 mmol/L 5-14 Serum or plasma urea nitrogen measurement (mass/volume) 10 mg/dL 7-18 Serum or plasma creatinine measurement (mass/volume) 0.69 mg/dL 0.60-1.30 Serum or plasma urea nitrogen/creatinine mass ratio 14 NRG Serum or plasma creatinine measurement with calculation of estimated glomerular filtration rate > NRG Serum or plasma glucose measurement (mass/volume) 178 mg/dL 70-105 Serum or plasma calcium measurement (mass/volume) 8.9 mg/dL 8.5-10.1 Serum or plasma total bilirubin measurement (mass/volume) 0.3 mg/dL 0.1-1.0 Serum or plasma alkaline phosphatase measurement (enzymatic activity/volume) 137 U/L 40-136 Serum or plasma aspartate aminotransferase measurement (enzymatic activity/ volume) 17 U/L 5-34 Serum or plasma alanine aminotransferase measurement (enzymatic activity/volume ) 32 U/L 0-55 Serum or plasma protein measurement (mass/volume) 6.6 g/dL 6.4-8.2 Serum or plasma albumin measurement (mass/volume) 3.1 g/dL 3.2-4.5 Complete blood count (CBC) with automated white blood cell (WBC) differential - 06/09/16 06:53 Blood leukocytes automated count (number/volume) 23.4 10*3/uL 4.3-11.0 Blood erythrocytes automated count (number/volume) 4.12 10*6/uL 4.35-5.85 Venous blood hemoglobin measurement (mass/volume) 10.8 g/dL 11.5-16.0 Blood hematocrit (volume fraction) 34 % 35-52 Automated erythrocyte mean corpuscular volume 82 [foz_us] 80-99 Automated erythrocyte mean corpuscular hemoglobin (mass per erythrocyte) 26 pg 25-34 Automated erythrocyte mean corpuscular hemoglobin concentration measurement ( mass/volume) 32 g/dL 32-36 Automated erythrocyte distribution width ratio 14.3 % 10.0-14.5 Automated blood platelet count (count/volume) 514 10*3/uL 130-400 Automated blood platelet mean volume measurement 9.7 [foz_us] 7.4-10.4 Automated blood neutrophils/100 leukocytes 83 % 42-75 Automated blood lymphocytes/100 leukocytes 12 % 12-44 Blood monocytes/100 leukocytes 5 % 0-12 Automated blood eosinophils/100 leukocytes 0 % 0-10 Automated blood basophils/100 leukocytes 0 % 0-10 Blood neutrophils automated count (number/volume) 19.4 10*3 1.8-7.8 Blood lymphocytes automated count (number/volume) 2.8 10*3 1.0-4.0 Blood monocytes automated count (number/volume) 1.1 10*3 0.0-1.0 Automated eosinophil count 0.0 10*3/uL 0.0-0.3 Automated blood basophil count (count/volume) 0.1 10*3/uL 0.0-0.1 Comprehensive metabolic panel - 06/09/16 06:53 Serum or plasma sodium measurement (moles/volume) 138 mmol/L 135-145 Serum or plasma potassium measurement (moles/volume) 3.9 mmol/L 3.6-5.0 Serum or plasma chloride measurement (moles/volume) 102 mmol/L 98-107 Carbon dioxide 26 mmol/L 21-32 Serum or plasma anion gap determination (moles/volume) 10 mmol/L 5-14 Serum or plasma urea nitrogen measurement (mass/volume) 12 mg/dL 7-18 Serum or plasma creatinine measurement (mass/volume) 0.72 mg/dL 0.60-1.30 Serum or plasma urea nitrogen/creatinine mass ratio 17 NRG Serum or plasma creatinine measurement with calculation of estimated glomerular filtration rate > NRG Serum or plasma glucose measurement (mass/volume) 157 mg/dL 70-105 Serum or plasma calcium measurement (mass/volume) 8.4 mg/dL 8.5-10.1 Serum or plasma total bilirubin measurement (mass/volume) 0.2 mg/dL 0.1-1.0 Serum or plasma alkaline phosphatase measurement (enzymatic activity/volume) 124 U/L 40-136 Serum or plasma aspartate aminotransferase measurement (enzymatic activity/ volume) 15 U/L 5-34 Serum or plasma alanine aminotransferase measurement (enzymatic activity/volume ) 31 U/L 0-55 Serum or plasma protein measurement (mass/volume) 5.9 g/dL 6.4-8.2 Serum or plasma albumin measurement (mass/volume) 2.8 g/dL 3.2-4.5 Blood manual differential performed detection - 06/09/16 06:53 Blood monocytes/100 leukocytes 4 % NRG Manual blood segmented neutrophils/100 leukocytes 71 % NRG Blood band neutrophils/100 leukocytes 7 % NRG Manual blood lymphocytes/100 leukocytes 15 % NRG Manual eosinophils/100 leukocytes in nose 0 % NRG Manual blood basophils/100 leukocytes 0 % NRG Blood microcytes detection by light microscopy SLIGHT NRG Manual blood myelocytes/100 leukocytes 3 % NRG Complete blood count (CBC) with automated white blood cell (WBC) differential - 06/10/16 05:46 Blood leukocytes automated count (number/volume) 23.5 10*3/uL 4.3-11.0 Blood erythrocytes automated count (number/volume) 4.05 10*6/uL 4.35-5.85 Venous blood hemoglobin measurement (mass/volume) 10.4 g/dL 11.5-16.0 Blood hematocrit (volume fraction) 34 % 35-52 Automated erythrocyte mean corpuscular volume 83 [foz_us] 80-99 Automated erythrocyte mean corpuscular hemoglobin (mass per erythrocyte) 26 pg 25-34 Automated erythrocyte mean corpuscular hemoglobin concentration measurement ( mass/volume) 31 g/dL 32-36 Automated erythrocyte distribution width ratio 14.5 % 10.0-14.5 Automated blood platelet count (count/volume) 491 10*3/uL 130-400 Automated blood platelet mean volume measurement 9.8 [foz_us] 7.4-10.4 Automated blood neutrophils/100 leukocytes 82 % 42-75 Automated blood lymphocytes/100 leukocytes 14 % 12-44 Blood monocytes/100 leukocytes 5 % 0-12 Automated blood eosinophils/100 leukocytes 0 % 0-10 Automated blood basophils/100 leukocytes 0 % 0-10 Blood neutrophils automated count (number/volume) 19.2 10*3 1.8-7.8 Blood lymphocytes automated count (number/volume) 3.2 10*3 1.0-4.0 Blood monocytes automated count (number/volume) 1.1 10*3 0.0-1.0 Automated eosinophil count 0.0 10*3/uL 0.0-0.3 Automated blood basophil count (count/volume) 0.1 10*3/uL 0.0-0.1 Comprehensive metabolic panel - 06/10/16 05:46 Serum or plasma sodium measurement (moles/volume) 140 mmol/L 135-145 Serum or plasma potassium measurement (moles/volume) 4.1 mmol/L 3.6-5.0 Serum or plasma chloride measurement (moles/volume) 105 mmol/L 98-107 Carbon dioxide 26 mmol/L 21-32 Serum or plasma anion gap determination (moles/volume) 9 mmol/L 5-14 Serum or plasma urea nitrogen measurement (mass/volume) 14 mg/dL 7-18 Serum or plasma creatinine measurement (mass/volume) 0.72 mg/dL 0.60-1.30 Serum or plasma urea nitrogen/creatinine mass ratio 19 NRG Serum or plasma creatinine measurement with calculation of estimated glomerular filtration rate > NRG Serum or plasma glucose measurement (mass/volume) 129 mg/dL 70-105 Serum or plasma calcium measurement (mass/volume) 7.9 mg/dL 8.5-10.1 Serum or plasma total bilirubin measurement (mass/volume) 0.2 mg/dL 0.1-1.0 Serum or plasma alkaline phosphatase measurement (enzymatic activity/volume) 108 U/L 40-136 Serum or plasma aspartate aminotransferase measurement (enzymatic activity/ volume) 16 U/L 5-34 Serum or plasma alanine aminotransferase measurement (enzymatic activity/volume ) 31 U/L 0-55 Serum or plasma protein measurement (mass/volume) 5.4 g/dL 6.4-8.2 Serum or plasma albumin measurement (mass/volume) 2.7 g/dL 3.2-4.5 Complete blood count (CBC) with automated white blood cell (WBC) differential - 06/11/16 05:40 Blood leukocytes automated count (number/volume) 24.1 10*3/uL 4.3-11.0 Blood erythrocytes automated count (number/volume) 4.28 10*6/uL 4.35-5.85 Venous blood hemoglobin measurement (mass/volume) 11.1 g/dL 11.5-16.0 Blood hematocrit (volume fraction) 35 % 35-52 Automated erythrocyte mean corpuscular volume 83 [foz_us] 80-99 Automated erythrocyte mean corpuscular hemoglobin (mass per erythrocyte) 26 pg 25-34 Automated erythrocyte mean corpuscular hemoglobin concentration measurement ( mass/volume) 31 g/dL 32-36 Automated erythrocyte distribution width ratio 14.5 % 10.0-14.5 Automated blood platelet count (count/volume) 471 10*3/uL 130-400 Automated blood platelet mean volume measurement 9.4 [foz_us] 7.4-10.4 Automated blood neutrophils/100 leukocytes 75 % 42-75 Automated blood lymphocytes/100 leukocytes 19 % 12-44 Blood monocytes/100 leukocytes 5 % 0-12 Automated blood eosinophils/100 leukocytes 0 % 0-10 Automated blood basophils/100 leukocytes 1 % 0-10 Blood neutrophils automated count (number/volume) 18.1 10*3 1.8-7.8 Blood lymphocytes automated count (number/volume) 4.6 10*3 1.0-4.0 Blood monocytes automated count (number/volume) 1.2 10*3 0.0-1.0 Automated eosinophil count 0.1 10*3/uL 0.0-0.3 Automated blood basophil count (count/volume) 0.2 10*3/uL 0.0-0.1 Comprehensive metabolic panel - 06/11/16 05:40 Serum or plasma sodium measurement (moles/volume) 141 mmol/L 135-145 Serum or plasma potassium measurement (moles/volume) 3.5 mmol/L 3.6-5.0 Serum or plasma chloride measurement (moles/volume) 108 mmol/L 98-107 Carbon dioxide 22 mmol/L 21-32 Serum or plasma anion gap determination (moles/volume) 11 mmol/L 5-14 Serum or plasma urea nitrogen measurement (mass/volume) 15 mg/dL 7-18 Serum or plasma creatinine measurement (mass/volume) 0.70 mg/dL 0.60-1.30 Serum or plasma urea nitrogen/creatinine mass ratio 21 NRG Serum or plasma creatinine measurement with calculation of estimated glomerular filtration rate > NRG Serum or plasma glucose measurement (mass/volume) 98 mg/dL 70-105 Serum or plasma calcium measurement (mass/volume) 7.8 mg/dL 8.5-10.1 Serum or plasma total bilirubin measurement (mass/volume) 0.3 mg/dL 0.1-1.0 Serum or plasma alkaline phosphatase measurement (enzymatic activity/volume) 97 U/L 40-136 Serum or plasma aspartate aminotransferase measurement (enzymatic activity/ volume) 20 U/L 5-34 Serum or plasma alanine aminotransferase measurement (enzymatic activity/volume ) 33 U/L 0-55 Serum or plasma protein measurement (mass/volume) 5.1 g/dL 6.4-8.2 Serum or plasma albumin measurement (mass/volume) 2.7 g/dL 3.2-4.5 Vancomycin trough - 06/11/16 05:40 Vancomycin trough 15.9 ug/mL 10.0-20.0 Complete blood count (CBC) with automated white blood cell (WBC) differential - 06/13/16 05:40 Blood leukocytes automated count (number/volume) 20.2 10*3/uL 4.3-11.0 Blood erythrocytes automated count (number/volume) 4.29 10*6/uL 4.35-5.85 Venous blood hemoglobin measurement (mass/volume) 11.1 g/dL 11.5-16.0 Blood hematocrit (volume fraction) 35 % 35-52 Automated erythrocyte mean corpuscular volume 82 [foz_us] 80-99 Automated erythrocyte mean corpuscular hemoglobin (mass per erythrocyte) 26 pg 25-34 Automated erythrocyte mean corpuscular hemoglobin concentration measurement ( mass/volume) 31 g/dL 32-36 Automated erythrocyte distribution width ratio 15.0 % 10.0-14.5 Automated blood platelet count (count/volume) 452 10*3/uL 130-400 Automated blood platelet mean volume measurement 9.3 [foz_us] 7.4-10.4 Automated blood neutrophils/100 leukocytes 68 % 42-75 Automated blood lymphocytes/100 leukocytes 25 % 12-44 Blood monocytes/100 leukocytes 4 % 0-12 Automated blood eosinophils/100 leukocytes 2 % 0-10 Automated blood basophils/100 leukocytes 0 % 0-10 Blood neutrophils automated count (number/volume) 13.8 10*3 1.8-7.8 Blood lymphocytes automated count (number/volume) 5.0 10*3 1.0-4.0 Blood monocytes automated count (number/volume) 0.9 10*3 0.0-1.0 Automated eosinophil count 0.4 10*3/uL 0.0-0.3 Automated blood basophil count (count/volume) 0.1 10*3/uL 0.0-0.1 Comp. Metabolic Panel (14) - 06/30/16 15:13 Glucose, Serum 90 mg/dL 65-99 BUN 11 mg/dL 6-24 Creatinine, Serum 0.84 mg/dL 0.57-1.00 eGFR If NonAfricn Am 84 mL/min/1.73 >59 eGFR If Africn Am 96 mL/min/1.73 >59 BUN/Creatinine Ratio 13 9-23 Sodium, Serum 140 mmol/L 134-144 Potassium, Serum 4.2 mmol/L 3.5-5.2 Chloride, Serum 98 mmol/L 96-106 Carbon Dioxide, Total 25 mmol/L 18-29 Calcium, Serum 10.7 mg/dL 8.7-10.2 Protein, Total, Serum 6.8 g/dL 6.0-8.5 Albumin, Serum 4.4 g/dL 3.5-5.5 Globulin, Total 2.4 g/dL 1.5-4.5 A/G Ratio 1.8 1.2-2.2 Bilirubin, Total 0.3 mg/dL 0.0-1.2 Alkaline Phosphatase, S 145 IU/L 39-117 AST (SGOT) 16 IU/L 0-40 ALT (SGPT) 50 IU/L 0-32 Amylase, Serum - 06/30/16 15:13 Amylase, Serum 125 U/L 31-124 Lipase, Serum - 06/30/16 15:13 Lipase, Serum 127 U/L 0-59 Urine Culture, Routine - 06/30/16 16:16 Urine Culture, Routine Note Complete blood count (CBC) with automated white blood cell (WBC) differential - 10/20/16 11:32 Blood leukocytes automated count (number/volume) 9.0 10*3/uL 4.3-11.0 Blood erythrocytes automated count (number/volume) 4.72 10*6/uL 4.35-5.85 Venous blood hemoglobin measurement (mass/volume) 12.4 g/dL 11.5-16.0 Blood hematocrit (volume fraction) 38 % 35-52 Automated erythrocyte mean corpuscular volume 81 [foz_us] 80-99 Automated erythrocyte mean corpuscular hemoglobin (mass per erythrocyte) 26 pg 25-34 Automated erythrocyte mean corpuscular hemoglobin concentration measurement ( mass/volume) 33 g/dL 32-36 Automated erythrocyte distribution width ratio 13.9 % 10.0-14.5 Automated blood platelet count (count/volume) 305 10*3/uL 130-400 Automated blood platelet mean volume measurement 10.2 [foz_us] 7.4-10.4 Automated blood neutrophils/100 leukocytes 58 % 42-75 Automated blood lymphocytes/100 leukocytes 30 % 12-44 Blood monocytes/100 leukocytes 6 % 0-12 Automated blood eosinophils/100 leukocytes 6 % 0-10 Automated blood basophils/100 leukocytes 0 % 0-10 Blood neutrophils automated count (number/volume) 5.2 10*3 1.8-7.8 Blood lymphocytes automated count (number/volume) 2.7 10*3 1.0-4.0 Blood monocytes automated count (number/volume) 0.6 10*3 0.0-1.0 Automated eosinophil count 0.5 10*3/uL 0.0-0.3 Automated blood basophil count (count/volume) 0.0 10*3/uL 0.0-0.1 Comprehensive metabolic panel - 10/20/16 11:32 Serum or plasma sodium measurement (moles/volume) 140 mmol/L 135-145 Serum or plasma potassium measurement (moles/volume) 3.8 mmol/L 3.6-5.0 Serum or plasma chloride measurement (moles/volume) 107 mmol/L 98-107 Carbon dioxide 26 mmol/L 21-32 Serum or plasma anion gap determination (moles/volume) 7 mmol/L 5-14 Serum or plasma urea nitrogen measurement (mass/volume) 10 mg/dL 7-18 Serum or plasma creatinine measurement (mass/volume) 0.77 mg/dL 0.60-1.30 Serum or plasma urea nitrogen/creatinine mass ratio 13 NRG Serum or plasma creatinine measurement with calculation of estimated glomerular filtration rate > NRG Serum or plasma glucose measurement (mass/volume) 102 mg/dL 70-105 Serum or plasma calcium measurement (mass/volume) 9.2 mg/dL 8.5-10.1 Serum or plasma total bilirubin measurement (mass/volume) 0.2 mg/dL 0.1-1.0 Serum or plasma alkaline phosphatase measurement (enzymatic activity/volume) 135 U/L 40-136 Serum or plasma aspartate aminotransferase measurement (enzymatic activity/ volume) 27 U/L 5-34 Serum or plasma alanine aminotransferase measurement (enzymatic activity/volume ) 56 U/L 0-55 Serum or plasma protein measurement (mass/volume) 6.3 g/dL 6.4-8.2 Serum or plasma albumin measurement (mass/volume) 3.7 g/dL 3.2-4.5 Serum or plasma amylase measurement (enzymatic activity/volume) - 10/20/16 11: 32 Serum or plasma amylase measurement (enzymatic activity/volume) 77 U /L 25-125 Lipase - 10/20/16 11:32 Lipase 76 U/L 8-78 Complete urinalysis with reflex to culture - 10/20/16 13:02 Urine color determination YELLOW NRG Urine clarity determination CLEAR NRG Urine pH measurement by test strip 6 5-9 Specific gravity of urine by test strip 1.010 1.016- 1.022 Urine protein assay by test strip, semi-quantitative NEGATIVE NEGATIVE Urine glucose detection by automated test strip NEGATIVE NEGATIVE Erythrocytes detection in urine sediment by light microscopy NEGATIVE NEGATIVE Urine ketones detection by automated test strip NEGATIVE NEGATIVE Urine nitrite detection by test strip NEGATIVE NEGATIVE Urine total bilirubin detection by test strip NEGATIVE NEGATIVE Urine urobilinogen measurement by automated test strip (mass/volume) NORMAL NORMAL Urine leukocyte esterase detection by dipstick NEGATIVE NEGATIVE Automated urine sediment erythrocyte count by microscopy (number/high power field) NONE NRG Automated urine sediment leukocyte count by microscopy (number/high power field ) RARE NRG Bacteria detection in urine sediment by light microscopy NEGATIVE NRG Squamous epithelial cells detection in urine sediment by light microscopy 0-2 NRG Crystals detection in urine sediment by light microscopy NONE NRG Casts detection in urine sediment by light microscopy NONE NRG Mucus detection in urine sediment by light microscopy NEGATIVE NRG Complete urinalysis with reflex to culture NO NRG CULTURE, URINE - 04/24/17 17:30 CULTURE, URINE, ROUTINE SEE NOTE NRG AMYLASE - 06/20/17 08:27 AMYLASE 44 U/L 21-101 Encounters ACCT No. Visit Date/Time Discharge Status Pt. Type Provider Facility Loc./Unit Complaint [id number] 12/08/2017 15:56:00 12/08/2017 23:59:59 CLS Outpatient MAVERICK ROSALES MD [facility] RAD SCREENING FOR BREAST CANCER [id number] 03/29/2017 09:09:00 03/29/2017 23:59:59 CLS Outpatient MAVERICK ROSALES MD [facility] RAD Z12.31 SCREENING [id number] 10/20/2016 11:10:00 10/20/2016 13:38:00 DIS Emergency BILL HEREDIA APRN [facility] ER ABD PAIN [id number] 08/30/2016 08:54:00 08/30/2016 23:59:59 CLS Outpatient SPENSER CORDOVA MD [facility] RAD J34.9,H53.8 [id number] 06/07/2016 11:19:00 06/13/2016 15:25:00 DIS Inpatient MAVERICK ROSALES MD [facility] 4TH HYPOXIA [id number] 06/02/2016 04:56:00 06/02/2016 08:28:00 DIS Emergency ANAND GUNN MD [facility] ER SOB,VOMITING,ABD PAIN, COUGHING [id number] 05/28/2016 21:13:00 05/28/2016 22:48:00 DIS Emergency BILL HEREDIA APRN [facility] ER AB AND BACK PAIN [id number] 03/20/2016 04:23:00 03/21/2016 12:30:00 DIS Inpatient EDGAR DIAZ MD [facility] 4TH EXACERBATION OF CHRONIC PANCREATITIS [id number] 12/09/2015 22:14:00 12/10/2015 00:17:00 DIS Emergency MAGALIS ETIENNE DO [facility] ER ABD PAIN [id number] 10/27/2015 14:38:00 10/27/2015 17:01:00 DIS Emergency ADELIA MISHRA MD [facility] ER ABD PAIN [id number] 08/12/2015 06:46:00 08/12/2015 09:35:00 DIS Outpatient HERBERT GUY DO [facility] SDC ATELECTASIS OF LEFT LUNG [id number] 08/06/2015 07:27:00 08/06/2015 13:40:00 DIS Outpatient HERBERT GUY DO [facility] PREOP LEFT LUNG [id number] 07/27/2015 13:11:00 07/27/2015 23:59:59 CLS Outpatient HERBERT GUY DO [facility] RAD [id number] 05/20/2015 10:59:00 05/20/2015 23:59:59 CLS Outpatient HERBERT GUY DO [facility] RAD [id number] 03/31/2015 08:19:00 03/31/2015 23:59:59 CLS Outpatient ANCELMO ZUÑIGA MD [facility] RAD ACUTE PANCREATITS K85.9 [id number] 03/11/2015 16:46:00 03/11/2015 23:59:59 CLS Outpatient HERBERT GUY DO [facility] RT ADLEXIS OF LT LUNG PNUEMONIA [id number] 03/03/2015 14:35:00 03/03/2015 15:07:00 DIS Outpatient HERBERT GUY DO [facility] SLEEP SNORING, EDS, MOOD DISORDER [id number] 02/22/2015 18:06:00 02/25/2015 18:12:00 DIS Inpatient MAVERICK GRIFFITHS MD [facility] 4TH PANCREATITIS [id number] 02/16/2015 14:45:00 02/16/2015 23:59:59 CLS Outpatient MAVERICK GRIFFITHS MD [facility] RAD LUNG NODULE [id number] 02/05/2015 09:37:00 02/05/2015 09:38:00 DIS Outpatient CALEB BLAIR DO [facility] LAB PNEUMONIA [id number] 01/28/2015 13:57:00 01/28/2015 23:59:59 CLS Outpatient MAVERICK GRIFFITHS MD [facility] RAD PNEUMONIA [id number] 01/16/2015 10:16:00 01/16/2015 23:59:59 CLS Outpatient ZARA VYAS, ANCELMO Marquis [facility] RAD ACUTE PANCREATITIS [id number] 01/16/2015 10:01:00 01/16/2015 23:59:59 CLS Outpatient BRUCE AGUAYO [employer] [facility] RAD LUNG NODULE,L LUNG BASE [id number] 2014 08:10:00 2014 10:25:00 DIS Emergency BIA VYAS, MARLA Olivas [facility] ER RIGHT SIDE ABD PAIN POST OP [id number] 11/11/2014 10:21:00 11/11/2014 23:59:59 [facility] [id number] 08/20/2014 16:54:00 08/23/2014 11:45:00 DIS Inpatient MAVERICK GRIFFITHS MD [facility] 4TH ACUTE PANCREATITIS, ELEVATED LFT'S [id number] 07/24/2014 06:00:00 07/24/2014 23:59:59 CLS Outpatient ALESSIO OJEDA MD [facility] BILIARY DYSKNESIA [id number] 07/18/2014 11:58:00 07/18/2014 23:59:59 CLS Outpatient ALESSIO OJEDA MD [facility] PREOP BILIARY DYSKNESIA [id number] 07/07/2014 10:31:00 07/10/2014 17:20:00 DIS Inpatient MAVERICK GRIFFITHS MD [facility] SURGICAL ABD PAIN PANCREATITIS [id number] 01/21/2014 10:41:00 01/21/2014 23:59:59 CLS Outpatient PENNIE HARO [facility] RAD SCREENING [id number] 07/18/2013 16:43:00 07/19/2013 11:58:00 DIS Inpatient ALESSIO OJEDA MD [facility] SURGICAL RUQ PAIN, POSSIBLE CHOLEDOCHOLITHIASIS [id number] 04/20/2013 13:55:00 04/20/2013 23:59:59 CLS Outpatient CHERRIE WEIR DO [facility] LAB CHEST PAIN, BACK PAIN [id number] 01/21/2018 02:23:00 ACT Emergency MAGALIS ETIENNE DO [facility] ER R SIDE ABD PAIN/CHRONIC PANCREATITIS [id number] 07/03/2015 21:12:00 Document Registration [id number] 01/06/2015 14:59:00 Document Registration [id number] 01/06/2015 14:59:00 Document Registration [id number] 01/06/2015 14:59:00 Document Registration [id number] 01/06/2015 14:59:00 Document Registration [id number] 01/06/2015 14:59:00 Document Registration [id number] 01/06/2015 14:59:00 Document Registration [id number] 07/07/2014 09:13:00 Document Registration [id number] 11/30/2011 13:17:00 Document Registration [id number] 11/21/2011 11:53:00 Document Registration [id number] 09/28/2011 15:13:00 Document Registration [id number] 09/16/2011 13:08:00 Document Registration [id number] 08/31/2011 12:58:00 Document Registration [id number] 09/14/2010 05:41:00 Document Registration [id number] 09/06/2010 07:40:00 Document Registration [id number] 08/25/2010 14:26:00 Document Registration [id number] 08/03/2010 10:47:00 Document Registration [id number] 07/08/2009 10:33:00 Document Registration [id number] 03/03/2008 08:26:00 Document Registration [id number] 02/20/2008 09:23:00 Document Registration [id number] 05/08/2006 07:59:00 Document Registration [id number] 07/02/2016 18:07:00 Document Registration [id number] 10/26/2017 16:20:00 10/26/2017 23:59:59 [facility] Outpatient MAVERICK ROSALES [facility] [id number] 06/20/2017 08:20:00 Document Registration [id number] 04/24/2017 16:40:00 Document Registration [id number] 06/10/2016 13:06:00 Document Registration [id number] 04/05/2016 18:05:00 Document Registration [id number] 07/01/2016 08:38:00 Document Registration
[2018-01-21 03:15] LABS: BASOPHILS % (AUTO) 0 % (0-10); EOSINOPHILS # (AUTO) 0.6 10^3/uL (0.0-0.3); EOSINOPHILS % (AUTO) 5 % (0-10); HEMATOCRIT 41 % (35-52); HEMOGLOBIN 13.5 G/DL (11.5-16.0); LYMPHOCYTES # (AUTO) 3.5 X 10^3 (1.0-4.0); LYMPHOCYTES % (AUTO) 30 % (12-44); MEAN CORPUSCULAR HEMOGLOBIN 27 PG (25-34); MEAN CORPUSCULAR HGB CONC 33 G/DL (32-36); MEAN CORPUSCULAR VOLUME 82 FL (80-99); MONOCYTES # (AUTO) 0.8 X 10^3 (0.0-1.0); MONOCYTES % (AUTO) 7 % (0-12); NEUTROPHILS # (AUTO) 6.6 X 10^3 (1.8-7.8); NEUTROPHILS % (AUTO) 57 % (42-75); PLATELET COUNT 326 10^3/uL (130-400); RED BLOOD COUNT 4.93 10^6/uL (4.35-5.85); WHITE BLOOD COUNT 11.5 10^3/uL (4.3-11.0)
[2018-01-21] MEDS ORDERED: LACTATED RINGERS 1,000 ML IV ONE (03:29)
[2018-01-21] MEDS ORDERED: KETOROLAC 30 MG/ML VIAL IVP STA (03:29)
[2018-01-21] MEDS ORDERED: ONDANSETRON 4 MG/2 ML (SDV) Z0FRAN IVP ONE (03:30)
[2018-01-21 03:35] LABS: ALANINE AMINOTRANSFERASE 183 U/L (0-55); ALBUMIN 4.1 GM/DL (3.2-4.5); ALKALINE PHOSPHATASE 287 U/L (40-136); AMYLASE 54 U/L (25-125); BILIRUBIN,TOTAL 0.3 MG/DL (0.1-1.0); BUN/CREATININE RATIO 18; CALCIUM 9.2 MG/DL (8.5-10.1); CARBON DIOXIDE 20 MMOL/L (21-32); CHLORIDE 106 MMOL/L (98-107); CREATININE SERUM 0.82 MG/DL (0.60-1.30); GFR ESTIMATED > 60; GLUCOSE 102 MG/DL (70-105); LIPASE 29 U/L (8-78); SODIUM 140 MMOL/L (135-145); TOTAL PROTEIN 6.9 GM/DL (6.4-8.2)
[2018-01-21 04:52] LABS: BILIRUBIN,URINE NEGATIVE (NEGATIVE); CLARITY,URINE CLEAR; COLOR,URINE YELLOW; GLUCOSE, URINE (UA) NEGATIVE (NEGATIVE); KETONES,URINE NEGATIVE (NEGATIVE); LEUKOCYTE ESTERASE ,URINE NEGATIVE (NEGATIVE); NITRITE,URINE NEGATIVE (NEGATIVE); PH,URINE 7 (5-9); PROTEIN,URINE NEGATIVE (NEGATIVE); UROBILINOGEN,URINE NORMAL (NORMAL)
[2018-01-21] MEDS ORDERED: NS 250 ML (IVPB) BAG IV ONE (05:00)
[2018-01-21] MEDS ORDERED: IOHEXOL 350 MG/ML 100 ML (OMNIPAQUE 350) VIAL IV ONE (05:00)
[2018-01-21 05:08] LABS: BACTERIA,URINE NEGATIVE /HPF
[2018-01-21] MEDS ORDERED: ONDA4TAB8 PO (05:25)
[2018-01-21] MEDS ORDERED: DICY20TA10 PO (05:25)
--- NOTE | 2018-01-21 05:25 | ED Abdominal Pain ---
General Chief Complaint: Abdominal/GI Problems Stated Complaint: R SIDE ABD PAIN/CHRONIC PANCREATITIS Nursing Triage Note: Pt ambulated to rm 6. Pt c/o R sided abdominal pain radiating to the back. Pt took hyoscamine, zantac, singulair and boris seltzer at 2230. Pt has chronic pancretitis. Sepsis Screen: No Definite Risk Allergies and Home Medications Allergies Coded Allergies: ciprofloxacin (Verified Allergy, Severe, 07/10/14) severe itching at iv site codeine (Unverified Allergy, Unknown, 07/08/14) PT STATED WHEN SHE HAS TYLENOL AND CODEINE TOGETHER (TYLENOL #3) SHE HAS TERRIBLE NIGHTMARES. butorphanol (Unverified Adverse Reaction, Unknown, SEVERE HEADACHES, ) Home Medications Amoxicillin/Potassium Clav 1 Each Tablet, 1 EACH PO BID Prescribed by: CELSO NEUMANN on 06/13/16 1231 Guaifenesin/Dextromethorphan 118 Ml Liquid, 30 ML PO Q4H PRN for CONGESTION, ( Reported) Ibuprofen 200 Mg Tablet, 800 MG PO Q8H PRN for FEVER/PAIN, (Reported) TAKES 4 (200MG) TABLETS NEEDED FOR PAIN Ipratropium/Albuterol Sulfate 3 Ml Ampul.neb, 3 ML INH Q4H PRN for SHORTNESS OF BREATH Prescribed by: CELSO NEUMANN on 06/13/16 1455 Loratadine/Pseudoephedrine 1 Each Tab.er.24h, 1 TAB PO DAILY PRN for ALLERGIES/ CONGESTION, (Reported) Pantoprazole Sodium 40 Mg Tablet.dr, 40 MG PO DAILY Prescribed by: BILL HEREDIA on 10/20/16 1329 Prednisone 10 Mg Tab, 0 PO UD 40mg qdx2d then 30mg qdx2d, then 20mg qdx2d, then 10mg qdx2d Prescribed by: CELSO NEUMANN on 06/13/16 1231 Ranitidine HCl 150 Mg Tablet, 150 MG PO HS, (Reported) Past Wuoqcqw-Glpgld-Bbkvry Hx Patient Social History Alcohol Use: Denies Use Recreational Drug Use: No Type Used: Cigarettes Former Smoker, Quit: Sep 14, 2010 2nd Hand Smoke Exposure: Yes Recent Foreign Travel: No Contact w/Someone Who Travel: No Recent Infectious Disease Expo: No Recent Hopitalizations: Yes (pancreatitis) Immunizations Up To Date Tetanus Booster (TDap): Less than 5yrs PED Vaccines UTD: No Date of Influenza Vaccine: Feb 26, 2016 Seasonal Allergies Seasonal Allergies: Yes Past Medical History Surgeries: Yes Abdominal, Appendectomy, Gallbladder, Hysterectomy, Oophorectomy, Orthopedic, Pancreatic Respiratory: Yes (atelectasis, nocturnal hypoxia with O2 supplementation) Asthma, Pneumonia Currently Using CPAP: No Currently Using BIPAP: No Cardiac: No Hypertension Neurological: No 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 Disorders: Yes (Hysterectomy due to fibroid tumors) Female 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 Disorders: Denies 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 Sexually Transmitted Disease: No HIV/AIDS: No Genitourinary: No Gastrointestinal: Yes (pancreatitis x4 2015; CHRONIC PANCREATITIS) Pancreatitis Musculoskeletal: Yes Arthritis Endocrine: No HEENT: No Loss of Vision: Denies Hearing Impairment: Denies Cancer: No Psychosocial: Yes Anxiety Integumentary: No Blood Disorders: No Adverse Reaction/Blood Tranf: No Family Medical History Arthritis 03 MOTHER Cancer (Breast CA.) 03 MOTHER Cardiovascular disease 03 FATHER Deafness or hearing loss 03 FATHER Fibrocystic disease of breast 03 MOTHER Hypercholesterolemia 03 FATHER 03 MOTHER Hypertension 03 MOTHER Osteoporosis 03 MOTHER Respiratory disorder 03 MOTHER No Family History of: AIDS Abdominal aortic aneurysm Favio's disease Alcoholism Alzheimer's disease Asthma Cancer of mouth Cataracts Colon cancer Completed stroke Congenital disease Congenital heart disease Coronary thrombosis Cystic fibrosis Dementia Diabetes mellitus Drug abuse Dysphasia Gastroenteritis Glaucoma Headache disorder Infertility Kidney disease Myocardial infarction Neoplasm Not obtainable due to adoption Parkinson's disease Prostate cancer Psychosocial problem Seizure disorder Severe allergy Thyroid disease Tuberculosis Visual disorder Heart Disease, COPD, Hypertension Physical Exam Vital Signs Vital Signs - First Documented 01/21/18 02:48 Temp 98.5 Pulse 66 Resp 12 B/P (MAP) 111/76 (88) Pulse Ox 96 O2 Delivery Room Air Capillary Refill : Less Than 3 Seconds Height/Weight/BMI Height: 5'4.00" Weight: 250lbs. 0.0oz. 113.653421nk; 42.0 BMI Method:Stated Progress/Results/Core Measures Results/Orders Lab Results Laboratory Tests Test 01/21/18 03:02 01/21/18 04:44 Range/Units White Blood Count 11.5 H 4.3-11.0 10^3/uL Red Blood Count 4.93 4.35-5.85 10^6/uL Hemoglobin 13.5 11.5-16.0 G/DL Hematocrit 41 35-52 % Mean Corpuscular Volume 82 80-99 FL Mean Corpuscular Hemoglobin 27 25-34 PG Mean Corpuscular Hemoglobin Concent 33 32-36 G/DL Red Cell Distribution Width 15.0 H 10.0-14.5 % Platelet Count 326 130-400 10^3/uL Mean Platelet Volume 10.0 7.4-10.4 FL Neutrophils (%) (Auto) 57 42-75 % Lymphocytes (%) (Auto) 30 12-44 % Monocytes (%) (Auto) 7 0-12 % Eosinophils (%) (Auto) 5 0-10 % Basophils (%) (Auto) 0 0-10 % Neutrophils # (Auto) 6.6 1.8-7.8 X 10^3 Lymphocytes # (Auto) 3.5 1.0-4.0 X 10^3 Monocytes # (Auto) 0.8 0.0-1.0 X 10^3 Eosinophils # (Auto) 0.6 H 0.0-0.3 10^3/uL Basophils # (Auto) 0.0 0.0-0.1 10^3/uL Sodium Level 140 135-145 MMOL/L Potassium Level 4.0 3.6-5.0 MMOL/L Chloride Level 106 98-107 MMOL/L Carbon Dioxide Level 20 L 21-32 MMOL/L Anion Gap 14 5-14 MMOL/L Blood Urea Nitrogen 15 7-18 MG/DL Creatinine 0.82 0.60-1.30 MG/DL Estimat Glomerular Filtration Rate > 60 BUN/Creatinine Ratio 18 Glucose Level 102 70-105 MG/DL Calcium Level 9.2 8.5-10.1 MG/DL Corrected Calcium 9.1 8.5-10.1 MG/DL Total Bilirubin 0.3 0.1-1.0 MG/DL Aspartate Amino Transf (AST/SGOT) 139 H 5-34 U/L Alanine Aminotransferase (ALT/SGPT) 183 H 0-55 U/L Alkaline Phosphatase 287 H 40-136 U/L Total Protein 6.9 6.4-8.2 GM/DL Albumin 4.1 3.2-4.5 GM/DL Amylase Level 54 25-125 U/L Lipase 29 8-78 U/L Serum Test, Qualitative NEGATIVE NEGATIVE Urine Color YELLOW Urine Clarity CLEAR Urine pH 7 5-9 Urine Specific Palmer 1.010 L 1.016-1.022 Urine Protein NEGATIVE NEGATIVE Urine Glucose (UA) NEGATIVE NEGATIVE Urine Ketones NEGATIVE NEGATIVE Urine Nitrite NEGATIVE NEGATIVE Urine Bilirubin NEGATIVE NEGATIVE Urine Urobilinogen NORMAL NORMAL MG/DL Urine Leukocyte Esterase NEGATIVE NEGATIVE Urine RBC (Auto) NEGATIVE NEGATIVE Urine RBC NONE /HPF Urine WBC NONE /HPF Urine Squamous Epithelial Cells 2-5 /HPF Urine Crystals NONE /LPF Urine Bacteria NEGATIVE /HPF Urine Casts NONE /LPF Urine Mucus NEGATIVE /LPF Urine Culture Indicated NO My Orders Orders - MAGALIS ETIENNE DO Saline Lock/Iv-Start (01/21/18 02:55) Amylase (01/21/18 02:55) Cbc With Automated Diff (01/21/18 02:55) Comprehensive Metabolic Panel (01/21/18 02:55) Hcg,Qualitative Serum (01/21/18 02:55) Lipase (01/21/18 02:55) Ua Culture If Indicated (01/21/18 02:55) Ondansetron Injection (Zofran Injectio (01/21/18 03:30) Ketorolac Injection (Toradol Injection) (01/21/18 03:29) Saline Lock/Iv-Start (01/21/18 03:29) Lactated Ringers (Lr 1000 Ml Iv Solution (01/21/18 03:29) Ct Abdomen/Pelvis W (01/21/18 03:42) Acute Abd Series (01/21/18 03:42) Hepatitis Panel Acute (01/21/18 03:51) Iohexol Injection (Omnipaque 350 Mg/Ml 1 (01/21/18 05:00) Ns (Ivpb) (Sodium Chloride 0.9%) (01/21/18 05:00) Medications Given in ED Current Medications Medications Dose Ordered Sig/Fili Route Start Time Stop Time Status Last Admin Dose Admin Iohexol 100 ml ONCE ONCE IV 01/21/18 05:00 01/21/18 05:01 UNV 01/21/18 05:01 100 ML Lactated Ringer's 1,000 ml @ 0 mls/hr Q0M ONCE IV 01/21/18 03:29 01/21/18 03:32 DC 01/21/18 03:43 1,000 MLS/HR Ondansetron HCl 4 mg ONCE ONCE IVP 01/21/18 03:30 01/21/18 03:32 DC 01/21/18 03:44 4 MG Sodium Chloride 80 ml ONCE ONCE IV 01/21/18 05:00 01/21/18 05:01 UNV 01/21/18 05:01 80 ML Vital Signs/I&O 01/21/18 02:48 Temp 98.5 Pulse 66 Resp 12 B/P (MAP) 111/76 (88) Pulse Ox 96 O2 Delivery Room Air Blood Pressure Mean: 88 Progress Progress Note : Progress Note ALL SYMPTOMS RESOLVED WITH MEDICATIONS PT LATER STATES SHE "JUST FREAKS" ANY TIME SHE HAS PAIN IN ABDOMEN BECAUSE OF PRIOR PROBLEMS WITH HER PANCREAS. PT STATES " I PROBABLY SHOULD HAVE JUST TAKEN AN XANAX AND I WOULD HAVE BEEN FINE" Departure Impression Primary Impression: RUQ abdominal pain Additional Impressions: Constipation Hepatic steatosis Disposition: HOME, SELF-CARE Condition: Improved Departure-Patient Inst. Referrals: MAVERICK ROSALES MD (PCP/Family) Primary Care Physician Patient Instructions: Acute Abdomen (Belly Pain), Adult (DC), Constipation, Adult (DC), Nonalcoholic Fatty Liver Disease (DC) Add. Discharge Instructions: CLEAR LIQUIDS TODAY--WATER, BROTH, JELLO, GATORADE NO FOOD TODAY IF YOU ARE BETTER TOMORROW, YOU MAY ADD BRATS DIET TO CLEAR LIQUIDS TAKE MIRALAX EVERY 2-3 HOURS UNTIL YOUR STOOLS ARE WATERY, THEN START TAKING ONCE A DAY NO TYLENOL OR ALCOHOL YOU MAY CONTINUE LEVSIN/HYOSCYAMINE 1-2 PILLS EVERY 4 HOURS NEEDED FOR STOMACH CRAMPING FOLLOW UP WITH YOUR DR IN 2-3 DAYS FOR FURTHER CARE All discharge instructions reviewed with patient and/or family. Voiced understanding. Scripts Dicyclomine HCl (Dicyclomine HCl) 20 Mg Tablet 20 MG PO Q6H for Abdominal Pain, #20 TAB Prov: MAGALIS ETIENNE DO 01/21/18 Ondansetron (Zofran Odt) 4 Mg Tab.rapdis 4 MG PO Q4H for Nausea/Vomiting, #10 TAB Prov: AMGALIS ETIENNE DO 01/21/18 MAGALIS ETIENNE DO Jan 21, 2018 05:25
[2018-01-21 05:55] VITALS: BP 135/89
--- NOTE | 2018-01-21 06:31 | Diagnostic Imaging Report ---
PROCEDURE: CT abdomen and pelvis with contrast. TECHNIQUE: Multiple contiguous axial images were obtained through the abdomen and pelvis after administration of intravenous contrast. Indication: Generalized abdominal pain. Comparison: 10/20/2016. Discussion: The lung bases are well-aerated. Normal heart size. No pleural or pericardial fluid. The liver remains enlarged and shows diffuse fatty infiltration, stable. The gallbladder surgically absent. The pancreas, stomach, spleen, and adrenal glands are unremarkable. Small hiatal hernia. No renal stone or hydronephrosis. The uterus is surgically absent. The urinary bladder is unremarkable. No obstruction, pneumatosis, or pneumoperitoneum. No ascites or pathologically enlarged lymph nodes identified. Mild anterior wedging of the T11 vertebral body is stable, chronic. No other acute osseous abnormality. Impression: 1. No acute abnormality identified within either the abdomen or pelvis. Stable fatty hepatomegaly. 2. Agree with preliminary report. Dictated by: Dictated on workstation # [id number]
--- NOTE | 2018-01-21 06:55 | Diagnostic Imaging Report ---
EXAMINATION: Abdominal radiographs, acute series. DATE: January 21, 2018. CLINICAL INDICATION: 47-year-old female, right-sided abdominal pain. COMPARISON: CT abdomen and pelvis January 21, 2018 at 0436 hrs. COMMENTS: Heart size and mediastinal contours are unremarkable. There is no identified pneumothorax. There is no large pleural effusion. There is no identified focal airspace consolidation. Right upper quadrant surgical clips likely reflect prior cholecystectomy. There are gas-filled segments of large bowel which are not abnormally distended. There are no abnormally distended gas-filled segments of small bowel. There is no identified free intraperitoneal air. There is no identified abnormal radiodensity overlying the kidneys or expected positions of the ureters. There are surgical clips in the left side of the pelvis. IMPRESSION: 1. No radiographically apparent acute abdominal abnormality. 2. No identified acute cardiopulmonary abnormality. Dictated by: Dictated on workstation # [id number]
[2018-01-23 07:33] LABS: HEPATITIS C ANTIBODY C Non-Reactive (Non-Reactive)
== END 2018-01-21 06:03 | disposition home or self-care (01) ==
LOC: EDUNIT# 02:22 → ER 02:23
DX: K59.00 Constipation, unspecified (principal); K76.0 Fatty (change of) liver, not elsewhere classified; J45.909 Unspecified asthma, uncomplicated; I10 Essential (primary) hypertension; F41.9 Anxiety disorder, unspecified; Z88.1 Allergy status to other antibiotic agents; Z82.49 Family history of ischemic heart disease and other diseases of the circulatory system; Z88.5 Allergy status to narcotic agent; Z80.3 Family history of malignant neoplasm of breast; Z88.8 Allergy status to other drugs, medicaments and biological substances; Z79.52 Long term (current) use of systemic steroids; Z87.891 Personal history of nicotine dependence; Z87.19 Personal history of other diseases of the digestive system; Z90.89 Acquired absence of other organs; Z90.710 Acquired absence of both cervix and uterus; Z87.01 Personal history of pneumonia (recurrent)
CPT/HCPCS: 36415; 74022; 74177; 80053; 80074; 81000; 82150; 83690; 84703; 85025

== ENCOUNTER 2018-02-09 10:22 | Emergency (ER) | payer BC ==
[~2018-02-09] VITALS: Ht 160 cm; Wt 113.4 kg
[~2018-02-09 10:22] MED LIST changes: +DICY20TA10 PO
--- OUTSIDE RECORDS SUMMARY | 2018-02-09 10:29 | XMS REPORT ---
Author Author MAVERICK ROSALES Organization [facility] Address [address] [place] [address] Care Team Providers Care Chemistry Manager Name Role Phone MAVERICK ROSALES Unavailable PROBLEMS Type Condition ICD9-CM Code OCQ11-SB Code Onset Dates Condition Status SNOMED Code Problem Pneumonia of both lungs due to methicillin susceptible Staphylococcus aureus (MSSA), unspecified part of lung J15.211 Active 718568894 Problem Moderate episode of recurrent major depressive disorder F33.1 Active 541355879 Problem On home oxygen therapy Z99.81 Active 768485984358 Problem Hypertension I10 Active 17353230 Problem BMI 40.0-44.9, adult Z68.41 Active 083097110 Problem Persistent depressive disorder F34.1 Active 87805026 Problem Chronic maxillary sinusitis J32.0 Active 50818823 Problem Other chronic pancreatitis K86.1 Active 700516532 Problem Generalized anxiety disorder F41.1 Active 59449089 Problem Other chronic pain G89.29 Active 46163368 Problem Chronic pancreatitis, unspecified pancreatitis type K86.1 Active 522348504 Problem Anxiety F41.9 Active 39571283 Problem Environmental allergies Z91.09 Active 358091323 Problem Reflux gastritis K29.60 Active 99121993 Problem Seasonal allergic rhinitis due to pollen J30.1 Active 91703481 ALLERGIES Substance Reaction Event Type Date Status Tylenol/Codeine #3 Unknown Drug Allergy Oct, Active Codeine Sulfate Unknown Drug Allergy Oct, Active ENCOUNTERS Encounter Location Date Diagnosis [facility] [address] [facility] [id number] [address] Jan, [facility] [address] [facility] [id number] [address] Jan, [facility] [address] [facility] [id number] [address] Dec, Change in stool R19.5 ; Pre-diabetes R73.03 ; Left lower quadrant pain R10.32 and Screening for breast cancer Z12.31 [place] [address] [place] [id number] [place] [address] Oct, Chronic pancreatitis, unspecified pancreatitis type K86.1 ; Seasonal allergic rhinitis due to pollen J30.1 ; Moderate episode of recurrent major depressive disorder F33.1 ; Generalized anxiety disorder F41.1 ; BMI 40.0- 44.9, adult Z68.41 ; Pneumonia of both lungs due to methicillin susceptible Staphylococcus aureus (MSSA), unspecified part of lung J15.211 and Environmental allergies Z91.[address] [address] Sep, [address] [address] Jul, Effusion, left knee M25.462 ; Skin tag L91.8 ; BMI 40.0-44.9 , adult Z68.41 ; Atypical mole D22.9 and Reflux gastritis K29.60 [place] [address] [place] [id number] [place] [address] 76851- [address] Jun, Chronic pancreatitis, unspecified pancreatitis type K86.1 and Hypertension I10 [place] [address] [place] [id number] [place] [address] 54251- 9359 Jun, Chronic pancreatitis, unspecified pancreatitis type K86.1 and Hypertension I10 [place] [address] [place] [id number] [place] [address] 21912- 5729 May, Therapeutic drug monitoring Z51.81 [place] [address] [place] [id number] [place] [address] 11606- 8525 May, [place] [address] [place] [id number] [place] [address] 38761- 4336 Apr, [place] [address] [place] [id number] [place] [address] 05562- 1[address] Apr, BMI 40.0-44.9, adult Z68.41 ; Dysuria R30.0 ; Acute cystitis without hematuria N30.00 and Hypoxia R09.02 [place] [address] [place] [id number] [place] [address] 41653- 7981 Mar, Anxiety F41.9 ; Acute pain of left knee M25.562 ; Environmental allergies Z91.09 ; Other chronic pancreatitis K86.1 ; Screening for breast cancer Z12.31 and Encounter for immunization Z23 [place] [address] [place] [id number] [place] [address] 01859- 8071 Feb, Encounter for immunization Z23 [place] [address] [place] [id number] [place] [address] 52609- [address] Jan, [place] [address] [place] [id number] [place] [address] 72025- 7441 Dec, Encounter for immunization Z23 [place] [address] [place] [id number] [place] [address] 99924- 9177 Dec, Generalized anxiety disorder F41.1 and Persistent depressive disorder F34.1 [place] [address] [place] [id number] [place] [address] 04131- 7591 Nov, Generalized anxiety disorder F41.1 and Persistent depressive disorder F34.1 [place] [address] [place] [id number] [place] [address] 33025- 5404 Nov, Weight loss R63.4 and Acute pain of right shoulder M25.511 [place] [address] [place] [id number] [place] [address] 00591- 9148 Oct, [place] [address] [place] [id number] [place] [address] 00136- 7577 Sep, [place] [address] [place] [id number] [place] [address] 42484- 7207 Sep, Chronic pancreatitis, unspecified pancreatitis type K86.1 [place] [address] [place] [id number] [place] [address] 51071- 2878 Sep, [place] [address] [address] Sep, [facility] [id number] [place] [address] 79287- 1595 August, Therapeutic drug monitoring Z51.81 [place] [id number] [place] [address] 50927- [address] August, [facility] [address] [place] [id number] [place] [address] 83232- 1116 August, Chronic pancreatitis, unspecified pancreatitis type K86.1 [place] [id number] [place] [address] 88765- 0854 August, Moderate episode of recurrent major depressive disorder F33.1 ; Chronic maxillary sinusitis J32.0 ; Other chronic pancreatitis K86.1 and Weight gain R63.5 [place] [address] [place] [address] 08608- 3489 Jul, [facility] [address] [place] [id number] [place] [address] 79846- 4981 Jul, [place] [id number] [place] [address] 99475- 6394 Jul, [facility] [address] [address] Jun, Dysuria R30.0 and Urgency of urination R39.15 [place] [address] [address] Jun, Acute abdominal pain R10.9 [facility] [id number] [place] [address] 30513- 3101 Jun, Acute abdominal pain R10.9 [place] [id number] [place] [address] 70095- 1455 Jun, Pneumonia of both lungs due to methicillin susceptible Staphylococcus aureus (MSSA), unspecified part of lung J15.211 ; Hypoxia R09.02 and Seasonal allergic rhinitis due to pollen J30.1 [place] [address] [place] [address] 62870- 5942 15 Jun, 2016 On home oxygen therapy Z99.81 [place] [address] [id number] Jun, [place] [address] [id number] Jun, [place] [address] [address] Jun, Respiratory distress R06.00 and Hypoxia R09.02 [place] [address] 58[address]- [address] Jun, [place] [address] [address]50[address] 28 May, 2016 Environmental allergies Z91.09 and Shortness of breath R06.02 [facility] [place] [address] [address] [id number] [place] [address] -[address] 20 May, 2016 Sore throat J02.9 ; Fever R50.9 and Influenza A J10.[address] [address] 08 May, 2016 Wheezing R06.2 ; Pressure sensation in left ear H93.8X2 and Nasal congestion R09.81 [facility] [place] [address] [id number] [place] [address] 82419 -3706 Apr, Acute non-recurrent maxillary sinusitis J01.00 [place] [address] [id number] [place] [address] 51801- 6553 Apr, [place] [address] [address] Apr, Screening for breast cancer Z12.39 [place] [address] [address] Apr, Chronic pancreatitis, unspecified pancreatitis type K86.1 and Screening for diabetes mellitus (DM) Z13.1 [facility] [address] [place] [id number] [place] [address] 64102- 0[address] 28 Mar, 2016 Chronic pancreatitis, unspecified pancreatitis type K86.1 ; Screening for breast cancer Z12.39 ; Screening for diabetes mellitus (DM) Z13.1 and Drug-induced constipation K59.03 [facility] [address] [place] [id number] [place] [address] 40126- 8346 23 Mar, 2016 [facility] [address] [address]- [address] 14 Mar, 2016 Reflux gastritis K29.60 ; History of bacterial pneumonia Z87.01 ; Anxiety F41.9 ; Other chronic pain G89.29 and Unspecified abdominal pain R10.9 [facility] [address] [place] [id number] [place] [address] 71144- 0624 Feb, Encounter for immunization Z23 [facility] [address] [address] 31 Jan, 2016 Acute non-recurrent frontal sinusitis J01.10 [facility] [address] [place] [id number] [place] [address] 64937- 6542 Mar, [facility] [address] [place] [id number] [place] [address] 70243- 6305 Mar, [facility] [address] [place] [id number] [place] [address] 79632- 8508 Mar, [facility] [address] [place] [id number] [place] [address] 43282- 8584 Jan, [facility] [address] [place] [id number] [place] [address] 98401- 4985 Jul, [facility] [address] [place] [id number] [place] [address] 78274- 2396 Dec, [facility] [address] [place] [id number] [place] [address] 82161- 8101 Nov, [facility] [address] [place] [address] August, [facility] [address] [facility] [id number] [address] Feb, IMMUNIZATIONS No Known Immunizations SOCIAL HISTORY Never Assessed REASON FOR VISIT med review -- priyanka jules, needing refill on meds PLAN OF CARE Activity Details Follow Up 6 Months with Huey ROJAS Reason: VITAL SIGNS Height 64 in 2017-10-26 Weight 255.0 lbs 2017-10-26 Temperature 97.2 degrees Fahrenheit 2017-10-26 Heart Rate 80 bpm 2017-10-26 Respiratory Rate 22 2017-10-26 BMI 43.77 kg/m2 2017-10-26 Blood pressure systolic 136 mmHg 2017-10-26 Blood pressure diastolic 80 mmHg 2017-10-26 MEDICATIONS Medication Instructions Dosage Frequency Start Date End Date Duration Status Montelukast Sodium 10 MG TAKE ONE TABLET BY MOUTH IN THE EVENING 30 Not-Taking Singulair 10 mg Orally Once a day 1 tablet in the evening 24h Jun, 90 days Active Zantac 150 MG Orally Once a day 1 tablet at bedtime 24h Active Xanax 1 MG Orally Twice a day, PRN 1 tablet as needed Active ProAir HFA 108 (90 Base) mcg/act Inhalation every 4 hrs 2 puffs as needed 4h Jun, 30 days Active Ibuprofen 200 mg Orally every 8 hrs 4 tablets as needed 8h Active Carafate 1 GM/10ML Orally Four times daily as needed 10 ml Mar, Active Hyoscyamine Sulfate 0.125 MG Orally every 4 hrs 1 tablet before meals as needed 4h Active Zenpep 5000 UNIT Orally as directed 8 capsules with each meal and 4 capsule with snacks Active RESULTS No Results PROCEDURES No Known [...]
--- OUTSIDE RECORDS SUMMARY | 2018-02-09 10:29 | XMS REPORT ---
Author Author MAVERICK ROSALES Organization [facility] Address [address] [place] [address] Care Team Providers Care Drapery Inspector Name Role Phone MAVERICK ROSALES Unavailable PROBLEMS Type Condition ICD9-CM Code [id number] Code Onset Dates Condition Status SNOMED Code Problem Pneumonia of both lungs due to methicillin susceptible Staphylococcus aureus (MSSA), unspecified part of lung J15.211 Active 527139903 Problem Moderate episode of recurrent major depressive disorder F33.1 Active 521357464 Problem On home oxygen therapy Z99.81 Active 732992471222 Problem Hypertension I10 Active 72028650 Problem BMI 40.0-44.9, adult Z68.41 Active 823971204 Problem Persistent depressive disorder F34.1 Active 91463967 Problem Chronic maxillary sinusitis J32.0 Active 53089789 Problem Other chronic pancreatitis K86.1 Active 576287223 Problem Generalized anxiety disorder F41.1 Active 14306146 Problem Other chronic pain G89.29 Active 10138614 Problem Chronic pancreatitis, unspecified pancreatitis type K86.1 Active 193387425 Problem Anxiety F41.9 Active 54535133 Problem Environmental allergies Z91.09 Active 911403117 Problem Reflux gastritis K29.60 Active 62908157 Problem Seasonal allergic rhinitis due to pollen J30.1 Active 49878966 ALLERGIES Substance Reaction Event Type Date Status Tylenol/Codeine #3 Unknown Drug Allergy Dec, Active Codeine Sulfate Unknown Drug Allergy Dec, Active ENCOUNTERS Encounter Location Date Diagnosis [facility] [address] [facility] [id number] [address] Jan, [facility] [address] [facility] [id number], [place] [address] Jan, [facility] [address] [facility] [id number], [place] [address] Dec, Change in stool R19.5 ; Pre-diabetes R73.03 ; Left lower quadrant pain R10.32 and Screening for breast cancer Z12.31 [place] [address] [place] [id number] [place] [address] 34814- 1029 Oct, Chronic pancreatitis, unspecified pancreatitis type K86.1 ; Seasonal allergic rhinitis due to pollen J30.1 ; Moderate episode of recurrent major depressive disorder F33.1 ; Generalized anxiety disorder F41.1 ; BMI 40.0- 44.9, adult Z68.41 ; Pneumonia of both lungs due to methicillin susceptible Staphylococcus aureus (MSSA), unspecified part of lung J15.211 and Environmental allergies Z91.[address] [address]- [address] Sep, [address] 56984- 3179 Jul, Effusion, left knee M25.462 ; Skin tag L91.8 ; BMI 40.0-44.9 , adult Z68.41 ; Atypical mole D22.9 and Reflux gastritis K29.60 [place] [address] [id number] [place] [address] 30085- 5969 Jun, Chronic pancreatitis, unspecified pancreatitis type K86.1 and Hypertension I10 [place] [address] [id number] [place] [address] 48008- 7744 Jun, Chronic pancreatitis, unspecified pancreatitis type K86.1 and Hypertension I10 [place] [address] [address] [id number] [place] [address] 78184- 9482 May, Therapeutic drug monitoring Z51.81 [place] [address] [id number] [place] [address] 96431- 3035 May, [place] [address] [address] [id number] [place] [address] 15262- 2784 Apr, [place] [address] [id number] [place] [address] 22432- 6200 Apr, BMI 40.0-44.9, adult Z68.41 ; Dysuria R30.0 ; Acute cystitis without hematuria N30.00 and Hypoxia R09.02 [place] [address] [id number] [place] [address] 26072- 7619 Mar, Anxiety F41.9 ; Acute pain of left knee M25.562 ; Environmental allergies Z91.09 ; Other chronic pancreatitis K86.1 ; Screening for breast cancer Z12.31 and Encounter for immunization Z23 [place] [address] [id number] [place] [address] 02721- 8226 Feb, Encounter for immunization Z23 [place] [address] [address] [id number] [place] [address] 45270- 4767 Jan, [place] [address] [address] [id number] [place] [address] 09027- 9636 Dec, Encounter for immunization Z23 [place] [address] [id number] [place] [address] 99552- 9597 Dec, Generalized anxiety disorder F41.1 and Persistent depressive disorder F34.1 [place] [address] [id number] [place] [address] 29457- 4727 Nov, Generalized anxiety disorder F41.1 and Persistent depressive disorder F34.1 [place] [address] [id number] [place] [address] 24099- 8245 Nov, Weight loss R63.4 and Acute pain of right shoulder M25.511 [place] [address] [id number] [place] [address] 78999- 8221 Oct, [place] [address] [id number] [place] [address] 77389- 0251 Sep, [place] [address] [id number] [place] [address] 36285- 9562 Sep, Chronic pancreatitis, unspecified pancreatitis type K86.1 [place] [address] [id number] [place] [address] 70679- 1934 Sep, [place] [address] [address] 7967 Sep, [facility] [address] [place] [address] 57980- 5758 August, Therapeutic drug monitoring Z51.81 [place] [address] [place] [address] 04483- 2328 August, [facility] [address] [address] [id number] [place] [address] 78363- 8776 August, Chronic pancreatitis, unspecified pancreatitis type K86.1 [place] [address] [place] [address] 21851- 1272 August, Moderate episode of recurrent major depressive disorder F33.1 ; Chronic maxillary sinusitis J32.0 ; Other chronic pancreatitis K86.1 and Weight gain R63.5 [place] [address] [place] [address] 38599- 7038 Jul, [facility] [address] [id number] [place] [address] 04773- 6929 Jul, [place] [address] [place] [address] 02256- 0030 Jul, [facility] IN [facility] [address] [address] Jun, Dysuria R30.0 and Urgency of urination R39.15 [place] [address] [address] 5041 Jun, Acute abdominal pain R10.9 [facility] [address] [place] [address] 99934- 6504 Jun, Acute abdominal pain R10.9 [place] [address] [place] [address] 38897- 7368 Jun, Pneumonia of both lungs due to methicillin susceptible Staphylococcus aureus (MSSA), unspecified part of lung J15.211 ; Hypoxia R09.02 and Seasonal allergic rhinitis due to pollen J30.1 [place] [address] [place] [address] 88258- 0245 15 Jun, 2016 On home oxygen therapy Z99.81 [place] [address] [id number] Jun, [place] [address] [id number] Jun, [place] [address] 51611- 6753 Jun, Respiratory distress R06.00 and Hypoxia R09.02 [place] [address] 85250- 0424 Jun, [place] [address] 78845- 2866 28 May, 2016 Environmental allergies Z91.09 and Shortness of breath R06.02 [facility] [place] [id number] [place] [address] 74608 -2522 20 May, 2016 Sore throat J02.9 ; Fever R50.9 and Influenza A J10.[address] 21708- 4448 08 May, 2016 Wheezing R06.2 ; Pressure sensation in left ear H93.8X2 and Nasal congestion R09.81 [facility] IN [place] [address] [id number] [place] [address] 94337 -8627 Apr, Acute non-recurrent maxillary sinusitis J01.00 [place] [id number] [place] [address] 51622- 8673 Apr, [place] [address] 43312- 4970 Apr, Screening for breast cancer Z12.39 [place] [address] 12671- 5211 Apr, Chronic pancreatitis, unspecified pancreatitis type K86.1 and Screening for diabetes mellitus (DM) Z13.1 [facility] [id number] [place] [address] 44106- 2110 28 Mar, 2016 Chronic pancreatitis, unspecified pancreatitis type K86.1 ; Screening for breast cancer Z12.39 ; Screening for diabetes mellitus (DM) Z13.1 and Drug-induced constipation K59.03 [facility] [id number] [place] [address] 38419- 9658 23 Mar, 2016 [facility] [address] 40052- 0935 14 Mar, 2016 Reflux gastritis K29.60 ; History of bacterial pneumonia Z87.01 ; Anxiety F41.9 ; Other chronic pain G89.29 and Unspecified abdominal pain R10.9 [facility] [address] [address] [id number] [place] [address] 28643- 5170 Feb, Encounter for immunization Z23 [facility] IN [facility] [address] 75389 -8628 31 Jan, 2016 Acute non-recurrent frontal sinusitis J01.10 [facility] [address] [address] [id number] [place] [address] 91804- 5480 Mar, [facility] [address] [id number] [place] [address] 46112- 6332 Mar, [facility] [address] [address] [id number] [place] [address] 69733- 9078 Mar, [facility] [address] [id number] [place] [address] 61586- 4490 Jan, [facility] [id number] [place] [address] 72879- 2930 Jul, [facility] [address] [address] [id number] [place] [address] 89803- 6488 Dec, [facility] [id number] [place] [address] 90170- 8871 Nov, [facility] [address] [place] [address]- 9027 August, [facility] [address] [facility] [id number] [address]- 1446 Feb, IMMUNIZATIONS No Known Immunizations SOCIAL HISTORY Never Assessed REASON FOR VISIT Bright green stool yesterday and today -- priyanka jules PLAN OF CARE Activity Details Follow Up 4 Weeks with [facility]ault if stool is not improved Reason: VITAL SIGNS Height 64 in 2017-12-07 Weight 252.0 lbs 2017-12-07 Temperature 98.6 degrees Fahrenheit 2017-12-07 Heart Rate 78 bpm 2017-12-07 Respiratory Rate 18 2017-12-07 BMI 43.25 kg/m2 2017-12-07 Blood pressure systolic 122 mmHg 2017-12-07 Blood pressure diastolic 80 mmHg 2017-12-07 MEDICATIONS Medication Instructions Dosage Frequency Start Date End Date Duration Status Hyoscyamine Sulfate 0.125 MG Orally every 4 hrs 1 tablet before meals as needed 4h Active Zantac 150 MG Orally Once a day 1 tablet at bedtime 24h Active Ibuprofen 200 mg Orally every 8 hrs 4 tablets as needed 8h Active Xanax 1 MG Orally Twice a day, PRN 1 tablet as needed Active Zenpep 5000 UNIT Orally as directed 8 capsules with each meal and 4 capsule with snacks Active ProAir HFA 108 (90 Base) mcg/act Inhalation every 4 hrs 2 puffs as needed 4h Jun, 30 days Active Singulair 10 mg Orally Once a day 1 tablet in the evening 24h Jun, 90 days Active Metformin HCl 500 mg Orally Once a day 1 tablet with a meal 24h Dec, 30 day(s) Active RESULTS Name Result Date Reference Range A1C (IN HOUSE) 2017-12-07 A1C IN HOUSE 5.7 4.3 - 5.6 % Previous A1c n/a Lot [id number] Exp date 06/20 Mammogram, Bilateral Screening 2017-12-15 PROCEDURES Procedure Date Ordered Result Body Site GLYCATED HEMOGLOBIN TEST Dec 07, 2017 INSTRUCTIONS MEDICATIONS ADMINISTERED No Known Medications [...]
--- OUTSIDE RECORDS SUMMARY | 2018-02-09 10:29 | XMS REPORT ---
Author Author MAVERICK ROSALES Organization [facility] Address [address] [place] [address] Care Team Providers Care Sloop Captain Name Role Phone MAVERICK ROSALES Unavailable PROBLEMS Type Condition ICD9-CM Code CHA61-MZ Code Onset Dates Condition Status SNOMED Code Problem On home oxygen therapy Z99.81 Active 854367681355 Problem Chronic maxillary sinusitis J32.0 Active 48852215 Problem Moderate episode of recurrent major depressive disorder F33.1 Active 671250707 Problem Acute bilateral low back pain with right-sided sciatica M54.41 Active 938702758 Problem Hypertension I10 Active 04491890 Problem Generalized anxiety disorder F41.1 Active 13135856 Problem Persistent depressive disorder F34.1 Active 98251469 Problem BMI 40.0-44.9, adult Z68.41 Active 324330275 Problem Other chronic pancreatitis K86.1 Active 757125765 Problem Anxiety F41.9 Active 38998646 Problem Chronic pancreatitis, unspecified pancreatitis type K86.1 Active 997720412 Problem Environmental allergies Z91.09 Active 698565509 Problem Reflux gastritis K29.60 Active 82042827 Problem Seasonal allergic rhinitis due to pollen J30.1 Active 76002484 Problem Other chronic pain G89.29 Active 73321834 Problem Pneumonia of both lungs due to methicillin susceptible Staphylococcus aureus (MSSA), unspecified part of lung J15.211 Active 310650491 ALLERGIES Substance Reaction Event Type Date Status Tylenol/Codeine #3 Unknown Drug Allergy Feb, Active Codeine Sulfate Unknown Drug Allergy Feb, Active ENCOUNTERS Encounter Location Date Diagnosis [facility] [address] [facility] [id number], [place] [address] Feb, [facility] [address] [facility] [id number], [place] [address]- 0710 Feb, Upper respiratory infection J06.9 ; Chronic pancreatitis, unspecified pancreatitis type K86.1 ; Environmental allergies Z91.09 ; BMI 40.0- 44.9, adult Z68.41 and Acute bilateral low back pain with right-sided sciatica M54.41 [place] [address] [place] [id number] [place] [address] 90517- 4737 Jan, [place] [address] 79411- 0570 Jan, [place] [address] 23067- 2543 Dec, Change in stool R19.5 ; Pre-diabetes R73.03 ; Left lower quadrant pain R10.32 and Screening for breast cancer Z12.31 [place] [address] 68765- 4345 Oct, Chronic pancreatitis, unspecified pancreatitis type K86.1 ; Seasonal allergic rhinitis due to pollen J30.1 ; Moderate episode of recurrent major depressive disorder F33.1 ; Generalized anxiety disorder F41.1 ; BMI 40.0- 44.9, adult Z68.41 ; Pneumonia of both lungs due to methicillin susceptible Staphylococcus aureus (MSSA), unspecified part of lung J15.211 and Environmental allergies Z91.09 [place] [address] [place] [id number] [place] [address] 10001- 6904 Sep, [place] [address] [place] [id number] [place] [address] 88747- 6488 Jul, Effusion, left knee M25.462 ; Skin tag L91.8 ; BMI 40.0-44.9 , adult Z68.41 ; Atypical mole D22.9 and Reflux gastritis K29.60 [place] [address] [place] [id number] [place] [address] 75538- 9127 Jun, Chronic pancreatitis, unspecified pancreatitis type K86.1 and Hypertension I10 [place] [address] [place] [id number] [place] [address] 83314- 6641 Jun, Chronic pancreatitis, unspecified pancreatitis type K86.1 and Hypertension I10 [place] [address] [place] [id number] [place] [address] 51228- 4648 May, Therapeutic drug monitoring Z51.81 [place] [address] [place] [id number] [place] [address] 85161- 8700 May, [place] [address] [place] [id number] [place] [address] 94873- 0357 Apr, [place] [address] 20094- 3291 Apr, BMI 40.0-44.9, adult Z68.41 ; Dysuria R30.0 ; Acute cystitis without hematuria N30.00 and Hypoxia R09.02 [place] [address] [place] [id number] [place] [address] 28362- 2649 Mar, Anxiety F41.9 ; Acute pain of left knee M25.562 ; Environmental allergies Z91.09 ; Other chronic pancreatitis K86.1 ; Screening for breast cancer Z12.31 and Encounter for immunization Z23 [place] [address] [place] [id number] [place] [address] 02217- 9300 Feb, Encounter for immunization Z23 [place] [address] [place] [id number] [place] [address] 94589- 3552 Jan, [place] [address] [place] [id number] [place] [address] 54556- 0400 Dec, Encounter for immunization Z23 [place] [address] [place] [id number] [place] [address] 33277- 1951 Dec, Generalized anxiety disorder F41.1 and Persistent depressive disorder F34.1 [place] [address] [place] [id number] [place] [address] 36248- 8936 Nov, Generalized anxiety disorder F41.1 and Persistent depressive disorder F34.1 [place] [address] [place] [id number] [place] [address] 84771- 8797 Nov, Weight loss R63.4 and Acute pain of right shoulder M25.511 [place] [address], [place] [address]- 8139 Oct, [facility] [address], [place] [address]- 0825 Sep, [facility] [address], [place] [address]- 8476 Sep, Chronic pancreatitis, unspecified pancreatitis type K86.1 [facility] [address], [place] [address]- 7155 Sep, [facility] [address], [place] [address]- 3537 Sep, [facility] [address], [place] [address]- 5522 August, Therapeutic drug monitoring Z51.81 [facility] [address], [place] [address]- 0627 August, [facility] [address], [place] [address]- 3859 August, Chronic pancreatitis, unspecified pancreatitis type K86.1 [facility] [address], [place] [address]- 5149 August, Moderate episode of recurrent major depressive disorder F33.1 ; Chronic maxillary sinusitis J32.0 ; Other chronic pancreatitis K86.1 and Weight gain R63.5 [facility] [address], [place] [address]- 8390 Jul, [facility] [address], [place] [address]- 7481 Jul, [facility] [address], [place] [address]- 2529 Jul, [facility] [address] [place] [id number], [place] [address] Jun, Dysuria R30.0 and Urgency of urination R39.15 [facility] [id number] [place] [address] 27541- 6033 30 Jun, 2016 Acute abdominal pain R10.9 [place] [address] [place] [id number] [place] [address] 88736- 5831 30 Jun, 2016 Acute abdominal pain R10.9 [place] [address] [place] [id number] [place] [address] 89247- 6184 Jun, Pneumonia of both lungs due to methicillin susceptible Staphylococcus aureus (MSSA), unspecified part of lung J15.211 ; Hypoxia R09.02 and Seasonal allergic rhinitis due to pollen J30.1 [place] [address] [place] [id number] [place] [address] 49541- 9652 15 Jun, 2016 On home oxygen therapy Z99.81 [place] [address] [id number] Jun, [place] [address] [id number] Jun, [place] [address] [place] [id number] [place] [address] 73089- 5577 Jun, Respiratory distress R06.00 and Hypoxia R09.02 [place] [address] [place] [id number] [place] [address] 15939- 6938 Jun, [place] [address] [place] [id number] [place] [address] 70655- 9070 May, Environmental allergies Z91.09 and Shortness of breath R06.02 [facility] [address] [place] [id number] [place] [address] 73950 -6292 May, Sore throat J02.9 ; Fever R50.9 and Influenza A J10.1 [place] [address] [place] [id number] [place] [address] 45724- 1142 08 May, 2016 Wheezing R06.2 ; Pressure sensation in left ear H93.8X2 and Nasal congestion R09.81 [facility] [address] [place] [id number] [place] [address] 66015 -7767 Apr, Acute non-recurrent maxillary sinusitis J01.00 [facility] [address] [place] [id number] [place] [address] 96768- 5637 Apr, [facility] [address] [place] [id number] [place] [address] 26690- 0150 Apr, Screening for breast cancer Z12.39 [place] [address] 59093- 5667 Apr, Chronic pancreatitis, unspecified pancreatitis type K86.1 and Screening for diabetes mellitus (DM) Z13.1 [place] [address] 78949- 8205 Mar, Chronic pancreatitis, unspecified pancreatitis type K86.1 ; Screening for breast cancer Z12.39 ; Screening for diabetes mellitus (DM) Z13.1 and Drug-induced constipation K59.03 [place] [address] 95118- 4957 Mar, [place] [address] [place] [id number] [place] [address] 07615- 5644 Mar, Reflux gastritis K29.60 ; History of bacterial pneumonia Z87.01 ; Anxiety F41.9 ; Other chronic pain G89.29 and Unspecified abdominal pain R10.9 [facility] [address] [place] [id number] [place] [address] 30358- 2659 Feb, Encounter for immunization Z23 [facility] [address] [place] [address] [id number] [place] [address] 17528 -2604 Jan, Acute non-recurrent frontal sinusitis J01.10 [facility] [address] [place] [id number] [place] [address] 38440- 9931 Mar, [facility] [address] [place] [address] [id number] [place] [address] 67769- 1910 Mar, [facility] [address] [place] [id number] [place] [address] 73557- 2344 Mar, [facility] [address] [place] [address] [id number], [place] [address]- 6016 Jan, [facility] [address], [place] [address]- 9046 Jul, [facility] [address], [place] [address]- 8396 Dec, [place] [address] [place] [id number] [place] [address] 79168- 4175 Nov, [place] [address], [place] [address]- 0345 August, [place] [id number] [place] [address] 77889- 5146 Feb, IMMUNIZATIONS Vaccine Route Administration Date Status DEPO MEDROL 40 MG/ML IM Intramuscular Feb 07, 2018 Administered SOCIAL HISTORY Never Assessed REASON FOR VISIT rt abdominal pain, shorth of breath since yesterday -- priyanka jules PLAN OF CARE Activity Details Follow Up prn Reason: VITAL SIGNS Height 64 in 2018-02-07 Weight 250.0 lbs 2018-02-07 Temperature 97.8 degrees Fahrenheit 2018-02-07 Heart Rate 88 bpm 2018-02-07 Respiratory Rate 22 2018-02-07 BMI 42.91 kg/m2 2018-02-07 Blood pressure systolic 126 mmHg 2018-02-07 Blood pressure diastolic 86 mmHg 2018-02-07 MEDICATIONS Medication Instructions Dosage Frequency Start Date End Date Duration Status Zantac 150 MG Orally Once a day 1 tablet at bedtime 24h Active Hyoscyamine Sulfate 0.125 MG Orally every 4 hrs 1 tablet before meals as needed 4h Active Cyclobenzaprine HCl 10 mg Orally qhs 1 tablet as needed Feb, Mar, 30 days Active Xanax 1 MG Orally Twice a day, PRN 1 tablet as needed Active Zenpep 5000 UNIT Orally as directed 8 capsules with each meal and 4 capsule with snacks Active Metformin HCl 500 mg Orally Once a day 1 tablet with a meal 24h Dec, 30 day(s) Not-Taking ProAir HFA 108 (90 Base) mcg/act Inhalation every 4 hrs 2 puffs as needed 4h Jun, 30 days Active Singulair 10 mg Orally Once a day 1 tablet in the evening 24h Jun, 90 days Active RESULTS No Results PROCEDURES Procedure Date Ordered Result Body Site DEPO MEDROL 40 MG/ML Feb 07, 2018 THER/PROPH/DIAG INJ, SC/IM Feb 07, 2018 INSTRUCTIONS MEDICATIONS ADMINISTERED No Known Medications MEDICAL [...]
--- OUTSIDE RECORDS SUMMARY | 2018-02-09 10:29 | XMS REPORT | Clinical Summary ---
Author Author [facility] Organization [facility] Address Unknown Phone Unavailable Care Team Providers Care Production Repairer Name Role Phone Kary Arzate MD PCP Source Comments Some departments are not documenting in the electronic medical record. If you do not see the information that you expected, contact Release of Information in the Health Information Management department at [phone] for further assistance in locating additional records.[facility] Allergies Active Allergy Reactions Severity Noted [...] CDT Respiratory Rate 16 06/06/2016 12:58 PM [employer] Oxygen Saturation 97% 08/26/2016 3:15 PM CDT [...]
--- OUTSIDE RECORDS SUMMARY | 2018-02-09 10:30 | XMS REPORT ---
Author Author MAVERICK ROSALES Organization [facility] Address [address] [place] [address] Care Team Providers Care Counter Stacker Name Role Phone MAVERICK ROSALES Unavailable PROBLEMS Type Condition ICD9-CM Code QUQ51-CP Code Onset Dates Condition Status SNOMED Code Problem Pneumonia of both lungs due to methicillin susceptible Staphylococcus aureus (MSSA), unspecified part of lung J15.211 Active 735825948 Problem Moderate episode of recurrent major depressive disorder F33.1 Active 419931432 Problem On home oxygen therapy Z99.81 Active 260742232031 Problem Hypertension I10 Active 87098478 Problem BMI 40.0-44.9, adult Z68.41 Active 206430605 Problem Persistent depressive disorder F34.1 Active 35101111 Problem Chronic maxillary sinusitis J32.0 Active 94149769 Problem Other chronic pancreatitis K86.1 Active 311559716 Problem Generalized anxiety disorder F41.1 Active 55461087 Problem Other chronic pain G89.29 Active 79548046 Problem Chronic pancreatitis, unspecified pancreatitis type K86.1 Active 795275134 Problem Anxiety F41.9 Active 23324527 Problem Environmental allergies Z91.09 Active 213108749 Problem Reflux gastritis K29.60 Active 00636008 Problem Seasonal allergic rhinitis due to pollen J30.1 Active 71449109 ALLERGIES No Information ENCOUNTERS Encounter Location Date Diagnosis [facility] [address] [facility] [id number] [address] Jan, [facility] [address] [facility] [id number], [place] [address] Jan, [facility] [address] [facility] [id number], [place] [address] Dec, Change in stool R19.5 ; Pre-diabetes R73.03 ; Left lower quadrant pain R10.32 and Screening for breast cancer Z12.31 [place] [id number] [place] [address] Oct, Chronic pancreatitis, unspecified pancreatitis type K86.1 ; Seasonal allergic rhinitis due to pollen J30.1 ; Moderate episode of recurrent major depressive disorder F33.1 ; Generalized anxiety disorder F41.1 ; BMI 40.0- 44.9, adult Z68.41 ; Pneumonia of both lungs due to methicillin susceptible Staphylococcus aureus (MSSA), unspecified part of lung J15.211 and Environmental allergies Z91.09 [place] [id number] [place] [address]95- [address]448 Sep, [address] [address] Jul, Effusion, left knee M25.462 ; Skin tag L91.8 ; BMI 40.0-44.9 , adult Z68.41 ; Atypical mole D22.9 and Reflux gastritis K29.60 [place] [address] [address] Jun, Chronic pancreatitis, unspecified pancreatitis type K86.1 and Hypertension I10 [address] [address] Jun, Chronic pancreatitis, unspecified pancreatitis type K86.1 and Hypertension I10 [place] [id number] [place] [address] 62650- 6468 May, Therapeutic drug monitoring Z51.81 [place] [id number] [place] [address] 25870- 3690 May, [place] [id number] [place] [address] 62750- 2164 Apr, [place] [address] [address] Apr, BMI 40.0-44.9, adult Z68.41 ; Dysuria R30.0 ; Acute cystitis without hematuria N30.00 and Hypoxia R09.02 [place] [address] [address] Mar, Anxiety F41.9 ; Acute pain of left knee M25.562 ; Environmental allergies Z91.09 ; Other chronic pancreatitis K86.1 ; Screening for breast cancer Z12.31 and Encounter for immunization Z23 [facility] [id number] [place] [address] 30265- 3[address] Feb, Encounter for immunization Z23 [facility] [id number] [place] [address] 30879- 2527 Jan, [place] [id number] [place] [address] 81359- 1679 Dec, Encounter for immunization Z23 [facility] [id number] [place] [address] 09562- 5680 Dec, Generalized anxiety disorder F41.1 and Persistent depressive disorder F34.1 [place] [id number] [place] [address] 01101- 0326 Nov, Generalized anxiety disorder F41.1 and Persistent depressive disorder F34.1 [place] [id number] [place] [address] 63374- 8523 Nov, Weight loss R63.4 and Acute pain of right shoulder M25.511 [place] [address] [id number], [place] [address] Oct, [place] [id number] [place] [address] 61905- 9306 Sep, [facility] [address] [place] [address] 36763- 0508 Sep, Chronic pancreatitis, unspecified pancreatitis type K86.1 [facility] [address] [place] [address] 72847- 4061 Sep, [place] [address] [id number] [address] Sep, [place] [id number] [place] [address] 81058- 4[address] August, Therapeutic drug monitoring Z51.81 [place] [id number] [place] [address] 25344- 9029 August, [place] [id number] [place] [address] 54786- 0[address] August, Chronic pancreatitis, unspecified pancreatitis type K86.1 [place] [id number] [place] [address] 69967- 4132 August, Moderate episode of recurrent major depressive disorder F33.1 ; Chronic maxillary sinusitis J32.0 ; Other chronic pancreatitis K86.1 and Weight gain R63.5 [place] [id number] [place] [address] 05533- [address] Jul, [place] [id number] [place] [address] 79193- 8232 Jul, [place] [id number] [place] [address] 27831- 4879 Jul, [facility] [id number] [place] [address] -[address] Jun, Dysuria R30.0 and Urgency of urination R39.15 [place] [id number] [place] [address] 42522- 0194 Jun, Acute abdominal pain R10.9 [place] [id number] [place] [address] 46682- 7490 Jun, Acute abdominal pain R10.9 [place] [id number] [place] [address] 85140- 4873 Jun, Pneumonia of both lungs due to methicillin susceptible Staphylococcus aureus (MSSA), unspecified part of lung J15.211 ; Hypoxia R09.02 and Seasonal allergic rhinitis due to pollen J30.1 [place] [address] [place] [address] 97015- 0649 Jun, On home oxygen therapy Z99.81 [facility] [address] [id number] [place] [id number] Jun, [facility] [address] [id number] 13 Jun, 2016 [place] [id number] [place] [address] 63607- 8115 07 Jun, 2016 Respiratory distress R06.00 and Hypoxia R09.02 [place] [id number] [place] [address] 98080- 8081 Jun, [place] [address] [address]- [address] 28 May, 2016 Environmental allergies Z91.09 and Shortness of breath R06.02 [facility] [place] [id number] [place] [address] 53305 -[address]17 20 May, 2016 Sore throat J02.9 ; Fever R50.9 and Influenza A J10.1 [place] [id number] [place] [address] 82770- 9757 08 May, 2016 Wheezing R06.2 ; Pressure sensation in left ear H93.8X2 and Nasal congestion R09.81 [facility] [place] [id number] [place] [address] 26936 -8434 Apr, Acute non-recurrent maxillary sinusitis J01.00 [place] [id number] [place] [address] 71428- 7241 Apr, [place] [id number] [place] [address] 21002- 1077 Apr, Screening for breast cancer Z12.39 [place] [id number] [place] [address] 35562- 0259 Apr, Chronic pancreatitis, unspecified pancreatitis type K86.1 and Screening for diabetes mellitus (DM) Z13.1 [place] [id number] [place] [address] 02319- 2514 Mar, Chronic pancreatitis, unspecified pancreatitis type K86.1 ; Screening for breast cancer Z12.39 ; Screening for diabetes mellitus (DM) Z13.1 and Drug-induced constipation K59.03 [facility] [id number] [place] [address] 77200- 1559 Mar, [facility] [id number] [place] [address] 68530- 2641 Mar, Reflux gastritis K29.60 ; History of bacterial pneumonia Z87.01 ; Anxiety F41.9 ; Other chronic pain G89.29 and Unspecified abdominal pain R10.9 [facility] [address] [address]- [address] Feb, Encounter for immunization Z23 [facility] [id number] [place] [address] 20031 -2519 31 Jan, 2016 Acute non-recurrent frontal sinusitis J01.10 [facility] [address] 0[address]- 69[address] Mar, [facility] [id number] [place] [address] 62754- 9886 Mar, [facility] [address] [id number] [place] [address] 30313- 8742 Mar, [facility] [id number] [place] [address] 16572- 3863 Jan, [facility] [id number] [place] [address] 56759- 4706 Jul, [facility] [id number] [place] [address] 94254- 2044 Dec, [facility] [address] 38815- 1580 Nov, [facility] [id number] [place] [address] 62449- 5124 August, [facility] [address] [place] [address] Feb, IMMUNIZATIONS No Known Immunizations SOCIAL HISTORY Never Assessed REASON FOR VISIT ER visit note PLAN OF CARE VITAL SIGNS MEDICATIONS Unknown [...] History pneumonia, hx of black mold exposure, hypoxia-[facility] 06/07
--- OUTSIDE RECORDS SUMMARY | 2018-02-09 10:40 | XMS REPORT | Continuity of Care Document ---
Author Author [facility] Organization [facility] Address Unknown Phone Unavailable Allergies Active Description Code Type Severity Reaction Onset Reported/Identified Relationship to Patient Clinical Status Yes codeine [id number] Drug Allergy Unknown N/A 07/08/2014 Yes ciprofloxacin [id number] Drug Allergy Severe N/A 07/10/2014 Yes butorphanol [id number] Drug Allergy Unknown SEVERE HEADACHE 07/18/2014 Yes hydrocodone [id number] Drug Allergy Unknown N/A 07/24/2014 Medications There [...] Ot 493.90 ASTHMA, UNSPECIFIED 07/19/2013 RUSTY VYAS, ALSESIO Ot 530.81 ESOPHAGEAL REFLUX 07/19/2013 RUSTY VYAS, ALESSIO Ot 575.11 CHRONIC CHOLECYSTITIS 07/19/2013 RUSTY VYAS, ALESSIO Ot 715.90 OSTEOARTHROS NOS-UNSPEC 07/19/2013 [...] VYAS, MAVERICK A Ot 790.5 07/10/2014 TUNDE VAYS, MAVERICK Guardado Ot 300.00 ANXIETY STATE NOS [...] Ot K85.9 ACUTE PANCREATITIS, UNSPECIFIED 02/25/2015 TUNDE VYSA, MAVERICK Guardado Ot Z87.891 PERSONAL HISTORY OF [...] PENNIE HARO Ot 577.0 03/03/2015 BRUCE AGUAYO AQUACULTURE FARM MANAGER Ot R91.1 03/03/2015 ZARA VYAS, ANCELMO Marquis [...] 05/25/2015 HERBERT GUY DO Ot J18.9 05/25/2015 HERBERT GUY DO Ot J98.11 05/28/2015 Ot 611.72 [...] CHERRIE L Ot 786.50 05/28/2015 PENNIE HARO SUPERINTENDENT COMPRESSOR STATIONS Ot V76.12 05/28/2015 RUSTY VYAS, ALESSIO Ot 575.11 05/28/2015 RUSTY VYAS, ALESSIO Ot 575.8 05/28/2015 RUSTY VYAS, ALESSIO Ot V72.83 05/28/2015 RUSTY VYAS, ALESSIO Ot V74.8 05/28/2015 PENNIE HAROP Ot 577.0 05/28/2015 BRUCE AGUAYO AQUACULTURE FARM MANAGER Ot R91.1 05/28/2015 ZARA VYAS, ANCELMO Marquis [...] PENNIE HARO Ot 577.0 06/30/2015 BRUCE AGUAYO AQUACULTURE FARM MANAGER Ot R91.1 06/30/2015 ZARA VYAS, ANCELMO Marquis Ot K85.9 06/30/2015 TUNDE VYAS, MAVERICK Guardado Ot J18.9 06/30/2015 HERBERT GUY DO Ot B89 06/30/2015 HERBERT GUY DO Ot E66.9 06/30/2015 HERBERT GUY DO Ot J98.11 06/30/2015 ZARA VYAS, ANCELMO Marquis Ot K85.9 06/30/2015 ZARA VYAS, ANCELMO Marquis Ot Z90.49 07/04/2015 Ot R06.00 DYSPNEA, UNSPECIFIED [...] 12/10/2015 MAGALIS ETIENNE DO Ot Z79.899 OTHER SILK SCREEN REPAIRER (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 THERAPY 12/10/2015 MAGALIS ETIENNE DO [...] Ot V76.12 OTH SCREEN MAMMO-MALIGN NEOPLASM OF AADMS 12/10/2015 Ot 787.02 NAUSEA ALONE 12/10/2015 Ot [...] Marquis Ot K85.9 ACUTE PANCREATITIS, UNSPECIFIED 12/10/2015 MAVERIKC GRIFFITHS MD Ot J18.9 PNEUMONIA, UNSPECIFIED ORGANISM [...] 12/10/2015 MAGALIS ETIENNE DO Ot Z79.899 OTHER HALF-WAY (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 THERAPY 12/10/2015 MAGALIS ETIENNE DO Ot Z87.19 PERSONAL HISTORY OF OTHER DISEASES OF 12/15/2015 MAGALIS ETIENNE DO Ot K21.9 GASTRO-ESOPHAGEAL REFLUX DISEASE WITHOUT 12/15/2015 LOWELL ZACHARY POLKA Brendon Ot R10.13 EPIGASTRIC PAIN 12/15/2015 LOWELL MAGALIS POLK Ot Z79.899 OTHER HALF-WAY (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 THERAPY 12/15/2015 MAGALIS ETIENNE DO [...] 577.0 ACUTE PANCREATITIS 03/20/2016 AGUAYO, BRUCE L AQUACULTURE FARM MANAGER Ot R91.1 SOLITARY PULMONARY NODULE 03/20/2016 ZARA [...] Ot 577.0 ACUTE PANCREATITIS 05/28/2016 BRUCE AGUAYO AQUACULTURE FARM MANAGER Ot R91.1 SOLITARY PULMONARY NODULE 05/28/2016 ZARA [...] K86.1 OTHER CHRONIC PANCREATITIS 05/28/2016 BILL HEREDIA AQUACULTURE FARM MANAGER Ot R10.84 GENERALIZED ABDOMINAL PAIN 05/28/2016 BILL HEREDIA APRN Ot Z79.899 OTHER SILK SCREEN REPAIRER (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 THERAPY 05/30/2016 Ot 793.80 UNSPEC [...] K86.1 OTHER CHRONIC PANCREATITIS 06/01/2016 BILL HEREDIA AQUACULTURE FARM MANAGER Ot R10.84 GENERALIZED ABDOMINAL PAIN 06/01/2016 BILL HEREDIA APRN Ot Z79.899 OTHER HALF-WAY (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 THERAPY 06/01/2016 Ot 793.80 UNSPEC [...] HARO Ot 577.0 ACUTE PANCREATITIS 06/01/2016 DEDE BRUECPearl Quinonez APRN Ot R91.1 SOLITARY PULMONARY NODULE [...] MD Ot 575.11 CHRONIC CHOLECYSTITIS 06/02/2016 ALESSIO OJEDA MD Ot 575.8 DIS OF GALLBLADDER NEC 06/02/2016 ALESSIO OJEDA MD Ot V72.83 EXAM PRE-OPERATIVE NEC 06/02/2016 ALESSIO OJEDA MD Ot V74.8 SCREEN-BACTERIAL DIS NEC 06/02/2016 PENNIE HARO Ot 577.0 ACUTE PANCREATITIS 06/02/2016 BRUCE AGUAYO AQUACULTURE FARM MANAGER Ot R91.1 SOLITARY PULMONARY NODULE 06/02/2016 ZARA [...] K86.1 OTHER CHRONIC PANCREATITIS 06/04/2016 BILL HEREDIA AQUACULTURE FARM MANAGER Ot R10.84 GENERALIZED ABDOMINAL PAIN 06/04/2016 BILL HEREDIA APRN Ot Z79.899 OTHER HALF-WAY (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 THERAPY 06/07/2016 LUIS A VYAS, [...] Ot F41.9 ANXIETY DISORDER, UNSPECIFIED 10/23/2016 BILL HEREDIA APRN Ot I10 ESSENTIAL (PRIMARY) HYPERTENSION 10/23/2016 BILL HEREDIA APRN Ot J45.909 UNSPECIFIED ASTHMA, UNCOMPLICATED 10/23/2016 BILL HEREDIA APRN Ot M19.90 UNSPECIFIED OSTEOARTHRITIS, UNSPECIFIED 10/23/2016 BILL HEREDIA APRN Ot R10.13 EPIGASTRIC PAIN 10/23/2016 BILL HEREDIA APRN Ot Z87.19 PERSONAL HISTORY [...] BOTH CERVIX AND UTER 12/02/2016 BILL HEREDIA AQUACULTURE FARM MANAGER Ot Z90.721 ACQUIRED ABSENCE OF OVARIES, UNILATERAL 12/02/2016 BILL HEREDIA AQUACULTURE FARM MANAGER Ot Z98.890 OTHER SPECIFIED POSTPROCEDURAL STATES 12/20/2016 [...] V74.8 SCREEN-BACTERIAL DIS NEC 01/21/2018 PENNIE HARO SUPERINTENDENT COMPRESSOR STATIONS Ot 577.0 ACUTE PANCREATITIS 01/21/2018 BRUCE AGUAYO AQUACULTURE FARM MANAGER Ot R91.1 SOLITARY PULMONARY NODULE 01/21/2018 ZARA VYAS, ANCELMO Marquis Ot K85.9 ACUTE PANCREATITIS, UNSPECIFIED 01/21/2018 MAVERICK GRIFFITHS MD Ot J18.9 PNEUMONIA, UNSPECIFIED ORGANISM 01/21/2018 MAVERICK GRIFFITHS MD Ot R91.1 SOLITARY PULMONARY NODULE 01/21/2018 HERBERT GUY DO Ot B89 UNSPECIFIED PARASITIC DISEASE 01/21/2018 MALENA DO, HERBERT M Ot E66.9 OBESITY, UNSPECIFIED 01/21/2018 HERBERT GUY DO Lora Ot J98.11 ATELECTASIS 01/21/2018 ZARA VYAS, ANCELMO Marquis Ot K85.9 ACUTE PANCREATITIS, UNSPECIFIED 01/21/2018 ZARA VYAS, ANCELMO Marquis Ot Z90.49 ACQUIRED ABSENCE OF OTHER SPECIFIED PART 01/21/2018 ART VYAS, SPENSER Marquis Ot H53.8 OTHER VISUAL DISTURBANCES 01/21/2018 ART VYAS, SPENSER Marquis Ot J34.9 UNSPECIFIED DISORDER OF NOSE AND NASAL S 01/21/2018 BOBBY VYAS, MAVERICK Taylor Ot Z12.31 ENCNTR SCREEN MAMMOGRAM FOR MALIGNANT NE 01/21/2018 BOBBY VYAS, MAVERICK Taylor Ot Z12.31 ENCNTR SCREEN MAMMOGRAM FOR MALIGNANT NE 01/21/2018 MAGALIS ETIENNE DO Ot F41.9 ANXIETY DISORDER, UNSPECIFIED 01/21/2018 MAGALIS ETIENNE DO Ot I10 ESSENTIAL (PRIMARY) HYPERTENSION 01/21/2018 MAGALIS ETIENNE DO Ot J45.909 UNSPECIFIED ASTHMA, UNCOMPLICATED 01/21/2018 MAGALIS ETIENNE DO Ot K59.00 CONSTIPATION, UNSPECIFIED 01/21/2018 MAGALIS ETIENNE DO Ot K76.0 FATTY (CHANGE OF) LIVER, NOT ELSEWHERE C 01/21/2018 MAGALIS ETIENNE DO Ot R10.9 UNSPECIFIED ABDOMINAL PAIN 01/21/2018 MAGALIS ETIENNE DO Ot Z79.52 SILK SCREEN REPAIRER (CURRENT) USE OF SYSTEMIC STER 01/21/2018 MAGALIS ETIENNE DO Ot Z80.3 FAMILY HISTORY OF MALIGNANT NEOPLASM OF 01/21/2018 MAGALIS ETIENNE DO Ot Z82.49 FAMILY HX OF ISCHEM HEART DIS AND OTH DI 01/21/2018 MAGALIS ETIENNE DO Ot Z87.01 PERSONAL HISTORY OF PNEUMONIA (RECURRENT 01/21/2018 MAGALIS ETIENNE DO Ot Z87.19 PERSONAL HISTORY OF OTHER DISEASES OF TH 01/21/2018 MAGALIS ETIENNE DO Ot Z87.891 PERSONAL HISTORY OF NICOTINE DEPENDENCE 01/21/2018 MAGALIS ETIENNE DO Ot Z88.1 ALLERGY STATUS TO OTHER ANTIBIOTIC AGENT 01/21/2018 MAGALIS ETIENNE DO Ot Z88.5 ALLERGY STATUS TO NARCOTIC AGENT STATUS 01/21/2018 MAGALIS ETIENNE DO Ot Z88.8 ALLERGY STATUS TO OTH DRUG/MEDS/BIOL SUB 01/21/2018 MAGALIS ETIENNE DO Ot Z90.710 ACQUIRED ABSENCE OF BOTH CERVIX AND UTER 01/21/2018 MAGALIS ETIENNE DO Ot Z90.89 ACQUIRED ABSENCE OF OTHER ORGANS Procedures Code Description Performed By Performed On 65.61 09/14/2010 68.49 09/14/2010 Results Test Result Range Sputum Gram stain - 08/12/15 08:20 Bacteria identification in bronchial specimen by aerobe culture - 08/12/15 08: 20 QUANTITY OF GROWTH Scant Growth NRG Bacteria identification in bronchial specimen by aerobe culture [id number] NRG Fungus culture - 08/12/15 08:20 QUANTITY OF GROWTH Isolated NRG FUNGUS REPORT FUNGUS GROWTH OBSERVED NR Fungus culture [id number] NRG IDENTIFICATION TO FOLLOW ID BY [facility] NRG Complete blood [...] - 06/07/16 12:37 Bacterial blood culture NG NR Complete blood count (CBC) with automated white [...] 06/07/16 12:43 Blood monocytes/100 leukocytes 6 % NRG Manual blood segmented neutrophils/100 leukocytes 70 % NRG Blood band neutrophils/100 leukocytes 6 % NRG Manual blood lymphocytes/100 leukocytes 16 % NRG Manual eosinophils/100 leukocytes in nose 2 % NRG Manual blood basophils/100 leukocytes 0 % NRG Blood poikilocytosis detection by light microscopy SLIGHT NR Comprehensive metabolic panel - 06/07/16 12:43 Serum [...] NRG Serum or plasma glucose measurement (mass/volume) 94 [...] culture - 06/07/16 12:43 Bacterial blood culture [facility] Complete blood count (CBC) with automated white [...] 06/09/16 06:53 Blood monocytes/100 leukocytes 4 % NR Manual blood segmented neutrophils/100 leukocytes 71 % [...] - 06/20/17 08:27 AMYLASE 44 U/L 21-101 Complete blood count (CBC) with automated white blood cell (WBC) differential - 01/21/18 03:02 Blood leukocytes automated count (number/volume) 11.5 10*3/uL 4.3-11.0 Blood erythrocytes automated count (number/volume) 4.93 10*6/uL 4.35-5.85 Venous blood hemoglobin measurement (mass/volume) 13.5 g/dL 11.5-16.0 Blood hematocrit (volume fraction) 41 % 35-52 Automated erythrocyte mean corpuscular volume 82 [foz_us] 80-99 Automated erythrocyte mean corpuscular hemoglobin (mass per erythrocyte) 27 pg 25-34 Automated erythrocyte mean corpuscular hemoglobin concentration measurement ( mass/volume) 33 g/dL 32-36 Automated erythrocyte distribution width ratio 15.0 % 10.0-14.5 Automated blood platelet count (count/volume) 326 10*3/uL 130-400 Automated blood platelet mean volume measurement 10.0 [foz_us] 7.4-10.4 Automated blood neutrophils/100 leukocytes 57 % 42-75 Automated blood lymphocytes/100 leukocytes 30 % 12-44 Blood monocytes/100 leukocytes 7 % 0-12 Automated blood eosinophils/100 leukocytes 5 % 0-10 Automated blood basophils/100 leukocytes 0 % 0-10 Blood neutrophils automated count (number/volume) 6.6 10*3 1.8-7.8 Blood lymphocytes automated count (number/volume) 3.5 10*3 1.0-4.0 Blood monocytes automated count (number/volume) 0.8 10*3 0.0-1.0 Automated eosinophil count 0.6 10*3/uL 0.0-0.3 Automated blood basophil count (count/volume) 0.0 10*3/uL 0.0-0.1 Serum or plasma choriogonadotropin ( test) detection - 01/21/18 03:02 Serum or plasma choriogonadotropin ( test) detection NEGATIVE NEGATIVE Comprehensive metabolic panel - 01/21/18 03:02 Serum or plasma sodium measurement (moles/volume) 140 mmol/L 135-145 Serum or plasma potassium measurement (moles/volume) 4.0 mmol/L 3.6-5.0 Serum or plasma chloride measurement (moles/volume) 106 mmol/L 98-107 Carbon dioxide 20 mmol/L 21-32 Serum or plasma anion gap determination (moles/volume) 14 mmol/L 5-14 Serum or plasma urea nitrogen measurement (mass/volume) 15 mg/dL 7-18 Serum or plasma creatinine measurement (mass/volume) 0.82 mg/dL 0.60-1.30 Serum or plasma urea nitrogen/creatinine mass ratio 18 NRG Serum or plasma creatinine measurement with calculation of estimated glomerular filtration rate > NRG Serum or plasma glucose measurement (mass/volume) 102 mg/dL 70-105 Serum or plasma calcium measurement (mass/volume) 9.2 mg/dL 8.5-10.1 Serum or plasma total bilirubin measurement (mass/volume) 0.3 mg/dL 0.1-1.0 Serum or plasma alkaline phosphatase measurement (enzymatic activity/volume) 287 U/L 40-136 Serum or plasma aspartate aminotransferase measurement (enzymatic activity/ volume) 139 U/L 5-34 Serum or plasma alanine aminotransferase measurement (enzymatic activity/volume ) 183 U/L 0-55 Serum or plasma protein measurement (mass/volume) 6.9 g/dL 6.4-8.2 Serum or plasma albumin measurement (mass/volume) 4.1 g/dL 3.2-4.5 CALCIUM CORRECTED 9.1 mg/dL 8.5-10.1 Serum or plasma amylase measurement (enzymatic activity/volume) - 01/21/18 03: 02 Serum or plasma amylase measurement (enzymatic activity/volume) 54 U /L 25-125 Lipase - 01/21/18 03:02 Lipase 29 U/L 8-78 Acute hepatitis panel - 01/21/18 03:02 Confirmatory quantitative serum or plasma hepatitis B virus surface antigen measurement Non-Reactive Non-Reactive Hepatitis A virus IgM antibody assay Non-Reactive Non- Reactive Hepatitis B virus core IgM antibody assay Non-Reactive Non-Reactive Serum hepatitis C virus antibody detection Non-Reactive Non-Reactive Complete urinalysis with reflex to culture - 01/21/18 04:44 Urine color determination YELLOW NRG Urine clarity [...] urinalysis with reflex to culture NO NRG Encounters ACCT No. Visit Date/Time Discharge Status Pt. Type Provider Facility Loc./Unit Complaint [id number] 01/21/2018 02:23:00 01/21/2018 06:03:00 DIS Emergency LOWELL POLK, MAGALIS K [facility] ER R SIDE ABD PAIN/CHRONIC PANCREATITIS [id number] 12/08/2017 15:56:00 12/08/2017 23:59:59 CLS Outpatient MAVERICK ROSALES MD [facility] RAD SCREENING FOR BREAST CANCER [id number] 03/29/2017 09:09:00 03/29/2017 23:59:59 CLS Outpatient MAVERICK ROSALES MD [facility] RAD Z12.31 SCREENING [id number] 10/20/2016 11:10:00 10/20/2016 13:38:00 DIS Emergency BILL HEREDIA APRN [facility] ER ABD PAIN [id number] 08/30/2016 08:54:00 08/30/2016 23:59:59 CLS Outpatient PSENSER CORDOVA MD [facility] RAD J34.9,H53.8 [id number] 06/07/2016 11:19:00 06/13/2016 15:25:00 DIS Inpatient BOBBY VYAS, MAVERICK R [facility] 4TH HYPOXIA [id number] 06/02/2016 04:56:00 06/02/2016 08:28:00 DIS Emergency LUIS A VYAS, ANAND Guardado [facility] ER SOB,VOMITING,ABD PAIN, COUGHING [id number] 05/28/2016 21:13:00 05/28/2016 22:48:00 DIS Emergency BILL HEREDIA APRN [facility] ER AB AND BACK PAIN [id number] 03/20/2016 04:23:00 03/21/2016 12:30:00 DIS Inpatient EMILY VYAS, EDGAR Guardado [facility] 4TH EXACERBATION OF CHRONIC PANCREATITIS [id number] 12/09/2015 22:14:00 12/10/2015 00:17:00 DIS Emergency MAGALIS ETIENNE DO [facility] ER ABD PAIN [id number] 10/27/2015 14:38:00 10/27/2015 17:01:00 DIS Emergency DANICA VYAS, ADELIA Wilson [facility] ER ABD PAIN [id number] 08/12/2015 06:46:00 08/12/2015 09:35:00 DIS Outpatient HERBERT GUY DO [facility] SDC ATELECTASIS OF LEFT LUNG [id number] 08/06/2015 07:27:00 08/06/2015 13:40:00 DIS Outpatient HERBERT GUY DO [facility] PREOP LEFT LUNG [id number] 07/27/2015 13:11:00 07/27/2015 23:59:59 CLS Outpatient HERBERT GUY DO [facility] RAD [id number] 05/20/2015 10:59:00 05/20/2015 23:59:59 CLS Outpatient HERBERT GUY DO [facility] RAD [id number] 03/31/2015 08:19:00 03/31/2015 23:59:59 CLS Outpatient ZARA VYAS, ANCELMO Marquis [facility] RAD ACUTE PANCREATITS K85.9 [id number] 03/11/2015 16:46:00 03/11/2015 23:59:59 CLS Outpatient HERBERT GUY DO [facility] RT ADLEXIS OF LT LUNG PNUEMONIA [id number] 03/03/2015 14:35:00 03/03/2015 15:07:00 DIS Outpatient HERBERT GUY DO [facility] SLEEP SNORING, EDS, MOOD DISORDER [id number] 02/22/2015 18:06:00 02/25/2015 18:12:00 DIS Inpatient MAVERICK GRIFFITHS MD [facility] 4TH PANCREATITIS [id number] 02/16/2015 14:45:00 02/16/2015 23:59:59 CLS Outpatient MAVERICK GRIFFITHS MD [facility] RAD LUNG NODULE [id number] 02/05/2015 09:37:00 02/05/2015 09:38:00 DIS Outpatient CALEB BLAIR DO [facility] LAB PNEUMONIA [id number] 01/28/2015 13:57:00 01/28/2015 23:59:59 CLS Outpatient MAVERICK GRIFFITHS MD [facility] RAD PNEUMONIA [id number] 01/16/2015 10:16:00 01/16/2015 23:59:59 CLS Outpatient ANCELMO ZUÑIGA MD [facility] RAD ACUTE PANCREATITIS [id number] 01/16/2015 10:01:00 01/16/2015 23:59:59 CLS Outpatient BRUCE AGUAYO APRN [facility] RAD LUNG NODULE,L LUNG BASE [id number] 2014 08:10:00 2014 10:25:00 DIS Emergency BIA VYAS, MARLA Olivas [facility] ER RIGHT SIDE ABD PAIN POST OP [id number] 11/11/2014 10:21:00 11/11/2014 23:59:59 CLS Outpatient PENNIE HARO [facility] SDC PANCREATITIS [id number] 08/20/2014 16:54:00 08/23/2014 11:45:00 DIS Inpatient MAVERICK GRIFFITHS MD [facility] 4TH ACUTE PANCREATITIS, ELEVATED LFT'S [id number] 07/24/2014 06:00:00 07/24/2014 23:59:59 CLS Outpatient ALESSIO OJEDA MD [facility] SDC BILIARY DYSKNESIA [id number] 07/18/2014 11:58:00 07/18/2014 23:59:59 CLS Outpatient ALESSIO OJEDA MD [facility] PREOP BILIARY DYSKNESIA [id number] 07/07/2014 10:31:00 07/10/2014 17:20:00 DIS Inpatient MAVERICK GRIFFITHS MD [facility] SURGICAL ABD PAIN PANCREATITIS [id number] 01/21/2014 10:41:00 01/21/2014 23:59:59 CLS Outpatient PENNIE HARO [facility] RAD SCREENING [id number] 07/18/2013 16:43:00 07/19/2013 11:58:00 DIS Inpatient ALESSIO OJEDA MD [facility] SURGICAL RUQ PAIN, POSSIBLE CHOLEDOCHOLITHIASIS [id number] 04/20/2013 13:55:00 04/20/2013 23:59:59 CLS Outpatient CHERRIE WEIR DO [facility] LAB CHEST PAIN, BACK PAIN [id number] 02/09/2018 10:23:00 ACT Emergency MARLA AMEZQUITA MD [facility] ER ABD PAIN [id number] 07/03/2015 21:12:00 Document Registration [id number] 01/06/2015 14:59:00 Document Registration [id number] 01/06/2015 14:59:00 Document Registration [id number] 01/06/2015 14:59:00 Document Registration [id number] 01/06/2015 14:59:00 Document Registration [id number] 01/06/2015 14:59:00 Document Registration [id number] 01/06/2015 14:59:00 Document Registration [id number] 07/07/2014 09:13:00 Document Registration [id number] 11/30/2011 13:17:00 Document Registration [id number] 11/21/2011 11:53:00 Document Registration [id number] 09/28/2011 15:13:00 Document Registration [id number] 09/16/2011 13:08:00 Document Registration [id number] 08/31/2011 12:58:00 Document Registration [id number] 09/14/2010 05:41:00 Document Registration [id number] 09/06/2010 07:40:00 Document Registration [id number] 08/25/2010 14:26:00 Document Registration [id number] 08/03/2010 10:47:00 Document Registration [id number] 07/08/2009 10:33:00 Document Registration [id number] 03/03/2008 08:26:00 Document Registration [id number] 02/20/2008 09:23:00 Document Registration [id number] 05/08/2006 07:59:00 Document Registration [id number] 07/02/2016 18:07:00 Document Registration [id number] 10/26/2017 16:20:00 10/26/2017 23:59:59 [facility]ALES [facility] [id number] 06/20/2017 08:20:00 Document Registration [id number] 04/24/2017 16:40:00 Document Registration [id number] 06/10/2016 13:06:00 Document Registration [id number] 04/05/2016 18:05:00 Document Registration [id number] 07/01/2016 08:38:00 Document Registration
[2018-02-09 12:20] LABS: BASOPHILS % (AUTO) 0 % (0-10); EOSINOPHILS # (AUTO) 0.5 10^3/uL (0.0-0.3); EOSINOPHILS % (AUTO) 5 % (0-10); HEMATOCRIT 44 % (35-52); LYMPHOCYTES # (AUTO) 2.2 X 10^3 (1.0-4.0); LYMPHOCYTES % (AUTO) 23 % (12-44); MEAN CORPUSCULAR HEMOGLOBIN 27 PG (25-34); MEAN CORPUSCULAR HGB CONC 32 G/DL (32-36); MEAN CORPUSCULAR VOLUME 83 FL (80-99); MEAN PLATELET VOLUME 10.2 FL (7.4-10.4); MONOCYTES # (AUTO) 0.6 X 10^3 (0.0-1.0); MONOCYTES % (AUTO) 6 % (0-12); NEUTROPHILS # (AUTO) 6.5 X 10^3 (1.8-7.8); NEUTROPHILS % (AUTO) 66 % (42-75); PLATELET COUNT 367 10^3/uL (130-400); RED BLOOD COUNT 5.29 10^6/uL (4.35-5.85); RED CELL DISTRIBUTION WIDTH 14.6 % (10.0-14.5); WHITE BLOOD COUNT 9.8 10^3/uL (4.3-11.0)
[2018-02-09 12:33] LABS: ALANINE AMINOTRANSFERASE 362 U/L (0-55); ALBUMIN 4.3 GM/DL (3.2-4.5); ALKALINE PHOSPHATASE 363 U/L (40-136); BILIRUBIN,TOTAL 0.6 MG/DL (0.1-1.0); BUN/CREATININE RATIO 10; CALCIUM 9.7 MG/DL (8.5-10.1); CARBON DIOXIDE 26 MMOL/L (21-32); CHLORIDE 102 MMOL/L (98-107); GFR ESTIMATED > 60; GLUCOSE 84 MG/DL (70-105); LIPASE 31 U/L (8-78); POTASSIUM 3.9 MMOL/L (3.6-5.0); SODIUM 138 MMOL/L (135-145); TOTAL PROTEIN 7.6 GM/DL (6.4-8.2)
[2018-02-09] MEDS ORDERED: HYOS-20 PO (12:51)
[2018-02-09] MEDS ORDERED: HYDR-34 PO (13:16)
--- NOTE | 2018-02-09 13:16 | ED Abdominal Pain ---
General Chief Complaint: Abdominal/GI Problems Stated Complaint: ABD PAIN Nursing Triage Note: PT AMBULATES INTO THE ED. STATES SHE HAS HAD LUQ AND RUQ PAIN THAT RADIATES TO THE LEFT FLABK SINCE MONDAY. 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 STATES SHE WAS AT WORK AND SUDDENLY DEVELOPED SHARP PAIN, STATES SHE HAS CHRONIC PANCREATITIS. Sepsis Screen: No Definite Risk Source of Information: Patient Exam Limitations: No Limitations History of Present Illness Date Seen by Provider: Feb 09, 2018 Time Seen by Provider: 13:10 Initial Comments The patient is a 47-year-old white female known to me. She has suffered from pancreatitis for some years. She reports that for the past several days she has been troubled particularly by right upper quadrant pain. The last time or 2 she has been here her lipase has been negative. She had lab and a CT scan done on 01/18. CT was compatible with fatty liver. The liver enzymes were elevated for the first time that I could find. Timing/Duration: 2-3 Days Severity/Quality: Moderate Location: RUQ Radiation: LUQ Allergies and Home Medications Allergies Coded Allergies: ciprofloxacin (Verified Allergy, Severe, 02/09/18) severe itching at iv site acetaminophen (Verified Allergy, Intermediate, 02/09/18) codeine (Unverified Allergy, Unknown, 02/09/18) PT STATED WHEN SHE HAS TYLENOL AND CODEINE TOGETHER (TYLENOL #3) SHE HAS TERRIBLE NIGHTMARES. butorphanol (Unverified Adverse Reaction, Unknown, SEVERE HEADACHES, ) Home Medications Amoxicillin/Potassium Clav 1 Each Tablet, 1 EACH PO BID Prescribed by: CELSO NEUMANN on 06/13/16 1231 Dicyclomine HCl 20 Mg Tablet, 20 MG PO Q6H Prescribed by: MAGALIS ETIENNE on 01/21/18 0525 Guaifenesin/Dextromethorphan 118 Ml Liquid, 30 ML PO Q4H PRN for CONGESTION, ( Reported) Ibuprofen 200 Mg Tablet, 800 MG PO Q8H PRN for FEVER/PAIN, (Reported) TAKES 4 (200MG) TABLETS NEEDED FOR PAIN Ipratropium/Albuterol Sulfate 3 Ml Ampul.neb, 3 ML INH Q4H PRN for SHORTNESS OF BREATH Prescribed by: CELSO NEUAMNN on 06/13/16 1455 Loratadine/Pseudoephedrine 1 Each Tab.er.24h, 1 TAB PO DAILY PRN for ALLERGIES/ CONGESTION, (Reported) Ondansetron 4 Mg Tab.rapdis, 4 MG PO Q4H Prescribed by: MAGALIS ETIENNE on 01/21/18 0525 Pantoprazole Sodium 40 Mg Tablet.dr, 40 MG PO DAILY Prescribed by: BILL HEREDIA on 10/20/16 1329 Prednisone 10 Mg Tab, 0 PO UD 40mg qdx2d then 30mg qdx2d, then 20mg qdx2d, then 10mg qdx2d Prescribed by: CELSO NEUMANN on 06/13/16 1231 Ranitidine HCl 150 Mg Tablet, 150 MG PO HS, (Reported) Patient Home Medication List Home Medication List Reviewed: Yes Review of Systems Review of Systems Constitutional: see HPI EENTM: No Symptoms Reported Respiratory: No Symptoms Reported Cardiovascular: No Symptoms Reported Gastrointestinal: Abdominal Pain (right upper quadrant) Genitourinary: No Symptoms Reported Musculoskeletal: no symptoms reported Skin: no symptoms reported Psychiatric/Neurological: No Symptoms Reported Endocrine: No Symptoms Reported Hematologic/Lymphatic: No Symptoms Reported Past Sxoceke-Xogcsg-Dyndmq Hx Patient Social History Alcohol Use: Denies Use Recreational Drug Use: No Smoking Status: Current Someday Smoker Type Used: Cigarettes Former Smoker, Quit: Sep 14, 2010 2nd Hand Smoke Exposure: Yes Recent Foreign Travel: No Contact w/Someone Who Travel: No Recent Infectious Disease Expo: No Recent Hopitalizations: Yes (pancreatitis) Immunizations Up To Date Tetanus Booster (TDap): Less than 5yrs PED Vaccines UTD: No Date of Influenza Vaccine: Feb 26, 2016 Seasonal Allergies Seasonal Allergies: Yes Past Medical History Surgeries: Yes Abdominal, Appendectomy, Gallbladder, Hysterectomy, Oophorectomy, Orthopedic, Pancreatic Respiratory: Yes (atelectasis, nocturnal hypoxia with O2 supplementation) Asthma, Pneumonia Currently Using CPAP: No Currently Using BIPAP: No Cardiac: Yes Hypertension Neurological: No : No 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 Disorders: Yes (Hysterectomy due to fibroid tumors) 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 Sexually Transmitted Disease: No HIV/AIDS: No Genitourinary: No Gastrointestinal: Yes (pancreatitis x4 2015; CHRONIC PANCREATITIS) Pancreatitis Musculoskeletal: Yes Arthritis Endocrine: No HEENT: No Loss of Vision: Denies Hearing Impairment: Denies Cancer: No Psychosocial: Yes Anxiety Integumentary: No Blood Disorders: No Adverse Reaction/Blood Tranf: No Family Medical History Arthritis 03 MOTHER Cancer (Breast CA.) 03 MOTHER Cardiovascular disease 03 FATHER Deafness or hearing loss 03 FATHER Fibrocystic disease of breast 03 MOTHER Hypercholesterolemia 03 FATHER 03 MOTHER Hypertension 03 MOTHER Osteoporosis 03 MOTHER Respiratory disorder 03 MOTHER No Family History of: AIDS Abdominal aortic aneurysm [place]'s disease Alcoholism Alzheimer's disease Asthma Cancer of mouth Cataracts Colon cancer Completed stroke Congenital disease Congenital heart disease Coronary thrombosis Cystic fibrosis Dementia Diabetes mellitus Drug abuse Dysphasia Gastroenteritis Glaucoma Headache disorder Infertility Kidney disease Myocardial infarction Neoplasm Not obtainable due to adoption Parkinson's disease Prostate cancer Psychosocial problem Seizure disorder Severe allergy Thyroid disease Tuberculosis Visual disorder Heart Disease, COPD, Hypertension Physical Exam Vital Signs Vital Signs - First Documented 02/09/18 11:05 Temp 98.7 Pulse 77 Resp 20 B/P (MAP) 139/85 (103) Pulse Ox 94 O2 Delivery Room Air Capillary Refill : Less Than 3 Seconds Height/Weight/BMI Height: 5'3.00" Weight: 250lbs. 0.0oz. 113.026662ed; 42.0 BMI Method:Stated General Appearance: moderate distress HEENT: normal ENT inspection Neck: full range of motion Respiratory: chest non-tender, lungs clear, normal breath sounds, no respiratory distress, no accessory muscle use Cardiovascular: normal peripheral pulses, regular rate, rhythm, no edema, no gallop, no JVD, no murmur Gastrointestinal: normal bowel sounds, non tender, soft, no organomegaly, no pulsatile mass Extremities: normal range of motion, non-tender, normal inspection, no pedal edema, no calf tenderness, normal capillary refill, pelvis stable Back: normal inspection Pelvic: normal external exam, normal adnexa, no cerv. 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, no motor/sensory deficits, alert, normal mood/affect, oriented x 3 Skin: normal color, warm/dry Lymphatic: no adenopathy Progress/Results/Core Measures Results/Orders Lab Results Laboratory Tests Test 02/09/18 11:33 Range/Units White Blood Count 9.8 4.3-11.0 10^3/uL Red Blood Count 5.29 4.35-5.85 10^6/uL Hemoglobin 14.0 11.5-16.0 G/DL Hematocrit 44 35-52 % Mean Corpuscular Volume 83 80-99 FL Mean Corpuscular Hemoglobin 27 25-34 PG Mean Corpuscular Hemoglobin Concent 32 32-36 G/DL Red Cell Distribution Width 14.6 H 10.0-14.5 % Platelet Count 367 130-400 10^3/uL Mean Platelet Volume 10.2 7.4-10.4 FL Neutrophils (%) (Auto) 66 42-75 % Lymphocytes (%) (Auto) 23 12-44 % Monocytes (%) (Auto) 6 0-12 % Eosinophils (%) (Auto) 5 0-10 % Basophils (%) (Auto) 0 0-10 % Neutrophils # (Auto) 6.5 1.8-7.8 X 10^3 Lymphocytes # (Auto) 2.2 1.0-4.0 X 10^3 Monocytes # (Auto) 0.6 0.0-1.0 X 10^3 Eosinophils # (Auto) 0.5 H 0.0-0.3 10^3/uL Basophils # (Auto) 0.0 0.0-0.1 10^3/uL Sodium Level 138 135-145 MMOL/L Potassium Level 3.9 3.6-5.0 MMOL/L Chloride Level 102 98-107 MMOL/L Carbon Dioxide Level 26 21-32 MMOL/L Anion Gap 10 5-14 MMOL/L Blood Urea Nitrogen 8 7-18 MG/DL Creatinine 0.80 0.60-1.30 MG/DL Estimat Glomerular Filtration Rate > 60 BUN/Creatinine Ratio 10 Glucose Level 84 70-105 MG/DL Calcium Level 9.7 8.5-10.1 MG/DL Corrected Calcium 9.5 8.5-10.1 MG/DL Total Bilirubin 0.6 0.1-1.0 MG/DL Aspartate Amino Transf (AST/SGOT) 181 H 5-34 U/L Alanine Aminotransferase (ALT/SGPT) 362 H 0-55 U/L Alkaline Phosphatase 363 H 40-136 U/L Total Protein 7.6 6.4-8.2 GM/DL Albumin 4.3 3.2-4.5 GM/DL Lipase 31 8-78 U/L My Orders Orders - MARLA AMEZQUITA MD Cbc With Automated Diff (02/09/18 12:15) Comprehensive Metabolic Panel (02/09/18 12:15) Lipase (02/09/18 12:15) Ua Culture If Indicated (02/09/18 12:15) Vital Signs/I&O 02/09/18 11:05 Temp 98.7 Pulse 77 Resp 20 B/P (MAP) 139/85 (103) Pulse Ox 94 O2 Delivery Room Air Blood Pressure Mean: 103 Departure Communication (Admissions) Lipase was normal. Bilirubin was 1.3, AST 133 ALT 196 (normal is approximately 35) Impression Primary Impression: fatty liver with apparent mild hepatitis Disposition: HOME, SELF-CARE Condition: Stable/Unchanged Departure-Patient Inst. Decision time for Depature: 13:14 Referrals: MAVERICK ROSALES MD (PCP/Family) Primary Care Physician Patient Instructions: No Instuctions Given Add. Discharge Instructions: All discharge instructions reviewed with patient and/or family. Voiced understanding. 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 Scripts Hydrocodone Bit/Acetaminophen (LORTAB 7.5 MG TABLET) 1 Ea Tablet 1 EA PO Q4H PRN for PAIN-MODERATE, #20 TAB Prov: MARLA AMEZQUITA MD 02/09/18 MARLA AMEZQUITA MD Feb 09, 2018 13:15
[2018-02-09] MEDS ORDERED: fentaNYL INJECTION 100 MCG/2 ML AMP IVP ONE (13:30)
[2018-02-09 13:44] VITALS: BP 115/91
== END 2018-02-09 14:02 | disposition home or self-care (01) ==
LOC: EDUNIT# 10:22 → ER 10:23
DX: K76.0 Fatty (change of) liver, not elsewhere classified (principal); B19.9 Unspecified viral hepatitis without hepatic coma; J45.909 Unspecified asthma, uncomplicated; I10 Essential (primary) hypertension; F41.9 Anxiety disorder, unspecified; Z87.01 Personal history of pneumonia (recurrent); Z80.3 Family history of malignant neoplasm of breast; Z82.49 Family history of ischemic heart disease and other diseases of the circulatory system; Z87.891 Personal history of nicotine dependence; Z87.19 Personal history of other diseases of the digestive system; Z88.8 Allergy status to other drugs, medicaments and biological substances; Z88.5 Allergy status to narcotic agent; Z90.89 Acquired absence of other organs; Z90.710 Acquired absence of both cervix and uterus; Z88.6 Allergy status to analgesic agent; Z79.52 Long term (current) use of systemic steroids
CPT/HCPCS: 36415; 80053; 83690; 85025

== ENCOUNTER 2019-02-05 12:24 | Emergency (ER) | payer BC ==
[~2019-02-05] VITALS: Ht 160 cm; Wt 109.0 kg
[~2019-02-05 12:24] MED LIST changes: +AZIT250T12 PO; +CEFD300C3 PO; +DIPH25CA79 PO; +DOXY1TAB2 PO; +FLUT1DIS26 IH; +GUAI5SYR PO; +HYDR473S34 PO; +PRED10TA22 PO; +RANI-613 PO; -RANI150T46 PO
[2019-02-05 13:45] LABS: BASOPHILS % (AUTO) 0 % (0-10); EOSINOPHILS # (AUTO) 0.8 10^3/uL (0.0-0.3); EOSINOPHILS % (AUTO) 6 % (0-10); HEMATOCRIT 43 % (35-52); LYMPHOCYTES # (AUTO) 3.2 X 10^3 (1.0-4.0); LYMPHOCYTES % (AUTO) 25 % (12-44); MEAN CORPUSCULAR HEMOGLOBIN 27 PG (25-34); MEAN CORPUSCULAR HGB CONC 32 G/DL (32-36); MEAN CORPUSCULAR VOLUME 83 FL (80-99); MEAN PLATELET VOLUME 10.2 FL (7.4-10.4); MONOCYTES # (AUTO) 0.8 X 10^3 (0.0-1.0); MONOCYTES % (AUTO) 6 % (0-12); NEUTROPHILS # (AUTO) 8.3 X 10^3 (1.8-7.8); NEUTROPHILS % (AUTO) 63 % (42-75); PLATELET COUNT 380 10^3/uL (130-400); RED CELL DISTRIBUTION WIDTH 14.1 % (10.0-14.5); WHITE BLOOD COUNT 13.2 10^3/uL (4.3-11.0)
[2019-02-05 13:47] LABS: BILIRUBIN,URINE NEGATIVE (NEGATIVE); CLARITY,URINE CLEAR; COLOR,URINE YELLOW; GLUCOSE, URINE (UA) NEGATIVE (NEGATIVE); KETONES,URINE NEGATIVE (NEGATIVE); LEUKOCYTE ESTERASE ,URINE NEGATIVE (NEGATIVE); NITRITE,URINE NEGATIVE (NEGATIVE); PH,URINE 8 (5-9); PROTEIN,URINE NEGATIVE (NEGATIVE)
--- NOTE | 2019-02-05 13:51 | ED Abdominal Pain ---
General Chief Complaint: Abdominal/GI Problems Stated Complaint: ABD PAIN Nursing Triage Note: having mid abdominal pain that goes around to her back, has hx of pancreatitis Sepsis Screen: No Definite Risk Source of Information: Patient Exam Limitations: No Limitations History of Present Illness Date Seen by Provider: Feb 05, 2019 Time Seen by Provider: 13:51 Initial Comments 48-year-old patient presents with complaints of left mid abdominal pain radiating to the left back. Patient does have a history of chronic pancreatitis. She also reports poor appetite and nausea. She states she has pancreatic enzymes at home, but only takes them "when she needs them." Timing/Duration: 1-2 Days, Constant Severity/Quality: Aching, Cramping Location: Other (left mid abdomen) Radiation: Back Activities at Onset: None Modifying Factors: Worsens With Eating, Worsens With Movement, Worsens With Palpation Allergies and Home Medications Allergies Coded Allergies: ciprofloxacin (Verified Allergy, Severe, 02/09/18) severe itching at iv site butorphanol (Unverified Adverse Reaction, Unknown, SEVERE HEADACHES, 02/09/18) codeine (Unverified Adverse Reaction, Unknown, NIGHTMARES, 08/20/18) PT STATED WHEN SHE HAS TYLENOL AND CODEINE TOGETHER (TYLENOL #3) SHE HAS TERRIBLE NIGHTMARES. Home Medications Azithromycin 250 Mg Tablet, 250 MG PO DAILY Prescribed by: PAUL SILVER on 08/22/18 1057 Cefdinir 300 Mg Capsule, 300 MG PO BID Prescribed by: PAUL SILVER on 08/22/18 1057 Diphenhydramine HCl 25 Mg Capsule, 50 MG PO Q6H PRN for DRAINAGE, (Reported) Doxylamine/Phenylep/Dm/Aspirin 1 Each Tab.ef.seq, 1 TAB PO BID PRN for COLD, (Reported) Fluticasone/Salmeterol 1 Each Blst.w.dev, 1 EACH IH BID Prescribed by: PAUL SILVER on 08/22/18 1058 Guaifenesin/Dextromethorphan 5 Ml Syrup, 10 ML PO Q4H PRN for COUGH, (Reported) Hydrocodone/Chlorphen P-Stirex 473 Ml Paulette.er.12h, 5 ML PO Q12HR Prescribed by: PAUL SILVER on 08/22/18 1057 Ibuprofen 200 Mg Tablet, 800 MG PO TID PRN for PAIN-MILD, (Reported) Montelukast Sodium 10 Mg Tablet, 10 MG PO HS, (Reported) Ondansetron 8 Mg Tab.rapdis, 8 MG PO Q6H PRN for NAUSEA/VOMITING Prescribed by: TOBI SALOMON on 02/05/19 1614 Prednisone 10 Mg Tab.ds.pk, 10 MG PO DAILY Take 6 tabs(60mg)daily,decrease by 1 tab(10MG)daily. Prescribed by: PAUL ISLVER on 08/22/18 1057 Ranitidine HCl 150 Mg Tablet, 150 MG PO HS, (Reported) Patient Home Medication List Home Medication List Reviewed: Yes Review of Systems Review of Systems Constitutional: No chills, No dizziness, No fever, No malaise, No weakness EENTM: No Symptoms Reported Respiratory: Denies Cough, Denies Shortness of Air, Denies SOA With Exertion, Denies Wheezing Cardiovascular: Denies Chest Pain, Denies Irregular Heart Rate, Denies Lightheadedness, Denies Palpitations Gastrointestinal: See HPI; Denies Abdomen Distended; Abdominal Pain; Denies Blood Streaked Stools, Denies Constipated, Denies Diarrhea, Denies Difficulty Swallowing; Nausea, Poor Appetite, Poor Fluid Intake; Denies Rectal Bleeding, Denies Vomiting; Other ((+) heartburn intermittently) Genitourinary: Denies Burning, Denies Discharge, Denies Frequency, Denies Flank Pain, Denies Hematuria, Denies Pain Musculoskeletal: see HPI, back pain Skin: no symptoms reported Psychiatric/Neurological: No Symptoms Reported All Other Systems Reviewed Negative Unless Noted: Yes (Negative excepted noted.) Past Alnqvmp-Lgtmku-Djgkgx Hx Past Med/Social Hx: Reviewed Nursing Past Med/Soc Hx Patient Social History Alcohol Use: Denies Use Recreational Drug Use: No Smoking Status: Former Smoker Type Used: Cigarettes Former Smoker, Quit: Sep 14, 2010 2nd Hand Smoke Exposure: No Recent Foreign Travel: No Contact w/Someone Who Travel: No Recent Infectious Disease Expo: No Recent Hopitalizations: No Immunizations Up To Date Tetanus Booster (TDap): Less than 5yrs PED Vaccines UTD: No Date of Pneumonia Vaccine: August 19, 2016 Date of Influenza Vaccine: Feb 26, 2016 Seasonal Allergies Seasonal Allergies: Yes Past Medical History Surgeries: Yes Abdominal, Appendectomy, Gallbladder, Hysterectomy, Oophorectomy, Orthopedic, Pancreatic Respiratory: Yes (atelectasis, nocturnal hypoxia with O2 supplementation) Asthma, Pneumonia Currently Using CPAP: No Currently Using BIPAP: No Cardiac: Yes Hypertension Neurological: No 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 Disorders: Yes (Hysterectomy due to fibroid tumors) 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 Sexually Transmitted Disease: No HIV/AIDS: No Genitourinary: No Gastrointestinal: Yes Gastroesophageal Reflux, Pancreatitis, Gall Bladder Disease Musculoskeletal: Yes (BILATERAL KNEE SCOPES X 4) Arthritis Endocrine: No HEENT: No Loss of Vision: Denies Hearing Impairment: Denies Cancer: No Psychosocial: Yes Anxiety Integumentary: No Blood Disorders: No Adverse Reaction/Blood Tranf: No Family Medical History Reviewed Nursing Family Hx Arthritis 03 MOTHER Cancer (Breast CA.) 03 MOTHER Cardiovascular disease 03 FATHER Deafness or hearing loss 03 FATHER Fibrocystic disease of breast 03 MOTHER Hypercholesterolemia 03 FATHER 03 MOTHER Hypertension 03 MOTHER Osteoporosis 03 MOTHER Respiratory disorder 03 MOTHER No Family History of: AIDS Abdominal aortic aneurysm Favio's disease Alcoholism Alzheimer's disease Asthma Cancer of mouth Cataracts Colon cancer Completed stroke Congenital disease Congenital heart disease Coronary thrombosis Cystic fibrosis Dementia Diabetes mellitus Drug abuse Dysphasia Gastroenteritis Glaucoma Headache disorder Infertility Kidney disease Myocardial infarction Neoplasm Not obtainable due to adoption Parkinson's disease Prostate cancer Psychosocial problem Seizure disorder Severe allergy Thyroid disease Tuberculosis Visual disorder Heart Disease, COPD, Hypertension, Other Conditions/Hx (pancreatitis) Physical Exam Vital Signs Vital Signs - First Documented 02/05/19 02/05/19 12:56 16:37 Temp 36.9 Pulse 75 Resp 18 B/P (MAP) 129/83 (98) Pulse Ox 97 Capillary Refill : Less Than 3 Seconds Height/Weight/BMI Height: 5'3.00" Weight: 277lbs. 12.8oz. 126.176747gb; 42.00 BMI Method:Stated General Appearance: WD/WN, no apparent distress HEENT: PERRL/EOMI, pharynx normal Neck: supple, normal inspection Respiratory: lungs clear, normal breath sounds, no respiratory distress, no accessory muscle use Cardiovascular: normal peripheral pulses, regular rate, rhythm, no edema, no murmur Peripheral Pulses: 2+ Dorsalis Pedis (R), 2+ Left Dors-Pedis (L), 2+ Radial Pulses (R), 2+ Radial Pulses (L) Gastrointestinal: normal bowel sounds, soft, no organomegaly, no pulsatile mass; No distended; guarding (upper mid abdomen); No rebound; tenderness (upper mid abdomen); No mass Back: normal inspection, no CVA tenderness Neurologic/Psychiatric: alert, normal mood/affect, oriented x 3 Skin: normal color, warm/dry Progress/Results/Core Measures Results/Orders Lab Results Laboratory Tests Test 02/05/19 13:20 Range/Units White Blood Count 13.2 H 4.3-11.0 10^3/uL Red Blood Count 5.19 4.35-5.85 10^6/uL Hemoglobin 14.0 11.5-16.0 G/DL Hematocrit 43 35-52 % Mean Corpuscular Volume 83 80-99 FL Mean Corpuscular Hemoglobin 27 25-34 PG Mean Corpuscular Hemoglobin Concent 32 32-36 G/DL Red Cell Distribution Width 14.1 10.0-14.5 % Platelet Count 380 130-400 10^3/uL Mean Platelet Volume 10.2 7.4-10.4 FL Neutrophils (%) (Auto) 63 42-75 % Lymphocytes (%) (Auto) 25 12-44 % Monocytes (%) (Auto) 6 0-12 % Eosinophils (%) (Auto) 6 0-10 % Basophils (%) (Auto) 0 0-10 % Neutrophils # (Auto) 8.3 H 1.8-7.8 X 10^3 Lymphocytes # (Auto) 3.2 1.0-4.0 X 10^3 Monocytes # (Auto) 0.8 0.0-1.0 X 10^3 Eosinophils # (Auto) 0.8 H 0.0-0.3 10^3/uL Basophils # (Auto) 0.0 0.0-0.1 10^3/uL Urine Color YELLOW Urine Clarity CLEAR Urine pH 8 5-9 Urine Specific [place] 1.015 L 1.016-1.022 Urine Protein NEGATIVE NEGATIVE Urine Glucose (UA) NEGATIVE NEGATIVE Urine Ketones NEGATIVE NEGATIVE Urine Nitrite NEGATIVE NEGATIVE Urine Bilirubin NEGATIVE NEGATIVE Urine Urobilinogen NORMAL NORMAL MG/DL Urine Leukocyte Esterase NEGATIVE NEGATIVE Urine RBC (Auto) NEGATIVE NEGATIVE Urine RBC NONE /HPF Urine WBC RARE /HPF Urine Squamous Epithelial Cells 0-2 /HPF Urine Crystals NONE /LPF Urine Bacteria MODERATE H /HPF Urine Casts NONE /LPF Urine Mucus NEGATIVE /LPF Urine Culture Indicated YES Sodium Level 140 135-145 MMOL/L Potassium Level 4.0 3.6-5.0 MMOL/L Chloride Level 103 98-107 MMOL/L Carbon Dioxide Level 27 21-32 MMOL/L Anion Gap 10 5-14 MMOL/L Blood Urea Nitrogen 10 7-18 MG/DL Creatinine 0.88 0.60-1.30 MG/DL Estimat Glomerular Filtration Rate > 60 BUN/Creatinine Ratio 11 Glucose Level 98 70-105 MG/DL Calcium Level 9.6 8.5-10.1 MG/DL Corrected Calcium 9.3 8.5-10.1 MG/DL Total Bilirubin 0.4 0.1-1.0 MG/DL Aspartate Amino Transf (AST/SGOT) 65 H 5-34 U/L Alanine Aminotransferase (ALT/SGPT) 123 H 0-55 U/L Alkaline Phosphatase 258 H 40-136 U/L C-Reactive Protein High Sensitivity 1.04 H 0.00-0.50 MG/DL Total Protein 7.5 6.4-8.2 GM/DL Albumin 4.4 3.2-4.5 GM/DL Lipase 22 8-78 U/L My Orders Orders - TOBI SLAOMON Ed Iv/Invasive Line Start (02/05/19 13:40) Cbc With Automated Diff (02/05/19 13:40) Comprehensive Metabolic Panel (02/05/19 13:40) Hs C Reactive Protein (02/05/19 13:40) Lipase (02/05/19 13:40) Ua Culture If Indicated (02/05/19 13:40) Urine Culture (02/05/19 13:20) Ct Abdomen/Pelvis W (02/05/19 14:03) Ondansetron Injection (Zofran Injectio (02/05/19 14:15) Ns Iv 1000 Ml (Sodium Chloride 0.9%) (02/05/19 14:06) Ketorolac Injection (Toradol Injection) (02/05/19 14:06) Iohexol Injection (Omnipaque 350 Mg/Ml 1 (02/05/19 14:15) Received Contrast (Hold Metformin- Contr (02/05/19 14:15) Sodium Chloride Flush (Catheter Flush Sy (02/05/19 14:15) Ns (Ivpb) (Sodium Chloride 0.9% Ivpb Bag (02/05/19 14:15) Iohexol Injection (Omnipaque 350 Mg/Ml 1 (02/05/19 14:30) Ns (Ivpb) (Sodium Chloride 0.9% Ivpb Bag (02/05/19 14:30) Fentanyl Injection (Sublimaze Injection (02/05/19 16:29) Medications Given in ED Current Medications Medications Dose Ordered Sig/Fili Route Start Time Stop Time Status Last Admin Dose Admin Iohexol 100 ml ONCE ONCE IV 02/05/19 14:15 02/05/19 14:17 DC 02/05/19 15:13 100 ML Ondansetron HCl 4 mg ONCE ONCE IVP 02/05/19 14:15 02/05/19 14:16 DC 02/05/19 14:27 4 MG Sodium Chloride 10 ml NEEDED PRN IV 02/05/19 14:15 02/05/19 15:14 DC 02/05/19 15:13 10 ML Sodium Chloride 100 ml ONCE ONCE IV 02/05/19 14:15 02/05/19 14:17 DC 02/05/19 15:13 80 ML Sodium Chloride 1,000 ml @ 0 mls/hr Q0M ONCE IV 02/05/19 14:06 02/05/19 14:07 DC 02/05/19 14:27 1,000 MLS/HR Vital Signs/I&O 02/05/19 02/05/19 12:56 16:37 Temp 36.9 Pulse 75 73 Resp 18 18 B/P (MAP) 129/83 (98) 125/79 (98) Pulse Ox 97 Blood Pressure Mean: 98 POS Diagnostic Imaging Diagonstic Imaging: CT Plain Films/CT/US/NM/MRI: abdomen, pelvis Comments CT ABDOMEN/PELVIS W PROCEDURE: CT abdomen and pelvis with contrast. TECHNIQUE: Multiple contiguous axial images were obtained through the abdomen and pelvis after administration of intravenous contrast. Auto Exposure Controls were utilized during the CT exam to meet ALARA standards for radiation dose reduction. INDICATION: Abdominal pain, nausea, vomiting; patient has a history of pancreatitis. COMPARISON: The study compared to 01/21/2018. FINDINGS: The pancreas appears nonfocal and nonacute. No pseudocyst or other acute fluid collection. No findings of CT evidence for active pancreatitis. There has been improvement if not resolution of previous hepatic steatosis. The gallbladder is surgically absent. There is no pathological biliary ductal dilatation. No radiodense stone along the course of the extrahepatic duct can be found. Spleen and adrenals are negative. The unobstructed kidneys appear normal. There is no bowel obstruction. There is no ascites, abscess, hematoma, or other fluid collection. The urinary bladder is unremarkable. There is previous appendectomy as well as left pelvic surgical clips. No fluid collection. No acute finding. IMPRESSION: Resolution of fatty liver. Nonfocal and nonacute pancreas. No biliary abnormality. No obstructive features, inflammatory process, ascites, fluid collection, or acute abnormalities identified. Dictated by: Dictated on workstation # [id number] Reviewed: Reviewed by Me (radiology report reviewed by me) Departure Communication (Admissions) patient seen and evaluated. labs and ct abd/pelvis obtained. all findings discussed with the patient. patient reports having a hepatitis panel checked at [facility] 2 wks ago which was negative. she states she is supposed to f/u with dr. rosales as an outpatient. Plan for discharge to home with follow-up as an outpatient with Dr. Rosales. Patient is to return immediately to the emergency department if symptoms worsen or for any other concerns. Impression Primary Impression: Abdominal pain Qualified Codes: R10.10 - Upper abdominal pain, unspecified Additional Impression: Elevated liver function tests Disposition: HOME, SELF-CARE Condition: Improved Departure-Patient Inst. Decision time for Depature: 16:11 Referrals: MAVERICK ROSALES MD (PCP/Family) Primary Care Physician Patient Instructions: Acute Abdomen (Belly Pain) Add. Discharge Instructions: All discharge instructions reviewed with patient and/or family. Voiced understanding. Medications as instructed. Ibuprofen or Aleve jndg-lus-hspezjf as directed for pain. Drink plenty of fluids. Follow-up with your family practitioner for recheck as an outpatient this week and for repeat labs. Call tomorrow morning for appointment time. Return to the emergency department for worsened symptoms, vomiting, fever, black stools, vomiting blood, rectal bleeding, or any other concerns. Scripts Ondansetron (Ondansetron Odt) 8 Mg Tab.rapdis 8 MG PO Q6H PRN for NAUSEA/VOMITING, #10 TAB 0 Refills Prov: TOBI SALOMON 02/05/19 Work/School Note: Work Release Form Date Seen in the Emergency Department: Feb 05, 2019 Return to Work: Feb 07, 2019 Restrictions: No Restrictions Copy Copies To 1: MAVERICK ROSALES MD, GRETCHEN L PA Feb 05, 2019 13:51 POS
[2019-02-05 13:56] LABS: BACTERIA,URINE MODERATE /HPF; SQUAMOUS EPITHELIAL CELL,UR 0-2 /HPF; WBC,URINE RARE /HPF
[2019-02-05 13:59] LABS: ALANINE AMINOTRANSFERASE 123 U/L (0-55); ALBUMIN 4.4 GM/DL (3.2-4.5); ALKALINE PHOSPHATASE 258 U/L (40-136); BILIRUBIN,TOTAL 0.4 MG/DL (0.1-1.0); BUN/CREATININE RATIO 11; CALCIUM 9.6 MG/DL (8.5-10.1); CARBON DIOXIDE 27 MMOL/L (21-32); CHLORIDE 103 MMOL/L (98-107); CREATININE SERUM 0.88 MG/DL (0.60-1.30); GFR ESTIMATED > 60; GLUCOSE 98 MG/DL (70-105); LIPASE 22 U/L (8-78); SODIUM 140 MMOL/L (135-145); TOTAL PROTEIN 7.5 GM/DL (6.4-8.2)
[2019-02-05] MEDS ORDERED: KETOROLAC 30 MG/ML VIAL IVP STA (14:06)
[2019-02-05] MEDS ORDERED: NS IV 1000 ML 1,000 ML IV ONE (14:06)
[2019-02-05] MEDS ORDERED: NS 100 ML (IVPB) BAG IV ONE ×2 (14:15→14:30)
[2019-02-05] MEDS ORDERED: HOLD METFORMIN - RECEIVED CONTRAST 20 ML VIAL IV SCH ×2 (14:15→14:30)
[2019-02-05] MEDS ORDERED: IOHEXOL 350 MG/ML 100 ML (OMNIPAQUE 350) VIAL IV ONE ×2 (14:15→14:30)
[2019-02-05] MEDS ORDERED: CATHETER FLUSH 10 ML SYR IV PRN ×2 (14:15→14:30)
[2019-02-05] MEDS ORDERED: ONDANSETRON 4 MG/2 ML (SDV) Z0FRAN IVP ONE (14:15)
--- NOTE | 2019-02-05 15:31 | Diagnostic Imaging Report ---
PROCEDURE: CT abdomen and pelvis with contrast. TECHNIQUE: Multiple contiguous axial images were obtained through the abdomen and pelvis after administration of intravenous contrast. Auto Exposure Controls were utilized during the CT exam to meet ALARA standards for radiation dose reduction. INDICATION: Abdominal pain, nausea, vomiting; patient has a history of pancreatitis. COMPARISON: The study compared to 01/21/2018. FINDINGS: The pancreas appears nonfocal and nonacute. No pseudocyst or other acute fluid collection. No findings of CT evidence for active pancreatitis. There has been improvement if not resolution of previous hepatic steatosis. The gallbladder is surgically absent. There is no pathological biliary ductal dilatation. No radiodense stone along the course of the extrahepatic duct can be found. Spleen and adrenals are negative. The unobstructed kidneys appear normal. There is no bowel obstruction. There is no ascites, abscess, hematoma, or other fluid collection. The urinary bladder is unremarkable. There is previous appendectomy as well as left pelvic surgical clips. No fluid collection. No acute finding. IMPRESSION: Resolution of fatty liver. Nonfocal and nonacute pancreas. No biliary abnormality. No obstructive features, inflammatory process, ascites, fluid collection, or acute abnormalities identified. Dictated by: Dictated on workstation # [id number]
[2019-02-05] MEDS ORDERED: ONDA8TAB13 PO (16:14)
[2019-02-05] MEDS ORDERED: fentaNYL INJECTION 100 MCG/2 ML AMP IVP STA (16:29)
[2019-02-05 16:37] VITALS: BP 125/79
== END 2019-02-05 15:13 | disposition home or self-care (01) ==
LOC: ER 12:24
DX: R10.10 Upper abdominal pain, unspecified (principal); R94.5 Abnormal results of liver function studies; I10 Essential (primary) hypertension; J45.909 Unspecified asthma, uncomplicated; K21.9 Gastro-esophageal reflux disease without esophagitis; F41.9 Anxiety disorder, unspecified; Z90.49 Acquired absence of other specified parts of digestive tract; Z85.3 Personal history of malignant neoplasm of breast; Z90.710 Acquired absence of both cervix and uterus; Z87.19 Personal history of other diseases of the digestive system; Z88.1 Allergy status to other antibiotic agents; Z88.5 Allergy status to narcotic agent; Z88.8 Allergy status to other drugs, medicaments and biological substances; Z79.51 Long term (current) use of inhaled steroids; Z79.52 Long term (current) use of systemic steroids; Z87.891 Personal history of nicotine dependence; Z82.49 Family history of ischemic heart disease and other diseases of the circulatory system
CPT/HCPCS: 36415; 74177; 80053; 81000; 83690; 85025; 86141; 87077; 87088; 87186

== ENCOUNTER → 2019-05-10 | Outpatient (CLI) | payer BC ==
[~2019-05-10] MED LIST changes: -HYDR473S34 PO; +HYDR473S61 PO; +ONDA8TAB13 PO
--- NOTE | 2019-05-10 11:31 | Diagnostic Imaging Report ---
INDICATION: Routine screening. COMPARISON: Comparison is made with prior mammograms from 12/15/2017 and 03/29/2017. 2-D and 3-D bilateral screening mammography was performed. The current study was also evaluated with a Computer Aided Detection (CAD) system. 3-D tomosynthesis was also performed and reviewed. FINDINGS: Scattered fibroglandular densities are identified bilaterally. Circumscribed nodule in the outer right breast is stable and consistent with benign etiology. There are benign calcifications in both breasts. No new mass or malignant-appearing microcalcifications are seen. Axillae are unremarkable. IMPRESSION: No mammographic features suspicious for malignancy are identified. ACR BI-RADS Category 2: Benign findings. Result letter will be mailed to the patient. Note: At least 10% of breast cancer is not imaged by mammography. Dictated by: Dictated on workstation # [id number]
== END ==
LOC: RAD 07:26
PROVIDERS: ATTEND Family Medicine
DX: Z12.31 Encounter for screening mammogram for malignant neoplasm of breast (principal)
CPT/HCPCS: 77067

== ENCOUNTER 2019-06-18 03:15 | Emergency (ER) | payer BC ==
[~2019-06-18] VITALS: Ht 160 cm; Wt 102.1 kg
[~2019-06-18 03:15] MED LIST changes: +LORA1TAB PO; +MONT10TA26 PO; -[UNRECOGNIZED DRUG - CODE] PO
--- OUTSIDE RECORDS SUMMARY | 2019-06-18 04:35 | XMS REPORT | Clinical Summary ---
Author Author [facility] Organization [facility] Address Unknown Phone Unavailable Care Team Providers Care Bench Scientist Name Role Phone Kary Arzate MD PCP Source Comments Some departments are not documenting in the electronic medical record. If you d o not see the information that you expected, contact Release of Information in [facility] [employer] Information Management department at [phone] for further assistan ce in locating additional records.[facility] Allergies Comments Active Allergy Reactions Severity Noted Date Tylenol 3 Codeine DELUSIONS High 04/20/2016 Antibiotic- can not remember the name Unclassified Drug RASH, ITCHING Medium 04/20/2016 Butorphanol Tartrate HEADACHE Low 7 Medications End Date Status Medication Sig Dispensed Refills Start Date Active ALPRAZolam (XANAX) 1 mg Take 1 mg by 0 tablet mouth at bedtime as needed for Anxiety. Active pancrelipase (ZENPEP 20) Take 2 Caps 0 20,000-68,000 -109,000 by mouth units capsule three times daily with meals. Active sucralfate (CARAFATE) 1 Take 1 g by 0 gram tablet mouth four times daily. Take on an empty stomach. Active umeclidinium 62.5 Inhale by 0 mcg/actuation dsdv mouth into the lungs. Active FLUOXETINE HCL (PROZAC Take by 0 PO) mouth. Active albuterol 0.083% Inhale 3 mL 0 (PROVENTIL; VENTOLIN) 2.5 solution by mg /3 mL (0.083 %) nebulizer as nebulizer solution directed every 4 hours as needed for Wheezing or Shortness of Breath. Active benzonatate (TESSALON Take 100 mg 0 PERLES) 100 mg capsule by mouth every 8 hours as needed for Cough. Active montelukast (SINGULAIR) Take 10 mg by 0 10 mg tablet mouth at bedtime daily. Active Problems Problem Noted Date Pneumonia due to infectious organism 06/09/2016 Mold exposure 06/09/2016 Family History Medical History Relation Name Comments Heart Disease Father Hyperlipidemia Father Other Maternal Grandmother Cancer Mother Cancer-Breast Mother Hyperlipidemia Mother Hypertension Mother Relation Name Status Comments Father Alive Maternal Grandfather Maternal Grandmother Mother Alive Paternal Grandfather Paternal Grandmother Social History Date Tobacco Use Types Packs/Day Years Used Quit: 09/14/2010 Former Smoker 0.5 22 Smokeless Tobacco: Never Used Drinks/Week oz/Week Comments Alcohol Use 0 Standard drinks or equivalent 0.0 No Sex Assigned at Date Recorded Not on file Industry Job Start Date Occupation Not on file Not on file Not on file Travel End Travel History Travel Start No recent travel history available. Last Filed Vital Signs Reading Time Taken Comments Vital Sign 120/84 08/29/2018 10:01 AM CDT Blood Pressure 75 08/29/2018 10:01 AM CDT Pulse 36.6 C (97.9 F) 08/29/2018 10:01 AM CDT Temperature 16 08/29/2018 10:01 AM CDT Respiratory Rate 97% 08/29/2018 10:01 AM CDT ra Oxygen Saturation - - Inhaled Oxygen Concentration 107 kg (236 lb) 08/29/2018 10:01 AM CDT Weight 160 cm (5' 3") 08/29/2018 10:01 AM CDT Height 41.81 08/29/2018 10:01 AM CDT Body Mass Index Plan of Treatment Health Maintenance Due Date Last Done Comments DTAP/TDAP VACCINES ( - 1980 Tdap) HIV SCREENING 1984 PHYSICAL (COMPREHENSIVE) 12/12/1987 EXAM CERVICAL CANCER SCREENING 1990 BREAST CANCER SCREENING 2009 INFLUENZA VACCINE 11/01/2018 Results Not on filefrom Last 3 Months Insurance Type Payer Benefit Subscriber ID Effective Phone Address Plan / Dates Group Indemnity WORKERS COMP GENERIC xxxxxxx 2015 WORK COMP -Present PPO BC[place] xxxxxxxxxxxx 2016-P PREF CARE resent [employer]UE [id number] [place] (Home) [place] [phone] [place] Workers Self 1970 [address] Comp (Home) [place] [address] Advance Directives Patient Blood Coordinator Explanation Type Date Recorded Advance 08/26/2016 12:01 PM Directive/DPOA
--- OUTSIDE RECORDS SUMMARY | 2019-06-18 04:40 | XMS REPORT | Continuity of Care Document ---
Author Organization Unknown Address Unknown Phone Unavailable Allergies Active Description Code Type Severity Reaction Onset Reported/Identified Relationship to Patient Clinical Status Yes hydrocodone [id number] Drug Aller gy Unknown N/A 07/24/2014 Yes ciprofloxacin [id number] Jagdish g Allergy Severe N/A 02/09/2018 Yes acetaminophen [id number] Jagdish g Allergy Moderate N/A 02/09/2018 Yes butorphanol [id number] Drug Aller gy Unknown SEVERE HEADACHE 02/09/2018 Yes codeine [id number] Drug Allergy Unknown N/A 02/09/2018 Yes codeine [id number] Drug Allergy Unknown NIGHTMARES 08/20/2018 Medications There is no data. Problems Date Dx Coded Attending Type Code Diagnosis Diagnosed By 05/18/2006 Ot V57.1 05/18/2006 Ot V58.43 02/27/2008 Ot 724.2 02/27/2008 Ot 959.19 02/27/2008 Ot E849.8 02/27/2008 Ot E927.8 02/27/2008 Ot V57.1 03/03/2008 Ot 724.2 03/03/2008 Ot 959.19 03/03/2008 Ot E849.8 03/03/2008 Ot E927.0 03/03/2008 Ot V57.1 07/09/2009 Ot 305.1 07/09/2009 Ot 493.00 07/09/2009 Ot 540.9 09/17/2010 Ot 218.9 UTER INE LEIOMYOMA NOS 09/17/2010 Ot 275.2 DIS MAGNESIUM METABOLISM 09/17/2010 Ot 493.90 AST HMA, UNSPECIFIED 09/17/2010 Ot 617.0 UTER INE ENDOMETRIOSIS 09/17/2010 Ot 620.1 CHUY US LUTEUM CYST 09/17/2010 Ot 620.8 AMANDA NFL DIS OVA/ADNX NEC 09/17/2010 Ot 622.10 DYS PLASIA OF CERVIX, UNSPECIFIED 09/17/2010 Ot 625.0 DYSP AREUNIA 09/17/2010 Ot 626.2 EXCE SSIVE MENSTRUATION 11/21/2011 Ot 562.10 DIV 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 5 07/07/2014 DESTIN DOИРИНАNT L Ot 786. 50 07/07/2014 PENNIE HARO Ot V76.12 07/08/2014 TUNDE VYAS, MAVERICK Guardado Ot 300.00 07/08/2014 TUNDE VYAS, MAVERICK Guardado Ot 346.90 07/08/2014 TUNDE VYAS, MAVERICK Guardado Ot 493.90 07/08/2014 TUNDE VYAS, MAVERICK Guardado Ot 530.81 07/08/2014 TUNDE VYAS, MAVERICK Guardado Ot 575.11 07/08/2014 TUNDE VYAS, MAVERICK A Ot 577.0 07/08/2014 TUNDE VYAS, MAVERICK A Ot 715.90 07/08/2014 TUNDE VYAS, MAVERICK A Ot 790.5 07/10/2014 [...] TUNDE VYAS, MAVERICK A Ot 300.00 07/10/2014 TNUDE VYAS, MAVERICK A Ot 346.90 07/10/2014 TUNDE VYAS, MAVERICK A Ot 493.90 07/10/2014 TUNDE VYAS, MAVERICK A Ot 530.81 07/10/2014 TUNDE VYAS, MAVERICK A Ot 575.11 07/10/2014 TUNDE VYAS, MAVERICK A Ot 577.0 07/10/2014 TUNDE VYAS, MAVERICK A Ot 715.90 07/10/2014 TUNDE VYAS, MAVERICK A Ot 790.5 07/10/2014 TUNDE VYAS, MAVERICK A Ot 300.00 ANXIETY STATE NOS 07/10/2014 TUNDE VYAS, MAVERICK Guardado Ot 346.90 MIGRAINE UNSPECIFIED W/O INTRACT MGRN W/ 07/10/2014 TUNDE VYAS, MAVERICK A Ot 493.90 ASTHMA, UNSPECIFIED 07/10/2014 TUNDE VYAS, MAVERICK A Ot 530.81 ESOPHAGEAL REFLUX 07/10/2014 TUNDE VYAS, MAVERICK Guardado Ot 575.11 CHRONIC CHOLECYSTITIS 07/10/2014 TUNDE VYAS, MAVERICK Guardado Ot 577.0 ACUTE PANCREATITIS 07/10/2014 TUNDE VYAS, MAVERICK A Ot 715.90 OSTEOARTHROS NOS-UNSPEC 07/10/2014 TUNDE VYAS, MAVERICK Guardado Ot 790.5 ABN SERUM ENZY LEVEL NEC 07/25/2014 ALESSIO OJEDA MD Ot 575.11 07/28/2014 RUSTY VYAS, ALESSIO Ot [...] MARLA Olivas Ot 574.20 CHOLELITHIASIS NOS 2014 BIA VYAS, MARLA Olivas Ot 789.01 ABDOMINAL PAIN, RIGHT UPPER QUADRANT 01/06/2015 Ot 724.2 01/06/2015 Ot 599.70 01/06/2015 Ot 789.03 01/06/2015 Ot 611.72 01/06/2015 Ot V76.12 01/06/2015 Ot 611.72 01/06/2015 Ot 621.2 01/06/2015 Ot 626.2 01/06/2015 Ot V72.63 01/06/2015 Ot V74.8 01/06/2015 Ot 793.80 01/06/2015 Ot 729.81 01/06/2015 Ot 719.47 01/06/2015 Ot 727.1 01/06/2015 Ot 729.5 01/06/2015 Ot V76.12 01/06/2015 Ot 787.02 01/06/2015 Ot 789.01 01/06/2015 COSCHERRIE VALLES DO Ot 724. 5 01/06/2015 CHERRIE WEIR DO Ot 786. 50 01/06/2015 PENNIE HARO CLIENT REPORTING ASSOCIATE Ot V76.12 01/06/2015 RUSTY VYAS, ALESSIO Ot 575.11 01/06/2015 RUSTY VYAS, ALESSIO Ot 575.8 01/06/2015 RUSTY VYAS, ALESSIO Ot V72.83 01/06/2015 RUSTY VYAS, ALESSIO Ot V74.8 01/06/2015 PENNIE HARO CLIENT REPORTING ASSOCIATE Ot 577.0 01/28/2015 BRUCE AGUAYO STEWARD/STEWARDESS RAILROAD DINING CAR Ot R91 .1 01/28/2015 ZARA VYAS, ANCELMO Marquis Ot K85. 9 02/05/2015 CALEB BLAIR DO Ot Z53.9 02/05/2015 [...] 02/22/2015 Ot 787.02 02/22/2015 Ot 789.01 02/22/2015 COSCHERRIE VALLES DO L Ot 724. 5 02/22/2015 CHERRIE WEIR DO L Ot 786. 50 02/22/2015 PENNIE HARO CLIENT REPORTING ASSOCIATE Ot V76.12 02/22/2015 RUSTY VYAS, ALESSIO Ot 575.11 02/22/2015 RUSTY VYAS, ALESSIO Ot 575.8 02/22/2015 ALESSIO OJEDA MD Ot V72.83 02/22/2015 ALESSIO OJEDA MD Ot V74.8 02/22/2015 PENNIE HARO Ot 577.0 02/22/2015 BRUCE AGUAYO STEWARD/STEWARDESS RAILROAD DINING CAR Ot R91 .1 02/22/2015 ZARA VYAS, ANCELMO Marqusi Ot K85. 9 02/22/2015 MAVERICK GRIFFITHS MD Ot J18.9 02/25/2015 MAVERICK GRIFFITHS MD Ot F41.9 ANXIETY DISORDER, UNSPECIFIED 02/25/2015 MAVERICK GRIFFITHS MD Ot I1 0 ESSENTIAL (PRIMARY) HYPERTENSION 02/25/2015 MAVERICK GRIFFITHS MD Ot J45.909 UNSPECIFIED ASTHMA, UNCOMPLICATED 02/25/2015 TUNDE VYAS, MAVERICK Guardado Ot K21.9 GASTRO-ESOPHAGEAL REFLUX DISEASE WITHOUT 02/25/2015 TUNDE VYAS, MAVERICK Guardado Ot K85.9 ACUTE PANCREATITIS, UNSPECIFIED 02/25/2015 TUNDE VYAS, MAVERICK Guardado Ot Z87.891 PERSONAL HISTORY OF NICOTINE DEPENDENCE 03/03/2015 Ot 611.72 03/03/2015 Ot V76.12 03/03/2015 Ot 611.72 03/03/2015 Ot 621.2 03/03/2015 Ot 626.2 03/03/2015 Ot V72.63 03/03/2015 Ot V74.8 03/03/2015 Ot 793.80 03/03/2015 Ot 729.81 03/03/2015 Ot 719.47 03/03/2015 Ot 727.1 03/03/2015 Ot 729.5 03/03/2015 Ot V76.12 03/03/2015 Ot 787.02 03/03/2015 Ot 789.01 03/03/2015 CHERRIE WEIR DO Ot 724. 5 03/03/2015 CHERRIE WEIR DO Ot 786. 50 03/03/2015 PENNIE HARO CLIENT REPORTING ASSOCIATE Ot V76.12 03/03/2015 RUSTY VYAS, ALESSIO Ot 575.11 03/03/2015 RUSTY VYAS, ALESSIO Ot 575.8 03/03/2015 RUSTY VYAS, ALESSIO Ot V72.83 03/03/2015 RUSTY VYAS, ALESSIO Ot V74.8 03/03/2015 PENNIE HARO CLIENT REPORTING ASSOCIATE Ot 577.0 03/03/2015 BRUCE AGUAYO APRN Ot R91 .1 03/03/2015 ZARA VYAS, ANCELMO P Ot K85. 9 03/03/2015 TUNDE VYAS, MAVERICK Guardado Ot J18.9 03/03/2015 HERBERT GUY DO Ot R06. 83 SNORING 04/15/2015 ZARA VYAS, ANCELMO P Ot K85. 9 04/15/2015 ZARA VYAS, ANCELMO P Ot Z90. 49 05/20/2015 TUNDE VYAS, MAVERICK Guardado Ot R91.1 05/20/2015 HERBERT GUY DO Ot B89 05/20/2015 HERBERT GUY DO Ot E66. 9 05/20/2015 HERBERT GUY DO Ot J98. 11 05/25/2015 HERBERT GUY DO Ot E66. 9 05/25/2015 HERBERT GUY DO Ot J18. 9 05/25/2015 HERBERT GUY DO Ot J98. 11 05/28/2015 Ot 611.72 05/28/2015 Ot V76.12 05/28/2015 Ot 611.72 05/28/2015 Ot 621.2 05/28/2015 Ot 626.2 05/28/2015 Ot V72.63 05/28/2015 Ot V74.8 05/28/2015 Ot 793.80 05/28/2015 Ot 729.81 05/28/2015 Ot 719.47 05/28/2015 Ot 727.1 05/28/2015 Ot 729.5 05/28/2015 Ot V76.12 05/28/2015 Ot 787.02 05/28/2015 Ot 789.01 05/28/2015 COSENS DO, CHERRIE L Ot 724. 5 05/28/2015 COSENS DO, CHERRIE L Ot 786. 50 05/28/2015 PENNIE HARO Ot V76.12 05/28/2015 RUSTY VYAS, ALESSIO Ot 575.11 05/28/2015 RUSTY VYAS, ALESSIO Ot 575.8 05/28/2015 RUSTY VYAS, ALESSIO Ot V72.83 05/28/2015 RUSTY VYAS, ALESSIO Ot V74.8 05/28/2015 PENNIE HARO Ot 577.0 05/28/2015 BRUCE AGUAYO APRN Ot R91 .1 05/28/2015 ZARA VYAS, ANCELMO Marquis Ot K85. 9 05/28/2015 TUNDE VYAS, MAVERICK Guardado Ot J18.9 05/28/2015 HERBERT GUY DO Ot B89 05/28/2015 HERBERT GUY DO Ot E66. 9 05/28/2015 HERBERT GYU DO Ot J98. 11 05/28/2015 ZARA VYAS, ANCELMO Marquis Ot K85. 9 05/28/2015 ZARA VYAS, ANCELMO P Ot Z90. 49 05/29/2015 HERBERT GUY DO Ot E66. 9 05/29/2015 HERBERT GUY DO Ot J18. 9 05/29/2015 HERBERT GUY DO Ot J98. 11 06/30/2015 Ot 611.72 06/30/2015 Ot V76.12 06/30/2015 Ot 611.72 06/30/2015 Ot 621.2 06/30/2015 Ot 626.2 06/30/2015 Ot V72.63 06/30/2015 Ot V74.8 06/30/2015 Ot 793.80 06/30/2015 Ot 729.81 06/30/2015 Ot 719.47 06/30/2015 Ot 727.1 06/30/2015 Ot 729.5 06/30/2015 Ot V76.12 06/30/2015 Ot 787.02 06/30/2015 Ot 789.01 06/30/2015 CHERRIE WEIR DO Ot 724. 5 06/30/2015 CHERRIE WEIR DO Ot 786. 50 06/30/2015 PENNIE HARO Ot V76.12 06/30/2015 RUSTY VYAS, ALESSIO Ot 575.11 06/30/2015 RUSTY VYAS, ALESSIO Ot 575.8 06/30/2015 RUSTY VYAS, ALESSIO Ot V72.83 06/30/2015 RUSTY VYAS, ALESSIO Ot V74.8 06/30/2015 PENNIE HARO Ot 577.0 06/30/2015 BRUCE AGUAYO APRN Ot R91 .1 06/30/2015 ZARA VYAS, ANCELMO Marquis Ot K85. 9 06/30/2015 TUNDE VYAS, MAVERICK Guardado Ot J18.9 06/30/2015 HERBERT GUY DO Ot B89 06/30/2015 HERBERT GUY DO Ot E66. 9 06/30/2015 HERBERT GUY DO Ot J98. 11 06/30/2015 ZARA VYAS, ANCELMO P Ot K85. 9 06/30/2015 ZARA VYAS, ANCELMO P Ot Z90. 49 07/04/2015 Ot R06.00 DYS PNEA, UNSPECIFIED 07/04/2015 Ot R06.83 SNO RING 07/07/2015 Ot R06.00 07/07/2015 Ot R06.83 07/29/2015 HERBERT GUY DO Ot E66. 9 OBESITY, UNSPECIFIED 07/29/2015 HERBERT GUY DO Ot J16. 8 PNEUMONIA DUE TO OTHER SPECIFIED INFECTI 07/29/2015 HERBERT GUY DO Ot J98. 11 ATELECTASIS 07/30/2015 MAVERICK GRIFFITHS MD Ot R91.1 SOLITARY PULMONARY NODULE 07/30/2015 HERBERT GUY DO Ot B89 UNSPECIFIED PARASITIC DISEASE 07/30/2015 HERBERT GYU DO Ot E66. 9 OBESITY, UNSPECIFIED 07/30/2015 HERBERT GUY DO Ot J98. 11 ATELECTASIS 07/30/2015 HERBERT GUY DO Ot E66. 9 OBESITY, UNSPECIFIED 07/30/2015 HERBERT GUY DO Ot J18. 9 PNEUMONIA, UNSPECIFIED ORGANISM 07/30/2015 HERBERT GUY DO Ot J98. 11 ATELECTASIS 07/30/2015 HERBERT GUY DO Ot E66. 9 OBESITY, UNSPECIFIED 07/30/2015 HERBERT GUY DO Ot J16. 8 PNEUMONIA DUE TO OTHER SPECIFIED INFECTI 07/30/2015 HERBERT GUY DO Ot J98. 11 ATELECTASIS 07/30/2015 MAVERICK GRIFFITHS MD Ot R91.1 SOLITARY PULMONARY NODULE 07/30/2015 MAVERICK GRIFFITHS MD Ot R91.1 SOLITARY PULMONARY NODULE 07/31/2015 MAVERICK GRIFFITHS MD Ot R91.1 SOLITARY PULMONARY NODULE 08/06/2015 HERBERT GUY DO Ot B89 UNSPECIFIED PARASITIC DISEASE 08/06/2015 HERBERT GUY DO Ot E66. 9 OBESITY, UNSPECIFIED 08/06/2015 HERBERT GUY DO Ot J98. 11 ATELECTASIS 08/06/2015 HERBERT GUY DO Ot J47. 9 BRONCHIECTASIS, UNCOMPLICATED 08/06/2015 HERBERT GUY DO Ot J98. 11 ATELECTASIS 08/07/2015 HERBERT GUY DO Ot J47. 9 BRONCHIECTASIS, UNCOMPLICATED 08/07/2015 HERBERT GUY DO Ot J98. 11 ATELECTASIS 08/12/2015 MALENA POLK HERBERT Paulino Ot J47. 9 BRONCHIECTASIS, UNCOMPLICATED 08/12/2015 Ot 611.72 LUM P OR MASS IN BREAST 08/12/2015 Ot V76.12 OTH SCREEN MAMMO- MALIGN NEOPLASM OF [place] 08/12/2015 Ot 611.72 LUM P OR MASS IN BREAST 08/12/2015 Ot 621.2 HYPE RTROPHY OF UTERUS 08/12/2015 Ot 626.2 EXCE SSIVE MENSTRUATION 08/12/2015 Ot V72.63 PRE -PROCEDURAL LABORATORY EXAMINATION 08/12/2015 Ot V74.8 SCRE EN-BACTERIAL DIS NEC 08/12/2015 Ot 793.80 UNS PEC ABNORMAL MAMMOGRAM 08/12/2015 Ot 729.81 SWE LLING OF LIMB 08/12/2015 Ot 719.47 EDWIN NT PAIN-ANKLE 08/12/2015 Ot 727.1 BUNION 08/12/2015 Ot 729.5 PAIN IN LIMB 08/12/2015 Ot V76.12 OTH SCREEN MAMMO- MALIGN NEOPLASM OF [place] 08/12/2015 Ot 787.02 CATHERINE SEA ALONE 08/12/2015 Ot 789.01 ABD OMINAL PAIN, RIGHT UPPER QUADRANT 08/12/2015 COS DO, CHERRIE L Ot 724. 5 BACKACHE NOS 08/12/2015 COS DO, CHERRIE L Ot 786. 50 CHEST PAIN NOS 08/12/2015 PENNIE HARO Ot V76.12 OTH SCREEN MAMMO-MALIGN NEOPLASM OF [place] 08/12/2015 RUSTY VYAS, ALESSIO Ot 575.11 CHRONIC CHOLECYSTITIS 08/12/2015 RUSTY VYAS, ALESSIO Ot 575.8 DIS OF GALLBLADDER NEC 08/12/2015 RUSTY VYAS, ALESSIO Ot V72.83 EXAM PRE-OPERATIVE NEC 08/12/2015 RUSTY VYAS, ALESSIO Ot V74.8 SCREEN-BACTERIAL DIS NEC 08/12/2015 PENNIE HARO Ot 577.0 ACUTE PANCREATITIS 08/12/2015 BRUCE AGUAYO APRN Ot R91 .1 SOLITARY PULMONARY NODULE 08/12/2015 ZARA VYAS, ANCELMO Marquis Ot K85. 9 ACUTE PANCREATITIS, UNSPECIFIED 08/12/2015 TUNDE VYAS, MAVERICK Guardado Ot J18.9 PNEUMONIA, UNSPECIFIED ORGANISM 08/12/2015 TUNDE VYAS, MAVERICK Guardado Ot R91.1 SOLITARY PULMONARY NODULE 08/12/2015 HERBERT GUY DO Ot B89 UNSPECIFIED PARASITIC DISEASE 08/12/2015 HERBERT GUY DO Ot E66. 9 OBESITY, UNSPECIFIED 08/12/2015 HERBERT GUY DO Ot J98. 11 ATELECTASIS 08/12/2015 ZARA VYAS, ANCELMO Marquis Ot K85. 9 ACUTE PANCREATITIS, UNSPECIFIED 08/12/2015 ZARA VYAS, ANCELMO Marquis Ot Z90. 49 ACQUIRED ABSENCE OF OTHER SPECIFIED PART 08/12/2015 TUNDE VYAS, MAVERICK Guardado Ot R91.1 SOLITARY PULMONARY NODULE 08/21/2015 HERBERT GUY DO Ot B89 UNSPECIFIED PARASITIC DISEASE 08/21/2015 HERBERT GUY DO Ot E66. 9 OBESITY, UNSPECIFIED 08/21/2015 HERBERT GUY DO Ot J98. 11 ATELECTASIS 10/27/2015 DANICA VYAS, ADELIA Wilson Ot K21.9 GASTRO-ESOPHAGEAL REFLUX DISEASE WITHOUT 10/27/2015 DANICA VYAS, ADELIA Wilson Ot K86.1 OTHER CHRONIC PANCREATITIS 10/27/2015 DANICA VYAS, ADELIA Wilson Ot R10.10 UPPER ABDOMINAL PAIN, UNSPECIFIED 10/27/2015 DANICA VYAS, ADELIA Wilson Ot R11.0 NAUSEA 12/09/2015 Ot 611.72 LUM P OR MASS IN BREAST 12/09/2015 Ot V76.12 OTH SCREEN MAMMO- MALIGN NEOPLASM OF [place] 12/09/2015 Ot 611.72 LUM P OR MASS IN BREAST 12/09/2015 Ot 621.2 HYPE RTROPHY OF UTERUS 12/09/2015 Ot 626.2 EXCE SSIVE MENSTRUATION 12/09/2015 Ot V72.63 PRE -PROCEDURAL LABORATORY EXAMINATION 12/09/2015 Ot V74.8 SCRE EN-BACTERIAL DIS NEC 12/09/2015 Ot 793.80 UNS PEC ABNORMAL MAMMOGRAM 12/09/2015 Ot 729.81 SWE LLING OF LIMB 12/09/2015 Ot 719.47 EDWIN NT PAIN-ANKLE 12/09/2015 Ot 727.1 BUNION 12/09/2015 Ot 729.5 PAIN IN LIMB 12/09/2015 Ot V76.12 OTH SCREEN MAMMO- MALIGN NEOPLASM OF [place] 12/09/2015 Ot 787.02 CATHERINE SEA ALONE 12/09/2015 Ot 789.01 ABD OMINAL PAIN, RIGHT UPPER QUADRANT 12/09/2015 CHERRIE WEIR DO Ot 724. 5 BACKACHE NOS 12/09/2015 COSCHERRIE VALLES DO L Ot 786. 50 CHEST PAIN NOS 12/09/2015 PENNIE HARO Ot V76.12 OTH SCREEN MAMMO-MALIGN NEOPLASM OF [place] 12/09/2015 ALESSIO OJEDA MD Ot 575.11 CHRONIC CHOLECYSTITIS 12/09/2015 ALESSIO OJEDA MD Ot 575.8 DIS OF GALLBLADDER NEC 12/09/2015 ALESSIO OJEDA MD Ot V72.83 EXAM PRE-OPERATIVE NEC 12/09/2015 ALESSIO OJEDA MD Ot V74.8 SCREEN-BACTERIAL DIS NEC 12/09/2015 PENNIE HARO Ot 577.0 ACUTE PANCREATITIS 12/09/2015 BRUCE AGUAYO APRN Ot R91 .1 SOLITARY PULMONARY NODULE 12/09/2015 ZARA VYAS, ANCELMO Marquis Ot K85. 9 ACUTE PANCREATITIS, UNSPECIFIED 12/09/2015 TUNDE VYAS, MAVERICK Guardado Ot J18.9 PNEUMONIA, UNSPECIFIED ORGANISM 12/09/2015 TUNDE VYAS, MAVERICK Guardado Ot R91.1 SOLITARY PULMONARY NODULE 12/09/2015 HERBERT GUY DO Ot B89 UNSPECIFIED PARASITIC DISEASE 12/09/2015 HERBERT GUY DO Ot E66. 9 OBESITY, UNSPECIFIED 12/09/2015 HERBERT GUY DO Ot J98. 11 ATELECTASIS 12/09/2015 ZARA VYAS, ANCELMO Marquis Ot K85. 9 ACUTE PANCREATITIS, UNSPECIFIED 12/09/2015 ANCELMO ZUÑIGA MD Ot Z90. 49 ACQUIRED ABSENCE OF OTHER SPECIFIED PART 12/10/2015 MAGALIS ETIENNE DO Ot K21.9 GASTRO-ESOPHAGEAL REFLUX DISEASE WITHOUT 12/10/2015 MAGALIS ETIENNE DO Ot R10.13 EPIGASTRIC PAIN 12/10/2015 MAGALIS ETIENNE DO Ot Z79.899 OTHER HALFWAY (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 THERAPY 12/10/2015 LOWELL DO, MAGALIS K Ot Z87.19 PERSONAL HISTORY OF OTHER DISEASES OF TH 12/10/2015 Ot 611.72 LUM P OR MASS IN BREAST 12/10/2015 Ot V76.12 OTH SCREEN MAMMO- MALIGN NEOPLASM OF [place] 12/10/2015 Ot 611.72 LUM P OR MASS IN BREAST 12/10/2015 Ot 621.2 HYPE RTROPHY OF UTERUS 12/10/2015 Ot 626.2 EXCE SSIVE MENSTRUATION 12/10/2015 Ot V72.63 PRE -PROCEDURAL LABORATORY EXAMINATION 12/10/2015 Ot V74.8 SCRE EN-BACTERIAL DIS NEC 12/10/2015 Ot 793.80 UNS PEC ABNORMAL MAMMOGRAM 12/10/2015 Ot 729.81 SWE LLING OF LIMB 12/10/2015 Ot 719.47 EDWIN NT PAIN-ANKLE 12/10/2015 Ot 727.1 BUNION 12/10/2015 Ot 729.5 PAIN IN LIMB 12/10/2015 Ot V76.12 OTH SCREEN MAMMO- MALIGN NEOPLASM OF [place] 12/10/2015 Ot 787.02 CATHERINE SEA ALONE 12/10/2015 Ot 789.01 ABD OMINAL PAIN, RIGHT UPPER QUADRANT 12/10/2015 COSENS DO, CHERRIE L Ot 724. 5 BACKACHE NOS 12/10/2015 COSENS DO, CHERRIE L Ot 786. 50 CHEST PAIN NOS 12/10/2015 PENNIE HARO Ot V76.12 OTH SCREEN MAMMO-MALIGN NEOPLASM OF [place] 12/10/2015 RUSTY VYAS, ALESSIO Ot 575.11 CHRONIC CHOLECYSTITIS 12/10/2015 RUSTY VYAS, ALESSIO Ot 575.8 DIS OF GALLBLADDER NEC 12/10/2015 ALESSIO OJEDA MD Ot V72.83 EXAM PRE-OPERATIVE NEC 12/10/2015 RUSTY VYAS, ALESSIO Ot V74.8 SCREEN-BACTERIAL DIS NEC 12/10/2015 PENNIE HARO Ot 577.0 ACUTE PANCREATITIS 12/10/2015 BRUCE AGUAYO APRN Ot R91 .1 SOLITARY PULMONARY NODULE 12/10/2015 ZARA VYAS, ANCELMO Marquis Ot K85. 9 ACUTE PANCREATITIS, UNSPECIFIED 12/10/2015 MAVERICK GRIFFITHS MD Ot J18.9 PNEUMONIA, UNSPECIFIED ORGANISM 12/10/2015 MAVERICK GRIFFITHS MD Ot R91.1 SOLITARY PULMONARY NODULE 12/10/2015 HERBERT GUY DO Ot B89 UNSPECIFIED PARASITIC DISEASE 12/10/2015 HERBERT GUY DO Ot E66. 9 OBESITY, UNSPECIFIED 12/10/2015 HERBERT GUY DO Ot J98. 11 ATELECTASIS 12/10/2015 ZARA VYAS, ANCELMO Marquis Ot K85. 9 ACUTE PANCREATITIS, UNSPECIFIED 12/10/2015 ZARA VYAS, ANCELMO Marquis Ot Z90. 49 ACQUIRED ABSENCE OF OTHER SPECIFIED PART 12/10/2015 LOWELL , MAGALIS K Ot K21.9 GASTRO-ESOPHAGEAL REFLUX DISEASE WITHOUT 12/10/2015 LOWELL , MAGALIS K Ot R10.13 EPIGASTRIC PAIN 12/10/2015 LOWELL , MAGALIS K Ot Z79.899 OTHER HALFWAY (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 THERAPY 12/10/2015 LOWELL POLK, MAGALIS K Ot Z87.19 PERSONAL HISTORY OF OTHER DISEASES OF 12/15/2015 MAGALIS ETIENNE DO K Ot K21.9 GASTRO-ESOPHAGEAL REFLUX DISEASE WITHOUT 12/15/2015 LOWELL , MAGALIS K Ot R10.13 EPIGASTRIC PAIN 12/15/2015 LOWELL , MAGALIS K Ot Z79.899 OTHER HALFWAY (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 THERAPY 12/15/2015 LOWELL , MAGALIS K Ot Z87.19 PERSONAL HISTORY OF OTHER DISEASES OF 03/20/2016 Ot 793.80 UNS PEC ABNORMAL MAMMOGRAM 03/20/2016 Ot 729.81 SWE LLING OF LIMB 03/20/2016 Ot 719.47 EDWIN NT PAIN-ANKLE 03/20/2016 Ot 727.1 BUNION 03/20/2016 Ot 729.5 PAIN IN LIMB 03/20/2016 Ot V76.12 OTH SCREEN MAMMO- MALIGN NEOPLASM OF [place] 03/20/2016 Ot 787.02 CATHERINE SEA ALONE 03/20/2016 Ot 789.01 ABD OMINAL PAIN, RIGHT UPPER QUADRANT 03/20/2016 COSИРИНА VALLES DONT L Ot 724. 5 BACKACHE NOS 03/20/2016 ИРИНА WEIR DONT L Ot 786. 50 CHEST PAIN NOS 03/20/2016 PENNIE HARO Ot V76.12 OTH SCREEN MAMMO-MALIGN NEOPLASM OF [place] 03/20/2016 ALESSIO OJEDA MD Ot 575.11 CHRONIC CHOLECYSTITIS 03/20/2016 ALESSIO OJEDA MD Ot 575.8 DIS OF GALLBLADDER NEC 03/20/2016 ALESSIO OJEDA MD Ot V72.83 EXAM PRE-OPERATIVE NEC 03/20/2016 ALESSIO OJEDA MD Ot V74.8 SCREEN-BACTERIAL DIS NEC 03/20/2016 ESTRELLITA PENNIE Paulino CLIENT REPORTING ASSOCIATE Ot 577.0 ACUTE PANCREATITIS 03/20/2016 BRUCE AGUAYO APRN Ot R91 .1 SOLITARY PULMONARY NODULE 03/20/2016 ANCELMO ZUÑIGA MD Ot K85. 9 ACUTE PANCREATITIS, UNSPECIFIED 03/20/2016 MAVERICK GRIFFITHS MD Ot J18.9 PNEUMONIA, UNSPECIFIED ORGANISM 03/20/2016 MAVERICK GRIFFITHS MD Ot R91.1 SOLITARY PULMONARY NODULE 03/20/2016 HERBERT GUY DO Ot B89 UNSPECIFIED PARASITIC DISEASE 03/20/2016 HERBERT GUY DO Ot E66. 9 OBESITY, UNSPECIFIED 03/20/2016 HERBERT GUY DO Ot J98. 11 ATELECTASIS 03/20/2016 ANCELMO ZUÑIGA MD Ot K85. 9 ACUTE PANCREATITIS, UNSPECIFIED 03/20/2016 ANCELMO ZUÑIGA MD Ot Z90. 49 ACQUIRED ABSENCE OF OTHER SPECIFIED PART 03/21/2016 EDGAR DIAZ MD Ot F41 .9 ANXIETY DISORDER, UNSPECIFIED 03/21/2016 EDGAR DIAZ MD Ot I10 ESSENTIAL (PRIMARY) HYPERTENSION 03/21/2016 EDGAR DIAZ MD Ot J45.909 UNSPECIFIED ASTHMA, UNCOMPLICATED 03/21/2016 EDGAR DIAZ MD Ot K21 .9 GASTRO-ESOPHAGEAL REFLUX DISEASE WITHOUT 03/21/2016 EDGAR DIAZ MD Ot K85.90 ACUTE PANCREATITIS WITHOUT NECROSIS OR I 03/21/2016 EDGAR DIAZ MD Ot Z87.891 PERSONAL HISTORY OF NICOTINE DEPENDENCE 05/28/2016 Ot 793.80 UNS PEC ABNORMAL MAMMOGRAM 05/28/2016 Ot 729.81 SWE LLING OF LIMB 05/28/2016 Ot 719.47 EDWIN NT PAIN-ANKLE 05/28/2016 Ot 727.1 BUNION 05/28/2016 Ot 729.5 PAIN IN LIMB 05/28/2016 Ot V76.12 OTH SCREEN MAMMO- MALIGN NEOPLASM OF [place] 05/28/2016 Ot 787.02 CATHERINE SEA ALONE 05/28/2016 Ot 789.01 ABD OMINAL PAIN, RIGHT UPPER QUADRANT 05/28/2016 CHERRIE WEIR DO L Ot 724. 5 BACKACHE NOS 05/28/2016 CHERRIE WEIR DO L Ot 786. 50 CHEST PAIN NOS 05/28/2016 PENNIE HARO Ot V76.12 OTH SCREEN MAMMO-MALIGN NEOPLASM OF [place] 05/28/2016 RUSTY VYAS, ALESSIO Ot 575.11 CHRONIC CHOLECYSTITIS 05/28/2016 RUSTY VYAS, ALESSIO Ot 575.8 DIS OF GALLBLADDER NEC 05/28/2016 ALESSIO OJEDA MD Ot V72.83 EXAM PRE-OPERATIVE NEC 05/28/2016 ALESSIO OJEDA MD Ot V74.8 SCREEN-BACTERIAL DIS NEC 05/28/2016 PENNIE HARO Ot 577.0 ACUTE PANCREATITIS 05/28/2016 BRUCE AGUAYO APRN Ot R91 .1 SOLITARY PULMONARY NODULE 05/28/2016 ZARA VYAS, ANCELMO Marquis Ot K85. 9 ACUTE PANCREATITIS, UNSPECIFIED 05/28/2016 MAVERICK GRIFFITHS MD Ot J18.9 PNEUMONIA, UNSPECIFIED ORGANISM 05/28/2016 TUNDE VYAS, MAVERICK Guardado Ot R91.1 SOLITARY PULMONARY NODULE 05/28/2016 HERBERT GUY DO Ot B89 UNSPECIFIED PARASITIC DISEASE 05/28/2016 HERBERT GUY DO Ot E66. 9 OBESITY, UNSPECIFIED 05/28/2016 HERBERT GUY DO Ot J98. 11 ATELECTASIS 05/28/2016 ZARA VYAS, ANCELMO Marquis Ot K85. 9 ACUTE PANCREATITIS, UNSPECIFIED 05/28/2016 ANCELMO ZUÑIGA MD Ot Z90. 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 5 BACKACHE NOS 05/30/2016 COSENS DO, CHERRIE L Ot 786. 50 CHEST PAIN NOS 05/30/2016 PENNIE HARO Ot V76.12 OTH SCREEN MAMMO-MALIGN NEOPLASM OF [place] 05/30/2016 ALESSIO OJEDA MD Ot 575.11 CHRONIC CHOLECYSTITIS 05/30/2016 ALESSIO OJEDA MD Ot 575.8 DIS OF GALLBLADDER NEC 05/30/2016 ALESSIO OJEDA MD Ot V72.83 EXAM PRE-OPERATIVE NEC 05/30/2016 ALESSIO OJEDA MD Ot V74.8 SCREEN-BACTERIAL DIS NEC 05/30/2016 PENNIE HARO Ot 577.0 ACUTE PANCREATITIS 05/30/2016 BRUCE AGUAYO STEWARD/STEWARDESS RAILRO[employer] D[employer]ING CAR Ot R91 .1 SOLITARY PULMONARY NODULE 05/30/2016 ZARA VYAS, ANCELMO Marquis Ot K85. 9 ACUTE PANCREATITIS, UNSPECIFIED 05/30/2016 TUNDE VYAS, MAVERICK Guardado Ot J18.9 PNEUMONIA, UNSPECIFIED ORGANISM 05/30/2016 TUNDE VYAS, MAVERICK Guardado Ot R91.1 SOLITARY PULMONARY NODULE 05/30/2016 HERBERT GUY DO Ot B89 UNSPECIFIED PARASITIC DISEASE 05/30/2016 HERBERT GUY DO Ot E66. 9 OBESITY, UNSPECIFIED 05/30/2016 HERBERT GUY DO Ot J98. 11 ATELECTASIS 05/30/2016 ANCELMO ZUÑIGA MD Ot K85. 9 ACUTE PANCREATITIS, UNSPECIFIED 05/30/2016 ANCELMO ZUÑIGA MD Ot Z90. 49 ACQUIRED ABSENCE OF OTHER SPECIFIED PART 06/01/2016 BILL HEREDIA APRN Ot K86 .1 OTHER CHRONIC PANCREATITIS 06/01/2016 BILL HEREDIA APRN Ot R10.84 GENERALIZED ABDOMINAL PAIN 06/01/2016 HEREDIABILL STEWARD/STEWARDESS RAILROAD DINING CAR Ot Z79.899 OTHER HALFWAY (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 THERAPY 06/01/2016 Ot 793.80 UNS PEC ABNORMAL MAMMOGRAM 06/01/2016 Ot 729.81 SWE LLING OF LIMB 06/01/2016 Ot 719.47 EDWIN NT PAIN-ANKLE 06/01/2016 Ot 727.1 BUNION 06/01/2016 Ot 729.5 PAIN IN LIMB 06/01/2016 Ot V76.12 OTH SCREEN MAMMO- MALIGN NEOPLASM OF [place] 06/01/2016 Ot 787.02 CATHERINE SEA ALONE 06/01/2016 Ot 789.01 ABD OMINAL PAIN, RIGHT UPPER QUADRANT 06/01/2016 COSИРИНА VALLES DONT L Ot 724. 5 BACKACHE NOS 06/01/2016 DESTIN DO, CHERRIE L Ot 786. 50 CHEST PAIN NOS 06/01/2016 PENNIE HARO Ot V76.12 OTH SCREEN MAMMO-MALIGN NEOPLASM OF [place] 06/01/2016 ALESSIO OJEDA MD Ot 575.11 CHRONIC CHOLECYSTITIS 06/01/2016 ALESSIO OJEDA MD Ot 575.8 DIS OF GALLBLADDER NEC 06/01/2016 ALESSIO OJEDA MD Ot V72.83 EXAM PRE-OPERATIVE NEC 06/01/2016 ALESSIO OJEDA MD Ot V74.8 SCREEN-BACTERIAL DIS NEC 06/01/2016 PENNIE HARO Ot 577.0 ACUTE PANCREATITIS 06/01/2016 BRUCE AGUAYO STEWARD/STEWARDESS RAILRO[employer] DINING CAR Ot R91 .1 SOLITARY PULMONARY NODULE 06/01/2016 ZARA VYAS, ANCELMO Marquis Ot K85. 9 ACUTE PANCREATITIS, UNSPECIFIED 06/01/2016 MAVERICK GRIFFITHS MD Ot J18.9 PNEUMONIA, UNSPECIFIED ORGANISM 06/01/2016 MAVERICK GRIFFITHS MD Ot R91.1 SOLITARY PULMONARY NODULE 06/01/2016 HERBERT GUY DO Ot B89 UNSPECIFIED PARASITIC DISEASE 06/01/2016 HERBERT GUY DO Ot E66. 9 OBESITY, UNSPECIFIED 06/01/2016 HERBERT GUY DO Ot J98. 11 ATELECTASIS 06/01/2016 ANCELMO ZUÑIGA MD Ot K85. 9 ACUTE PANCREATITIS, UNSPECIFIED 06/01/2016 ANCELMO ZUÑIGA MD Ot Z90. 49 ACQUIRED ABSENCE OF OTHER SPECIFIED PART 06/02/2016 Ot 793.80 UNS PEC ABNORMAL MAMMOGRAM 06/02/2016 Ot 729.81 SWE LLING OF LIMB 06/02/2016 Ot 719.47 EDWIN NT PAIN-ANKLE 06/02/2016 Ot 727.1 BUNION 06/02/2016 Ot 729.5 PAIN IN LIMB 06/02/2016 Ot V76.12 OTH SCREEN MAMMO- MALIGN NEOPLASM OF [place] 06/02/2016 Ot 787.02 CATHERINE SEA ALONE 06/02/2016 Ot 789.01 ABD OMINAL PAIN, RIGHT UPPER QUADRANT 06/02/2016 COSENS DO, CHERRIE L Ot 724. 5 BACKACHE NOS 06/02/2016 COSENS DO, CHERRIE L Ot 786. 50 CHEST PAIN NOS 06/02/2016 PENNEI HARO Ot V76.12 OTH SCREEN MAMMO-MALIGN NEOPLASM OF [place] 06/02/2016 ALESSIO OJEDA MD Ot 575.11 CHRONIC CHOLECYSTITIS 06/02/2016 ALESSIO OJEDA MD Ot 575.8 DIS OF GALLBLADDER NEC 06/02/2016 ALESSIO OJEDA MD Ot V72.83 EXAM PRE-OPERATIVE NEC 06/02/2016 ALESSIO OJEDA MD Ot V74.8 SCREEN-BACTERIAL DIS NEC 06/02/2016 PENNIE HARO Ot 577.0 ACUTE PANCREATITIS 06/02/2016 DEDE BRUCE L STEWARD/STEWARDESS RAILROAD DINING CAR Ot R91 .1 SOLITARY PULMONARY NODULE 06/02/2016 ANCELMO ZUÑIGA MD Ot K85. 9 ACUTE PANCREATITIS, UNSPECIFIED 06/02/2016 MAVERICK GRIFFITHS MD Ot J18.9 PNEUMONIA, UNSPECIFIED ORGANISM 06/02/2016 MAVERICK GRIFFITHS MD Ot R91.1 SOLITARY PULMONARY NODULE 06/02/2016 HERBERT GUY DO Ot B89 UNSPECIFIED PARASITIC DISEASE 06/02/2016 HERBERT GUY DO Ot E66. 9 OBESITY, UNSPECIFIED 06/02/2016 HERBERT GUY DO Ot J98. 11 ATELECTASIS 06/02/2016 ANCELMO ZUÑIGA MD Ot K85. 9 ACUTE PANCREATITIS, UNSPECIFIED 06/02/2016 ANCELMO ZUÑIGA MD Ot Z90. 49 ACQUIRED ABSENCE OF OTHER SPECIFIED PART 06/02/2016 LUIS A VYAS, ANAND Guardado Ot J06. 9 ACUTE UPPER RESPIRATORY INFECTION, UNSPE 06/02/2016 LUIS A VYAS, ANAND Guardado Ot R05 COUGH 06/02/2016 ANAND GUNN MD Ot Z87.891 PERSONAL HISTORY OF NICOTINE DEPENDENCE 06/02/2016 Ot 793.80 UNS PEC ABNORMAL MAMMOGRAM 06/02/2016 Ot 729.81 SWE LLING OF LIMB 06/02/2016 Ot 719.47 EDWIN NT PAIN-ANKLE 06/02/2016 Ot 727.1 BUNION 06/02/2016 Ot 729.5 PAIN IN LIMB 06/02/2016 Ot V76.12 OTH SCREEN MAMMO- MALIGN NEOPLASM OF [place] 06/02/2016 Ot 787.02 CATHERINE SEA ALONE 06/02/2016 Ot 789.01 ABD OMINAL PAIN, RIGHT UPPER QUADRANT 06/02/2016 COS DO, CHERRIE L Ot 724. 5 BACKACHE NOS 06/02/2016 COSENS DO, CHERRIE L Ot 786. 50 CHEST PAIN NOS 06/02/2016 PENNIE HARO Ot V76.12 OTH SCREEN MAMMO-MALIGN NEOPLASM OF [place] 06/02/2016 ALESSIO OJEDA MD Ot 575.11 CHRONIC CHOLECYSTITIS 06/02/2016 ALESSIO OJEDA MD Ot 575.8 DIS OF GALLBLADDER NEC 06/02/2016 ALESSIO OJEDA MD Ot V72.83 EXAM PRE-OPERATIVE NEC 06/02/2016 ALESSIO OJEDA MD Ot V74.8 SCREEN-BACTERIAL DIS NEC 06/02/2016 PENNIE HARO Ot 577.0 ACUTE PANCREATITIS 06/02/2016 BRUCE AGUAYO STEWARD/STEWARDESS RAILROAD DINING CAR Ot R91 .1 SOLITARY PULMONARY NODULE 06/02/2016 ZARA VYAS, ANCELMO Marquis Ot K85. 9 ACUTE PANCREATITIS, UNSPECIFIED 06/02/2016 TUNDE VYAS, MAVERICK Guardado Ot J18.9 PNEUMONIA, UNSPECIFIED ORGANISM 06/02/2016 TUNDE VYAS, MAVERICK Guardado Ot R91.1 SOLITARY PULMONARY NODULE 06/02/2016 HERBERT GUY DO Ot B89 UNSPECIFIED PARASITIC DISEASE 06/02/2016 HERBERT GUY DO Ot E66. 9 OBESITY, UNSPECIFIED 06/02/2016 HERBERT GUY DO Ot J98. 11 ATELECTASIS 06/02/2016 ZARA VYAS, ANCELMO Marquis Ot K85. 9 ACUTE PANCREATITIS, UNSPECIFIED 06/02/2016 ZARA VYAS, ANCELMO Marquis Ot Z90. 49 ACQUIRED ABSENCE OF OTHER SPECIFIED PART 06/03/2016 ANAND GUNN MD Ot J06. 9 ACUTE UPPER RESPIRATORY INFECTION, UNSPE 06/03/2016 ANAND GUNN MD Ot R05 COUGH 06/03/2016 ANAND GUNN MD Ot Z87.891 PERSONAL HISTORY OF NICOTINE DEPENDENCE 06/04/2016 BILL HEREDIA STEWARD/STEWARDESS RAILROAD DINING CAR Ot K86 .1 OTHER CHRONIC PANCREATITIS 06/04/2016 BILL HEREDIA STEWARD/STEWARDESS RAILROAD DINING CAR Ot R10.84 GENERALIZED ABDOMINAL PAIN 06/04/2016 BILL HEREDIA STEWARD/STEWARDESS RAILROAD DINING CAR Ot Z79.899 OTHER NON DESTRUCTIVE TESTING TECHNICIAN (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 THERAPY 06/07/2016 ANAND GUNN MD, Ot J06. 9 ACUTE UPPER RESPIRATORY INFECTION, UNSPE 06/07/2016 ANAND GUNN MD Ot R05 COUGH 06/07/2016 ANAND GUNN MD Ot Z87.891 PERSONAL HISTORY OF NICOTINE DEPENDENCE 06/13/2016 MAVERICK ROSALES MD Ot F32.9 MAJOR DEPRESSIVE DISORDER, SINGLE EPISOD 06/13/2016 MAVERICK ROSALES MD Ot F41.9 ANXIETY DISORDER, UNSPECIFIED 06/13/2016 MAVERICK ROSALES MD, Ot I10 ESSENTIAL (PRIMARY) HYPERTENSION 06/13/2016 MAVERICK ROSALES MD Ot J15.2 12 PNEUMONIA DUE TO METHICILLIN RESISTANT S 06/13/2016 MAVERICK ROSALES MD Ot J44.9 CHRONIC OBSTRUCTIVE PULMONARY DISEASE, U 06/13/2016 MAVERICK ROSALES MD Ot R09.0 2 HYPOXEMIA 06/13/2016 MAVERICK ROSALES MD Ot Z77.1 20 CONTACT WITH AND (SUSPECTED) EXPOSURE TO 06/13/2016 MAVERICK ROSALES MD Ot Z87.8 91 PERSONAL HISTORY OF NICOTINE DEPENDENCE 06/13/2016 MAVERICK ROSALES MD Ot Z99.8 1 DEPENDENCE ON SUPPLEMENTAL OXYGEN 08/31/2016 SPENSER CORDOVA MD Ot H53 .8 OTHER VISUAL DISTURBANCES 08/31/2016 SPENSER CORDOVA MD Ot J34 .9 UNSPECIFIED DISORDER OF NOSE AND NASAL S 09/01/2016 SPENSER CORDOVA MD Ot H53 .8 OTHER VISUAL DISTURBANCES 09/01/2016 SPENSER CORDOVA MD Ot J34 .9 UNSPECIFIED DISORDER OF NOSE AND NASAL S 09/01/2016 SPENSRE CORDOVA MD Ot H53 .8 OTHER VISUAL DISTURBANCES 09/01/2016 SPENSER CORDOVA MD Ot J34 .9 UNSPECIFIED DISORDER OF NOSE AND NASAL S 09/01/2016 SPENSER CORDOVA MD Ot H53 .8 OTHER VISUAL DISTURBANCES 09/01/2016 SPENSER CORDOVA MD Ot J34 .9 UNSPECIFIED DISORDER OF NOSE AND NASAL S 10/20/2016 BILL HEREDIA APRN Ot F41 .9 ANXIETY DISORDER, UNSPECIFIED 10/20/2016 BILL HEREDIA APRN [...] POSTPROCEDURAL STATES 10/23/2016 BILL HEREDIA APRN Ot F41 .9 ANXIETY DISORDER, UNSPECIFIED 10/23/2016 BILL HEREDIA APRN [...] Ot Z98.890 OTHER SPECIFIED POSTPROCEDURAL STATES 11/27/2016 ART VYAS, SPENSER Marquis Ot H53 .8 OTHER VISUAL DISTURBANCES 11/27/2016 SPENSER CORDOVA MD Ot J34 .9 UNSPECIFIED DISORDER OF NOSE AND NASAL S 12/01/2016 BILL HEREDIA APRN Ot F41 .9 ANXIETY DISORDER, UNSPECIFIED 12/01/2016 BILL HEREDIA APRN Ot I10 ESSENTIAL (PRIMARY) HYPERTENSION 12/01/2016 BLIL HEREDIA APRN Ot J45.909 UNSPECIFIED ASTHMA, UNCOMPLICATED 12/01/2016 BILL HEREDIA APRN Ot R10.13 EPIGASTRIC PAIN 12/01/2016 BILL HEREDIA APRN Ot Z87.19 PERSONAL HISTORY OF OTHER DISEASES OF 12/01/2016 BILL HEREDIA APRN Ot Z87.891 PERSONAL [...] POSTPROCEDURAL STATES 12/02/2016 BILL HEREDIA APRN Ot F41 .9 ANXIETY DISORDER, UNSPECIFIED 12/02/2016 BILL HEREDIA APRN Ot I10 ESSENTIAL (PRIMARY) HYPERTENSION 12/02/2016 BILL HEREDIA APRN Ot J45.909 UNSPECIFIED ASTHMA, UNCOMPLICATED 12/02/2016 BILL HEREDIA STEWARD/STEWARDESS RAILROAD DINING CAR Ot R10.13 EPIGASTRIC PAIN 12/02/2016 BILL HEREDIA APRN Ot Z87.19 PERSONAL HISTORY OF OTHER DISEASES OF TH 12/02/2016 BILL HEREDIA STEWARD/STEWARDESS RAILROAD DINING CAR Ot Z87.891 PERSONAL HISTORY OF NICOTINE DEPENDENCE 12/02/2016 BILL HEREDIA APRN Ot Z87.898 PERSONAL HISTORY OF OTHER SPECIFIED COND 12/02/2016 BILL HEREDIA APRN Ot Z90.49 ACQUIRED ABSENCE OF OTHER SPECIFIED PART 12/02/2016 BILL HEREDIA APRN Ot Z90.710 ACQUIRED ABSENCE OF BOTH CERVIX AND UTER 12/02/2016 BILL HEREDIA APRN Ot Z90.721 ACQUIRED ABSENCE OF OVARIES, UNILATERAL 12/02/2016 BILL HEREDIA APRN Ot Z98.890 OTHER SPECIFIED POSTPROCEDURAL STATES 12/20/2016 SPENSER CORDOVA MD Ot H53 .8 OTHER VISUAL DISTURBANCES 12/20/2016 SPENSER CORDOVA MD Ot J34 .9 UNSPECIFIED DISORDER OF NOSE AND NASAL S 01/04/2017 SPENSER CORDOVA MD Ot H53 .8 OTHER VISUAL DISTURBANCES 01/04/2017 SPENSER CORDOVA MD Ot J34 .9 UNSPECIFIED DISORDER OF NOSE AND NASAL S 04/20/2017 MAVERICK ROSALES MD Ot Z12.3 1 ENCNTR SCREEN MAMMOGRAM FOR MALIGNANT NE 12/18/2017 MAVERICK ROSALES MD Ot Z12.3 1 ENCNTR SCREEN MAMMOGRAM FOR MALIGNANT NE 12/27/2017 MAVERICK ROSALES MD Ot Z12.3 1 ENCNTR SCREEN MAMMOGRAM FOR MALIGNANT NE 01/21/2018 COSENS DO, CHERRIE L Ot 724. 5 BACKACHE NOS 01/21/2018 COSENS DO, CHERRIE L Ot 786. 50 CHEST PAIN NOS 01/21/2018 PENNIE HARO Ot V76.12 OTH SCREEN MAMMO-MALIGN NEOPLASM OF [place] 01/21/2018 ALESSIO OJEDA MD Ot 575.11 CHRONIC CHOLECYSTITIS 01/21/2018 ALESSIO OJEDA MD Ot 575.8 DIS OF GALLBLADDER NEC 01/21/2018 ALESSIO OJEDA MD Ot V72.83 EXAM PRE-OPERATIVE NEC 01/21/2018 WM OJEDA MDKI Ot V74.8 SCREEN-BACTERIAL DIS NEC 01/21/2018 ESTRELLITA PENNIE Lora CLIENT REPORTING ASSOCIATE Ot 577.0 ACUTE PANCREATITIS 01/21/2018 BRUCE AGUAYO APRN Ot R91 .1 SOLITARY PULMONARY NODULE 01/21/2018 ZARA VYAS, ANCELMO Marquis Ot K85. 9 ACUTE PANCREATITIS, UNSPECIFIED 01/21/2018 MAVERICK GRIFFITHS MD Ot J18.9 PNEUMONIA, UNSPECIFIED ORGANISM 01/21/2018 MAVERICK GRIFFITHS MD Ot R91.1 SOLITARY PULMONARY NODULE 01/21/2018 HERBERT GUY DO Ot B89 UNSPECIFIED PARASITIC DISEASE 01/21/2018 HERBERT GUY DO Ot E66. 9 OBESITY, UNSPECIFIED 01/21/2018 HERBERT GUY DO Ot J98. 11 ATELECTASIS 01/21/2018 ANCELMO ZUÑIGA MD Ot K85. 9 ACUTE PANCREATITIS, UNSPECIFIED 01/21/2018 ANCELMO ZUÑIGA MD Ot Z90. 49 ACQUIRED ABSENCE OF OTHER SPECIFIED PART 01/21/2018 ART VYAS, SPENSER Marquis Ot H53 .8 OTHER VISUAL DISTURBANCES 01/21/2018 SPENSER CORDOVA MD Ot J34 .9 UNSPECIFIED DISORDER OF NOSE AND NASAL S 01/21/2018 BOBBY VYAS, MAVERICK Taylor Ot Z12.3 1 ENCNTR SCREEN MAMMOGRAM FOR MALIGNANT NE 01/21/2018 BOBBY VYAS, MAVERICK Taylor Ot Z12.3 1 ENCNTR SCREEN MAMMOGRAM FOR MALIGNANT NE 01/21/2018 MAGALIS ETIENNE DO Ot F41.9 ANXIETY DISORDER, UNSPECIFIED 01/21/2018 LOWELL POLK MAGALIS K Ot I10 ESSENTIAL (PRIMARY) HYPERTENSION 01/21/2018 LOWELL POLK MAGALIS K Ot J45.909 UNSPECIFIED ASTHMA, UNCOMPLICATED 01/21/2018 LOWELL POLK MAGALIS K Ot K59.00 CONSTIPATION, UNSPECIFIED 01/21/2018 ZACHARY ETIENNE DOA K Ot K76.0 FATTY (CHANGE OF) LIVER, NOT ELSEWHERE C 01/21/2018 LOWELL POLK MAGALIS K Ot R10.9 UNSPECIFIED ABDOMINAL PAIN 01/21/2018 MAGALIS ETIENNE DO Ot Z79.52 HALFWAY (CURRENT) USE OF SYSTEMIC STER 01/21/2018 MAGALIS [...] Ot Z90.89 ACQUIRED ABSENCE OF OTHER ORGANS 02/09/2018 COSENS DO, CHERRIE L Ot 724. 5 BACKACHE NOS 02/09/2018 COSENS DO, CHERRIE L Ot 786. 50 CHEST PAIN NOS 02/09/2018 PENNIE HARO Ot V76.12 OTH SCREEN MAMMO-MALIGN NEOPLASM OF [place] 02/09/2018 ALESSIO OJEDA MD Ot 575.11 CHRONIC CHOLECYSTITIS 02/09/2018 ALESSIO OJEDA MD Ot 575.8 DIS OF GALLBLADDER NEC 02/09/2018 ALESSIO OJEDA MD Ot V72.83 EXAM PRE-OPERATIVE NEC 02/09/2018 ALESSIO OJEDA MD Ot V74.8 SCREEN-BACTERIAL DIS NEC 02/09/2018 PENNIE HAROP Ot 577.0 ACUTE PANCREATITIS 02/09/2018 BRUCE AGUAYO APRN Ot R91 .1 SOLITARY PULMONARY NODULE 02/09/2018 ZARA VYAS, ANCELMO Marquis Ot K85. 9 ACUTE PANCREATITIS, UNSPECIFIED 02/09/2018 TUNDE VYAS, MAVERICK Guardado Ot J18.9 PNEUMONIA, UNSPECIFIED ORGANISM 02/09/2018 MAVERICK GRIFFITHS MD Ot R91.1 SOLITARY PULMONARY NODULE 02/09/2018 HERBERT GUY DO Ot B89 UNSPECIFIED PARASITIC DISEASE 02/09/2018 HERBERT GUY DO Ot E66. 9 OBESITY, UNSPECIFIED 02/09/2018 HERBERT GUY DO Ot J98. 11 ATELECTASIS 02/09/2018 ZARA VYAS, ANCELMO Marquis Ot K85. 9 ACUTE PANCREATITIS, UNSPECIFIED 02/09/2018 ZARA VYAS, ANCELMO Marquis Ot Z90. 49 ACQUIRED ABSENCE OF OTHER SPECIFIED PART 02/09/2018 SPENSER CORDOVA MD Ot H53 .8 OTHER VISUAL DISTURBANCES 02/09/2018 SPENSER CORDOVA MD Ot J34 .9 UNSPECIFIED DISORDER OF NOSE AND NASAL S 02/09/2018 BOBBY VYAS, MAVERICK Taylor Ot Z12.3 1 ENCNTR SCREEN MAMMOGRAM FOR MALIGNANT NE 02/09/2018 MAVERCIK ROSALES MD Ot Z12.3 1 ENCNTR SCREEN MAMMOGRAM FOR MALIGNANT NE 02/09/2018 MARLA AMEZQUITA MD Ot B19 .9 UNSPECIFIED VIRAL HEPATITIS WITHOUT HEPA 02/09/2018 MARLA AMEZQUITA MD Ot F41 .9 ANXIETY DISORDER, UNSPECIFIED 02/09/2018 MARLA AMEZQUITA MD Ot I10 ESSENTIAL (PRIMARY) HYPERTENSION 02/09/2018 MARLA AMEZQUITA MD Ot J45.909 UNSPECIFIED ASTHMA, UNCOMPLICATED 02/09/2018 MARLA AMEZQUITA MD Ot K76 .0 FATTY (CHANGE OF) LIVER, NOT ELSEWHERE C 02/09/2018 MARLA AMEZQUITA MD Ot R10.11 RIGHT UPPER QUADRANT PAIN 02/09/2018 MARLA AMEZQUITA MD Ot Z79.52 HALFWAY (CURRENT) USE OF SYSTEMIC STER 02/09/2018 MARLA AMEZQUITA MD Ot Z80 .3 FAMILY HISTORY OF MALIGNANT NEOPLASM OF 02/09/2018 MARLA AMEZQUITA MD Ot Z82.49 FAMILY HX OF ISCHEM HEART DIS AND OTH DI 02/09/2018 MARLA AMEZQUITA MD Ot Z87.01 PERSONAL HISTORY OF PNEUMONIA (RECURRENT 02/09/2018 MARLA AMEZQUITA MD Ot Z87.19 PERSONAL HISTORY OF OTHER DISEASES OF TH 02/09/2018 MARLA AMEZQUITA MD Ot Z87.891 PERSONAL HISTORY OF NICOTINE DEPENDENCE 02/09/2018 MARLA AMEZQUITA MD Ot Z88 .5 ALLERGY STATUS TO NARCOTIC AGENT STATUS 02/09/2018 MARLA AMEZQUITA MD, Ot Z88 .6 ALLERGY STATUS TO ANALGESIC AGENT STATUS 02/09/2018 MARLA AMEZQUITA MD, Ot Z88 .8 ALLERGY STATUS TO OTH DRUG/MEDS/BIOL SUB 02/09/2018 MARLA AMEZQUITA MD Ot Z90.710 ACQUIRED ABSENCE OF BOTH CERVIX AND UTER 02/09/2018 MARLA AMEZQUITA MD Ot Z90.89 ACQUIRED ABSENCE OF OTHER ORGANS 06/19/2018 COSENS DO, CHERRIE L Ot 724. 5 BACKACHE NOS 06/19/2018 COSENS DO, CHERRIE L Ot 786. 50 CHEST PAIN NOS 06/19/2018 PENNIE HAROP Ot V76.12 OTH SCREEN MAMMO-MALIGN NEOPLASM OF [place] 06/19/2018 ALESSIO OJEDA MD Ot 575.11 CHRONIC CHOLECYSTITIS 06/19/2018 ALESSIO OJEDA MD Ot 575.8 DIS OF GALLBLADDER NEC 06/19/2018 ALESSIO OJEDA MD Ot V72.83 EXAM PRE-OPERATIVE NEC 06/19/2018 ALESSIO OJEDA MD Ot V74.8 SCREEN-BACTERIAL DIS NEC 06/19/2018 PENNIE HAROP Ot 577.0 ACUTE PANCREATITIS 06/19/2018 BRUCE AGUAYO STEWARD/STEWARDESS RAILROAD DINING CAR Ot R91 .1 SOLITARY PULMONARY NODULE 06/19/2018 ANCELMO ZUÑIGA MD Ot K85. 9 ACUTE PANCREATITIS, UNSPECIFIED 06/19/2018 MAVERICK GRIFFITHS MD Ot J18.9 PNEUMONIA, UNSPECIFIED ORGANISM 06/19/2018 MAVERICK GRIFFITHS MD Ot R91.1 SOLITARY PULMONARY NODULE 06/19/2018 HERBERT GUY DO Ot B89 UNSPECIFIED PARASITIC DISEASE 06/19/2018 HERBERT GUY DO Ot E66. 9 OBESITY, UNSPECIFIED 06/19/2018 HERBERT GUY DO Ot J98. 11 ATELECTASIS 06/19/2018 ANCELMO ZUÑIGA MD Ot K85. 9 ACUTE PANCREATITIS, UNSPECIFIED 06/19/2018 ANCELMO ZUÑIGA MD Ot Z90. 49 ACQUIRED ABSENCE OF OTHER SPECIFIED PART 06/19/2018 SPENSER CORDOVA MD Ot H53 .8 OTHER VISUAL DISTURBANCES 06/19/2018 SPENSER CORDOVA MD Ot J34 .9 UNSPECIFIED DISORDER OF NOSE AND NASAL S 06/19/2018 MAVERICK ROSALES MD Ot Z12.3 1 ENCNTR SCREEN MAMMOGRAM FOR MALIGNANT NE 06/19/2018 MAVERICK ROSALES MD Ot Z12.3 1 ENCNTR SCREEN MAMMOGRAM FOR MALIGNANT NE 08/19/2018 COSENS DO, CHERRIE L Ot 724. 5 BACKACHE NOS 08/19/2018 COSENS DO, CHERRIE L Ot 786. 50 CHEST PAIN NOS 08/19/2018 PENNIE HARO Ot V76.12 OTH SCREEN MAMMO-MALIGN NEOPLASM OF [place] 08/19/2018 ALESSIO OJEDA MD Ot 575.11 CHRONIC CHOLECYSTITIS 08/19/2018 ALESSIO OJEDA MD Ot 575.8 DIS OF GALLBLADDER NEC 08/19/2018 ALESSIO OJEDA MD Ot V72.83 EXAM PRE-OPERATIVE NEC 08/19/2018 ALESSIO OJEDA MD Ot V74.8 SCREEN-BACTERIAL DIS NEC 08/19/2018 PENNIE HARO Ot 577.0 ACUTE PANCREATITIS 08/19/2018 BRUCE AGUAYO STEWARD/STEWARDESS RAILROAD DINING CAR Ot R91 .1 SOLITARY PULMONARY NODULE 08/19/2018 ANCELMO ZUÑIGA MD Ot K85. 9 ACUTE PANCREATITIS, UNSPECIFIED 08/19/2018 MAVERICK GRIFFITHS MD Ot J18.9 PNEUMONIA, UNSPECIFIED ORGANISM 08/19/2018 MAVERICK GRIFFITHS MD Ot R91.1 SOLITARY PULMONARY NODULE 08/19/2018 HERBERT GUY DO Ot B89 UNSPECIFIED PARASITIC DISEASE 08/19/2018 HERBERT GUY DO Ot E66. 9 OBESITY, UNSPECIFIED 08/19/2018 HERBERT GUY DO Ot J98. 11 ATELECTASIS 08/19/2018 ANCELMO ZUÑIGA MD Ot K85. 9 ACUTE PANCREATITIS, UNSPECIFIED 08/19/2018 ANCELMO ZUÑIGA MD Ot Z90. 49 ACQUIRED ABSENCE OF OTHER SPECIFIED PART 08/19/2018 ART VYAS, SPENSER Marquis Ot H53 .8 OTHER VISUAL DISTURBANCES 08/19/2018 SPENSER CORDOVA MD Ot J34 .9 UNSPECIFIED DISORDER OF NOSE AND NASAL S 08/19/2018 MAVERICK ROSALES MD Ot Z12.3 1 ENCNTR SCREEN MAMMOGRAM FOR MALIGNANT NE 08/19/2018 MAVERICK ROSALES MD Ot Z12.3 1 ENCNTR SCREEN MAMMOGRAM FOR MALIGNANT NE 08/22/2018 COSTELLO DO, MALVIN K Ot E66.9 OBESITY, UNSPECIFIED 08/22/2018 COSTELLO DO MALVIN K Ot F41.9 ANXIETY DISORDER, UNSPECIFIED 08/22/2018 COSTELLO DO MALVIN K Ot G47.34 IDIO SLEEP RELATED NONOBSTRUCTIVE ALVEOL 08/22/2018 COSTELLO DO, MALVIN K Ot I10 ESSENTIAL (PRIMARY) HYPERTENSION 08/22/2018 COSTELLO DO MALVIN K Ot J18.1 LOBAR PNEUMONIA, UNSPECIFIED ORGANISM 08/22/2018 COSTELLO DO, MALVIN K Ot J44.0 CHRONIC OBSTRUCTIVE PULMON DISEASE W ACU 08/22/2018 COSTELLO DO MALVIN K Ot J44.1 CHRONIC OBSTRUCTIVE PULMONARY DISEASE W 08/22/2018 COSTELLO DO MALVIN K Ot K21.9 GASTRO-ESOPHAGEAL REFLUX DISEASE WITHOUT 08/22/2018 COSTELLO DO MALVIN K Ot K85.90 ACUTE PANCREATITIS WITHOUT NECROSIS OR I 08/22/2018 TRANG POLK MALVIN K Ot K86.1 OTHER CHRONIC PANCREATITIS 08/22/2018 TRANG POLK MALVIN K Ot M19.91 PRIMARY OSTEOARTHRITIS, UNSPECIFIED SITE 08/22/2018 TRANG POLK MALVIN K Ot R04.2 HEMOPTYSIS 08/22/2018 TRANG POLK MALVIN K Ot Z68.42 BODY MASS INDEX (BMI) 45.0-49.9, ADULT 08/22/2018 TRANG POLK MALVIN K Ot Z77.12 0 CONTACT WITH AND (SUSPECTED) EXPOSURE TO 08/22/2018 COSTELLO DO MALVIN K Ot Z87.89 1 PERSONAL HISTORY OF NICOTINE DEPENDENCE 08/22/2018 TRANG POLK MALVIN K Ot Z99.81 DEPENDENCE ON SUPPLEMENTAL OXYGEN 08/28/2018 COSTELLO DO MALVIN K Ot E66.9 OBESITY, UNSPECIFIED 08/28/2018 COSTELLO DO, MALVIN K Ot F41.9 ANXIETY DISORDER, UNSPECIFIED 08/28/2018 COSTELLO DO MALVIN K Ot G47.34 IDIO SLEEP RELATED NONOBSTRUCTIVE ALVEOL 08/28/2018 COSTELLO DO MALVIN K Ot I10 ESSENTIAL (PRIMARY) HYPERTENSION 08/28/2018 COSTELLO DO, MALVIN K Ot J18.1 LOBAR PNEUMONIA, UNSPECIFIED ORGANISM 08/28/2018 COSTELLO DO MALVIN K Ot J44.0 CHRONIC OBSTRUCTIVE PULMON DISEASE W ACU 08/28/2018 LALIT COSTELLO DOA Brendon Ot J44.1 CHRONIC OBSTRUCTIVE PULMONARY DISEASE W 08/28/2018 MALVIN COSTELLO DO K Ot K21.9 GASTRO-ESOPHAGEAL REFLUX DISEASE WITHOUT 08/28/2018 MALVIN COSTELLO DO K Ot K86.1 OTHER CHRONIC PANCREATITIS 08/28/2018 LALIT COSTELLO DOA K Ot M19.91 PRIMARY OSTEOARTHRITIS, UNSPECIFIED SITE 08/28/2018 LALIT COSTELLO DOA K Ot Z68.42 BODY MASS INDEX (BMI) 45.0-49.9, ADULT 08/28/2018 MALVIN COSTELLO DO Ot Z77.12 0 CONTACT WITH AND (SUSPECTED) EXPOSURE TO 08/28/2018 LALIT COSTELLO DOA K Ot Z87.89 1 PERSONAL HISTORY OF NICOTINE DEPENDENCE 08/28/2018 TRANG POLK MALVIN K Ot Z99.81 DEPENDENCE ON SUPPLEMENTAL OXYGEN 02/05/2019 TOBI STANLEY Ot F41.9 ANXIETY DISORDER, UNSPECIFIED 02/05/2019 TOBI STANLEY Ot I 10 ESSENTIAL (PRIMARY) HYPERTENSION 02/05/2019 TOBI STANLEY Ot J45.909 UNSPECIFIED ASTHMA, UNCOMPLICATED 02/05/2019 TOBI STANLEY Ot K21.9 GASTRO-ESOPHAGEAL REFLUX DISEASE WITHOUT 02/05/2019 TOBI STANLEY Ot R10.10 UPPER ABDOMINAL PAIN, UNSPECIFIED 02/05/2019 TOBI STANLEY Ot R10.9 UNSPECIFIED ABDOMINAL PAIN 02/05/2019 TOBI STANLEY Ot R94.5 ABNORMAL RESULTS OF LIVER FUNCTION STUDI 02/05/2019 TOBI STANLEY Ot Z79.51 HALFWAY (CURRENT) USE OF INHALED STERO 02/05/2019 TOBI STANLEY Ot Z79.52 NON DESTRUCTIVE TESTING TECHNICIAN (CURRENT) USE OF SYSTEMIC STER 02/05/2019 TOBI STANLEY Ot Z82.49 FAMILY HX OF ISCHEM HEART DIS AND OTH DI 02/05/2019 TOBI STANLEY Ot Z85.3 PERSONAL HISTORY OF MALIGNANT NEOPLASM O 02/05/2019 TOBI STANLEY Ot Z87.19 PERSONAL HISTORY OF OTHER DISEASES OF TH 02/05/2019 TOBI STANLEY Ot Z87.891 PERSONAL HISTORY OF NICOTINE DEPENDENCE 02/05/2019 UMM PA, TOBI L Ot Z88.1 ALLERGY STATUS TO OTHER ANTIBIOTIC AGENT 02/05/2019 TOBI STANLEY Ot Z88.5 ALLERGY STATUS TO NARCOTIC AGENT STATUS 02/05/2019 TOBI STANLEY Ot Z88.8 ALLERGY STATUS TO OTH DRUG/MEDS/BIOL SUB 02/05/2019 TOBI STANLEY Ot Z90.49 ACQUIRED ABSENCE OF OTHER SPECIFIED PART 02/05/2019 TOBI STANLEY Ot Z90.710 ACQUIRED ABSENCE OF BOTH CERVIX AND UTER 02/08/2019 TOBI STANLEY Ot F41.9 ANXIETY DISORDER, UNSPECIFIED 02/08/2019 TOBI STANLEY Ot I 10 ESSENTIAL (PRIMARY) HYPERTENSION 02/08/2019 TOBI STANLEY Ot J45.909 UNSPECIFIED ASTHMA, UNCOMPLICATED 02/08/2019 TOBI STANLEY Ot K21.9 GASTRO-ESOPHAGEAL REFLUX DISEASE WITHOUT 02/08/2019 TOBI STANLEY Ot R10.10 UPPER ABDOMINAL PAIN, UNSPECIFIED 02/08/2019 TOBI STANLEY Ot R10.9 UNSPECIFIED ABDOMINAL PAIN 02/08/2019 TOBI STANLEY Ot R94.5 ABNORMAL RESULTS OF LIVER FUNCTION STUDI 02/08/2019 TOBI STANLEY Ot Z79.51 HALFWAY (CURRENT) USE OF INHALED STERO 02/08/2019 TOBI STANLEY Ot Z79.52 HALFWAY (CURRENT) USE OF SYSTEMIC STER 02/08/2019 TOBI STANLEY Ot Z82.49 FAMILY HX OF ISCHEM HEART DIS AND OTH DI 02/08/2019 TOBI STANLEY Ot Z85.3 PERSONAL HISTORY OF MALIGNANT NEOPLASM O 02/08/2019 TOBI STANLEY Ot Z87.19 PERSONAL HISTORY OF OTHER DISEASES OF TH 02/08/2019 TOBI STANLEY Ot Z87.891 PERSONAL HISTORY OF NICOTINE DEPENDENCE 02/08/2019 TOBI STANLEY Ot Z88.1 ALLERGY STATUS TO OTHER ANTIBIOTIC AGENT 02/08/2019 TOBI STANLEY Ot Z88.5 ALLERGY STATUS TO NARCOTIC AGENT STATUS 02/08/2019 TOBI STANLEY Ot Z88.8 ALLERGY STATUS TO OTH DRUG/MEDS/BIOL SUB 02/08/2019 TOBI STANLEY Ot Z90.49 ACQUIRED ABSENCE OF OTHER SPECIFIED PART 02/08/2019 TOBI STANLEY Ot Z90.710 ACQUIRED ABSENCE OF BOTH CERVIX AND UTER 05/10/2019 PENNIE HARO Ot V76.12 OTH SCREEN MAMMO-MALIGN NEOPLASM OF [place] 05/10/2019 RUSTY VYAS, ALESSIO Ot 575.11 CHRONIC CHOLECYSTITIS 05/10/2019 ALESSIO OJEDA MD Ot 575.8 DIS OF GALLBLADDER NEC 05/10/2019 ALESSIO OJEDA MD Ot V72.83 EXAM PRE-OPERATIVE NEC 05/10/2019 ALESSIO OJEDA MD Ot V74.8 SCREEN-BACTERIAL DIS NEC 05/10/2019 PENNIE HARO Ot 577.0 ACUTE PANCREATITIS 05/10/2019 BRUCE AGUAYO APRN Ot R91 .1 SOLITARY PULMONARY NODULE 05/10/2019 ZARA VYAS, ANCELMO Marquis Ot K85. 9 ACUTE PANCREATITIS, UNSPECIFIED 05/10/2019 MAVERICK GRIFFITHS MD Ot J18.9 PNEUMONIA, UNSPECIFIED ORGANISM 05/10/2019 MAVERICK GRIFFITHS MD Ot R91.1 SOLITARY PULMONARY NODULE 05/10/2019 HERBERT GUY DO Ot B89 UNSPECIFIED PARASITIC DISEASE 05/10/2019 HERBERT GUY DO Ot E66. 9 OBESITY, UNSPECIFIED 05/10/2019 HERBERT GUY DO Ot J98. 11 ATELECTASIS 05/10/2019 ANCELMO ZUÑIGA MD Ot K85. 9 ACUTE PANCREATITIS, UNSPECIFIED 05/10/2019 ANCELMO ZUÑIGA MD Ot Z90. 49 ACQUIRED ABSENCE OF OTHER SPECIFIED PART 05/10/2019 SPENSER CORDOVA MD Ot H53 .8 OTHER VISUAL DISTURBANCES 05/10/2019 SPENSER CORDOVA MD Ot J34 .9 UNSPECIFIED DISORDER OF NOSE AND NASAL S 05/10/2019 MAVERICK ROSALES MD Ot Z12.3 1 ENCNTR SCREEN MAMMOGRAM FOR MALIGNANT NE 05/10/2019 MAVERICK ROSALES MD Ot Z12.3 1 ENCNTR SCREEN MAMMOGRAM FOR MALIGNANT NE 05/14/2019 MAVERICK ROSALES MD Ot Z12.3 1 ENCNTR SCREEN MAMMOGRAM FOR MALIGNANT NE 06/13/2019 MAVERICK ROSALES MD Ot Z12.3 1 ENCNTR SCREEN MAMMOGRAM FOR MALIGNANT NE Procedures Code Description Performed By Per formed On 65.61 09/14/2010 68.49 09/14/2010 Results Test Result Range Sputum Gram stain - 08/12/15 08:20 Bacteria identification in bronchial spe cimen by aerobe culture - 08/12/15 08:20 QUANTITY OF GROWTH Scant Growth NRG Bacteria identification in bronchial specimen by aerob e culture [id number] NRG Fungus culture - 08/12/15 08:20 QUANTITY OF GROWTH Isolated NRG FUNGUS REPORT FUNGUS GROWTH OBSERVED NR G Fungus culture [id number] NRG IDENTIFICATION TO FOLLOW ID BY [facility] NRG Complete blood count (CBC) with automate d white blood cell (WBC) differential - 12/09/15 23:00 Blood leukocytes automated count (number/volume) 11.7 10*3/uL 4.3-11.0 Blood erythrocytes automated count (number/volume) 5.03 10*6/uL 4.35-5.85 Venous blood hemoglobin measurement (mass/volume) 13.5 g/dL 11.5-16.0 Blood hematocrit (volume fraction) 41 % 35-52 Automated erythrocyte mean corpuscular volume 82 [ foz_us] 80-99 Automated erythrocyte mean corpuscular h emoglobin (mass per erythrocyte) 27 pg 25-34 Automated erythrocyte mean corpuscular h emoglobin concentration measurement (mass/volume) 33 g/dL 32-36 Automated erythrocyte distribution width ratio 14. 0 % 10.0- 14.5 Automated blood platelet count (count/volume) 300 10*3/uL [...] 10*3 1.0-4.0 Blood monocytes automated count (number/volume) 0. 9 10*3 0.0-1.0 Automated eosinophil count 0.4 10*3/uL 0 .0-0.3 Automated blood basophil count (count/volume) 0.0 10*3/uL 0.0-0.1 Complete urinalysis with reflex to cultu re - 12/09/15 23:00 Urine color determination YELLOW NRG Urine clarity determination CLEAR NR G Urine pH measurement by test strip 7 5-9 Specific gravity of urine by test strip 1.010 1.016-1.022 Urine protein assay by test strip, semi-quantitative NEGATIVE NEGATIVE Urine glucose detection by automated test strip NE GATIVE NEGATIVE Erythrocytes detection in urine sediment by light micr oscopy NEGATIVE NEGATIVE Urine ketones detection by automated test strip NE GATIVE NEGATIVE Urine nitrite detection by test strip NEGATIVE NEGATIVE Urine total bilirubin detection by test strip NEGA TIVE NEGATIVE Urine urobilinogen measurement by automated test strip (mass/volume) NORMAL NORMAL Urine leukocyte esterase detection by dipstick NEG ATIVE NEGATIVE Automated urine sediment erythrocyte cou nt by microscopy (number/high power field) NONE NRG Automated urine sediment leukocyte count by microscopy (number/high power field) [HPF] NRG Bacteria detection in urine sediment by light microsco py TRACE NRG Squamous epithelial cells detection in u rine sediment by light microscopy 2-5 NRG Crystals detection in urine sediment by light microsco py NONE NRG Casts detection in urine sediment [...] 5-14 Serum or plasma urea nitrogen measurement (mass/volume ) 15 mg/dL 7-18 Serum or plasma creatinine measurement (mass/volume) 0.83 mg/dL 0.60-1.30 Serum or plasma urea nitrogen/creatinine mass ratio 18 NRG Serum or plasma creatinine measurement w ith calculation of estimated glomerular filtration rate > NRG Serum or plasma glucose measurement (mass/volume) 96 mg/dL 70-105 Serum or plasma calcium measurement (mass/volume) 9.4 mg/dL 8.5-10.1 Serum or plasma total bilirubin measurement (mass/volu me) 0.3 mg/dL 0.1-1.0 Serum or plasma alkaline phosphatase janet surement (enzymatic activity/volume) 139 U/L 40-136 Serum or plasma aspartate aminotransfera se measurement (enzymatic activity/volume) 26 U/L 5-34 Serum or plasma alanine aminotransferase measurement (enzymatic activity/volume) 32 U/L 0-55 Serum or plasma protein measurement (mass/volume) 7.3 g/dL 6.4-8.2 Serum or plasma albumin measurement (mass/volume) 4.3 g/dL 3.2-4.5 Serum or plasma amylase measurement (enz ymatic activity/volume) - 12/09/15 23:00 Serum or plasma amylase measurement (enzymatic activit y/volume) 75 U/L 25-125 Lipase - 12/09/15 23:00 Lipase 49 U/L 8-78 Complete blood count (CBC) with automate d white blood cell (WBC) differential - 03/20/16 02:15 Blood leukocytes automated count (number/volume) 10.2 10*3/uL 4.3-11.0 Blood erythrocytes automated count (number/volume) 4.99 10*6/uL 4.35-5.85 Venous blood hemoglobin measurement (mass/volume) 13.2 g/dL 11.5-16.0 Blood hematocrit (volume fraction) 41 % 35-52 Automated erythrocyte mean corpuscular volume 82 [ foz_us] 80-99 Automated erythrocyte mean corpuscular h emoglobin (mass per erythrocyte) 27 pg 25-34 Automated erythrocyte mean corpuscular h emoglobin concentration measurement (mass/volume) 32 g/dL 32-36 Automated erythrocyte distribution width ratio 14. 0 % 10.0- 14.5 Automated blood platelet count (count/volume) 233 10*3/uL [...] 10*3 1.0-4.0 Blood monocytes automated count (number/volume) 0. 6 10*3 0.0-1.0 Automated eosinophil count 0.5 10*3/uL 0 .0-0.3 Automated blood basophil count (count/volume) 0.0 10*3/uL 0.0-0.1 Comprehensive metabolic panel - 03/20/16 02:15 Serum or plasma sodium measurement (moles/volume) 138 mmol/L 135-145 Serum or plasma potassium measurement (moles/volume) 4.0 mmol/L 3.6-5.0 Serum or plasma chloride measurement (moles/volume) 106 mmol/L 98-107 Carbon dioxide 22 mmol/L 21-32 Serum or plasma anion gap determination (moles/volume) 10 mmol/L 5-14 Serum or plasma urea nitrogen measurement (mass/volume ) 16 mg/dL 7-18 Serum or plasma creatinine measurement (mass/volume) 0.79 mg/dL 0.60-1.30 Serum or plasma urea nitrogen/creatinine mass ratio 20 NRG Serum or plasma creatinine measurement w ith calculation of estimated glomerular filtration rate > NRG Serum or plasma glucose measurement (mass/volume) 105 mg/dL 70-105 Serum or plasma calcium measurement (mass/volume) 8.9 mg/dL 8.5-10.1 Serum or plasma total bilirubin measurement (mass/volu me) 0.3 mg/dL 0.1-1.0 Serum or plasma alkaline phosphatase janet surement (enzymatic activity/volume) 129 U/L 40-136 Serum or plasma aspartate aminotransfera se measurement (enzymatic activity/volume) 20 U/L 5-34 Serum or plasma alanine aminotransferase measurement (enzymatic activity/volume) 29 U/L 0-55 Serum or plasma protein measurement (mass/volume) 6.3 g/dL 6.4-8.2 Serum or plasma albumin measurement (mass/volume) 3.8 g/dL 3.2-4.5 Serum or plasma amylase measurement (enz ymatic activity/volume) - 03/20/16 02:15 Serum or plasma amylase measurement (enzymatic activit y/volume) 371 U/L 25-125 Lipase - 03/20/16 02:15 Lipase 477 U/L 8-78 Complete urinalysis with reflex to cultu re - 03/20/16 03:26 Urine color determination YELLOW NRG Urine clarity determination CLEAR NR G Urine pH measurement by test strip 6.5 5-9 Specific gravity of urine by test strip 1.010 1.016-1.022 Urine protein assay by test strip, semi-quantitative NEGATIVE NEGATIVE Urine glucose detection by automated test strip NE GATIVE NEGATIVE Erythrocytes detection in urine sediment by light micr oscopy 1+ NEGATIVE Urine ketones detection by automated test strip NE GATIVE NEGATIVE Urine nitrite detection by test strip NEGATIVE NEGATIVE Urine total bilirubin detection by test strip NEGA TIVE NEGATIVE Urine urobilinogen measurement by automated test strip (mass/volume) NORMAL NORMAL Urine leukocyte esterase detection by dipstick NEG ATIVE NEGATIVE Automated urine sediment erythrocyte cou nt by microscopy (number/high power field) NONE NRG Automated urine sediment leukocyte count by microscopy (number/high power field) NONE NRG Bacteria detection in urine sediment by light microsco py NEGATIVE NRG Squamous epithelial cells detection in u rine sediment by light microscopy RARE NRG Crystals detection in urine sediment by light microsco py NONE NRG Casts detection in urine sediment by light microscopy NONE NRG Mucus detection in urine sediment by light microscopy NEGATIVE NRG Complete urinalysis with reflex to culture NO NRG Complete blood count (CBC) with automate d white blood cell (WBC) differential - 03/20/16 07:45 Blood leukocytes automated count (number/volume) 8.9 10*3/uL 4.3-11.0 Blood erythrocytes automated count (number/volume) 4.46 10*6/uL 4.35-5.85 Venous blood hemoglobin measurement (mass/volume) 11.8 g/dL 11.5-16.0 Blood hematocrit (volume fraction) 37 % 35-52 Automated erythrocyte mean corpuscular volume 83 [ foz_us] 80-99 Automated erythrocyte mean corpuscular h emoglobin (mass per erythrocyte) 27 pg 25-34 Automated erythrocyte mean corpuscular h emoglobin concentration measurement (mass/volume) 32 g/dL 32-36 Automated erythrocyte distribution width ratio 14. 0 % 10.0- 14.5 Automated blood platelet count (count/volume) 287 10*3/uL [...] 10*3 1.0-4.0 Blood monocytes automated count (number/volume) 0. 6 10*3 0.0-1.0 Automated eosinophil count 0.4 10*3/uL 0 .0-0.3 Automated blood basophil count (count/volume) 0.0 10*3/uL 0.0-0.1 Comprehensive metabolic panel - 03/20/16 07:45 Serum or plasma sodium measurement (moles/volume) 137 mmol/L 135-145 Serum or plasma potassium measurement (moles/volume) 3.5 mmol/L 3.6-5.0 Serum or plasma chloride measurement (moles/volume) 106 mmol/L 98-107 Carbon dioxide 26 mmol/L 21-32 Serum or plasma anion gap determination (moles/volume) 5 mmol/L 5-14 Serum or plasma urea nitrogen measurement (mass/volume ) 17 mg/dL 7-18 Serum or plasma creatinine measurement (mass/volume) 0.70 mg/dL 0.60-1.30 Serum or plasma urea nitrogen/creatinine mass ratio 24 NRG Serum or plasma creatinine measurement w ith calculation of estimated glomerular filtration rate > NRG Serum or plasma glucose measurement (mass/volume) 107 mg/dL 70-105 Serum or plasma calcium measurement (mass/volume) 8.3 mg/dL 8.5-10.1 Serum or plasma total bilirubin measurement (mass/volu me) 0.3 mg/dL 0.1-1.0 Serum or plasma alkaline phosphatase janet surement (enzymatic activity/volume) 110 U/L 40-136 Serum or plasma aspartate aminotransfera se measurement (enzymatic activity/volume) 15 U/L 5-34 Serum or plasma alanine aminotransferase measurement (enzymatic activity/volume) 25 U/L 0-55 Serum or plasma protein measurement (mass/volume) 5.5 g/dL 6.4-8.2 Serum or plasma albumin measurement (mass/volume) 3.4 g/dL 3.2-4.5 Serum or plasma amylase measurement (enz ymatic activity/volume) - 03/20/16 07:45 Serum or plasma amylase measurement (enzymatic activit y/volume) 287 U/L 25-125 Lipase - 03/20/16 07:45 Lipase 330 U/L 8-78 Complete blood count (CBC) with automate d white blood cell (WBC) differential - 03/21/16 05:50 Blood leukocytes automated count (number/volume) 8.3 10*3/uL 4.3-11.0 Blood erythrocytes automated count (number/volume) 4.55 10*6/uL 4.35-5.85 Venous blood hemoglobin measurement (mass/volume) 12.0 g/dL 11.5-16.0 Blood hematocrit (volume fraction) 38 % 35-52 Automated erythrocyte mean corpuscular volume 83 [ foz_us] 80-99 Automated erythrocyte mean corpuscular h emoglobin (mass per erythrocyte) 26 pg 25-34 Automated erythrocyte mean corpuscular h emoglobin concentration measurement (mass/volume) 32 g/dL 32-36 Automated erythrocyte distribution width ratio 13. 9 % 10.0- 14.5 Automated blood platelet count (count/volume) 286 10*3/uL [...] 10*3 1.0-4.0 Blood monocytes automated count (number/volume) 0. 5 10*3 0.0-1.0 Automated eosinophil count 0.5 10*3/uL 0 .0-0.3 Automated blood basophil count (count/volume) 0.0 10*3/uL 0.0-0.1 Whole blood basic metabolic panel - 03/03 12/17 05:50 Serum or plasma sodium measurement (moles/volume) 140 mmol/L 135-145 Serum or plasma potassium measurement (moles/volume) 3.9 mmol/L 3.6-5.0 Serum or plasma chloride measurement (moles/volume) 110 mmol/L 98-107 Carbon dioxide 24 mmol/L 21-32 Serum or plasma anion gap determination (moles/volume) 6 mmol/L 5-14 Serum or plasma urea nitrogen measurement (mass/volume ) 7 mg/dL 7-18 Serum or plasma creatinine measurement (mass/volume) 0.71 mg/dL 0.60-1.30 Serum or plasma urea nitrogen/creatinine mass ratio 10 NRG Serum or plasma creatinine measurement w ith calculation of estimated glomerular filtration rate > NRG Serum or plasma glucose measurement (mass/volume) 101 mg/dL 70-105 Serum or plasma calcium measurement (mass/volume) 8.2 mg/dL 8.5-10.1 Lipase - 03/21/16 05:50 Lipase 73 U/L 8-78 Complete urinalysis with reflex to cultu re - 05/28/16 21:30 Urine color determination YELLOW NRG Urine clarity determination SLIGHTLY CLOUDY NRG Urine pH measurement by test strip 6 5-9 Specific gravity of urine by test strip 1.020 1.016-1.022 Urine protein assay by test strip, semi-quantitative 1+ NEGATIVE Urine glucose detection by automated test strip NE GATIVE NEGATIVE Erythrocytes detection in urine sediment by light micr oscopy 1+ NEGATIVE Urine ketones detection by automated test strip NE GATIVE NEGATIVE Urine nitrite detection by test strip NEGATIVE NEGATIVE Urine total bilirubin detection by test strip NEGA TIVE NEGATIVE Urine urobilinogen measurement by automated test strip (mass/volume) NORMAL NORMAL Urine leukocyte esterase detection by dipstick NEG ATIVE NEGATIVE Automated urine sediment erythrocyte cou nt by microscopy (number/high power field) [HPF] NRG Automated urine sediment leukocyte count by microscopy (number/high power field) NONE NRG Bacteria detection in urine sediment by light microsco py TRACE NRG Squamous epithelial cells detection in u rine sediment by light microscopy 0-2 NRG Crystals detection in urine sediment by light microsco py NONE NRG Casts detection in urine sediment by light microscopy NONE NRG Mucus detection in urine sediment by light microscopy NEGATIVE NRG Complete urinalysis with reflex to culture NO NRG Urine drug screening test - 05/28/16 21: 30 Urine phencyclidine detection by screening method NEGATIVE NEGATIVE Urine benzodiazepines detection by screening method POSITIVE NEGATIVE Urine cocaine detection NEGATIVE NEGATI VE Urine amphetamines detection by screening method N EGATIVE NEGATIVE Urine methamphetamine detection by screening method NEGATIVE NEGATIVE Urine cannabinoids detection by screening method N EGATIVE NEGATIVE Urine opiates detection by screening method POSITI VE NEGATIVE Urine barbiturates detection NEGATIVE N EGATIVE Screening urine tricyclic antidepressants detection NEGATIVE NEGATIVE Urine methadone detection by screening method NEGA TIVE NEGATIVE Urine oxycodone detection NEGATIVE NEGA TIVE Urine propoxyphene detection NEGATIVE N EGATIVE Complete blood count (CBC) with automate d white blood cell (WBC) differential - 05/28/16 22:00 Blood leukocytes automated count (number/volume) 8.8 10*3/uL 4.3-11.0 Blood erythrocytes automated count (number/volume) 5.15 10*6/uL 4.35-5.85 Venous blood hemoglobin measurement (mass/volume) 13.5 g/dL 11.5-16.0 Blood hematocrit (volume fraction) 41 % 35-52 Automated erythrocyte mean corpuscular volume 80 [ foz_us] 80-99 Automated erythrocyte mean corpuscular h emoglobin (mass per erythrocyte) 26 pg 25-34 Automated erythrocyte mean corpuscular h emoglobin concentration measurement (mass/volume) 33 g/dL 32-36 Automated erythrocyte distribution width ratio 14. 1 % 10.0- 14.5 Automated blood platelet count (count/volume) 289 10*3/uL [...] 10*3 1.0-4.0 Blood monocytes automated count (number/volume) 0. 5 10*3 0.0-1.0 Automated eosinophil count 0.4 10*3/uL 0 .0-0.3 Automated blood basophil count (count/volume) 0.0 10*3/uL 0.0-0.1 Comprehensive metabolic panel - 05/28/16 22:00 Serum or plasma sodium measurement (moles/volume) 142 mmol/L 135-145 Serum or plasma potassium measurement (moles/volume) 3.8 mmol/L 3.6-5.0 Serum or plasma chloride measurement (moles/volume) 107 mmol/L 98-107 Carbon dioxide 22 mmol/L 21-32 Serum or plasma anion gap determination (moles/volume) 13 mmol/L 5-14 Serum or plasma urea nitrogen measurement (mass/volume ) 10 mg/dL 7-18 Serum or plasma creatinine measurement (mass/volume) 0.86 mg/dL 0.60-1.30 Serum or plasma urea nitrogen/creatinine mass ratio 12 NRG Serum or plasma creatinine measurement w ith calculation of estimated glomerular filtration rate > NRG Serum or plasma glucose measurement (mass/volume) 103 mg/dL 70-105 Serum or plasma calcium measurement (mass/volume) 9.0 mg/dL 8.5-10.1 Serum or plasma total bilirubin measurement (mass/volu me) 0.3 mg/dL 0.1-1.0 Serum or plasma alkaline phosphatase janet surement (enzymatic activity/volume) 119 U/L 40-136 Serum or plasma aspartate aminotransfera se measurement (enzymatic activity/volume) 25 U/L 5-34 Serum or plasma alanine aminotransferase measurement (enzymatic activity/volume) 43 U/L 0-55 Serum or plasma protein measurement (mass/volume) 6.9 g/dL 6.4-8.2 Serum or plasma albumin measurement (mass/volume) 3.9 g/dL 3.2-4.5 Serum or plasma amylase measurement (enz ymatic activity/volume) - 05/28/16 22:00 Serum or plasma amylase measurement (enzymatic activit y/volume) 82 U/L 25-125 Lipase - 05/28/16 22:00 Lipase 118 U/L 8-78 Serum or plasma C reactive protein measu rement (mass/volume) - 05/28/16 22:00 Serum or plasma C reactive protein measurement (mass/v olume) 1.02 mg/dL 0.00-0.50 Erythrocyte sedimentation rate by darlene gren method - 05/28/16 22:00 Erythrocyte sedimentation rate by westergren method 11 mm 0- 20 Complete blood count (CBC) with automate d white blood cell (WBC) differential - 06/02/16 05:24 Blood leukocytes automated count (number/volume) 16.9 10*3/uL 4.3-11.0 Blood erythrocytes automated count (number/volume) 4.85 10*6/uL 4.35-5.85 Venous blood hemoglobin measurement (mass/volume) 12.8 g/dL 11.5-16.0 Blood hematocrit (volume fraction) 39 % 35-52 Automated erythrocyte mean corpuscular volume 80 [ foz_us] 80-99 Automated erythrocyte mean corpuscular h emoglobin (mass per erythrocyte) 26 pg 25-34 Automated erythrocyte mean corpuscular h emoglobin concentration measurement (mass/volume) 33 g/dL 32-36 Automated erythrocyte distribution width ratio 14. 4 % 10.0- 14.5 Automated blood platelet count (count/volume) 361 10*3/uL [...] 10*3 1.0-4.0 Blood monocytes automated count (number/volume) 1. 5 10*3 0.0-1.0 Automated eosinophil count 0.3 10*3/uL 0 .0-0.3 Automated blood basophil count (count/volume) 0.0 10*3/uL 0.0-0.1 Comprehensive metabolic panel - 06/02/16 05:24 Serum or plasma sodium measurement (moles/volume) 139 mmol/L 135-145 Serum or plasma potassium measurement (moles/volume) 3.4 mmol/L 3.6-5.0 Serum or plasma chloride measurement (moles/volume) 107 mmol/L 98-107 Carbon dioxide 19 mmol/L 21-32 Serum or plasma anion gap determination (moles/volume) 13 mmol/L 5-14 Serum or plasma urea nitrogen measurement (mass/volume ) 10 mg/dL 7-18 Serum or plasma creatinine measurement (mass/volume) 0.84 mg/dL 0.60-1.30 Serum or plasma urea nitrogen/creatinine mass ratio 12 NRG Serum or plasma creatinine measurement w ith calculation of estimated glomerular filtration rate > NRG Serum or plasma glucose measurement (mass/volume) 99 mg/dL 70-105 Serum or plasma calcium measurement (mass/volume) 8.7 mg/dL 8.5-10.1 Serum or plasma total bilirubin measurement (mass/volu me) 0.6 mg/dL 0.1-1.0 Serum or plasma alkaline phosphatase janet surement (enzymatic activity/volume) 124 U/L 40-136 Serum or plasma aspartate aminotransfera se measurement (enzymatic activity/volume) 31 U/L 5-34 Serum or plasma alanine aminotransferase measurement (enzymatic activity/volume) 45 U/L 0-55 Serum or plasma protein measurement (mass/volume) 6.4 g/dL 6.4-8.2 Serum or plasma albumin measurement (mass/volume) 3.7 g/dL 3.2-4.5 Lipase - 06/02/16 05:24 Lipase 24 U/L 8-78 Blood manual differential performed dete ction - 06/02/16 05:24 Blood monocytes/100 leukocytes 9 % NRG Manual blood segmented neutrophils/100 leukocytes 64 % NRG Blood band neutrophils/100 leukocytes 0 % NRG Manual blood lymphocytes/100 leukocytes 24 % NRG Manual eosinophils/100 leukocytes in nose 3 % NRG Manual blood basophils/100 leukocytes 0 % NRG Blood microcytes detection by light microscopy [facility] Bacterial blood culture - 06/07/16 12:37 Bacterial blood culture [facility] Complete blood count (CBC) with automate d white blood cell (WBC) differential - 06/07/16 12:43 Blood leukocytes automated count (number/volume) 16.9 10*3/uL 4.3-11.0 Blood erythrocytes automated count (number/volume) 4.41 10*6/uL 4.35-5.85 Venous blood hemoglobin measurement (mass/volume) 11.5 g/dL 11.5-16.0 Blood hematocrit (volume fraction) 36 % 35-52 Automated erythrocyte mean corpuscular volume 81 [ foz_us] 80-99 Automated erythrocyte mean corpuscular h emoglobin (mass per erythrocyte) 26 pg 25-34 Automated erythrocyte mean corpuscular h emoglobin concentration measurement (mass/volume) 32 g/dL 32-36 Automated erythrocyte distribution width ratio 14. 3 % 10.0- 14.5 Automated blood platelet count (count/volume) 463 10*3/uL [...] 10*3 1.0-4.0 Blood monocytes automated count (number/volume) 1. 8 10*3 0.0-1.0 Automated eosinophil count 0.6 10*3/uL 0 .0-0.3 Automated blood basophil count (count/volume) 0.0 10*3/uL 0.0-0.1 Blood manual differential performed dete ction - 06/07/16 12:43 Blood monocytes/100 leukocytes 6 % NRG Manual blood segmented neutrophils/100 leukocytes 70 % NRG Blood band neutrophils/100 leukocytes 6 % NRG Manual blood lymphocytes/100 leukocytes 16 % NRG Manual eosinophils/100 leukocytes in nose 2 % NRG Manual blood basophils/100 leukocytes 0 % NRG Blood poikilocytosis detection by light microscopy [facility] Comprehensive metabolic panel - 06/07/16 12:43 Serum or plasma sodium measurement (moles/volume) 141 mmol/L 135-145 Serum or plasma potassium measurement (moles/volume) 3.2 mmol/L 3.6-5.0 Serum or plasma chloride measurement (moles/volume) 100 mmol/L 98-107 Carbon dioxide 28 mmol/L 21-32 Serum or plasma anion gap determination (moles/volume) 13 mmol/L 5-14 Serum or plasma urea nitrogen measurement (mass/volume ) 6 mg/dL 7-18 Serum or plasma creatinine measurement (mass/volume) 0.80 mg/dL 0.60-1.30 Serum or plasma urea nitrogen/creatinine mass ratio 8 NRG Serum or plasma creatinine measurement w ith calculation of estimated glomerular filtration rate > NRG Serum or plasma glucose measurement (mass/volume) 94 mg/dL 70-105 Serum or plasma calcium measurement (mass/volume) 9.0 mg/dL 8.5-10.1 Serum or plasma total bilirubin measurement (mass/volu me) 0.5 mg/dL 0.1-1.0 Serum or plasma alkaline phosphatase janet surement (enzymatic activity/volume) 141 U/L 40-136 Serum or plasma aspartate aminotransfera se measurement (enzymatic activity/volume) 19 U/L 5-34 Serum or plasma alanine aminotransferase measurement (enzymatic activity/volume) 36 U/L 0-55 Serum or plasma protein measurement (mass/volume) 6.8 g/dL 6.4-8.2 Serum or plasma albumin measurement (mass/volume) 3.2 g/dL 3.2-4.5 Bacterial blood culture - 06/07/16 12:43 Bacterial blood culture NG NRG Complete blood count (CBC) with automate d white blood cell (WBC) differential - 06/08/16 09:12 Blood leukocytes automated count (number/volume) 17.5 10*3/uL 4.3-11.0 Blood erythrocytes automated count (number/volume) 4.30 10*6/uL 4.35-5.85 Venous blood hemoglobin measurement (mass/volume) 11.2 g/dL 11.5-16.0 Blood hematocrit (volume fraction) 35 % 35-52 Automated erythrocyte mean corpuscular volume 81 [ foz_us] 80-99 Automated erythrocyte mean corpuscular h emoglobin (mass per erythrocyte) 26 pg 25-34 Automated erythrocyte mean corpuscular h emoglobin concentration measurement (mass/volume) 32 g/dL 32-36 Automated erythrocyte distribution width ratio 14. 3 % 10.0- 14.5 Automated blood platelet count (count/volume) 520 10*3/uL [...] 10*3 1.0-4.0 Blood monocytes automated count (number/volume) 0. 5 10*3 0.0-1.0 Automated eosinophil count 0.0 10*3/uL 0 .0-0.3 Automated blood basophil count (count/volume) 0.1 10*3/uL 0.0-0.1 Comprehensive metabolic panel - 06/08/16 09:12 Serum or plasma sodium measurement (moles/volume) 137 mmol/L 135-145 Serum or plasma potassium measurement (moles/volume) 3.4 mmol/L 3.6-5.0 Serum or plasma chloride measurement (moles/volume) 101 mmol/L 98-107 Carbon dioxide 27 mmol/L 21-32 Serum or plasma anion gap determination (moles/volume) 9 mmol/L 5-14 Serum or plasma urea nitrogen measurement (mass/volume ) 10 mg/dL 7-18 Serum or plasma creatinine measurement (mass/volume) 0.69 mg/dL 0.60-1.30 Serum or plasma urea nitrogen/creatinine mass ratio 14 NRG Serum or plasma creatinine measurement w ith calculation of estimated glomerular filtration rate > NRG Serum or plasma glucose measurement (mass/volume) 178 mg/dL 70-105 Serum or plasma calcium measurement (mass/volume) 8.9 mg/dL 8.5-10.1 Serum or plasma total bilirubin measurement (mass/volu me) 0.3 mg/dL 0.1-1.0 Serum or plasma alkaline phosphatase janet surement (enzymatic activity/volume) 137 U/L 40-136 Serum or plasma aspartate aminotransfera se measurement (enzymatic activity/volume) 17 U/L 5-34 Serum or plasma alanine aminotransferase measurement (enzymatic activity/volume) 32 U/L 0-55 Serum or plasma protein measurement (mass/volume) 6.6 g/dL 6.4-8.2 Serum or plasma albumin measurement (mass/volume) 3.1 g/dL 3.2-4.5 Complete blood count (CBC) with automate d white blood cell (WBC) differential - 06/09/16 06:53 Blood leukocytes automated count (number/volume) 23.4 10*3/uL 4.3-11.0 Blood erythrocytes automated count (number/volume) 4.12 10*6/uL 4.35-5.85 Venous blood hemoglobin measurement (mass/volume) 10.8 g/dL 11.5-16.0 Blood hematocrit (volume fraction) 34 % 35-52 Automated erythrocyte mean corpuscular volume 82 [ foz_us] 80-99 Automated erythrocyte mean corpuscular h emoglobin (mass per erythrocyte) 26 pg 25-34 Automated erythrocyte mean corpuscular h emoglobin concentration measurement (mass/volume) 32 g/dL 32-36 Automated erythrocyte distribution width ratio 14. 3 % 10.0- 14.5 Automated blood platelet count (count/volume) 514 10*3/uL [...] 10*3 1.0-4.0 Blood monocytes automated count (number/volume) 1. 1 10*3 0.0-1.0 Automated eosinophil count 0.0 10*3/uL 0 .0-0.3 Automated blood basophil count (count/volume) 0.1 10*3/uL 0.0-0.1 Comprehensive metabolic panel - 06/09/16 06:53 Serum or plasma sodium measurement (moles/volume) 138 mmol/L 135-145 Serum or plasma potassium measurement (moles/volume) 3.9 mmol/L 3.6-5.0 Serum or plasma chloride measurement (moles/volume) 102 mmol/L 98-107 Carbon dioxide 26 mmol/L 21-32 Serum or plasma anion gap determination (moles/volume) 10 mmol/L 5-14 Serum or plasma urea nitrogen measurement (mass/volume ) 12 mg/dL 7-18 Serum or plasma creatinine measurement (mass/volume) 0.72 mg/dL 0.60-1.30 Serum or plasma urea nitrogen/creatinine mass ratio 17 NRG Serum or plasma creatinine measurement w ith calculation of estimated glomerular filtration rate > NRG Serum or plasma glucose measurement (mass/volume) 157 mg/dL 70-105 Serum or plasma calcium measurement (mass/volume) 8.4 mg/dL 8.5-10.1 Serum or plasma total bilirubin measurement (mass/volu me) 0.2 mg/dL 0.1-1.0 Serum or plasma alkaline phosphatase janet surement (enzymatic activity/volume) 124 U/L 40-136 Serum or plasma aspartate aminotransfera se measurement (enzymatic activity/volume) 15 U/L 5-34 Serum or plasma alanine aminotransferase measurement (enzymatic activity/volume) 31 U/L 0-55 Serum or plasma protein measurement (mass/volume) 5.9 g/dL 6.4-8.2 Serum or plasma albumin measurement (mass/volume) 2.8 g/dL 3.2-4.5 Blood manual differential performed dete ction - 06/09/16 06:53 Blood monocytes/100 leukocytes 4 % NRG Manual blood segmented neutrophils/100 leukocytes 71 % NRG Blood band neutrophils/100 leukocytes 7 % NRG Manual blood lymphocytes/100 leukocytes 15 % NRG Manual eosinophils/100 leukocytes in nose 0 % NRG Manual blood basophils/100 leukocytes 0 % NRG Blood microcytes detection by light microscopy SLI GHT NRG Manual blood myelocytes/100 leukocytes 3 % NRG Complete blood count (CBC) with automate d white blood cell (WBC) differential - 06/10/16 05:46 Blood leukocytes automated count (number/volume) 23.5 10*3/uL 4.3-11.0 Blood erythrocytes automated count (number/volume) 4.05 10*6/uL 4.35-5.85 Venous blood hemoglobin measurement (mass/volume) 10.4 g/dL 11.5-16.0 Blood hematocrit (volume fraction) 34 % 35-52 Automated erythrocyte mean corpuscular volume 83 [ foz_us] 80-99 Automated erythrocyte mean corpuscular h emoglobin (mass per erythrocyte) 26 pg 25-34 Automated erythrocyte mean corpuscular h emoglobin concentration measurement (mass/volume) 31 g/dL 32-36 Automated erythrocyte distribution width ratio 14. 5 % 10.0- 14.5 Automated blood platelet count (count/volume) 491 10*3/uL [...] 10*3 1.0-4.0 Blood monocytes automated count (number/volume) 1. 1 10*3 0.0-1.0 Automated eosinophil count 0.0 10*3/uL 0 .0-0.3 Automated blood basophil count (count/volume) 0.1 10*3/uL 0.0-0.1 Comprehensive metabolic panel - 06/10/16 05:46 Serum or plasma sodium measurement (moles/volume) 140 mmol/L 135-145 Serum or plasma potassium measurement (moles/volume) 4.1 mmol/L 3.6-5.0 Serum or plasma chloride measurement (moles/volume) 105 mmol/L 98-107 Carbon dioxide 26 mmol/L 21-32 Serum or plasma anion gap determination (moles/volume) 9 mmol/L 5-14 Serum or plasma urea nitrogen measurement (mass/volume ) 14 mg/dL 7-18 Serum or plasma creatinine measurement (mass/volume) 0.72 mg/dL 0.60-1.30 Serum or plasma urea nitrogen/creatinine mass ratio 19 NRG Serum or plasma creatinine measurement w ith calculation of estimated glomerular filtration rate > NRG Serum or plasma glucose measurement (mass/volume) 129 mg/dL 70-105 Serum or plasma calcium measurement (mass/volume) 7.9 mg/dL 8.5-10.1 Serum or plasma total bilirubin measurement (mass/volu me) 0.2 mg/dL 0.1-1.0 Serum or plasma alkaline phosphatase janet surement (enzymatic activity/volume) 108 U/L 40-136 Serum or plasma aspartate aminotransfera se measurement (enzymatic activity/volume) 16 U/L 5-34 Serum or plasma alanine aminotransferase measurement (enzymatic activity/volume) 31 U/L 0-55 Serum or plasma protein measurement (mass/volume) 5.4 g/dL 6.4-8.2 Serum or plasma albumin measurement (mass/volume) 2.7 g/dL 3.2-4.5 Complete blood count (CBC) with automate d white blood cell (WBC) differential - 06/11/16 05:40 Blood leukocytes automated count (number/volume) 24.1 10*3/uL 4.3-11.0 Blood erythrocytes automated count (number/volume) 4.28 10*6/uL 4.35-5.85 Venous blood hemoglobin measurement (mass/volume) 11.1 g/dL 11.5-16.0 Blood hematocrit (volume fraction) 35 % 35-52 Automated erythrocyte mean corpuscular volume 83 [ foz_us] 80-99 Automated erythrocyte mean corpuscular h emoglobin (mass per erythrocyte) 26 pg 25-34 Automated erythrocyte mean corpuscular h emoglobin concentration measurement (mass/volume) 31 g/dL 32-36 Automated erythrocyte distribution width ratio 14. 5 % 10.0- 14.5 Automated blood platelet count (count/volume) 471 10*3/uL [...] 10*3 1.0-4.0 Blood monocytes automated count (number/volume) 1. 2 10*3 0.0-1.0 Automated eosinophil count 0.1 10*3/uL 0 .0-0.3 Automated blood basophil count (count/volume) 0.2 10*3/uL 0.0-0.1 Comprehensive metabolic panel - 06/11/16 05:40 Serum or plasma sodium measurement (moles/volume) 141 mmol/L 135-145 Serum or plasma potassium measurement (moles/volume) 3.5 mmol/L 3.6-5.0 Serum or plasma chloride measurement (moles/volume) 108 mmol/L 98-107 Carbon dioxide 22 mmol/L 21-32 Serum or plasma anion gap determination (moles/volume) 11 mmol/L 5-14 Serum or plasma urea nitrogen measurement (mass/volume ) 15 mg/dL 7-18 Serum or plasma creatinine measurement (mass/volume) 0.70 mg/dL 0.60-1.30 Serum or plasma urea nitrogen/creatinine mass ratio 21 NRG Serum or plasma creatinine measurement w ith calculation of estimated glomerular filtration rate > NRG Serum or plasma glucose measurement (mass/volume) 98 mg/dL 70-105 Serum or plasma calcium measurement (mass/volume) 7.8 mg/dL 8.5-10.1 Serum or plasma total bilirubin measurement (mass/volu me) 0.3 mg/dL 0.1-1.0 Serum or plasma alkaline phosphatase janet surement (enzymatic activity/volume) 97 U/L 40-136 Serum or plasma aspartate aminotransfera se measurement (enzymatic activity/volume) 20 U/L 5-34 Serum or plasma alanine aminotransferase measurement (enzymatic activity/volume) 33 U/L 0-55 Serum or plasma protein measurement (mass/volume) 5.1 g/dL 6.4-8.2 Serum or plasma albumin measurement (mass/volume) 2.7 g/dL 3.2-4.5 Vancomycin trough - 06/11/16 05:40 Vancomycin trough 15.9 ug/mL 10.0-20.0 Complete blood count (CBC) with automate d white blood cell (WBC) differential - 06/13/16 05:40 Blood leukocytes automated count (number/volume) 20.2 10*3/uL 4.3-11.0 Blood erythrocytes automated count (number/volume) 4.29 10*6/uL 4.35-5.85 Venous blood hemoglobin measurement (mass/volume) 11.1 g/dL 11.5-16.0 Blood hematocrit (volume fraction) 35 % 35-52 Automated erythrocyte mean corpuscular volume 82 [ foz_us] 80-99 Automated erythrocyte mean corpuscular h emoglobin (mass per erythrocyte) 26 pg 25-34 Automated erythrocyte mean corpuscular h emoglobin concentration measurement (mass/volume) 31 g/dL 32-36 Automated erythrocyte distribution width ratio 15. 0 % 10.0- 14.5 Automated blood platelet count (count/volume) 452 10*3/uL [...] 10*3 1.0-4.0 Blood monocytes automated count (number/volume) 0. 9 10*3 0.0-1.0 Automated eosinophil count 0.4 10*3/uL 0 .0-0.3 Automated blood basophil count (count/volume) 0.1 10*3/uL 0.0-0.1 Complete blood count (CBC) with automate d white blood cell (WBC) differential - 10/20/16 11:32 Blood leukocytes automated count (number/volume) 9.0 10*3/uL 4.3-11.0 Blood erythrocytes automated count (number/volume) 4.72 10*6/uL 4.35-5.85 Venous blood hemoglobin measurement (mass/volume) 12.4 g/dL 11.5-16.0 Blood hematocrit (volume fraction) 38 % 35-52 Automated erythrocyte mean corpuscular volume 81 [ foz_us] 80-99 Automated erythrocyte mean corpuscular h emoglobin (mass per erythrocyte) 26 pg 25-34 Automated erythrocyte mean corpuscular h emoglobin concentration measurement (mass/volume) 33 g/dL 32-36 Automated erythrocyte distribution width ratio 13. 9 % 10.0- 14.5 Automated blood platelet count (count/volume) 305 10*3/uL [...] 10*3 1.0-4.0 Blood monocytes automated count (number/volume) 0. 6 10*3 0.0-1.0 Automated eosinophil count 0.5 10*3/uL 0 .0-0.3 Automated blood basophil count (count/volume) 0.0 10*3/uL 0.0-0.1 Comprehensive metabolic panel - 10/20/16 11:32 Serum or plasma sodium measurement (moles/volume) 140 mmol/L 135-145 Serum or plasma potassium measurement (moles/volume) 3.8 mmol/L 3.6-5.0 Serum or plasma chloride measurement (moles/volume) 107 mmol/L 98-107 Carbon dioxide 26 mmol/L 21-32 Serum or plasma anion gap determination (moles/volume) 7 mmol/L 5-14 Serum or plasma urea nitrogen measurement (mass/volume ) 10 mg/dL 7-18 Serum or plasma creatinine measurement (mass/volume) 0.77 mg/dL 0.60-1.30 Serum or plasma urea nitrogen/creatinine mass ratio 13 NRG Serum or plasma creatinine measurement w ith calculation of estimated glomerular filtration rate > NRG Serum or plasma glucose measurement (mass/volume) 102 mg/dL 70-105 Serum or plasma calcium measurement (mass/volume) 9.2 mg/dL 8.5-10.1 Serum or plasma total bilirubin measurement (mass/volu me) 0.2 mg/dL 0.1-1.0 Serum or plasma alkaline phosphatase janet surement (enzymatic activity/volume) 135 U/L 40-136 Serum or plasma aspartate aminotransfera se measurement (enzymatic activity/volume) 27 U/L 5-34 Serum or plasma alanine aminotransferase measurement (enzymatic activity/volume) 56 U/L 0-55 Serum or plasma protein measurement (mass/volume) 6.3 g/dL 6.4-8.2 Serum or plasma albumin measurement (mass/volume) 3.7 g/dL 3.2-4.5 Serum or plasma amylase measurement (enz ymatic activity/volume) - 10/20/16 11:32 Serum or plasma amylase measurement (enzymatic activit y/volume) 77 U/L 25-125 Lipase - 10/20/16 11:32 Lipase 76 U/L 8-78 Complete urinalysis with reflex to cultu re - 10/20/16 13:02 Urine color determination YELLOW NRG Urine clarity determination CLEAR NR G Urine pH measurement by test strip 6 5-9 Specific gravity of urine by test strip 1.010 1.016-1.022 Urine protein assay by test strip, semi-quantitative NEGATIVE NEGATIVE Urine glucose detection by automated test strip NE GATIVE NEGATIVE Erythrocytes detection in urine sediment by light micr oscopy NEGATIVE NEGATIVE Urine ketones detection by automated test strip NE GATIVE NEGATIVE Urine nitrite detection by test strip NEGATIVE NEGATIVE Urine total bilirubin detection by test strip NEGA TIVE NEGATIVE Urine urobilinogen measurement by automated test strip (mass/volume) NORMAL NORMAL Urine leukocyte esterase detection by dipstick NEG ATIVE NEGATIVE Automated urine sediment erythrocyte cou nt by microscopy (number/high power field) NONE NRG Automated urine sediment leukocyte count by microscopy (number/high power field) RARE NRG Bacteria detection in urine sediment by light microsco py NEGATIVE NRG Squamous epithelial cells detection in u rine sediment by light microscopy 0-2 NRG Crystals detection in urine sediment by light microsco py NONE NRG Casts detection in urine sediment by light microscopy NONE NRG Mucus detection in urine sediment by light microscopy NEGATIVE NRG Complete urinalysis with reflex to culture NO NRG CULTURE, URINE - 04/24/17 17:30 CULTURE, URINE, ROUTINE SEE NOTE NRG AMYLASE - 06/20/17 08:27 AMYLASE 44 U/L 21-101 Complete blood count (CBC) with automate d white blood cell (WBC) differential - 01/21/18 03:02 Blood leukocytes automated count (number/volume) 11.5 10*3/uL 4.3-11.0 Blood erythrocytes automated count (number/volume) 4.93 10*6/uL 4.35-5.85 Venous blood hemoglobin measurement (mass/volume) 13.5 g/dL 11.5-16.0 Blood hematocrit (volume fraction) 41 % 35-52 Automated erythrocyte mean corpuscular volume 82 [ foz_us] 80-99 Automated erythrocyte mean corpuscular h emoglobin (mass per erythrocyte) 27 pg 25-34 Automated erythrocyte mean corpuscular h emoglobin concentration measurement (mass/volume) 33 g/dL 32-36 Automated erythrocyte distribution width ratio 15. 0 % 10.0- 14.5 Automated blood platelet count (count/volume) 326 10*3/uL [...] 10*3 1.0-4.0 Blood monocytes automated count (number/volume) 0. 8 10*3 0.0-1.0 Automated eosinophil count 0.6 10*3/uL 0 .0-0.3 Automated blood basophil count (count/volume) 0.0 10*3/uL 0.0-0.1 Serum or plasma choriogonadotropin (preg raudel test) detection - 01/21/18 03:02 Serum or plasma choriogonadotropin ( test) de tection NEGATIVE NEGATIVE Comprehensive metabolic panel - 01/21/18 03:02 Serum or plasma sodium measurement (moles/volume) 140 mmol/L 135-145 Serum or plasma potassium measurement (moles/volume) 4.0 mmol/L 3.6-5.0 Serum or plasma chloride measurement (moles/volume) 106 mmol/L 98-107 Carbon dioxide 20 mmol/L 21-32 Serum or plasma anion gap determination (moles/volume) 14 mmol/L 5-14 Serum or plasma urea nitrogen measurement (mass/volume ) 15 mg/dL 7-18 Serum or plasma creatinine measurement (mass/volume) 0.82 mg/dL 0.60-1.30 Serum or plasma urea nitrogen/creatinine mass ratio 18 NRG Serum or plasma creatinine measurement w ith calculation of estimated glomerular filtration rate > NRG Serum or plasma glucose measurement (mass/volume) 102 mg/dL 70-105 Serum or plasma calcium measurement (mass/volume) 9.2 mg/dL 8.5-10.1 Serum or plasma total bilirubin measurement (mass/volu me) 0.3 mg/dL 0.1-1.0 Serum or plasma alkaline phosphatase janet surement (enzymatic activity/volume) 287 U/L 40-136 Serum or plasma aspartate aminotransfera se measurement (enzymatic activity/volume) 139 U/L 5-34 Serum or plasma alanine aminotransferase measurement (enzymatic activity/volume) 183 U/L 0-55 Serum or plasma protein measurement (mass/volume) 6.9 g/dL 6.4-8.2 Serum or plasma albumin measurement (mass/volume) 4.1 g/dL 3.2-4.5 CALCIUM CORRECTED 9.1 mg/dL 8.5-10.1 Serum or plasma amylase measurement (enz ymatic activity/volume) - 01/21/18 03:02 Serum or plasma amylase measurement (enzymatic activit y/volume) 54 U/L 25-125 Lipase - 01/21/18 03:02 Lipase 29 U/L 8-78 Acute hepatitis panel - 01/21/18 03:02 Confirmatory quantitative serum or plasm a hepatitis B virus surface antigen measurement Non-Reactive Non-Reactive Hepatitis A virus IgM antibody assay Non-Reactive Non- Reactive Hepatitis B virus core IgM antibody assay Non-Reac tive Non- Reactive Serum hepatitis C virus antibody detection Non-[place] ctive Non-Reactive Complete urinalysis with reflex to cultu re - 01/21/18 04:44 Urine color determination YELLOW NRG Urine clarity determination CLEAR NR G Urine pH measurement by test strip 7 5-9 Specific gravity of urine by test strip 1.010 1.016-1.022 Urine protein assay by test strip, semi-quantitative NEGATIVE NEGATIVE Urine glucose detection by automated test strip NE GATIVE NEGATIVE Erythrocytes detection in urine sediment by light micr oscopy NEGATIVE NEGATIVE Urine ketones detection by automated test strip NE GATIVE NEGATIVE Urine nitrite detection by test strip NEGATIVE NEGATIVE Urine total bilirubin detection by test strip NEGA TIVE NEGATIVE Urine urobilinogen measurement by automated test strip (mass/volume) NORMAL NORMAL Urine leukocyte esterase detection by dipstick NEG ATIVE NEGATIVE Automated urine sediment erythrocyte cou nt by microscopy (number/high power field) NONE NRG Automated urine sediment leukocyte count by microscopy (number/high power field) NONE NRG Bacteria detection in urine sediment by light microsco py NEGATIVE NRG Squamous epithelial cells detection in u rine sediment by light microscopy 2-5 NRG Crystals detection in urine sediment by light microsco py NONE NRG Casts detection in urine sediment by light microscopy NONE NRG Mucus detection in urine sediment by light microscopy NEGATIVE NRG Complete urinalysis with reflex to culture NO NRG Complete blood count (CBC) with automate d white blood cell (WBC) differential - 02/09/18 11:33 Blood leukocytes automated count (number/volume) 9.8 10*3/uL 4.3-11.0 Blood erythrocytes automated count (number/volume) 5.29 10*6/uL 4.35-5.85 Venous blood hemoglobin measurement (mass/volume) 14.0 g/dL 11.5-16.0 Blood hematocrit (volume fraction) 44 % 35-52 Automated erythrocyte mean corpuscular volume 83 [ foz_us] 80-99 Automated erythrocyte mean corpuscular h emoglobin (mass per erythrocyte) 27 pg 25-34 Automated erythrocyte mean corpuscular h emoglobin concentration measurement (mass/volume) 32 g/dL 32-36 Automated erythrocyte distribution width ratio 14. 6 % 10.0- 14.5 Automated blood platelet count (count/volume) 367 10*3/uL 130-400 Automated blood platelet mean volume measurement 10.2 [foz_us] 7.4-10.4 Automated blood neutrophils/100 leukocytes 66 % 42-75 Automated blood lymphocytes/100 leukocytes 23 % 12-44 Blood monocytes/100 leukocytes 6 % 0-12 Automated blood eosinophils/100 leukocytes 5 % 0-10 Automated blood basophils/100 leukocytes 0 % 0-10 Blood neutrophils automated count (number/volume) 6.5 10*3 1.8-7.8 Blood lymphocytes automated count (number/volume) 2.2 10*3 1.0-4.0 Blood monocytes automated count (number/volume) 0. 6 10*3 0.0-1.0 Automated eosinophil count 0.5 10*3/uL 0 .0-0.3 Automated blood basophil count (count/volume) 0.0 10*3/uL 0.0-0.1 Comprehensive metabolic panel - 02/09/18 11:33 Serum or plasma sodium measurement (moles/volume) 138 mmol/L 135-145 Serum or plasma potassium measurement (moles/volume) 3.9 mmol/L 3.6-5.0 Serum or plasma chloride measurement (moles/volume) 102 mmol/L 98-107 Carbon dioxide 26 mmol/L 21-32 Serum or plasma anion gap determination (moles/volume) 10 mmol/L 5-14 Serum or plasma urea nitrogen measurement (mass/volume ) 8 mg/dL 7-18 Serum or plasma creatinine measurement (mass/volume) 0.80 mg/dL 0.60-1.30 Serum or plasma urea nitrogen/creatinine mass ratio 10 NRG Serum or plasma creatinine measurement w ith calculation of estimated glomerular filtration rate > NRG Serum or plasma glucose measurement (mass/volume) 84 mg/dL 70-105 Serum or plasma calcium measurement (mass/volume) 9.7 mg/dL 8.5-10.1 Serum or plasma total bilirubin measurement (mass/volu me) 0.6 mg/dL 0.1-1.0 Serum or plasma alkaline phosphatase janet surement (enzymatic activity/volume) 363 U/L 40-136 Serum or plasma aspartate aminotransfera se measurement (enzymatic activity/volume) 181 U/L 5-34 Serum or plasma alanine aminotransferase measurement (enzymatic activity/volume) 362 U/L 0-55 Serum or plasma protein measurement (mass/volume) 7.6 g/dL 6.4-8.2 Serum or plasma albumin measurement (mass/volume) 4.3 g/dL 3.2-4.5 CALCIUM CORRECTED 9.5 mg/dL 8.5-10.1 Lipase - 02/09/18 11:33 Lipase 31 U/L 8-78 Complete blood count (CBC) with automate d white blood cell (WBC) differential - 08/19/18 18:15 Blood leukocytes automated count (number/volume) 20.2 10*3/uL 4.3-11.0 Blood erythrocytes automated count (number/volume) 5.00 10*6/uL 4.35-5.85 Venous blood hemoglobin measurement (mass/volume) 13.7 g/dL 11.5-16.0 Blood hematocrit (volume fraction) 41 % 35-52 Automated erythrocyte mean corpuscular volume 82 [ foz_us] 80-99 Automated erythrocyte mean corpuscular h emoglobin (mass per erythrocyte) 27 pg 25-34 Automated erythrocyte mean corpuscular h emoglobin concentration measurement (mass/volume) 33 g/dL 32-36 Automated erythrocyte distribution width ratio 14. 1 % 10.0- 14.5 Automated blood platelet count (count/volume) 420 10*3/uL 130-400 Automated blood platelet mean volume measurement 10.4 [foz_us] 7.4-10.4 Automated blood neutrophils/100 leukocytes 77 % 42-75 Automated blood lymphocytes/100 leukocytes 14 % 12-44 Blood monocytes/100 leukocytes 7 % 0-12 Automated blood eosinophils/100 leukocytes 3 % 0-10 Automated blood basophils/100 leukocytes 0 % 0-10 Blood neutrophils automated count (number/volume) 15.5 10*3 1.8-7.8 Blood lymphocytes automated count (number/volume) 2.8 10*3 1.0-4.0 Blood monocytes automated count (number/volume) 1. 4 10*3 0.0-1.0 Automated eosinophil count 0.5 10*3/uL 0 .0-0.3 Automated blood basophil count (count/volume) 0.1 10*3/uL 0.0-0.1 Blood manual differential performed dete ction - 08/19/18 18:15 Blood monocytes/100 leukocytes 4 % NRG Manual blood segmented neutrophils/100 leukocytes 74 % NRG Blood band neutrophils/100 leukocytes 4 % NRG Manual blood lymphocytes/100 leukocytes 16 % NRG Manual eosinophils/100 leukocytes in nose 2 % NRG Manual blood basophils/100 leukocytes 0 % NRG Blood erythrocyte morphology finding identification NORMAL NRG Comprehensive metabolic panel - 08/19/18 18:15 Serum or plasma sodium measurement (moles/volume) 136 mmol/L 135-145 Serum or plasma potassium measurement (moles/volume) 3.9 mmol/L 3.6-5.0 Serum or plasma chloride measurement (moles/volume) 102 mmol/L 98-107 Carbon dioxide 20 mmol/L 21-32 Serum or plasma anion gap determination (moles/volume) 14 mmol/L 5-14 Serum or plasma urea nitrogen measurement (mass/volume ) 8 mg/dL 7-18 Serum or plasma creatinine measurement (mass/volume) 0.84 mg/dL 0.60-1.30 Serum or plasma urea nitrogen/creatinine mass ratio 10 NRG Serum or plasma creatinine measurement w ith calculation of estimated glomerular filtration rate > NRG Serum or plasma glucose measurement (mass/volume) 103 mg/dL 70-105 Serum or plasma calcium measurement (mass/volume) 9.5 mg/dL 8.5-10.1 Serum or plasma total bilirubin measurement (mass/volu me) 1.0 mg/dL 0.1-1.0 Serum or plasma alkaline phosphatase janet surement (enzymatic activity/volume) 229 U/L 40-136 Serum or plasma aspartate aminotransfera se measurement (enzymatic activity/volume) 17 U/L 5-34 Serum or plasma alanine aminotransferase measurement (enzymatic activity/volume) 46 U/L 0-55 Serum or plasma protein measurement (mass/volume) 7.4 g/dL 6.4-8.2 Serum or plasma albumin measurement (mass/volume) 3.9 g/dL 3.2-4.5 CALCIUM CORRECTED 9.6 mg/dL 8.5-10.1 Lipase - 08/19/18 18:15 Lipase 8 U/L 8-78 Bacterial blood culture - 08/19/18 18:15 Bacterial blood culture NG NRG Blood lactic acid measurement (moles/vol ume) - 08/19/18 20:08 Blood lactic acid measurement (moles/volume) 0.76 mmol/L 0.50-2.00 Bacterial blood culture - 08/19/18 20:08 Bacterial blood culture NG NR Complete blood count (CBC) with automate d white blood cell (WBC) differential - 08/20/18 05:58 Blood leukocytes automated count (number/volume) 14.3 10*3/uL 4.3-11.0 Blood erythrocytes automated count (number/volume) 4.46 10*6/uL 4.35-5.85 Venous blood hemoglobin measurement (mass/volume) 12.3 g/dL 11.5-16.0 Blood hematocrit (volume fraction) 38 % 35-52 Automated erythrocyte mean corpuscular volume 85 [ foz_us] 80-99 Automated erythrocyte mean corpuscular h emoglobin (mass per erythrocyte) 28 pg 25-34 Automated erythrocyte mean corpuscular h emoglobin concentration measurement (mass/volume) 33 g/dL 32-36 Automated erythrocyte distribution width ratio 13. 8 % 10.0- 14.5 Automated blood platelet count (count/volume) 340 10*3/uL 130-400 Automated blood platelet mean volume measurement 10.2 [foz_us] 7.4-10.4 Automated blood neutrophils/100 leukocytes 86 % 42-75 Automated blood lymphocytes/100 leukocytes 12 % 12-44 Blood monocytes/100 leukocytes 2 % 0-12 Automated blood eosinophils/100 leukocytes 0 % 0-10 Automated blood basophils/100 leukocytes 0 % 0-10 Blood neutrophils automated count (number/volume) 12.3 10*3 1.8-7.8 Blood lymphocytes automated count (number/volume) 1.8 10*3 1.0-4.0 Blood monocytes automated count (number/volume) 0. 3 10*3 0.0-1.0 Automated eosinophil count 0.0 10*3/uL 0 .0-0.3 Automated blood basophil count (count/volume) 0.0 10*3/uL 0.0-0.1 Comprehensive metabolic panel - 08/20/18 05:58 Serum or plasma sodium measurement (moles/volume) 137 mmol/L 135-145 Serum or plasma potassium measurement (moles/volume) 4.1 mmol/L 3.6-5.0 Serum or plasma chloride measurement (moles/volume) 105 mmol/L 98-107 Carbon dioxide 20 mmol/L 21-32 Serum or plasma anion gap determination (moles/volume) 12 mmol/L 5-14 Serum or plasma urea nitrogen measurement (mass/volume ) 11 mg/dL 7-18 Serum or plasma creatinine measurement (mass/volume) 0.88 mg/dL 0.60-1.30 Serum or plasma urea nitrogen/creatinine mass ratio 13 NRG Serum or plasma creatinine measurement w ith calculation of estimated glomerular filtration rate > NRG Serum or plasma glucose measurement (mass/volume) 150 mg/dL 70-105 Serum or plasma calcium measurement (mass/volume) 8.7 mg/dL 8.5-10.1 Serum or plasma total bilirubin measurement (mass/volu me) 0.7 mg/dL 0.1-1.0 Serum or plasma alkaline phosphatase janet surement (enzymatic activity/volume) 203 U/L 40-136 Serum or plasma aspartate aminotransfera se measurement (enzymatic activity/volume) 13 U/L 5-34 Serum or plasma alanine aminotransferase measurement (enzymatic activity/volume) 39 U/L 0-55 Serum or plasma protein measurement (mass/volume) 6.8 g/dL 6.4-8.2 Serum or plasma albumin measurement (mass/volume) 3.5 g/dL 3.2-4.5 CALCIUM CORRECTED 9.1 mg/dL 8.5-10.1 Complete blood count (CBC) with automate d white blood cell (WBC) differential - 08/21/18 05:15 Blood leukocytes automated count (number/volume) 17.6 10*3/uL 4.3-11.0 Blood erythrocytes automated count (number/volume) 4.20 10*6/uL 4.35-5.85 Venous blood hemoglobin measurement (mass/volume) 11.5 g/dL 11.5-16.0 Blood hematocrit (volume fraction) 36 % 35-52 Automated erythrocyte mean corpuscular volume 85 [ foz_us] 80-99 Automated erythrocyte mean corpuscular h emoglobin (mass per erythrocyte) 27 pg 25-34 Automated erythrocyte mean corpuscular h emoglobin concentration measurement (mass/volume) 32 g/dL 32-36 Automated erythrocyte distribution width ratio 13. 8 % 10.0- 14.5 Automated blood platelet count (count/volume) 357 10*3/uL 130-400 Automated blood platelet mean volume measurement 10.5 [foz_us] 7.4-10.4 Automated blood neutrophils/100 leukocytes 83 % 42-75 Automated blood lymphocytes/100 leukocytes 13 % 12-44 Blood monocytes/100 leukocytes 4 % 0-12 Automated blood eosinophils/100 leukocytes 0 % 0-10 Automated blood basophils/100 leukocytes 0 % 0-10 Blood neutrophils automated count (number/volume) 14.6 10*3 1.8-7.8 Blood lymphocytes automated count (number/volume) 2.2 10*3 1.0-4.0 Blood monocytes automated count (number/volume) 0. 8 10*3 0.0-1.0 Automated eosinophil count 0.0 10*3/uL 0 .0-0.3 Automated blood basophil count (count/volume) 0.0 10*3/uL 0.0-0.1 Comprehensive metabolic panel - 08/21/18 05:20 Serum or plasma sodium measurement (moles/volume) 142 mmol/L 135-145 Serum or plasma potassium measurement (moles/volume) 4.7 mmol/L 3.6-5.0 Serum or plasma chloride measurement (moles/volume) 108 mmol/L 98-107 Carbon dioxide 24 mmol/L 21-32 Serum or plasma anion gap determination (moles/volume) 10 mmol/L 5-14 Serum or plasma urea nitrogen measurement (mass/volume ) 13 mg/dL 7-18 Serum or plasma creatinine measurement (mass/volume) 0.78 mg/dL 0.60-1.30 Serum or plasma urea nitrogen/creatinine mass ratio 17 NRG Serum or plasma creatinine measurement w ith calculation of estimated glomerular filtration rate > NRG Serum or plasma glucose measurement (mass/volume) 169 mg/dL 70-105 Serum or plasma calcium measurement (mass/volume) 9.0 mg/dL 8.5-10.1 Serum or plasma total bilirubin measurement (mass/volu me) 0.2 mg/dL 0.1-1.0 Serum or plasma alkaline phosphatase janet surement (enzymatic activity/volume) 162 U/L 40-136 Serum or plasma aspartate aminotransfera se measurement (enzymatic activity/volume) 12 U/L 5-34 Serum or plasma alanine aminotransferase measurement (enzymatic activity/volume) 26 U/L 0-55 Serum or plasma protein measurement (mass/volume) 6.2 g/dL 6.4-8.2 Serum or plasma albumin measurement (mass/volume) 3.3 g/dL 3.2-4.5 CALCIUM CORRECTED 9.6 mg/dL 8.5-10.1 Complete blood count (CBC) with automate d white blood cell (WBC) differential - 08/22/18 05:41 Blood leukocytes automated count (number/volume) 18.9 10*3/uL 4.3-11.0 Blood erythrocytes automated count (number/volume) 4.26 10*6/uL 4.35-5.85 Venous blood hemoglobin measurement (mass/volume) 11.8 g/dL 11.5-16.0 Blood hematocrit (volume fraction) 37 % 35-52 Automated erythrocyte mean corpuscular volume 86 [ foz_us] 80-99 Automated erythrocyte mean corpuscular h emoglobin (mass per erythrocyte) 28 pg 25-34 Automated erythrocyte mean corpuscular h emoglobin concentration measurement (mass/volume) 32 g/dL 32-36 Automated erythrocyte distribution width ratio 13. 7 % 10.0- 14.5 Automated blood platelet count (count/volume) 355 10*3/uL 130-400 Automated blood platelet mean volume measurement 10.2 [foz_us] 7.4-10.4 Automated blood neutrophils/100 leukocytes 75 % 42-75 Automated blood lymphocytes/100 leukocytes 20 % 12-44 Blood monocytes/100 leukocytes 4 % 0-12 Automated blood eosinophils/100 leukocytes 0 % 0-10 Automated blood basophils/100 leukocytes 0 % 0-10 Blood neutrophils automated count (number/volume) 14.1 10*3 1.8-7.8 Blood lymphocytes automated count (number/volume) 3.8 10*3 1.0-4.0 Blood monocytes automated count (number/volume) 0. 8 10*3 0.0-1.0 Automated eosinophil count 0.0 10*3/uL 0 .0-0.3 Automated blood basophil count (count/volume) 0.1 10*3/uL 0.0-0.1 Comprehensive metabolic panel - 08/22/18 05:41 Serum or plasma sodium measurement (moles/volume) 140 mmol/L 135-145 Serum or plasma potassium measurement (moles/volume) 4.7 mmol/L 3.6-5.0 Serum or plasma chloride measurement (moles/volume) 108 mmol/L 98-107 Carbon dioxide 22 mmol/L 21-32 Serum or plasma anion gap determination (moles/volume) 10 mmol/L 5-14 Serum or plasma urea nitrogen measurement (mass/volume ) 12 mg/dL 7-18 Serum or plasma creatinine measurement (mass/volume) 0.78 mg/dL 0.60-1.30 Serum or plasma urea nitrogen/creatinine mass ratio 15 NRG Serum or plasma creatinine measurement w ith calculation of estimated glomerular filtration rate > NRG Serum or plasma glucose measurement (mass/volume) 109 mg/dL 70-105 Serum or plasma calcium measurement (mass/volume) 8.6 mg/dL 8.5-10.1 Serum or plasma total bilirubin measurement (mass/volu me) 0.2 mg/dL 0.1-1.0 Serum or plasma alkaline phosphatase janet surement (enzymatic activity/volume) 147 U/L 40-136 Serum or plasma aspartate aminotransfera se measurement (enzymatic activity/volume) 11 U/L 5-34 Serum or plasma alanine aminotransferase measurement (enzymatic activity/volume) 28 U/L 0-55 Serum or plasma protein measurement (mass/volume) 6.0 g/dL 6.4-8.2 Serum or plasma albumin measurement (mass/volume) 3.2 g/dL 3.2-4.5 CALCIUM CORRECTED 9.2 mg/dL 8.5-10.1 CULTURE, URINE - 09/19/18 10:44 CULTURE, URINE, ROUTINE SEE NOTE NRG PDM - PAIN MGMT (PROFILE 3 WITH CONFIRMA TION) - 01/01/19 17:04 Prescribed Drug 1 Xanax(TM) NRG Creatinine 108.7 mg/dL > or = 20.0 pH 7.6 4.5-9.0 Oxidant NEGATIVE mcg/mL <200 Amphetamines NEGATIVE ng/mL <500 medMATCH Amphetamines CONSISTENT NRG Benzodiazepines NEGATIVE ng/mL <100 medMATCH Benzodiazepines INCONSISTENT N RG Marijuana Metabolite NEGATIVE ng/mL <20 medMATCH Marijuana Metab CONSISTENT NRG Cocaine Metabolite NEGATIVE ng/mL <150 medMATCH Cocaine Metab CONSISTENT NRG Opiates NEGATIVE ng/mL <100 medMATCH Opiates CONSISTENT NRG Oxycodone NEGATIVE ng/mL <100 medMATCH Oxycodone CONSISTENT NRG COMMENT NRG HEP B SURFACE ANTIGEN - 01/02/19 08:12 HEPATITIS B SURFACE ANTIGEN NON-REACTIVE NON-REACTIVE HEP C ANTIBODY - 01/02/19 08:12 HEPATITIS C ANTIBODY NON-REACTIVE NON-R EACTIVE SIGNAL TO CUT-OFF 0.01 <1.00 TSH - 01/02/19 08:12 TSH 2.14 mIU/L NRG Complete blood count (CBC) with automate d white blood cell (WBC) differential - 02/05/19 13:20 Blood leukocytes automated count (number/volume) 13.2 10*3/uL 4.3-11.0 Blood erythrocytes automated count (number/volume) 5.19 10*6/uL 4.35-5.85 Venous blood hemoglobin measurement (mass/volume) 14.0 g/dL 11.5-16.0 Blood hematocrit (volume fraction) 43 % 35-52 Automated erythrocyte mean corpuscular volume 83 [ foz_us] 80-99 Automated erythrocyte mean corpuscular h emoglobin (mass per erythrocyte) 27 pg 25-34 Automated erythrocyte mean corpuscular h emoglobin concentration measurement (mass/volume) 32 g/dL 32-36 Automated erythrocyte distribution width ratio 14. 1 % 10.0- 14.5 Automated blood platelet count (count/volume) 380 10*3/uL 130-400 Automated blood platelet mean volume measurement 10.2 [foz_us] 7.4-10.4 Automated blood neutrophils/100 leukocytes 63 % 42-75 Automated blood lymphocytes/100 leukocytes 25 % 12-44 Blood monocytes/100 leukocytes 6 % 0-12 Automated blood eosinophils/100 leukocytes 6 % 0-10 Automated blood basophils/100 leukocytes 0 % 0-10 Blood neutrophils automated count (number/volume) 8.3 10*3 1.8-7.8 Blood lymphocytes automated count (number/volume) 3.2 10*3 1.0-4.0 Blood monocytes automated count (number/volume) 0. 8 10*3 0.0-1.0 Automated eosinophil count 0.8 10*3/uL 0 .0-0.3 Automated blood basophil count (count/volume) 0.0 10*3/uL 0.0-0.1 Complete urinalysis with reflex to cultu re - 02/05/19 13:20 Urine color determination YELLOW NRG Urine clarity determination CLEAR NR G Urine pH measurement by test strip 8 5-9 Specific gravity of urine by test strip 1.015 1.016-1.022 Urine protein assay by test strip, semi-quantitative NEGATIVE NEGATIVE Urine glucose detection by automated test strip NE GATIVE NEGATIVE Erythrocytes detection in urine sediment by light micr oscopy NEGATIVE NEGATIVE Urine ketones detection by automated test strip NE GATIVE NEGATIVE Urine nitrite detection by test strip NEGATIVE NEGATIVE Urine total bilirubin detection by test strip NEGA TIVE NEGATIVE Urine urobilinogen measurement by automated test strip (mass/volume) NORMAL NORMAL Urine leukocyte esterase detection by dipstick NEG ATIVE NEGATIVE Automated urine sediment erythrocyte cou nt by microscopy (number/high power field) NONE NRG Automated urine sediment leukocyte count by microscopy (number/high power field) RARE NRG Bacteria detection in urine sediment by light microsco py MODERATE NRG Squamous epithelial cells detection in u rine sediment by light microscopy 0-2 NRG Crystals detection in urine sediment by light microsco py NONE NRG Casts detection in urine sediment by light microscopy NONE NRG Mucus detection in urine sediment by light microscopy NEGATIVE NRG Complete urinalysis with reflex to culture YES NRG Comprehensive metabolic panel - 02/05/19 13:20 Serum or plasma sodium measurement (moles/volume) 140 mmol/L 135-145 Serum or plasma potassium measurement (moles/volume) 4.0 mmol/L 3.6-5.0 Serum or plasma chloride measurement (moles/volume) 103 mmol/L 98-107 Carbon dioxide 27 mmol/L 21-32 Serum or plasma anion gap determination (moles/volume) 10 mmol/L 5-14 Serum or plasma urea nitrogen measurement (mass/volume ) 10 mg/dL 7-18 Serum or plasma creatinine measurement (mass/volume) 0.88 mg/dL 0.60-1.30 Serum or plasma urea nitrogen/creatinine mass ratio 11 NRG Serum or plasma creatinine measurement w ith calculation of estimated glomerular filtration rate > NRG Serum or plasma glucose measurement (mass/volume) 98 mg/dL 70-105 Serum or plasma calcium measurement (mass/volume) 9.6 mg/dL 8.5-10.1 Serum or plasma total bilirubin measurement (mass/volu me) 0.4 mg/dL 0.1-1.0 Serum or plasma alkaline phosphatase janet surement (enzymatic activity/volume) 258 U/L 40-136 Serum or plasma aspartate aminotransfera se measurement (enzymatic activity/volume) 65 U/L 5-34 Serum or plasma alanine aminotransferase measurement (enzymatic activity/volume) 123 U/L 0-55 Serum or plasma protein measurement (mass/volume) 7.5 g/dL 6.4-8.2 Serum or plasma albumin measurement (mass/volume) 4.4 g/dL 3.2-4.5 CALCIUM CORRECTED 9.3 mg/dL 8.5-10.1 Lipase - 02/05/19 13:20 Lipase 22 U/L 8-78 Serum or plasma C reactive protein measu rement (mass/volume) - 02/05/19 13:20 Serum or plasma C reactive protein measurement (mass/v olume) 1.04 mg/dL 0.00-0.50 Bacterial urine culture - 02/05/19 13:20 Bacterial urine culture [id number] NRG COLONY COUNT >100,000/ML NRG FTX;REPORTABLE SUSCEPTIBILITY REPORTED 02/07/19 12: 05 NRG Dirithromycin susceptibility test by dis k diffusion - 02/05/19 13:20 Gentamicin susceptibility test by minimum inhibitory c oncentration <= NRG Trimethoprim/sulfamethoxazole susceptibi lity test by minimum inhibitoryconcentration <= NRG Levofloxacin susceptibility test by minimum inhibitory concentration <= NRG Ampicillin susceptibility test by minimum inhibitory c oncentration R NRG Cefazolin susceptibility test by minimum inhibitory co ncentration <= NRG Ceftriaxone susceptibility test by minimum inhibitory concentration <= NRG Ciprofloxacin susceptibility test by minimum inhibitor y concentration <= NRG Meropenem susceptibility test by minimum inhibitory co ncentration <= NRG Nitrofurantoin susceptibility test by mi nimum inhibitory concentration 64 NRG Amoxicillin and clavulanate potassium susc GARRISON <= NRG CULTURE, URINE - 04/17/19 03:44 CULTURE, URINE, ROUTINE SEE NOTE NRG Encounters ACCT No. Visit Date/Time Discharge Status Pt. Type Provider Facility Loc./Unit Complaint [id number] 05/26/2019 13:30:00 05/26/2019 23:59:5 9 [facility] Outpatient MAVERICK ROSAELS [facility] [id number] 04/16/2019 10:00:00 Document Registration [id number] 01/02/2019 08:00:00 Document Registration [id number] 01/01/2019 16:00:00 Document Registration [id number] 09/19/2018 10:40:00 Document Registration [id number] 06/20/2017 08:20:00 Document Registration [id number] 04/24/2017 16:40:00 Document Registration [id number] 05/10/2019 07:26:00 020 23:59:59 CLS Outpatient MAVERICK ROSALES MD [facility] RAD SCREENING [id number] 02/05/2019 12:24:00 019 15:13:00 DIS Emergency TOBI STANLEY [facility] ER ABD PAIN [id number] 08/19/2018 21:05:00 019 15:00:00 DIS Inpatient MALVIN COSTELLO DO, [facility] 4TH BILATERAL PNEUMONIA, THMA EXAC [id number] 02/09/2018 10:23:00 018 14:02:00 DIS Emergency MARLA AMEZQUITA MD [facility] ER ABD PAIN [id number] 01/21/2018 02:23:00 018 06:03:00 DIS Emergency LOWELLMAGALIS Mota DO Vi [facility] ER R SIDE ABD PAIN/CHRONIC PANCREATITIS [id number] 12/08/2017 15:56:00 018 23:59:59 CLS Outpatient MAVERICK ROSALES MD [facility] RAD SCREENING FOR BREAST CA NCER [id number] 03/29/2017 09:09:00 017 23:59:59 CLS Outpatient MAVERICK ROSALES MD [facility] RAD Z12.31 SCREENING [id number] 10/20/2016 11:10:00 017 13:38:00 DIS Emergency BILL HEREDIA APRN [facility] ER ABD PAIN [id number] 08/30/2016 08:54:00 017 23:59:59 CLS Outpatient SPENSER CORDOVA MD [facility] RAD J34.9,H53.8 [id number] 06/07/2016 11:19:00 017 15:25:00 DIS Inpatient BOBBY VYAS, MAVERICK Taylor [facility] 4TH HYPOXIA [id number] 06/02/2016 04:56:00 017 08:28:00 DIS Emergency LUIS A VYAS, ANAND Guardado [facility] ER SOB,VOMITING,ABD PAIN,C OUGHING [id number] 05/28/2016 21:13:00 017 22:48:00 DIS Emergency BILL HEREDIA APRN [facility] ER AB AND BACK PAIN [id number] 03/20/2016 04:23:00 016 12:30:00 DIS Inpatient EMILY VYAS, EDGAR Guardado [facility] 4TH EXACERBATION OF CHRONIC PANCREATITIS [id number] 12/09/2015 22:14:00 016 00:17:00 DIS Emergency MAGALIS ETIENNE DO a [facility] ER ABD PAIN [id number] 10/27/2015 14:38:00 016 17:01:00 DIS Emergency ADELIA MISHRA MD [facility] ER ABD PAIN [id number] 08/12/2015 06:46:00 016 09:35:00 DIS Outpatient HERBERT GUY DO [facility] SDC ATELECTASIS OF LEFT ESTEFANY G [id number] 08/06/2015 07:27:00 016 13:40:00 DIS Outpatient HERBERT GUY DO [facility] PREOP LEFT LUNG [id number] 07/27/2015 13:11:00 23:59:59 CLS Outpatient HERBERT GUY DO [facility] RAD [id number] 05/20/2015 10:59:00 23:59:59 CLS Outpatient HERBERT GUY DO [facility] RAD [id number] 03/31/2015 08:19:00 23:59:59 CLS Outpatient ANCELMO ZUÑIGA MD [facility] RAD ACUTE PANCREATITS K85.9 [id number] 03/11/2015 16:46:00 23:59:59 CLS Outpatient HERBERT GUY DO [facility] RT ADLEXIS OF LT LUNG PNUE MONIA [id number] 03/03/2015 14:35:00 15:07:00 DIS Outpatient HERBERT GUY DO [facility] SLEEP SNORING, EDS, MOOD DISO RDER [id number] 02/22/2015 18:06:00 18:12:00 DIS Inpatient MAVERICK GRIFFITHS MD [facility] 4TH PANCREATITIS [id number] 02/16/2015 14:45:00 23:59:59 CLS Outpatient MAVERICK GRIFFITHS MD [facility] RAD LUNG NODULE [id number] 02/05/2015 09:37:00 09:38:00 DIS Outpatient CALEB BLAIR DO [facility] LAB PNEUMONIA [id number] 01/28/2015 13:57:00 23:59:59 CLS Outpatient MAVERICK GRIFFITHS MD [facility] RAD PNEUMONIA [id number] 01/16/2015 10:16:00 23:59:59 CLS Outpatient ANCELMO ZUÑIGA MD [facility] RAD ACUTE PANCREATITIS [id number] 01/16/2015 10:01:00 23:59:59 CLS Outpatient BRUCE AGUAYO [employer] [facility] RAD LUNG NODULE,L LUNG BASE [id number] 2014 08:10:00 10:25:00 DIS Emergency MARLA AMEZQUITA MD [facility] ER RIGHT SIDE ABD PAIN POS T OP [id number] 11/11/2014 10:21:00 23:59:59 CLS Outpatient PENNIE HARO [facility] SDC PANCREATITIS [id number] 08/20/2014 16:54:00 015 11:45:00 DIS Inpatient MAVERICK GRIFFITHS MD [facility] 4TH ACUTE PANCREATITIS, BIPIN VATED LFT'S [id number] 07/24/2014 06:00:00 015 23:59:59 CLS Outpatient ALESSIO OJEDA MD [facility] SDC BILIARY DYSKNESIA [id number] 07/18/2014 11:58:00 015 23:59:59 CLS Outpatient ALESSIO OJEDA MD [facility] PREOP BILIARY DYSKNESIA [id number] 07/07/2014 10:31:00 015 17:20:00 DIS Inpatient MAVERICK GRIFFITHS MD [facility] SURGICAL ABD PAIN PANCREATITIS [id number] 01/21/2014 10:41:00 014 23:59:59 CLS Outpatient PENNIE HARO [facility] RAD SCREENING [id number] 07/18/2013 16:43:00 014 11:58:00 DIS Inpatient ALESSIO OJEDA MD, [facility] SURGICAL RUQ PAIN, POSSIBLE CHOLEDOCHOLITHIASIS [id number] 04/20/2013 13:55:00 014 23:59:59 CLS Outpatient CHERRIE WEIR DO [facility] LAB CHEST PAIN, BACK PAIN [id number] 06/18/2019 03:18:[address] Emergency MAGALIS ETIENNE DO [facility] ER VOMITING,DIARRHEA,ABD PAIN [id number] 07/03/2015 21:12:00 Document Registration [id number] 01/06/2015 14:59:00 Document Registration [id number] 01/06/2015 14:59:00 Document Registration [id number] 01/06/2015 14:59:00 Document Registration [id number] 01/06/2015 14:59:00 Document Registration [id number] 01/06/2015 14:59:00 Document Registration [id number] 01/06/2015 14:59:00 Document Registration [id number] 07/07/2014 09:13:00 Document Registration [id number] 11/30/2011 13:17:00 Document Registration [id number] 11/21/2011 11:53:00 Document Registration [id number] 09/28/2011 15:13:00 Document Registration [id number] 09/16/2011 13:08:00 Document Registration [id number] 08/31/2011 12:58:00 Document Registration [id number] 09/14/2010 05:41:00 Document Registration [id number] 09/06/2010 07:40:00 Document Registration [id number] 08/25/2010 14:26:00 Document Registration [id number] 08/03/2010 10:47:00 Document Registration [id number] 07/08/2009 10:33:00 Document Registration [id number] 03/03/2008 08:26:00 Document Registration [id number] 02/20/2008 09:23:00 Document Registration [id number] 05/08/2006 07:59:00 Document Registration
[2019-06-18] MEDS ORDERED: LACTATED RINGERS 1,000 ML IV ONE (04:44)
[2019-06-18] MEDS ORDERED: ONDANSETRON 4 MG/2 ML (SDV) Z0FRAN IVP ONE (04:45)
[2019-06-18] MEDS ORDERED: PANTOPRAZOLE 40 MG (PROTONIX) VIAL IV ONE (04:45)
[2019-06-18 04:51] LABS: BASOPHILS % (AUTO) 0 % (0-10); EOSINOPHILS # (AUTO) 1.2 10^3/uL (0.0-0.3); EOSINOPHILS % (AUTO) 9 % (0-10); HEMATOCRIT 43 % (35-52); LYMPHOCYTES # (AUTO) 3.3 X 10^3 (1.0-4.0); LYMPHOCYTES % (AUTO) 25 % (12-44); MEAN CORPUSCULAR HEMOGLOBIN 27 PG (25-34); MEAN CORPUSCULAR HGB CONC 32 G/DL (32-36); MEAN CORPUSCULAR VOLUME 84 FL (80-99); MEAN PLATELET VOLUME 10.4 FL (7.4-10.4); MONOCYTES # (AUTO) 0.7 X 10^3 (0.0-1.0); MONOCYTES % (AUTO) 6 % (0-12); NEUTROPHILS # (AUTO) 7.7 X 10^3 (1.8-7.8); NEUTROPHILS % (AUTO) 59 % (42-75); PLATELET COUNT 335 10^3/uL (130-400); RED CELL DISTRIBUTION WIDTH 14.2 % (10.0-14.5)
--- NOTE | 2019-06-18 04:52 | ED Abdominal Pain ---
General Chief Complaint: Abdominal/GI Problems Stated Complaint: VOMITING,DIARRHEA,ABD PAIN Source of Information: Patient History of Present Illness Date Seen by Provider: Jun 18, 2019 Time Seen by Provider: 04:35 Initial Comments PT ARRIVES VIA POV FROM HOME C/O EPIGASTRIC PAIN SINCE MONDAY EVENING 06/16/19 PAIN RADIATES THRU TO BACK NOTHING WORSENS OR IMPROVES PAIN C/O NAUSEA AND HAS VOMITED X 2 TODAY HAS HAD DIARRHEA X 5 SINCE 1700 NO FEVER NO URINARY SYMPTOMS AND VOIDING A NORMAL AMOUNT NO KNOWN SICK CONTACTS WITH SIMILAR NO SUSPICIOUS FOODS TOOK PEPCID AT 0130, THEN VOMITED AT 0230 HAD BACK ADJUSTMENT TODAY WITHOUT RELIEF. PT IS NOT TAKING ANY GI MEDICATIONS HAS HAD PANCREATITIS SEVERAL TIMES AND THIS FEELS SIMILAR LAST TIME THAT SHE HAD TO BE HOSPITALIZED FOR IT WAS 2016 SEEN AT [facility] YESTERDAY FOR THIS PROBLEM, UA DONE AND WAS NORMAL. NO RX'S AND NO OTHER TESTS DONE. PT HAS HAD CHOLECYSTECTOMY, APPENDECTOMY AND HYSTERECTOMY PCP: [facility], DR. ROSALES GI: DR. ZUÑIGA IN [place] AND HAS ALSO SEEN GI SPECIALIST AT IN THE PAST Allergies and Home Medications Allergies Coded Allergies: ciprofloxacin (Verified Allergy, Severe, 02/09/18) severe itching at iv site butorphanol (Unverified Adverse Reaction, Unknown, SEVERE HEADACHES, 02/09/18) codeine (Unverified Adverse Reaction, Unknown, NIGHTMARES, 08/20/18) PT STATED WHEN SHE HAS TYLENOL AND CODEINE TOGETHER (TYLENOL #3) SHE HAS TERRIBLE NIGHTMARES. Home Medications Azithromycin 250 Mg Tablet, 250 MG PO DAILY Prescribed by: PAUL SILVER on 08/22/18 1057 Cefdinir 300 Mg Capsule, 300 MG PO BID Prescribed by: PAUL SILVER on 08/22/18 1057 Dicyclomine HCl 20 Mg Tablet, 20 MG PO Q6H Prescribed by: MAGALIS ETIENNE on 06/18/19 0644 Diphenhydramine HCl 25 Mg Capsule, 50 MG PO Q6H PRN for DRAINAGE, (Reported) Doxylamine/Phenylep/Dm/Aspirin 1 Each Tab.ef.seq, 1 TAB PO BID PRN for COLD, (Reported) Fluticasone/Salmeterol 1 Each Blst.w.dev, 1 EACH IH BID Prescribed by: PAUL SILVER on 08/22/18 1058 Guaifenesin/Dextromethorphan 5 Ml Syrup, 10 ML PO Q4H PRN for COUGH, (Reported) Hydrocodone/Chlorphen P-Stirex 473 Ml Paulette.er.12h, 5 ML PO Q12HR Prescribed by: PAUL SILVER on 08/22/18 1057 Hyoscyamine Sulfate 0.125 Mg Tab.subl, 0.25 MG SL Q4H Prescribed by: MAGALIS ETIENNE on 06/18/19 06 Ibuprofen 200 Mg Tablet, 800 MG PO TID PRN for PAIN-MILD, (Reported) Montelukast Sodium 10 Mg Tablet, 10 MG PO HS, (Reported) Ondansetron 8 Mg Tab.rapdis, 8 MG PO Q6H PRN for NAUSEA/VOMITING Prescribed by: TOBI SALOMON on 02/05/19 1614 Ondansetron 8 Mg Tab.rapdis, 8 MG PO Q6H Prescribed by: MAGALIS ETIENNE on 06/18/19644 Pantoprazole Sodium 40 Mg Tablet.dr, 40 MG PO DAILY Prescribed by: MAGALIS ETIENNE on 06/18/19643 Prednisone 10 Mg Tab.ds.pk, 10 MG PO DAILY Take 6 tabs(60mg)daily,decrease by 1 tab(10MG)daily. Prescribed by: PAUL SILVER on 08/22/18 105 Ranitidine HCl 150 Mg Tablet, 150 MG PO HS, (Reported) Sucralfate 1 Gm Tablet, 1 GM PO QID Prescribed by: MAGALIS ETIENNE on 06/18/19643 Patient Home Medication List Home Medication List Reviewed: Yes Review of Systems Review of Systems Constitutional: no symptoms reported; No chills, No diaphoresis, No fever EENTM: No Symptoms Reported Respiratory: No Symptoms Reported Cardiovascular: No Symptoms Reported Gastrointestinal: See HPI, Abdominal Pain, Diarrhea, Nausea, Vomiting Genitourinary: No Symptoms Reported Musculoskeletal: see HPI, back pain Skin: no symptoms reported Psychiatric/Neurological: No Symptoms Reported Endocrine: No Symptoms Reported Hematologic/Lymphatic: No Symptoms Reported Past Lfzgufm-Puyrht-Kaqlqg Hx Past Med/Social Hx: Reviewed and Corrections made Patient Social History Alcohol Use: Denies Use Recreational Drug Use: No Smoking Status: Former Smoker (1/2 PPD, QUIT 2010) Type Used: Cigarettes Former Smoker, Quit: Sep 14, 2010 2nd Hand Smoke Exposure: No Recent Foreign Travel: No Contact w/Someone Who Travel: No Recent Hopitalizations: No Physical Abuse: No Sexual Abuse: No Mistreated: No Fear: No Immunizations Up To Date Tetanus Booster (TDap): Less than 5yrs PED Vaccines UTD: No Date of Pneumonia Vaccine: August 19, 2016 Date of Influenza Vaccine: Feb 26, 2016 Seasonal Allergies Seasonal Allergies: Yes Past Medical History Surgeries: Yes (SEE BELOW) Abdominal, Appendectomy, Gallbladder, Hysterectomy, Oophorectomy, Orthopedic, Pancreatic Respiratory: Yes (atelectasis, nocturnal hypoxia with O2 supplementation) Asthma, Pneumonia Currently Using CPAP: No Currently Using BIPAP: No Cardiac: Yes Hypertension Neurological: No 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 Disorders: Yes (Hysterectomy due to fibroid tumors) Female 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 Disorders: 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 PANCREATITIS;BILE /PANCREATIC DUCT STENTS/SPHIN CTEROTOMY;FATTY LIVER) Gastroesophageal Reflux, Liver Disease/Jaundice, Pancreatitis, Gall Bladder Disease Musculoskeletal: Yes (BILATERAL KNEE SCOPES X 4) Arthritis Endocrine: Yes (OBESITY) HEENT: No Loss of Vision: Denies Hearing Impairment: Denies Cancer: No Psychosocial: Yes Anxiety Integumentary: No Blood Disorders: No Adverse Reaction/Blood Tranf: No Family Medical History Arthritis 03 MOTHER Cancer (Breast CA.) 03 MOTHER Cardiovascular disease 03 FATHER Deafness or hearing loss 03 FATHER Fibrocystic disease of breast 03 MOTHER Hypercholesterolemia 03 FATHER 03 MOTHER Hypertension 03 MOTHER Osteoporosis 03 MOTHER Respiratory disorder 03 MOTHER No Family History of: AIDS Abdominal aortic aneurysm Favio's disease Alcoholism Alzheimer's disease Asthma Cancer of mouth Cataracts Colon cancer Completed stroke Congenital disease Congenital heart disease Coronary thrombosis Cystic fibrosis Dementia Diabetes mellitus Drug abuse Dysphasia Gastroenteritis Glaucoma Headache disorder Infertility Kidney disease Myocardial infarction Neoplasm Not obtainable due to adoption Parkinson's disease Prostate cancer Psychosocial problem Seizure disorder Severe allergy Thyroid disease Tuberculosis Visual disorder Heart Disease, COPD, Hypertension, Other Conditions/Hx PSH: -BILATERAL KNEE SCOPES X 4 -CHOLECYSTECTOMY -APPENDECTOMY -HYSTERECTOMY/BSO -ENDOSCOPIES -BILE AND PANCREATIC DUCT STENTS AND SPHINCTEROTOMY 12/09/2014 -D&C Physical Exam Vital Signs Vital Signs - First Documented 06/18/19 04:21 Temp 36.3 Pulse 75 Resp 20 B/P (MAP) 136/82 (100) Pulse Ox 95 O2 Delivery Room Air Capillary Refill : Height/Weight/BMI Height: 5'3.00" Weight: 277lbs. 12.8oz. [id number]; 42.00 BMI Method:Stated General Appearance: WD/WN, no apparent distress, obese, other (HOLDING EPIGAS TRIC AREA) Respiratory: normal breath sounds, no respiratory distress, no accessory muscle use Cardiovascular: regular rate, rhythm, no murmur Gastrointestinal: normal bowel sounds, soft, no organomegaly; No distended; guarding; No rebound; tenderness (EPIGASTRIC); No hernia, No mass Extremities: normal inspection Back: no CVA tenderness, no vertebral tenderness Neurologic/Psychiatric: executive producer II-XII nml as tested, no motor/sensory deficits, alert, oriented x 3, other (ANXIOUS) Skin: normal color, warm/dry; No rash Progress/Results/Core Measures Results/Orders Lab Results Laboratory Tests Test 06/18/19 04:35 06/18/19 06:31 Range/Units White Blood Count 13.0 H 4.3-11.0 10^3/uL Red Blood Count 5.15 4.35-5.85 10^6/uL Hemoglobin 14.0 11.5-16.0 G/DL Hematocrit 43 35-52 % Mean Corpuscular Volume 84 80-99 FL Mean Corpuscular Hemoglobin 27 25-34 PG Mean Corpuscular Hemoglobin Concent 32 32-36 G/DL Red Cell Distribution Width 14.2 10.0-14.5 % Platelet Count 335 130-400 10^3/uL Mean Platelet Volume 10.4 7.4-10.4 FL Neutrophils (%) (Auto) 59 42-75 % Lymphocytes (%) (Auto) 25 12-44 % Monocytes (%) (Auto) 6 0-12 % Eosinophils (%) (Auto) 9 0-10 % Basophils (%) (Auto) 0 0-10 % Neutrophils # (Auto) 7.7 1.8-7.8 X 10^3 Lymphocytes # (Auto) 3.3 1.0-4.0 X 10^3 Monocytes # (Auto) 0.7 0.0-1.0 X 10^3 Eosinophils # (Auto) 1.2 H 0.0-0.3 10^3/uL Basophils # (Auto) 0.0 0.0-0.1 10^3/uL Sodium Level 140 135-145 MMOL/L Potassium Level 3.8 3.6-5.0 MMOL/L Chloride Level 107 98-107 MMOL/L Carbon Dioxide Level 22 21-32 MMOL/L Anion Gap 11 5-14 MMOL/L Blood Urea Nitrogen 8 7-18 MG/DL Creatinine 0.80 0.60-1.30 MG/DL Estimat Glomerular Filtration Rate > 60 BUN/Creatinine Ratio 10 Glucose Level 106 H 70-105 MG/DL Calcium Level 9.1 8.5-10.1 MG/DL Corrected Calcium 9.0 8.5-10.1 MG/DL Magnesium Level 2.2 1.6-2.4 MG/DL Total Bilirubin 0.7 0.1-1.0 MG/DL Aspartate Amino Transf (AST/SGOT) 92 H 5-34 U/L Alanine Aminotransferase (ALT/SGPT) 193 H 0-55 U/L Alkaline Phosphatase 398 H 40-136 U/L Total Protein 6.9 6.4-8.2 GM/DL Albumin 4.1 3.2-4.5 GM/DL Amylase Level 39 25-125 U/L Lipase 10 8-78 U/L Serum Alcohol < 10 <10 MG/DL Urine Color YELLOW Urine Clarity CLEAR Urine pH 6.0 5-9 Urine Specific [place] 1.020 1.016-1.022 Urine Protein NEGATIVE NEGATIVE Urine Glucose (UA) NEGATIVE NEGATIVE Urine Ketones NEGATIVE NEGATIVE Urine Nitrite NEGATIVE NEGATIVE Urine Bilirubin NEGATIVE NEGATIVE Urine Urobilinogen 0.2 < = 1.0 MG/DL Urine Leukocyte Esterase NEGATIVE NEGATIVE Urine RBC (Auto) TRACE-I NEGATIVE Urine RBC 0-2 /HPF Urine WBC 0-2 /HPF Urine Squamous Epithelial Cells 0-2 /HPF Urine Crystals PRESENT H /LPF Urine Amorphous Sediment FEW BLESSING URATES H /LPF Urine Bacteria TRACE /HPF Urine Casts NONE /LPF Urine Mucus SMALL H /LPF Urine Culture Indicated NO Urine Opiates Screen NEGATIVE NEGATIVE Urine Oxycodone Screen NEGATIVE NEGATIVE Urine Methadone Screen NEGATIVE NEGATIVE Urine Propoxyphene Screen NEGATIVE NEGATIVE Urine Barbiturates Screen NEGATIVE NEGATIVE Ur Tricyclic Antidepressants Screen NEGATIVE NEGATIVE Urine Phencyclidine Screen NEGATIVE NEGATIVE Urine Amphetamines Screen NEGATIVE NEGATIVE Urine Methamphetamines Screen NEGATIVE NEGATIVE Urine Benzodiazepines Screen NEGATIVE NEGATIVE Urine Cocaine Screen NEGATIVE NEGATIVE Urine Cannabinoids Screen NEGATIVE NEGATIVE My Orders Orders - LOWELL,MAGALIS K DO Ed Iv/Invasive Line Start (06/18/19 04:36) Amylase (06/18/19 04:36) Cbc With Automated Diff (06/18/19 04:36) Comprehensive Metabolic Panel (06/18/19 04:36) Lipase (06/18/19 04:36) Ua Culture If Indicated (06/18/19 04:36) Alcohol (06/18/19 04:44) Drug Screen Stat (Urine) (06/18/19 04:44) Magnesium (06/18/19 04:44) Ondansetron Injection (Zofran Injectio (06/18/19 04:45) Ed Iv/Invasive Line Start (06/18/19 04:44) Lactated Ringers (Lr 1000 Ml Iv Solution (06/18/19 04:44) Pantoprazole Injection (Protonix Injecti (06/18/19 04:45) Ct Abdomen/Pelvis W (06/18/19 05:26) Acute Abd Series (06/18/19 05:26) Iohexol Injection (Omnipaque 350 Mg/Ml 1 (06/18/19 06:15) Received Contrast (Hold Metformin- Contr (06/18/19 06:15) Ns (Ivpb) (Sodium Chloride 0.9% Ivpb Bag (06/18/19 06:15) Ketorolac Injection (Toradol Injection) (06/18/19 07:00) Hyoscyamine Sl Tablet (Levsin Sl Tablet) (06/18/19 07:00) Dicyclomine Capsule (Bentyl Capsule) (06/18/19 07:00) Medications Given in ED Current Medications Medications Dose Ordered Sig/Fili Route Start Time Stop Time Status Last Admin Dose Admin Hyoscyamine Sulfate 0.25 mg ONCE ONCE PO 06/18/19 07:00 06/18/19 07:01 DC 06/18/19 06:57 0.25 MG Iohexol 100 ml ONCE ONCE IV 06/18/19 06:15 06/18/19 06:16 DC 06/18/19 06:23 100 ML Ketorolac Tromethamine 30 mg ONCE ONCE IVP 06/18/19 07:00 06/18/19 07:01 DC 06/18/19 06:58 30 MG Lactated Ringer's 1,000 ml @ 0 mls/hr Q0M ONCE IV 06/18/19 04:44 06/18/19 04:46 DC 06/18/19 05:15 1,000 MLS/HR Ondansetron HCl 8 mg ONCE ONCE IVP 06/18/19 04:45 06/18/19 04:46 DC 06/18/19 05:15 8 MG Pantoprazole 40 mg ONCE ONCE IV 06/18/19 04:45 06/18/19 04:46 DC 06/18/19 05:15 40 MG Sodium Chloride 100 ml ONCE ONCE IV 06/18/19 06:15 06/18/19 06:16 DC 06/18/19 06:23 80 ML Vital Signs/I&O 06/18/19 06/18/19 04:21 07:02 Temp 36.3 36.3 Pulse 75 65 Resp 20 18 B/P (MAP) 136/82 (100) 117/65 (100) Pulse Ox 95 96 O2 Delivery Room Air Room Air Progress Progress Note : Progress Note UNEVENTFUL ER STAY SYMPTOMS IMPROVED AT DISMISSAL Diagnostic Imaging Comments ABDOMEN XRAYS--LARGE AMOUNT OF STOOL IN COLON, OTHERWISE NO ACUTE PROCESS, PEN DING RADIOLOGIST REVIEW CT ABDOMEN/PELVIS--DILATED CBD--LARGER THAN PREVIOUS, MILD DUODENITIS, HEPATIC STEATOSIS, PER [facility] VIA FAX AT 0651 Reviewed: Reviewed by Me ( ) Departure Impression Primary Impression: Epigastric abdominal pain Additional Impressions: Elevated liver enzymes Hepatic steatosis POSSIBLE DUODENITIS CBD DILATION POST CHOLECYSTECTOMY Disposition: 01 HOME, SELF-CARE Condition: Stable Departure-Patient Inst. Referrals: MAVERICK ROSALES MD (PCP/Family) Primary Care Physician Patient Instructions: Acute Abdomen (Belly Pain), Adult (DC), Nonalcoholic Steatohepatitis (BERNARD), Ulcer and Gastritis Diet Add. Discharge Instructions: CLEAR LIQUIDS--WATER, BROTH, JELLO, GATORADE WHEN YOUR PAIN IS GONE, ADD BRATS DIET TO CLEAR LIQUIDS--BANANAS, RICE, APPLESAUCE, TOAST, SALTINES FOLLOW UP WITH [facility] OR YOUR GI DR. THIS WEEK FOR FURTHER CARE All discharge instructions reviewed with patient and/or family. Voiced understanding. Scripts Ondansetron (Ondansetron Odt) 8 Mg Tab.rapdis 8 MG PO Q6H, #10 TAB Prov: MAGALIS ETIENNE DO 06/18/19 Dicyclomine HCl (Dicyclomine HCl) 20 Mg Tablet 20 MG PO Q6H for Abdominal Pain, #20 TAB Prov: MAGALIS ETIENNE DO 06/18/19 Hyoscyamine Sulfate (Levsin-Sl) 0.125 Mg Tab.subl 0.25 MG SL Q4H, #10 TAB Prov: MAGALIS ETIENNE DO 06/18/19 Sucralfate (Carafate) 1 Gm Tablet 1 GM PO QID, #60 TAB Prov: MAGALIS ETIENNE DO 06/18/19 Pantoprazole Sodium (Protonix) 40 Mg Tablet.dr 40 MG PO DAILY, #15 TAB Prov: MAGALIS ETIENNE DO 06/18/19 MAGALIS ETIENNE DO Jun 18, 2019 04:52
[2019-06-18 05:18] LABS: ALANINE AMINOTRANSFERASE 193 U/L (0-55); ALBUMIN 4.1 GM/DL (3.2-4.5); ALKALINE PHOSPHATASE 398 U/L (40-136); AMYLASE 39 U/L (25-125); BILIRUBIN,TOTAL 0.7 MG/DL (0.1-1.0); BUN/CREATININE RATIO 10; CALCIUM 9.1 MG/DL (8.5-10.1); CARBON DIOXIDE 22 MMOL/L (21-32); CHLORIDE 107 MMOL/L (98-107); GFR ESTIMATED > 60; GLUCOSE 106 MG/DL (70-105); LIPASE 10 U/L (8-78); MAGNESIUM 2.2 MG/DL (1.6-2.4); POTASSIUM 3.8 MMOL/L (3.6-5.0); SODIUM 140 MMOL/L (135-145); TOTAL PROTEIN 6.9 GM/DL (6.4-8.2)
[2019-06-18] MEDS ORDERED: HOLD METFORMIN - RECEIVED CONTRAST 20 ML VIAL IV SCH (06:15)
[2019-06-18] MEDS ORDERED: NS 100 ML (IVPB) BAG IV ONE (06:15)
[2019-06-18] MEDS ORDERED: IOHEXOL 350 MG/ML 100 ML (OMNIPAQUE 350) VIAL IV ONE (06:15)
--- NOTE | 2019-06-18 06:39 | Diagnostic Imaging Report ---
Indication: Abdominal pain PA chest, supine and upright abdominal images are obtained Lungs are clear. Gallbladder is surgically absent. There is no intraperitoneal free air. Bowel gas pattern is normal. There is a large amount of stool in the colon. There are some surgical sergio in left pelvis. IMPRESSION: Postsurgical changes. Fecal stasis. No acute abnormalities. Dictated by: Dictated on workstation # [id number]
[2019-06-18 06:43] LABS: BILIRUBIN,URINE NEGATIVE (NEGATIVE); CLARITY,URINE CLEAR; COLOR,URINE YELLOW; GLUCOSE, URINE (UA) NEGATIVE (NEGATIVE); KETONES,URINE NEGATIVE (NEGATIVE); LEUKOCYTE ESTERASE ,URINE NEGATIVE (NEGATIVE); NITRITE,URINE NEGATIVE (NEGATIVE); PROTEIN,URINE NEGATIVE (NEGATIVE)
[2019-06-18] MEDS ORDERED: SUCR1TAB36 PO (06:44)
[2019-06-18] MEDS ORDERED: HYOS0.1283 SL (06:44)
[2019-06-18] MEDS ORDERED: DICY20TA10 PO (06:44)
[2019-06-18] MEDS ORDERED: PANT40TA2 PO (06:44)
[2019-06-18] MEDS ORDERED: ONDA8TAB13 PO (06:45)
[2019-06-18 06:58] LABS: AMORPHOUS SEDIMENT,UR FEW AMOR URATES /LPF; BACTERIA,URINE TRACE /HPF; RBC,URINE 0-2 /HPF; SQUAMOUS EPITHELIAL CELL,UR 0-2 /HPF; WBC,URINE 0-2 /HPF
[2019-06-18] MEDS ORDERED: DICYCLOMINE 10 MG (BENTYL) CAP PO SCH (07:00)
[2019-06-18] MEDS ORDERED: KETOROLAC 30 MG/ML VIAL IVP ONE (07:00)
[2019-06-18] MEDS ORDERED: HYOSCYAMINE 0.125 MG (LEVSIN) TAB PO ONE (07:00)
[2019-06-18 07:02] VITALS: BP 117/65
[2019-06-18 07:06] LABS: AMPHETAMINE SCREEN, URINE NEGATIVE (NEGATIVE); BARBITURATE SCREEN URINE NEGATIVE (NEGATIVE); BENZODIAZEPINES SCREEN URINE NEGATIVE (NEGATIVE); CANNABINOID SCREEN, URINE NEGATIVE (NEGATIVE); COCAINE SCREEN URINE NEGATIVE (NEGATIVE); METHADONE STAT NEGATIVE (NEGATIVE); METHAMPHETAMINE SCREEN URINE S NEGATIVE (NEGATIVE); OPIATE SCREEN URINE NEGATIVE (NEGATIVE); OXYCODONE STAT NEGATIVE (NEGATIVE); PROPOXYPHENE STAT NEGATIVE (NEGATIVE); TRICYCLIC ANTIDEPRESSANTS SCRE NEGATIVE (NEGATIVE)
--- NOTE | 2019-06-18 07:34 | Diagnostic Imaging Report ---
PROCEDURE: CT abdomen and pelvis with contrast. TECHNIQUE: Multiple contiguous axial images were obtained through the abdomen and pelvis after administration of intravenous contrast. Auto Exposure Controls were utilized during the CT exam to meet ALARA standards for radiation dose reduction. INDICATION: Epigastric pain, pancreatitis, history with cholecystectomy. COMPARISON: 02/05/2019 FINDINGS: Lung bases are clear. The heart is normal in size. There is no pericardial effusion. The liver demonstrates no focal lesions. The spleen appears normal. No pancreatic masses are seen. There is subtle fat stranding about the pancreatic head. The gallbladder is absent with cholecystectomy clips noted. There is dilatation of the common bile duct and mild dilatation of the intrahepatic biliary ducts. A small amount of air is seen, likely pneumobilia. This appears similar to the prior exam. The kidneys are normal. The adrenal glands appear normal. The bowel loops are nondistended without obstruction. There is mild wall thickening and hyperenhancement of the proximal duodenum. There may be subtle fat stranding about the pancreatic head. The appendix is absent. No free fluid or free air is seen. Surgical clips are seen in the left pelvis. There are degenerative changes in the sacroiliac joints and spine. IMPRESSION: 1. Mild wall thickening and hyperenhancement of the proximal duodenum could represent a duodenitis. There is subtle fat stranding about the pancreatic head, which may represent a mild/early pancreatitis as well. Recommend correlation with lipase. 2. Postcholecystectomy changes. Biliary dilatation and pneumobilia appears stable compared to February 2019. Dictated by: Dictated on workstation # [id number]
== END 2019-06-18 07:02 | disposition home or self-care (01) ==
LOC: EDUNIT# 03:15 → ER 03:18
DX: K76.0 Fatty (change of) liver, not elsewhere classified (principal); R74.8 Abnormal levels of other serum enzymes; K83.8 Other specified diseases of biliary tract; J45.909 Unspecified asthma, uncomplicated; I10 Essential (primary) hypertension; F41.9 Anxiety disorder, unspecified; E66.9 Obesity, unspecified; K21.9 Gastro-esophageal reflux disease without esophagitis; Z90.49 Acquired absence of other specified parts of digestive tract; Z88.1 Allergy status to other antibiotic agents; Z88.5 Allergy status to narcotic agent; Z88.8 Allergy status to other drugs, medicaments and biological substances; Z79.51 Long term (current) use of inhaled steroids; Z79.52 Long term (current) use of systemic steroids; Z87.891 Personal history of nicotine dependence; Z80.3 Family history of malignant neoplasm of breast; Z68.39 Body mass index [BMI] 39.0-39.9, adult
CPT/HCPCS: 36415; 74022; 74177; 80053; 80306; 80320; 81000; 82150; 83690; 83735; 85025

== ENCOUNTER → 2021-04-28 | Outpatient (CLI) | payer BC ==
[~2021-04-28] MED LIST changes: +DICY20TA PO; -DICY20TA10 PO; +HYOS0.1283 SL; -LORA1TAB PO; +MONT-40 PO; -MONT10TA26 PO; +SUCR1TAB36 PO; +[UNRECOGNIZED DRUG - CODE] PO
--- NOTE | 2021-04-28 15:11 | Diagnostic Imaging Report ---
PROCEDURE: CT abdomen without contrast. TECHNIQUE: Multiple contiguous axial images were obtained through the abdomen without the use of intravenous contrast. Auto Exposure Controls were utilized during the CT exam to meet ALARA standards for radiation dose reduction. INDICATION: Generalized abdominal pain and lower abdominal pain with nausea. Correlation is made with prior CT from 06/18/2019. The lung bases are clear. No focal liver mass is detected. Gallbladder surgically absent. There is no biliary duct dilatation. Pancreas and spleen are unremarkable. No adrenal mass is detected. No renal calculi are identified. There is no hydronephrosis. Aorta is nonaneurysmal. The bowel loops appear to be normal in caliber. There is no obstruction. No free fluid or fluid collection is seen. No inflammatory changes are identified. Bony structures are nonacute. IMPRESSION: Unremarkable noncontrast CT of the abdomen. No acute abnormality is detected. Report was called to Genevieve Robertson APRN at 3:10 p.m., by lindsay (for VLADIMIR). Dictated by: Dictated on workstation # [id number]
== END ==
LOC: RAD 13:45
PROVIDERS: ATTEND Nurse Practitioner Family
DX: R10.32 Left lower quadrant pain (principal); R10.84 Generalized abdominal pain; R10.31 Right lower quadrant pain; R11.0 Nausea
CPT/HCPCS: 74150

== ENCOUNTER 2021-09-15 05:35 | Outpatient (CLI) | payer BC ==
[~2021-09-15] VITALS: Ht 160 cm; Wt 109.4 kg
[2021-09-15] MEDS ORDERED: LORA-877 PO (10:09)
[2021-09-15] MEDS ORDERED: SEMA1PEN3 SQ (10:09)
[2021-09-15] MEDS ORDERED: FAMO40TA6 PO (10:09)
== END 2021-09-15 10:11 | disposition home or self-care (01) ==
LOC: PREOP 05:35
PROVIDERS: ATTEND Surgery
DX: Z01.818 Encounter for other preprocedural examination (principal)

== ENCOUNTER 2021-09-27 07:07 | Day surgery (SDC) | payer BC ==
[2021-09-27] VITALS (7 sets, daily range): BP systolic 100–126; BP diastolic 67–83
[~2021-09-27] VITALS: Ht 160 cm; Wt 109.4 kg
[~2021-09-27 07:07] MED LIST changes: +FAMO40TA6 PO; +LORA-877 PO; +SEMA1PEN3 SQ
[2021-09-27] MEDS ORDERED: LACTATED RINGERS 1,000 ML IV STA (07:15)
[2021-09-27] MEDS ORDERED: HURRICAINE EXT TUBE (BENZOCAINE) XX PRN (07:15)
[2021-09-27] MEDS ORDERED: MIDAZOLAM 2 MG/2 ML (VERSED) VIAL ONE (08:13)
[2021-09-27] MEDS ORDERED: PROPOFOL INJECTION 50 ML IV ONE (08:13)
--- NOTE | 2021-09-27 08:55 | Progress Note-Post Operative ---
Post-Operative Progess Note Surgeon (s)/Acid Etch Operator (s) Surgeon MAEVE JEFFREY DO Acid Etch Operator: none Pre-Operative Diagnosis Chronic Gastritis Post-Operative Diagnosis Gastritis Esophagitis ??narrowing of GE jxn Hiatal hernia Procedure & Operative Findings Date of Procedure 09/27/21 Procedure Performed/Findings EGD with bx PROCEDURE NOTE: After informed consent was obtained, the patient was brought to the endoscopy suite, placed in bed in left lateral decubitus position. She was administered IV sedation by the DIRECTOR MUSIC who then monitored vitals the entire time, heart rate, blood pressure and pulse ox and the scope was inserted down the mouth through the esophagus into the stomach. On the way down, noted some mild esophagitis and possibly some narrowing, but able to get the scope into the stomach. Took a picture of this area and then pushed into the stomach and into the duodenum. Duodenum looked good but second portion had a piece of vegetable matter I had to flush out of the way. Stomach had some flecks of blood and appeared to have some gastritis. Pulled back and did a biopsy of the antrum, then retroflexed the scope, saw a small hiatal hernia, took a picture of this and then pulled the scope into the GE junction. I took another picture of the hiatal hernia, noted what looked like inflammatory tissue and then did a biopsy of the this and the GE junction. Pushed the scope back into the stomach, suctioned all the air out of the stomach. At this point pulled the scope up the esophagus and out the mouth. The patient tolerated the procedure, and she recovered in endoscopy suite. Anesthesia Type IV sedation by DIRECTOR MUSIC Estimated Blood Loss Estimated blood loss (mL): scant Specimens/Packing Specimens Removed antral bx body of stomach bx GE jxn bx MAEVE JEFFREY DO Sep 27, 2021 08:55
--- NOTE | 2021-09-27 08:56 | Endoscopy Discharge Instruct ---
Endo Procedure/Findings Findings 1.: Gastritis 2.: Hiatal Hernia 3.: Other Findings (Esophagitis) Discharge Instructions - Activity: You might feel a little sleepy until tomorrow. This is due to the medicine you received to relax you. Until tomorrow, you should: NOT drive a car, operate machinery or power tools. NOT drink any alcoholic beverages. NOT make any important decisions or sign importortant papers. Do not return to work until tomorrow, unless otherwise instructed. Resume previous activities tomorrow. Diet: Start by taking liquids. If you tolerate liquids, advance to solid food. 1.: EGD in 1 year Notify Physician - If you experience excessive bleeding, unusual abdominal pain, fever, or chest pain, contact your doctor immediately. MAEVE JEFFREY DO Sep 27, 2021 08:56
[2021-09-27] MEDS ORDERED: RT-ALBUTEROL SULF 2.5 MG/3 ML PRE-MIX VIAL INH ONE (10:15)
--- NOTE | 2021-09-27 10:36 | Diagnostic Imaging Report ---
INDICATION: Cough Single AP view of the chest is obtained with comparison made to study of 08/12/2015. FINDINGS: Heart size and pulmonary vascularity are within normal limits, and the lungs are clear, bilaterally. There may be slight left basilar atelectasis. IMPRESSION: Slight left basilar atelectasis with otherwise unremarkable chest. Dictated by: Dictated on workstation # [id number]
--- NOTE | 2021-09-27 11:36 | Anesthesia-General Post-Op ---
MAC Patient Condition Mental Status/LOC: Same as Preop Cardiovascular: Satisfactory Nausea/Vomiting: Absent Respiratory: Satisfactory Pain: Controlled Complications: Absent Post Op Complications Complications None Follow Up Care/Instructions Patient Instructions None needed. Anesthesiology Discharge Order Discharge Order Patient is doing well, no complaints, stable vital signs, no apparent adverse anesthesia problems. No complications reported per nursing. PREETI HEREDIA CRNA Sep 27, 2021 11:35
== END 2021-09-27 12:30 | disposition home or self-care (01) ==
LOC: ENDO 07:07
PROVIDERS: ATTEND Surgery
DX: K21.00 Gastro-esophageal reflux disease with esophagitis, without bleeding (principal); K29.50 Unspecified chronic gastritis without bleeding; K44.9 Diaphragmatic hernia without obstruction or gangrene; E66.01 Morbid (severe) obesity due to excess calories; Z68.42 Body mass index [BMI] 45.0-49.9, adult; K31.9 Disease of stomach and duodenum, unspecified
CPT/HCPCS: 71045; 88305; 94640; 94664